=== PATIENT | female | born 1975 | race Caucasian/White ===

== ENCOUNTER 2021-04-29 17:18 | Emergency (ER) | payer BC ==
--- OUTSIDE RECORDS SUMMARY | 2021-04-29 17:29 | XMS REPORT | Continuity of Care Document ---
:1975 Author Organization [facility] t Address [address] [place] [address] [address] [place] [address] Care Team Providers Name Role Phone VAZQUEZ HICKMAN Primary Care Physician Unavailable GC_TRAVONC_Nenita_Rogerio Attending Clinician Unavailable Jeffry Gutierres Attending Clinician [phone] MARIE Attending Clinician Unavailable LENNOX WATSON Attending Clinician Unavailable CATALINO Attending Clinician Unavailable Nurse, Pob Immunization Attending Clinician Unavailable Lennox Watson DO Attending Clinician Alisa Senior MD Attending Clinician Alisa SENIOR Attending Clinician Unavailable ANTUNEZ, CAM Attending Clinician Unavailable Santana LYNN, Brendan Attending Clinician Unavailable Alisa Waters MD Attending Clinician Oliver Alanis PTA Attending Clinician Unavailable Alisa WATERS Attending Clinician Unavailable Doctor Unassigned, Name Attending Clinician Unavailable Zeke GUERRA, F Attending Clinician Unavailable Camron Bobo PT Attending Clinician Unavailable Radiology Attending Clinician Unavailable RADIOLOGY Attending Clinician Unavailable Lab, Fam Pob I Attending Clinician Unavailable Jonnathan GUPTA Attending Clinician Gonsalo GUPTA Attending Clinician JONNATHAN Attending Clinician Unavailable Eleuterio ROMO Attending Clinician ELEUTERIO Attending Clinician Unavailable MD Savita SALAZAR Attending Clinician Unavailable CRISTOBAL Attending Clinician Unavailable Heather Lawrence Attending Clinician Heather LEIVA Attending Clinician Unavailable Tariq GUPTA Attending Clinician Provider, Urgent Care Attending Clinician Unavailable TARIQ Attending Clinician Unavailable Brendan HAMILTON Attending Clinician Unavailable Cristobal PATEL Attending Clinician WALTER Attending Clinician Unavailable Felicita HULL, A Attending Clinician Unavailable Pedro GUPTA Attending Clinician Sarah HULL Attending Clinician Unavailable Sydnee GUPTA, B Attending Clinician Jarvis BEARD Attending Clinician Unavailable Pasha PT G Attending Clinician Unavailable Pob, Lab Main Attending Clinician Unavailable Brendan SOLIS Attending Clinician Unavailable COTY Attending Clinician Unavailable PATRICIA_CARLOS_Nenita_Rogerio Admitting Clinician Unavailable MARIE Admitting Clinician Unavailable MD Savita SALAZAR Admitting Clinician Unavailable Jarvis BEARD Admitting Clinician Unavailable Brendan SOLIS Admitting Clinician Unavailable JONNATHAN Admitting Clinician Unavailable Payers Payer Name Policy Type Policy Number Effective Date Expiration Date S ource [id number] 2014 EMPLOYEE PLAN 00:00:00 [id number] 2017 00:00:00 [place] [id number] 2017 [place] (PPO) 00:00:00 Problems Condition Condition Condition Status Onset Resolution Last Treating Co mments Source Name Details Category Date Date Treatment Clinician Date Midline Midline Disease Active 2020-0 Univers low back low back 2-06 ity of pain with pain with 00:00: [place] left-sided left-sided 00 Me dical sciatica, sciatica, Bran ch unspecifie unspecifie d d chronicity chronicity 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 2-06 ity of knee, knee, 00:00: [place] right right 00 Medical Branch 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[facility] depressive depressive 2-06 [place] of disorder, disorder, [place] recurrent [place] Med[place] raj episode, episode, Branch mild mild Panic Panic Disease Active 2020-0 [facility] attack attack 2-06 ity of 00:00: [place] 00 Medical Branch 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 2020-0 Univers complex complex 2-06 ity of tear of tear of 00:00: [place] medial medial 00 Medical meniscus meniscus Branch of right of right knee knee Plantar Plantar Disease Active Univers fasciitis, fasciitis, 2-06 it y of right right 00:00: [place] [facility] Left hip Left hip Disease Active Unive rs pain pain 2-06 ity of 00:00: [place] [facility] Screening Screening Disease Active Uni vers for for 2-06 ity of diabetes diabetes 00:00: [place] mellitus mellitus 00 Medica l Branch Tobacco Tobacco Disease Active Univers dependence dependence 2-06 it y of 00:00: [place] [facility] Elevated Elevated Disease Active Unive rs BP without BP without 2-06 it y of diagnosis diagnosis 00:00: [place] [facility] of of Medical hypertensi hypertensi Br anch on on Obesity Obesity Disease Active Univers (BMI (BMI 7-02 ity of 30-39.9) 30-39.9) 00:00: [place] [facility] Right foot Right foot Disease Active U nivers pain pain 4-07 ity of 00:00: Medical Branch Right knee Right knee Disease Active 2014-05 U nivers pain pain 0-12 ity of 00:00: [place] [facility] Allergies, Adverse Reactions, Alerts Allergy Allergy Status Severity Reaction(s) Onset Inactive Treating Comm ents Source Name Type Date Date Clinician Betameth Propensi Active Itching Unive rs asone ty to 7 ity of Acet,Sod adverse 00:00: [place] Phos reaction 00 Medical s Branch Sulfa Propensi Active Itching Univers (Sulfona ty to 7 ity of mide adverse 00:00: [place] Antibiot reaction 00 Medica l ics) s Branch BETAMETH DRUG Active Med ITCHING Univers ASONE 731 ity of ACET,SOD 00:00: [place] PHOS 00 Medical Branch SULFA Drug Active Med ITCHING Univers (SULFONA Class 7- ity of MIDE 00:00: [place] ANTIBIOT 00 Medical ICS) Branch Social History Social Habit Start Date Stop Date Quantity Comments Source History of Cigarette Smoker Universi ty of tobacco use [place] [facility] Exposure to Not sure [place] of SARS-CoV-2 [place] [facility] (event) Branch Alcohol intake 2020-05-25 2020-05-25 0 /d University of 00:00:00 00:00:00 [facility] Tobacco use and 2015-02-21 2015-02-21 Never used Universit y of exposure 00:00:00 00:00:00 [facility] Sex [birth year] At [birth year] Universit y of 00:00:00 00:00:00 [facility] Smoking Status Start Date Stop Date Source Current every day smoker 2015-02-21 00:00:00 Uni versity of [facility] Medications Ordered Filled Start Stop Current Ordering Indication Dosage Frequency Signature Comments Components Source Medication Medication Date Date Medication? Clinician (SIG) Name Name benzonatate 2020- No [id number] 100mg Take 1 Univers (TESSALON 105 -20 capsule by ity of [employer]) 100 00:00: 05:59 mouth 3 [place] mg capsule 00 :00 (three) Medica l times Branch daily for 14 days. benzonatate 2020- No [id number] 100mg Take 1 Univers (TESSALON 1-20 capsule by ity of [employer]) 100 00:00: 05:59 mouth 3 [place] mg capsule 00 :00 (three) Medica l times Branch daily for 14 days. benzonatate 2020- No [id number] 100mg Take 1 Univers (TESSALON 1-05 -20 capsule by ity of [employer]) 100 00:00: 05:59 mouth 3 [place] mg capsule 00 :00 (three) Medica l times Branch daily for 14 days. benzonatate 2020- No [id number] 100mg Take 1 Univers (TESSALON 105 -20 capsule by ity of [employer]) 100 00:00: 05:59 mouth 3 [place] mg capsule 00 :00 (three) Medica l times Branch daily for 14 days. benzonatate 2020- No [id number] 100mg Take 1 Univers (TESSALON 1-05 -20 capsule by ity of [employer]) 100 00:00: 05:59 mouth 3 [place] mg capsule 00 :00 (three) Medica l times Branch daily for 14 days. azithromyci 2019-1 Yes [id number] 250mg Take 1 Univers n 250 mg 2-28 tablet by ity of tablet 00:00: mouth [place] 00 daily. Medical Take 500 Branch mg day 1, then 250 mg days 2 to 5. azithromyci 2019- Yes [id number] 250mg Take 1 Univers n 250 mg 2-28 tablet by ity of tablet 00:00: mouth [place] 00 daily. Medical Take 500 Branch mg day 1, then 250 mg days 2 to 5. azithromyci 2019- Yes [id number] 250mg Take 1 Univers n 250 mg 2-28 tablet by ity of tablet 00:00: mouth [place] 00 daily. Medical Take 500 Branch mg day 1, then 250 mg days 2 to 5. azithromyci 2019-05 Yes [id number] 250mg Take 1 Univers n 250 mg 2-28 tablet by ity of tablet 00:00: mouth [place] 00 daily. Medical Take 500 Branch mg day 1, then 250 mg days 2 to 5. azithromyci 2019-05 Yes [id number] 250mg Take 1 Univers n 250 mg 2-28 tablet by ity of tablet 00:00: mouth [place] 00 daily. Medical Take 500 Branch mg day 1, then 250 mg days 2 to 5. azithromyci 2019-05 Yes [id number] 250mg Take 1 Univers n 250 mg 2-28 tablet by ity of tablet 00:00: mouth [place] 00 daily. Medical Take 500 Branch mg day 1, then 250 mg days 2 to 5. azithromyci 2019-05 Yes [id number] 250mg Take 1 Univers n 250 mg 2-28 tablet by ity of tablet 00:00: mouth [place] 00 daily. Medical Take 500 Branch mg day 1, then 250 mg days 2 to 5. azithromyci 2019-05 Yes [id number] 250mg Take 1 Univers n 250 mg 2-28 tablet by ity of tablet 00:00: mouth [place] 00 daily. Medical Take 500 Branch mg day 1, then 250 mg days 2 to 5. azithromyci 2019-05 Yes [id number] 250mg Take 1 Univers n 250 mg 2-28 tablet by ity of tablet 00:00: mouth [place] 00 daily. Medical Take 500 Branch mg day 1, then 250 mg days 2 to 5. azithromyci 2019-05 Yes [id number] 250mg Take 1 Univers n 250 mg 2-28 tablet by ity of tablet 00:00: mouth [place] 00 daily. Medical Take 500 Branch mg day 1, then 250 mg days 2 to 5. azithromyci 2020- Yes [id number] 250mg Take 1 Univers n 250 mg 2-28 tablet by ity of tablet 00:00: mouth [place] 00 daily. Medical Take 500 Branch mg day 1, then 250 mg days 2 to 5. azithromyci 2020- Yes [id number] 250mg Take 1 Univers n 250 mg 2-28 tablet by ity of tablet 00:00: mouth [place] 00 daily. Medical Take 500 Branch mg day 1, then 250 mg days 2 to 5. azithromyci 2020- Yes [id number] 250mg Take 1 Univers n 250 mg 2-28 tablet by ity of tablet 00:00: mouth [place] 00 daily. Medical Take 500 Branch mg day 1, then 250 mg days 2 to 5. azithromyci 2019- Yes [id number] 250mg Take 1 Univers n 250 mg 2-28 tablet by ity of tablet 00:00: mouth [place] 00 daily. Medical Take 500 Branch mg day 1, then 250 mg days 2 to 5. azithromyci 2019- Yes [id number] 250mg Take 1 Univers n 250 mg 2-28 tablet by ity of tablet 00:00: mouth [place] 00 daily. Medical Take 500 Branch mg day 1, then 250 mg days 2 to 5. azithromyci 2019- Yes [id number] 250mg Take 1 Univers n 250 mg 2-28 tablet by ity of tablet 00:00: mouth [place] 00 daily. Medical Take 500 Branch mg day 1, then 250 mg days 2 to 5. azithromyci 2019- Yes [id number] 250mg Take 1 Univers n 250 mg 2-28 tablet by ity of tablet 00:00: mouth [place] 00 daily. Medical Take 500 Branch mg day 1, then 250 mg days 2 to 5. azithromyci 2019- Yes [id number] 250mg Take 1 Univers n 250 mg 2-28 tablet by ity of tablet 00:00: mouth [place] 00 daily. Medical Take 500 Branch mg day 1, then 250 mg days 2 to 5. azithromyci 2019- Yes [id number] 250mg Take 1 Univers n 250 mg 2-28 tablet by ity of tablet 00:00: mouth [place] 00 daily. Medical Take 500 Branch mg day 1, then 250 mg days 2 to 5. azithromyci 2020- Yes [id number] 250mg Take 1 Univers n 250 mg 2-28 tablet by ity of tablet 00:00: mouth [place] 00 daily. Medical Take 500 Branch mg day 1, then 250 mg days 2 to 5. azithromyci 2020- Yes [id number] 250mg Take 1 Univers n 250 mg 2-28 tablet by ity of tablet 00:00: mouth [place] 00 daily. Medical Take 500 Branch mg day 1, then 250 mg days 2 to 5. azithromyci 2019- Yes [id number] 250mg Take 1 Univers n 250 mg 2-28 tablet by ity of tablet 00:00: mouth [place] 00 daily. Medical Take 500 Branch mg day 1, then 250 mg days 2 to 5. azithromyci 2019- Yes [id number] 250mg Take 1 Univers n 250 mg 2-28 tablet by ity of tablet 00:00: mouth [place] 00 daily. Medical Take 500 Branch mg day 1, then 250 mg days 2 to 5. azithromyci 2019- Yes [id number] 250mg Take 1 Univers n 250 mg 2-28 tablet by ity of tablet 00:00: mouth [place] 00 daily. Medical Take 500 Branch mg day 1, then 250 mg days 2 to 5. azithromyci 2019- Yes [id number] 250mg Take 1 Univers n 250 mg 2-28 tablet by ity of tablet 00:00: mouth [place] 00 daily. Medical Take 500 Branch mg day 1, then 250 mg days 2 to 5. azithromyci 2019- Yes [id number] 250mg Take 1 Univers n 250 mg 2-28 tablet by ity of tablet 00:00: mouth [place] 00 daily. Medical Take 500 Branch mg day 1, then 250 mg days 2 to 5. azithromyci 2019- Yes [id number] 250mg Take 1 Univers n 250 mg 2-28 tablet by ity of tablet 00:00: mouth [place] 00 daily. Medical Take 500 Branch mg day 1, then 250 mg days 2 to 5. azithromyci 2019- Yes [id number] 250mg Take 1 Univers n 250 mg 2-28 tablet by ity of tablet 00:00: mouth [place] 00 daily. Medical Take 500 Branch mg day 1, then 250 mg days 2 to 5. azithromyci 2019-05 Yes [id number] 250mg Take 1 Univers n 250 mg 2-28 tablet by ity of tablet 00:00: mouth [place] 00 daily. Medical Take 500 Branch mg day 1, then 250 mg days 2 to 5. azithromyci 2019-05 Yes [id number] 250mg Take 1 Univers n 250 mg 2-28 tablet by ity of tablet 00:00: mouth [place] 00 daily. Medical Take 500 Branch mg day 1, then 250 mg days 2 to 5. promethazin 2019-05 No [id number] 10mL Take 10 mL Univers e-codeine 07-10 by mouth ity o f 6.25-10 00:00: 05:59 every 8 [place] mg/5 mL 00 :00 (eight) Medical syrup hours as Branch needed for Cough or Cold symptoms for up to 7 days. Indication s: acute pain promethazin 2019-05 [id number] 10mL Take 10 mL Univers e-codeine 07-10 by mouth ity o f 6.25-10 00:00: 05:59 every 8 [place] mg/5 mL 00 :00 (eight) Medical syrup hours as Branch needed for Cough or Cold symptoms for up to 7 days. Indication s: acute pain ondansetron 2019-05 Yes [id number] 8mg Take 1 Univers (ZOFRAN 2-13 tablet by ity of ODT) 8 mg 00:00: mouth [place] disintegrat 00 every 8 Medic al ing tablet (eight) Branch hours as needed for Nausea and Vomiting (N/V). ondansetron 2019-05 Yes [id number] 8mg Take 1 Univers (ZOFRAN 2-13 tablet by ity of ODT) 8 mg 00:00: mouth [place] disintegrat 00 every 8 Medic al ing tablet (eight) Branch hours as needed for Nausea and Vomiting (N/V). ondansetron 2019-05 Yes [id number] 8mg Take 1 Univers (ZOFRAN 2-13 tablet by ity of ODT) 8 mg 00:00: mouth [place] disintegrat 00 every 8 Medic al ing tablet (eight) Branch hours as needed for Nausea and Vomiting (N/V). ondansetron 2019-05 Yes [id number] 8mg Take 1 Univers (ZOFRAN 2-13 tablet by ity of ODT) 8 mg 00:00: mouth [place] disintegrat 00 every 8 Medic al ing tablet (eight) Branch hours as needed for Nausea and Vomiting (N/V). ondansetron 2020-1 Yes [id number] 8mg Take 1 Univers (ZOFRAN 2-13 tablet by ity of ODT) 8 mg 00:00: mouth [place] disintegrat 00 every 8 Medic al ing tablet (eight) Branch hours as needed for Nausea and Vomiting (N/V). ondansetron 2020-1 Yes [id number] 8mg Take 1 Univers (ZOFRAN 2-13 tablet by ity of ODT) 8 mg 00:00: mouth [place] disintegrat 00 every 8 Medic al ing tablet (eight) Branch hours as needed for Nausea and Vomiting (N/V). ondansetron 2020-1 Yes [id number] 8mg Take 1 Univers (ZOFRAN 2-13 tablet by ity of ODT) 8 mg 00:00: mouth [place] disintegrat 00 every 8 Medic al ing tablet (eight) Branch hours as needed for Nausea and Vomiting (N/V). ondansetron 2020-1 Yes [id number] 8mg Take 1 Univers (ZOFRAN 2-13 tablet by ity of ODT) 8 mg 00:00: mouth [place] disintegrat 00 every 8 Medic al ing tablet (eight) Branch hours as needed for Nausea and Vomiting (N/V). ondansetron 2020-1 Yes [id number] 8mg Take 1 Univers (ZOFRAN 2-13 tablet by ity of ODT) 8 mg 00:00: mouth [place] disintegrat 00 every 8 Medic al ing tablet (eight) Branch hours as needed for Nausea and Vomiting (N/V). ondansetron 2020-1 Yes [id number] 8mg Take 1 Univers (ZOFRAN 2-13 tablet by ity of ODT) 8 mg 00:00: mouth [place] disintegrat 00 every 8 Medic al ing tablet (eight) Branch hours as needed for Nausea and Vomiting (N/V). ondansetron 2020-1 Yes [id number] 8mg Take 1 Univers (ZOFRAN 2-13 tablet by ity of ODT) 8 mg 00:00: mouth [place] disintegrat 00 every 8 Medic al ing tablet (eight) Branch hours as needed for Nausea and Vomiting (N/V). ondansetron 2020-1 Yes [id number] 8mg Take 1 Univers (ZOFRAN 2-13 tablet by ity of ODT) 8 mg 00:00: mouth [place] disintegrat 00 every 8 Medic al ing tablet (eight) Branch hours as needed for Nausea and Vomiting (N/V). ondansetron 2020- Yes [id number] 8mg Take 1 Univers (ZOFRAN 2-13 tablet by ity of ODT) 8 mg 00:00: mouth [place] disintegrat 00 every 8 Medic al ing tablet (eight) Branch hours as needed for Nausea and Vomiting (N/V). ondansetron 2020- Yes [id number] 8mg Take 1 Univers (ZOFRAN 2-13 tablet by ity of ODT) 8 mg 00:00: mouth [place] disintegrat 00 every 8 Medic al ing tablet (eight) Branch hours as needed for Nausea and Vomiting (N/V). ondansetron 2020- Yes [id number] 8mg Take 1 Univers (ZOFRAN 2-13 tablet by ity of ODT) 8 mg 00:00: mouth [place] disintegrat 00 every 8 Medic al ing tablet (eight) Branch hours as needed for Nausea and Vomiting (N/V). ondansetron 2020- Yes [id number] 8mg Take 1 Univers (ZOFRAN 2-13 tablet by ity of ODT) 8 mg 00:00: mouth [place] disintegrat 00 every 8 Medic al ing tablet (eight) Branch hours as needed for Nausea and Vomiting (N/V). ondansetron 2020- Yes [id number] 8mg Take 1 Univers (ZOFRAN 2-13 tablet by ity of ODT) 8 mg 00:00: mouth [place] disintegrat 00 every 8 Medic al ing tablet (eight) Branch hours as needed for Nausea and Vomiting (N/V). ondansetron 2020- Yes [id number] 8mg Take 1 Univers (ZOFRAN 2-13 tablet by ity of ODT) 8 mg 00:00: mouth [place] disintegrat 00 every 8 Medic al ing tablet (eight) Branch hours as needed for Nausea and Vomiting (N/V). ondansetron 2020- Yes [id number] 8mg Take 1 Univers (ZOFRAN 2-13 tablet by ity of ODT) 8 mg 00:00: mouth [place] disintegrat 00 every 8 Medic al ing tablet (eight) Branch hours as needed for Nausea and Vomiting (N/V). ondansetron 2020-1 Yes [id number] 8mg Take 1 Univers (ZOFRAN 2-13 tablet by ity of ODT) 8 mg 00:00: mouth [place] disintegrat 00 every 8 Medic al ing tablet (eight) Branch hours as needed for Nausea and Vomiting (N/V). ondansetron 2020-1 Yes [id number] 8mg Take 1 Univers (ZOFRAN 2-13 tablet by ity of ODT) 8 mg 00:00: mouth [place] disintegrat 00 every 8 Medic al ing tablet (eight) Branch hours as needed for Nausea and Vomiting (N/V). ondansetron 2020-1 Yes [id number] 8mg Take 1 Univers (ZOFRAN 2-13 tablet by ity of ODT) 8 mg 00:00: mouth [place] disintegrat 00 every 8 Medic al ing tablet (eight) Branch hours as needed for Nausea and Vomiting (N/V). ondansetron 2020-1 Yes [id number] 8mg Take 1 Univers (ZOFRAN 2-13 tablet by ity of ODT) 8 mg 00:00: mouth [place] disintegrat 00 every 8 Medic al ing tablet (eight) Branch hours as needed for Nausea and Vomiting (N/V). ondansetron 2020-1 Yes [id number] 8mg Take 1 Univers (ZOFRAN 2-13 tablet by ity of ODT) 8 mg 00:00: mouth [place] disintegrat 00 every 8 Medic al ing tablet (eight) Branch hours as needed for Nausea and Vomiting (N/V). ondansetron 2020-1 Yes [id number] 8mg Take 1 Univers (ZOFRAN 2-13 tablet by ity of ODT) 8 mg 00:00: mouth [place] disintegrat 00 every 8 Medic al ing tablet (eight) Branch hours as needed for Nausea and Vomiting (N/V). ondansetron 2020-1 Yes [id number] 8mg Take 1 Univers (ZOFRAN 2-13 tablet by ity of ODT) 8 mg 00:00: mouth [place] disintegrat 00 every 8 Medic al ing tablet (eight) Branch hours as needed for Nausea and Vomiting (N/V). ondansetron 2020-1 Yes [id number] 8mg Take 1 Univers (ZOFRAN 2-13 tablet by ity of ODT) 8 mg 00:00: mouth [place] disintegrat 00 every 8 Medic al ing tablet (eight) Branch hours as needed for Nausea and Vomiting (N/V). ondansetron 2020-1 Yes [id number] 8mg Take 1 Univers (ZOFRAN 2-13 tablet by ity of ODT) 8 mg 00:00: mouth [place] disintegrat 00 every 8 Medic al ing tablet (eight) Branch hours as needed for Nausea and Vomiting (N/V). ondansetron 2020- Yes [id number] 8mg Take 1 Univers (ZOFRAN 2-13 tablet by ity of ODT) 8 mg 00:00: mouth [place] disintegrat 00 every 8 Medic al ing tablet (eight) Branch hours as needed for Nausea and Vomiting (N/V). ondansetron 2019- Yes [id number] 8mg Take 1 Univers (ZOFRAN 2-13 tablet by ity of ODT) 8 mg 00:00: mouth [place] disintegrat 00 every 8 Medic al ing tablet (eight) Branch hours as needed for Nausea and Vomiting (N/V). ondansetron 2019- Yes [id number] 8mg Take 1 Univers (ZOFRAN 2-13 tablet by ity of ODT) 8 mg 00:00: mouth [place] disintegrat 00 every 8 Medic al ing tablet (eight) Branch hours as needed for Nausea and Vomiting (N/V). acetaminoph 2019-05 2020- No [id number] 1{tbl} Take 1 U nivers en-codeine 2-13 12-21 tablet by ity of (TYLENOL-CO 00:00: 05:59 [place] DEINE #3) 00 :00 every 6 Medical 300-30 mg (six) Branch tablet hours as needed for Pain (scale 4-6) for up to 7 days. Indication s: acute pain ondansetron 2019- No 4mg 4 mg, Slow Univers (ZOFRAN 8-28 12- IV Push, ity of (PF)) 00:15: 23:14 ONCE, 1 [place] injection 4 00 :00 dose, Mon Med ical mg 12/28/19 at Branch 191, PAZ ketorolac 2019- No 30mg 30 mg, Unive rs (TORADOL) 12-28 Slow IV ity of injection 00:15: 23:14 Push, [place] 30 mg 00 :00 ONCE, 1 Medical dose, Mon Branch 12/28/19 at 1915, PAZ
[facility] member approving Restricted medication : TARIK PRAJAPATI iohexol 2019-0 2020- No 100mL 100 mL, Unive rs (OMNIPAQUE 12-28 Intravenou it y of 350 00:00: 23:54 s, ONCE, 1 [place] BULK-100 00 :00 dose, Mon Medica l mL) 12/28/19 at Branch injection 1900, 100 mL Routine dicyclomine 2020-0 Yes [id number] 20mg Take 1 Univers 20 mg 8-17 tablet by ity of tablet 00:00: mouth [place] 00 every 6 Medical (six) Branch hours as needed for Abdominal pain. ibuprofen 2020-0 Yes [id number] 800mg Take 1 Univers 800 mg 8-17 [id number] tablet by ity of tablet 00:00: mouth [place] 00 every 6 Medical (six) Branch hours as needed for Pain (scale 1-3) or Pain (scale 4-6). dicyclomine 2020-0 Yes [id number] 20mg Take 1 Univers 20 mg 8-17 tablet by ity of tablet 00:00: mouth [place] 00 every 6 Medical (six) Branch hours as needed for Abdominal pain. ibuprofen 2020-0 Yes [id number] 800mg Take 1 Univers 800 mg 8-17 [id number] tablet by ity of tablet 00:00: mouth [place] 00 every 6 Medical (six) Branch hours as needed for Pain (scale 1-3) or Pain (scale 4-6). dicyclomine 2020-0 Yes [id number] 20mg Take 1 Univers 20 mg 8-17 tablet by ity of tablet 00:00: mouth [place] 00 every 6 Medical (six) Branch hours as needed for Abdominal pain. ibuprofen 2020-0 Yes [id number] 800mg Take 1 Univers 800 mg 8-17 [id number] tablet by ity of tablet 00:00: mouth [place] 00 every 6 Medical (six) Branch hours as needed for Pain (scale 1-3) or Pain (scale 4-6). dicyclomine 2020-0 Yes [id number] 20mg Take 1 Univers 20 mg 8-17 tablet by ity of tablet 00:00: mouth [place] 00 every 6 Medical (six) Branch hours as needed for Abdominal pain. ibuprofen 2020-0 Yes [id number] 800mg Take 1 Univers 800 mg 8-17 [id number] tablet by ity of tablet 00:00: mouth [place] 00 every 6 Medical (six) Branch hours as needed for Pain (scale 1-3) or Pain (scale 4-6). dicyclomine 2020-0 Yes [id number] 20mg Take 1 Univers 20 mg 8-17 tablet by ity of tablet 00:00: mouth [place] 00 every 6 Medical (six) Branch hours as needed for Abdominal pain. ibuprofen 2020-0 Yes [id number] 800mg Take 1 [facility] 800 mg 8-17 [id number] tablet by ity of tablet 00:00: mouth [place] 00 every 6 Medical (six) Branch hours as needed for Pain (scale 1-3) or Pain (scale 4-6). dicyclomine 2020-0 Yes [id number] 20mg Take 1 Univers 20 mg 8-17 tablet by ity of tablet 00:00: mouth [place] 00 every 6 Medical (six) Branch hours as needed for Abdominal pain. dicyclomine 2020-0 Yes [id number] 20mg Take 1 Univers 20 mg 8-17 tablet by ity of tablet 00:00: mouth [place] 00 every 6 Medical (six) Branch hours as needed for Abdominal pain. dicyclomine 2020-0 Yes [id number] 20mg Take 1 Univers 20 mg 8-17 tablet by ity of tablet 00:00: mouth [place] 00 every 6 Medical (six) Branch hours as needed for Abdominal pain. ibuprofen 2020-0 Yes [id number] 800mg Take 1 [facility] 800 mg 8-17 [id number] tablet by ity of tablet 00:00: mouth [place] 00 every 6 Medical (six) Branch hours as needed for Pain (scale 1-3) or Pain (scale 4-6). dicyclomine 2020-0 Yes [id number] 20mg Take 1 [facility] 20 mg 8-17 tablet by ity of tablet 00:00: mouth [place] 00 every 6 Medical (six) Branch hours as needed for Abdominal pain. ibuprofen 2020-0 Yes [id number] 800mg Take 1 Univers 800 mg 8-17 [id number] tablet by ity of tablet 00:00: mouth [place] 00 every 6 Medical (six) Branch hours as needed for Pain (scale 1-3) or Pain (scale 4-6). dicyclomine 2020-0 Yes [id number] 20mg Take 1 Univers 20 mg 8-17 tablet by ity of tablet 00:00: mouth [place] 00 every 6 Medical (six) Branch hours as needed for Abdominal pain. dicyclomine 2020-0 Yes [id number] 20mg Take 1 Univers 20 mg 8-17 tablet by [facility] of tablet 00:00: mouth [place] 00 every 6 Medical (six) Branch hours as needed for Abdominal pain. dicyclomine 2020-0 Yes [id number] 20mg Take 1 [facility] 20 mg 8-17 tablet by [facility] of tablet 00:00: mouth [place] 00 every 6 Medical (six) Branch hours as needed for Abdominal pain. ibuprofen 2020-0 Yes [id number] 800mg Take 1 [facility] 800 mg 8-17 [id number] tablet by [facility] of tablet 00:00: mouth [place] 00 every 6 Medical (six) Branch hours as needed for Pain (scale 1-3) or Pain (scale 4-6). dicyclomine 2020-0 Yes [id number] 20mg Take 1 [facility] 20 mg 8-17 tablet by [facility] of tablet 00:00: mouth [place] 00 every 6 Medical (six) Branch hours as needed for Abdominal pain. ibuprofen 2020-0 Yes [id number] 800mg Take 1 [facility] 800 mg 8-17 [id number] tablet by [facility] of tablet 00:00: mouth [place] 00 every 6 Medical (six) Branch hours as needed for Pain (scale 1-3) or Pain (scale 4-6). dicyclomine 2020-0 Yes [id number] 20mg Take 1 [facility] 20 mg 8-17 tablet by [facility] of tablet 00:00: mouth [place] 00 every 6 Medical (six) Branch hours as needed for Abdominal pain. ibuprofen 2020-0 Yes [id number] 800mg Take 1 [facility] 800 mg 8-17 [id number] tablet by [facility] of tablet 00:00: mouth [place] 00 every 6 Medical (six) Branch hours as needed for Pain (scale 1-3) or Pain (scale 4-6). dicyclomine 2020-0 Yes [id number] 20mg Take 1 [facility] 20 mg 8-17 tablet by [facility] of tablet 00:00: mouth [place] 00 every 6 Medical (six) Branch hours as needed for Abdominal pain. ibuprofen 2020-0 Yes [id number] 800mg Take 1 [facility] 800 mg 8-17 [id number] tablet by [facility] of tablet 00:00: mouth [place] 00 every 6 Medical (six) Branch hours as needed for Pain (scale 1-3) or Pain (scale 4-6). dicyclomine 2020-0 Yes [id number] 20mg Take 1 [facility] 20 mg 8-17 tablet by [facility] of tablet 00:00: mouth [place] 00 every 6 Medical (six) Branch hours as needed for Abdominal pain. ibuprofen 2020-0 Yes [id number] 800mg Take 1 [facility] 800 mg 8-17 [id number] tablet by [facility] of tablet 00:00: mouth [place] 00 every 6 Medical (six) Branch hours as needed for Pain (scale 1-3) or Pain (scale 4-6). dicyclomine 2020-0 Yes [id number] 20mg Take 1 [facility] 20 mg 8-17 tablet by [facility] of tablet 00:00: mouth [place] 00 every 6 Medical (six) Branch hours as needed for Abdominal pain. ibuprofen 2020-0 Yes [id number] 800mg Take 1 [facility] 800 mg 8-17 [id number] tablet by [facility] of tablet 00:00: mouth [place] 00 every 6 Medical (six) Branch hours as needed for Pain (scale 1-3) or Pain (scale 4-6). dicyclomine 2020-0 Yes [id number] 20mg Take 1 [facility] 20 mg 8-17 tablet by [facility] of tablet 00:00: mouth [place] 00 every 6 Medical (six) Branch hours as needed for Abdominal pain. ibuprofen 2020-0 Yes [id number] 800mg Take 1 [facility] 800 mg 8-17 [id number] tablet by [facility] of tablet 00:00: mouth [place] 00 every 6 Medical (six) Branch hours as needed for Pain (scale 1-3) or Pain (scale 4-6). dicyclomine 2020-0 Yes [id number] 20mg Take 1 [facility] 20 mg 8-17 tablet by [facility] of tablet 00:00: mouth [place] 00 every 6 Medical (six) Branch hours as needed for Abdominal pain. ibuprofen 2020-0 Yes [id number] 800mg Take 1 [facility] 800 mg 8-17 [id number] tablet by [facility] of tablet 00:00: mouth [place] 00 every 6 Medical (six) Branch hours as needed for Pain (scale 1-3) or Pain (scale 4-6). dicyclomine 2020-0 Yes [id number] 20mg Take 1 [facility] 20 mg 8-17 tablet by [facility] of tablet 00:00: mouth [place] 00 every 6 Medical (six) Branch hours as needed for Abdominal pain. ibuprofen 2020-0 Yes [id number] 800mg Take 1 [facility] 800 mg 8-17 [id number] tablet by [facility] of tablet 00:00: mouth [place] 00 every 6 Medical (six) Branch hours as needed for Pain (scale 1-3) or Pain (scale 4-6). dicyclomine 2020-0 Yes [id number] 20mg Take 1 [facility] 20 mg 8-17 tablet by [facility] of tablet 00:00: mouth [place] 00 every 6 Medical (six) Branch hours as needed for Abdominal pain. ibuprofen 2020-0 Yes [id number] 800mg Take 1 [facility] 800 mg 8-17 [id number] tablet by [facility] of tablet 00:00: mouth [place] 00 every 6 Medical (six) Branch hours as needed for Pain (scale 1-3) or Pain (scale 4-6). dicyclomine 2020-0 Yes [id number] 20mg Take 1 [facility] 20 mg 8-17 tablet by [facility] of tablet 00:00: mouth [place] 00 every 6 Medical (six) Branch hours as needed for Abdominal pain. ibuprofen 2020-0 Yes [id number] 800mg Take 1 [facility] 800 mg 8-17 [id number] tablet by [facility] of tablet 00:00: mouth [place] 00 every 6 Medical (six) Branch hours as needed for Pain (scale 1-3) or Pain (scale 4-6). dicyclomine 2020-0 Yes [id number] 20mg Take 1 [facility] 20 mg 8-17 tablet by [facility] of tablet 00:00: mouth [place] 00 every 6 Medical (six) Branch hours as needed for Abdominal pain. ibuprofen 2020-0 Yes [id number] 800mg Take 1 [facility] 800 mg 8-17 [id number] tablet by [facility] of tablet 00:00: mouth [place] 00 every 6 Medical (six) Branch hours as needed for Pain (scale 1-3) or Pain (scale 4-6). dicyclomine 2020-0 Yes [id number] 20mg Take 1 [facility] 20 mg 8-17 tablet by [facility] of tablet 00:00: mouth [place] 00 every 6 Medical (six) Branch hours as needed for Abdominal pain. ibuprofen 2020-0 Yes [id number] 800mg Take 1 [facility] 800 mg 8-17 [id number] tablet by [facility] of tablet 00:00: mouth [place] 00 every 6 Medical (six) Branch hours as needed for Pain (scale 1-3) or Pain (scale 4-6). dicyclomine 2020-0 Yes [id number] 20mg Take 1 [facility] 20 mg 8-17 tablet by [facility] of tablet 00:00: mouth [place] 00 every 6 Medical (six) Branch hours as needed for Abdominal pain. ibuprofen 2020-0 Yes [id number] 800mg Take 1 [facility] 800 mg 8-17 [id number] tablet by [facility] of tablet 00:00: mouth [place] 00 every 6 Medical (six) Branch hours as needed for Pain (scale 1-3) or Pain (scale 4-6). dicyclomine 2020-0 Yes [id number] 20mg Take 1 [facility] 20 mg 8-17 tablet by [facility] of tablet 00:00: mouth [place] 00 every 6 Medical (six) Branch hours as needed for Abdominal pain. ibuprofen 2020-0 Yes [id number] 800mg Take 1 [facility] 800 mg 8-17 [id number] tablet by [facility] of tablet 00:00: mouth [place] 00 every 6 Medical (six) Branch hours as needed for Pain (scale 1-3) or Pain (scale 4-6). dicyclomine 2020-0 Yes [id number] 20mg Take 1 [facility] 20 mg 8-17 tablet by [facility] of tablet 00:00: mouth [place] 00 every 6 Medical (six) Branch hours as needed for Abdominal pain. ibuprofen 2020-0 Yes [id number] 800mg Take 1 [facility] 800 mg 8-17 [id number] tablet by [facility] of tablet 00:00: mouth [place] 00 every 6 Medical (six) Branch hours as needed for Pain (scale 1-3) or Pain (scale 4-6). dicyclomine 2020-0 Yes [id number] 20mg Take 1 [facility] 20 mg 8-17 tablet by [facility] of tablet 00:00: mouth [place] 00 every 6 Medical (six) Branch hours as needed for Abdominal pain. ibuprofen 2020-0 Yes [id number] 800mg Take 1 [facility] 800 mg 8-17 [id number] tablet by [facility] of tablet 00:00: mouth [place] 00 every 6 Medical (six) Branch hours as needed for Pain (scale 1-3) or Pain (scale 4-6). dicyclomine 2020-0 Yes [id number] 20mg Take 1 [facility] 20 mg 8-17 tablet by [facility] of tablet 00:00: mouth [place] 00 every 6 Medical (six) Branch hours as needed for Abdominal pain. ibuprofen 2020-0 Yes [id number] 800mg Take 1 [facility] 800 mg 8-17 [id number] tablet by [facility] of tablet 00:00: mouth [place] 00 every 6 Medical (six) Branch hours as needed for Pain (scale 1-3) or Pain (scale 4-6). dicyclomine 2020-0 Yes [id number] 20mg Take 1 [facility] 20 mg 8-17 tablet by [facility] of tablet 00:00: mouth [place] 00 every 6 Medical (six) Branch hours as needed for Abdominal pain. ibuprofen 2020-0 Yes [id number] 800mg Take 1 [facility] 800 mg 8-17 [id number] tablet by [facility] of tablet 00:00: mouth [place] 00 every 6 Medical (six) Branch hours as needed for Pain (scale 1-3) or Pain (scale 4-6). dicyclomine 2020-0 Yes [id number] 20mg Take 1 [facility] 20 mg 8-17 tablet by [facility] of tablet 00:00: mouth [place] 00 every 6 Medical (six) Branch hours as needed for Abdominal pain. ibuprofen 2020-0 Yes [id number] 800mg Take 1 [facility] 800 mg 8-17 [id number] tablet by [facility] of tablet 00:00: mouth [place] 00 every 6 Medical (six) Branch hours as needed for Pain (scale 1-3) or Pain (scale 4-6). dicyclomine 2020-0 Yes [id number] 20mg Take 1 [facility] 20 mg 8-17 tablet by [facility] of tablet 00:00: mouth [place] 00 every 6 Medical (six) Branch hours as needed for Abdominal pain. ibuprofen 2020-0 Yes [id number] 800mg Take 1 [facility] 800 mg 8-17 [id number] tablet by [facility] of tablet 00:00: mouth [place] 00 every 6 Medical (six) Branch hours as needed for Pain (scale 1-3) or Pain (scale 4-6). dicyclomine 2020-0 Yes [id number] 20mg Take 1 [facility] 20 mg 8-17 tablet by [facility] of tablet 00:00: mouth [place] 00 every 6 Medical (six) Branch hours as needed for Abdominal pain. ibuprofen 2020-0 Yes [id number] 800mg Take 1 [facility] 800 mg 8-17 [id number] tablet by [facility] of tablet 00:00: mouth [place] 00 every 6 Medical (six) Branch hours as needed for Pain (scale 1-3) or Pain (scale 4-6). dicyclomine 2020-0 Yes [id number] 20mg Take 1 [facility] 20 mg 8-17 tablet by [facility] of tablet 00:00: mouth [place] 00 every 6 Medical (six) Branch hours as needed for Abdominal pain. ibuprofen 2020-0 Yes [id number] 800mg Take 1 [facility] 800 mg 8-17 [id number] tablet by [facility] of tablet 00:00: mouth [place] 00 every 6 Medical (six) Branch hours as needed for Pain (scale 1-3) or Pain (scale 4-6). dicyclomine 2020-0 Yes [id number] 20mg Take 1 [facility] 20 mg 8-17 tablet by [facility] of tablet 00:00: mouth [place] 00 every 6 Medical (six) Branch hours as needed for Abdominal pain. dicyclomine 2020-0 Yes [id number] 20mg Take 1 [facility] 20 mg 8-17 tablet by [facility] of tablet 00:00: mouth [place] 00 every 6 Medical (six) Branch hours as needed for Abdominal pain. ibuprofen 2020-0 Yes [id number] 800mg Take 1 [facility] 800 mg 8-17 [id number] tablet by [facility] of tablet 00:00: mouth [place] 00 every 6 Medical (six) Branch hours as needed for Pain (scale 1-3) or Pain (scale 4-6). ibuprofen 2020-0 Yes [id number] 800mg Take 1 [facility] 800 mg 8-17 [id number] tablet by [facility] of tablet 00:00: mouth [place] 00 every 6 Medical (six) Branch hours as needed for Pain (scale 1-3) or Pain (scale 4-6). dicyclomine 2020-0 Yes [id number] 20mg Take 1 [facility] 20 mg 8-17 tablet by [facility] of tablet 00:00: mouth [place] 00 every 6 Medical (six) Branch hours as needed for Abdominal pain. ibuprofen 2020-0 Yes [id number] 800mg Take 1 [facility] 800 mg 8-17 [id number] tablet by it[facility] of tablet 00:00: mouth [place] 00 every 6 Medical (six) Branch hours as needed for Pain (scale 1-3) or Pain (scale 4-6). dicyclomine 2020-0 Yes [id number] 20mg Take 1 [facility] 20 mg 8-17 tablet by [facility] of tablet 00:00: mouth [place] 00 every 6 Medical (six) Branch hours as needed for Abdominal pain. ibuprofen 2020-0 Yes [id number] 800mg Take 1 [facility] 800 mg 8-17 [id number] tablet by it[facility] of tablet 00:00: mouth [place] 00 every 6 Medical (six) Branch hours as needed for Pain (scale 1-3) or Pain (scale 4-6). dicyclomine 2020-0 Yes [id number] 20mg Take 1 [facility] 20 mg 8-17 tablet by ity of tablet 00:00: mouth [place] 00 every 6 Medical (six) Branch hours as needed for Abdominal pain. ibuprofen 2020-0 Yes [id number] 800mg Take 1 [facility] 800 mg 8-17 [id number] tablet by it[facility] of tablet 00:00: mouth [place] 00 every 6 Medical (six) Branch hours as needed for Pain (scale 1-3) or Pain (scale 4-6). iohexol 2019-0 2020- No 120mL 120 mL, Unive rs (OMNIPAQUE 07-29 Intravenou it y of 350 00:00: 00:00 s, ONCE, 1 [place] BULK-150 00 :00 dose, Wed Medica l mL) 07/29/19 at Branch injection 1900, 120 mL Routine proMETHazin 2019-2019- No 25mg 25 mg, IV Univers e 07-29 Piggyback, ity of (PHENERGAN) 00:00: 23:04 [place]CE, 1 [place] 25 mg in 00 :00 dose, Wed Medica l NaCl 0.9% 07/29/19 at [facility] (NS) 50 mL 1900, 50 piggyback mL morpHINE 2019-0 2019- No 4mg 4 mg, Slow Un fer injection 4 07-29 IV Push, ity of mg 00:00: 23:04 ONCE, 1 [place] 00 :00 dose, Wed Medical 07/29/19 at Branch 1900, STAT ketorolac 2019-0 2020- No 15mg 15 mg, Unive rs (TORADOL) 07-29 Slow IV ity of injection 00:00: 23:04 Push, [place] 15 mg 00 :00 ONCE, 1 Medical dose, [facility] 07/29/19 at 1900, PAZ
Fa culty member approving Restricted medication : SIMRAN MCDANIEL NaCl 0.9% 2019-0 2020- No 1000mL at 999 Uni vers (NS) bolus 3-18 03-19 mL/hr, ity of infusion 23:00: 00:59 1,000 mL, [place] as 1,000 mL 00 :00 IV Medical Infusion, Branch ONCE, 1 dose, Sat07/29/19 at 1800, PAZ acetaminoph 2020-0 Yes [id number] 1{tbl} Take 1 [facility] en-codeine 3-18 tablet by ity of (TYLENOL-CO 00:00: mouth [place] DEINE #3) 00 every 6 Medical 300-30 mg (six) Branch tablet hours as needed for Pain (scale 7-10). proMETHazin 2020-0 Yes [id number] 25mg Take 1 [facility] e 25 mg 3-18 tablet by ity of tablet 00:00: mouth [place] 00 every 6 Medical (six) Branch hours as needed for Nausea and Vomiting (N/V). acetaminoph 2020-0 Yes [id number] 1{tbl} Take 1 [facility] en-codeine 3-18 tablet by ity of (TYLENOL-CO 00:00: mouth [place] DEINE #3) 00 every 6 Medical 300-30 mg (six) Branch tablet hours as needed for Pain (scale 7-10). acetaminoph 2020-0 Yes [id number] 1{tbl} Take 1 [facility] en-codeine 3-18 tablet by ity of (TYLENOL-CO 00:00: mouth [place] DEINE #3) 00 every 6 Medical 300-30 mg (six) Branch tablet hours as needed for Pain (scale 7-10). proMETHazin 2020-0 Yes [id number] 25mg Take 1 [facility] e 25 mg 3-18 tablet by ity of tablet 00:00: mouth [place] 00 every 6 Medical (six) Branch hours as needed for Nausea and Vomiting (N/V). proMETHazin 2020-0 Yes [id number] 25mg Take 1 [facility] e 25 mg 3-18 tablet by ity of tablet 00:00: mouth [place] 00 every 6 Medical (six) Branch hours as needed for Nausea and Vomiting (N/V). acetaminoph 2020-0 Yes [id number] 1{tbl} Take 1 [facility] en-codeine 3-18 tablet by ity of (TYLENOL-CO 00:00: mouth [place] DEINE #3) 00 every 6 Medical 300-30 mg (six) Branch tablet hours as needed for Pain (scale 7-10). proMETHazin 2020-0 Yes [id number] 25mg Take 1 [facility] e 25 mg 3-18 tablet by ity of tablet 00:00: mouth [place] 00 every 6 Medical (six) Branch hours as needed for Nausea and Vomiting (N/V). acetaminoph 2020-0 Yes [id number] 1{tbl} Take 1 [facility] en-codeine 3-18 tablet by ity of (TYLENOL-CO 00:00: mouth [place] DEINE #3) 00 every 6 Medical 300-30 mg (six) Branch tablet hours as needed for Pain (scale 7-10). proMETHazin 2020-0 Yes [id number] 25mg Take 1 [facility] e 25 mg 3-18 tablet by ity of tablet 00:00: mouth [place] 00 every 6 Medical (six) Branch hours as needed for Nausea and Vomiting (N/V). acetaminoph 2020-0 Yes [id number] 1{tbl} Take 1 [facility] en-codeine 3-18 tablet by ity of (TYLENOL-CO 00:00: mouth [place] DEINE #3) 00 every 6 Medical 300-30 mg (six) Branch tablet hours as needed for Pain (scale 7-10). proMETHazin 2020-0 Yes [id number] 25mg Take 1 [facility] e 25 mg 3-18 tablet by ity of tablet 00:00: mouth [place] 00 every 6 Medical (six) Branch hours as needed for Nausea and Vomiting (N/V). acetaminoph 2020-0 Yes [id number] 1{tbl} Take 1 [facility] en-codeine 3-18 tablet by ity of (TYLENOL-CO 00:00: mouth [place] DEINE #3) 00 every 6 Medical 300-30 mg (six) Branch tablet hours as needed for Pain (scale 7-10). proMETHazin 2020-0 Yes [id number] 25mg Take 1 [facility] e 25 mg 3-18 tablet by ity of tablet 00:00: mouth [place] 00 every 6 Medical (six) Branch hours as needed for Nausea and Vomiting (N/V). acetaminoph 2020-0 Yes [id number] 1{tbl} Take 1 [facility] en-codeine 3-18 tablet by ity of (TYLENOL-CO 00:00: mouth [place] DEINE #3) 00 every 6 Medical 300-30 mg (six) Branch tablet hours as needed for Pain (scale 7-10). proMETHazin 2020-0 Yes [id number] 25mg Take 1 [facility] e 25 mg 3-18 tablet by ity of tablet 00:00: mouth [place] 00 every 6 Medical (six) Branch hours as needed for Nausea and Vomiting (N/V). acetaminoph 2020-0 Yes [id number] 1{tbl} Take 1 [facility] en-codeine 3-18 tablet by ity of (TYLENOL-CO 00:00: mouth [place] DEINE #3) 00 every 6 Medical 300-30 mg (six) Branch tablet hours as needed for Pain (scale 7-10). proMETHazin 2020-0 Yes [id number] 25mg Take 1 [facility] e 25 mg 3-18 tablet by ity of tablet 00:00: mouth [place] 00 every 6 Medical (six) Branch hours as needed for Nausea and Vomiting (N/V). acetaminoph 2020-0 Yes [id number] 1{tbl} Take 1 [facility] en-codeine 3-18 tablet by ity of (TYLENOL-CO 00:00: mouth [place] DEINE #3) 00 every 6 Medical 300-30 mg (six) Branch tablet hours as needed for Pain (scale 7-10). proMETHazin 2020-0 Yes [id number] 25mg Take 1 [facility] e 25 mg 3-18 tablet by ity of tablet 00:00: mouth [place] 00 every 6 Medical (six) Branch hours as needed for Nausea and Vomiting (N/V). acetaminoph 2020-0 Yes [id number] 1{tbl} Take 1 [facility] en-codeine 3-18 tablet by ity of (TYLENOL-CO 00:00: mouth [place] DEINE #3) 00 every 6 Medical 300-30 mg (six) Branch tablet hours as needed for Pain (scale 7-10). proMETHazin 2020-0 Yes [id number] 25mg Take 1 [facility] e 25 mg 3-18 tablet by ity of tablet 00:00: mouth [place] 00 every 6 Medical (six) Branch hours as needed for Nausea and Vomiting (N/V). acetaminoph 2020-0 Yes [id number] 1{tbl} Take 1 [facility] en-codeine 3-18 tablet by ity of (TYLENOL-CO 00:00: mouth [place] DEINE #3) 00 every 6 Medical 300-30 mg (six) Branch tablet hours as needed for Pain (scale 7-10). proMETHazin 2020-0 Yes [id number] 25mg Take 1 [facility] e 25 mg 3-18 tablet by ity of tablet 00:00: mouth [place] 00 every 6 Medical (six) Branch hours as needed for Nausea and Vomiting (N/V). acetaminoph 2020-0 Yes [id number] 1{tbl} Take 1 [facility] en-codeine 3-18 tablet by ity of (TYLENOL-CO 00:00: mouth [place] DEINE #3) 00 every 6 Medical 300-30 mg (six) Branch tablet hours as needed for Pain (scale 7-10). proMETHazin 2020-0 Yes [id number] 25mg Take 1 [facility] e 25 mg 3-18 tablet by ity of tablet 00:00: mouth [place] 00 every 6 Medical (six) Branch hours as needed for Nausea and Vomiting (N/V). acetaminoph 2020-0 Yes [id number] 1{tbl} Take 1 [facility] en-codeine 3-18 tablet by ity of (TYLENOL-CO 00:00: mouth [place] DEINE #3) 00 every 6 Medical 300-30 mg (six) Branch tablet hours as needed for Pain (scale 7-10). proMETHazin 2020-0 Yes [id number] 25mg Take 1 [facility] e 25 mg 3-18 tablet by ity of tablet 00:00: mouth [place] 00 every 6 Medical (six) Branch hours as needed for Nausea and Vomiting (N/V). acetaminoph 2020-0 Yes [id number] 1{tbl} Take 1 [facility] en-codeine 3-18 tablet by ity of (TYLENOL-CO 00:00: mouth [place] DEINE #3) 00 every 6 Medical 300-30 mg (six) Branch tablet hours as needed for Pain (scale 7-10). proMETHazin 2020-0 Yes [id number] 25mg Take 1 [facility] e 25 mg 3-18 tablet by ity of tablet 00:00: mouth [place] 00 every 6 Medical (six) Branch hours as needed for Nausea and Vomiting (N/V). acetaminoph 2020-0 Yes [id number] 1{tbl} Take 1 [facility] en-codeine 3-18 tablet by ity of (TYLENOL-CO 00:00: mouth [place] DEINE #3) 00 every 6 Medical 300-30 mg (six) Branch tablet hours as needed for Pain (scale 7-10). proMETHazin 2020-0 Yes [id number] 25mg Take 1 [facility] e 25 mg 3-18 tablet by ity of tablet 00:00: mouth [place] 00 every 6 Medical (six) Branch hours as needed for Nausea and Vomiting (N/V). acetaminoph 2020-0 Yes [id number] 1{tbl} Take 1 [facility] en-codeine 3-18 tablet by ity of (TYLENOL-CO 00:00: mouth [place] DEINE #3) 00 every 6 Medical 300-30 mg (six) Branch tablet hours as needed for Pain (scale 7-10). proMETHazin 2020-0 Yes [id number] 25mg Take 1 [facility] e 25 mg 3-18 tablet by ity of tablet 00:00: mouth [place] 00 every 6 Medical (six) Branch hours as needed for Nausea and Vomiting (N/V). acetaminoph 2020-0 Yes [id number] 1{tbl} Take 1 [facility] en-codeine 3-18 tablet by ity of (TYLENOL-CO 00:00: mouth [place] DEINE #3) 00 every 6 Medical 300-30 mg (six) Branch tablet hours as needed for Pain (scale 7-10). proMETHazin 2020-0 Yes [id number] 25mg Take 1 [facility] e 25 mg 3-18 tablet by ity of tablet 00:00: mouth [place] 00 every 6 Medical (six) Branch hours as needed for Nausea and Vomiting (N/V). acetaminoph 2020-0 Yes [id number] 1{tbl} Take 1 [facility] en-codeine 3-18 tablet by ity of (TYLENOL-CO 00:00: mouth [place] DEINE #3) 00 every 6 Medical 300-30 mg (six) Branch tablet hours as needed for Pain (scale 7-10). proMETHazin 2020-0 Yes [id number] 25mg Take 1 [facility] e 25 mg 3-18 tablet by ity of tablet 00:00: mouth [place] 00 every 6 Medical (six) Branch hours as needed for Nausea and Vomiting (N/V). acetaminoph 2020-0 Yes [id number] 1{tbl} Take 1 [facility] en-codeine 3-18 tablet by ity of (TYLENOL-CO 00:00: mouth [place] DEINE #3) 00 every 6 Medical 300-30 mg (six) Branch tablet hours as needed for Pain (scale 7-10). proMETHazin 2020-0 Yes [id number] 25mg Take 1 [facility] e 25 mg 3-18 tablet by ity of tablet 00:00: mouth [place] 00 every 6 Medical (six) Branch hours as needed for Nausea and Vomiting (N/V). acetaminoph 2020-0 Yes [id number] 1{tbl} Take 1 [facility] en-codeine 3-18 tablet by ity of (TYLENOL-CO 00:00: mouth [place] DEINE #3) 00 every 6 Medical 300-30 mg (six) Branch tablet hours as needed for Pain (scale 7-10). proMETHazin 2020-0 Yes [id number] 25mg Take 1 [facility] e 25 mg 3-18 tablet by ity of tablet 00:00: mouth [place] 00 every 6 Medical (six) Branch hours as needed for Nausea and Vomiting (N/V). acetaminoph 2020-0 Yes [id number] 1{tbl} Take 1 [facility] en-codeine 3-18 tablet by ity of (TYLENOL-CO 00:00: mouth [place] DEINE #3) 00 every 6 Medical 300-30 mg (six) Branch tablet hours as needed for Pain (scale 7-10). proMETHazin 2020-0 Yes [id number] 25mg Take 1 [facility] e 25 mg 3-18 tablet by ity of tablet 00:00: mouth [place] 00 every 6 Medical (six) Branch hours as needed for Nausea and Vomiting (N/V). acetaminoph 2020-0 Yes [id number] 1{tbl} Take 1 [facility] en-codeine 3-18 tablet by ity of (TYLENOL-CO 00:00: mouth [place] DEINE #3) 00 every 6 Medical 300-30 mg (six) Branch tablet hours as needed for Pain (scale 7-10). proMETHazin 2020-0 Yes [id number] 25mg Take 1 [facility] e 25 mg 3-18 tablet by ity of tablet 00:00: mouth [place] 00 every 6 Medical (six) Branch hours as needed for Nausea and Vomiting (N/V). acetaminoph 2020-0 Yes [id number] 1{tbl} Take 1 [facility] en-codeine 3-18 tablet by ity of (TYLENOL-CO 00:00: mouth [place] DEINE #3) 00 every 6 Medical 300-30 mg (six) Branch tablet hours as needed for Pain (scale 7-10). proMETHazin 2020-0 Yes [id number] 25mg Take 1 [facility] e 25 mg 3-18 tablet by ity of tablet 00:00: mouth [place] 00 every 6 Medical (six) Branch hours as needed for Nausea and Vomiting (N/V). acetaminoph 2020-0 Yes [id number] 1{tbl} Take 1 [facility] en-codeine 3-18 tablet by ity of (TYLENOL-CO 00:00: mouth [place] DEINE #3) 00 every 6 Medical 300-30 mg (six) Branch tablet hours as needed for Pain (scale 7-10). proMETHazin 2020-0 Yes [id number] 25mg Take 1 Univers e 25 mg 3-18 tablet by ity of tablet 00:00: mouth [place] 00 every 6 Medical (six) Branch hours as needed for Nausea and Vomiting (N/V). acetaminoph 2020-0 Yes [id number] 1{tbl} Take 1 [facility] en-codeine 3-18 tablet by ity of (TYLENOL-CO 00:00: mouth [place] DEINE #3) 00 every 6 Medical 300-30 mg (six) Branch tablet hours as needed for Pain (scale 7-10). proMETHazin 2020-0 Yes [id number] 25mg Take 1 Univers e 25 mg 3-18 tablet by ity of tablet 00:00: mouth [place] 00 every 6 Medical (six) Branch hours as needed for Nausea and Vomiting (N/V). acetaminoph 2020-0 Yes [id number] 1{tbl} Take 1 [facility] en-codeine 3-18 tablet by ity of (TYLENOL-CO 00:00: mouth [place] DEINE #3) 00 every 6 Medical 300-30 mg (six) Branch tablet hours as needed for Pain (scale 7-10). proMETHazin 2020-0 Yes [id number] 25mg Take 1 Univers e 25 mg 3-18 tablet by ity of tablet 00:00: mouth [place] 00 every 6 Medical (six) Branch hours as needed for Nausea and Vomiting (N/V). acetaminoph 2020-0 Yes [id number] 1{tbl} Take 1 Univers en-codeine 3-18 tablet by ity of (TYLENOL-CO 00:00: mouth [place] DEINE #3) 00 every 6 Medical 300-30 mg (six) Branch tablet hours as needed for Pain (scale 7-10). proMETHazin 2020-0 Yes [id number] 25mg Take 1 [facility] e 25 mg 3-18 tablet by ity of tablet 00:00: mouth [place] 00 every 6 Medical (six) Branch hours as needed for Nausea and Vomiting (N/V). acetaminoph 2020-0 Yes [id number] 1{tbl} Take 1 [facility] en-codeine 3-18 tablet by ity of (TYLENOL-CO 00:00: mouth [place] DEINE #3) 00 every 6 Medical 300-30 mg (six) Branch tablet hours as needed for Pain (scale 7-10). proMETHazin 2020-0 Yes [id number] 25mg Take 1 Univers e 25 mg 3-18 tablet by ity of tablet 00:00: mouth [place] 00 every 6 Medical (six) Branch hours as needed for Nausea and Vomiting (N/V). acetaminoph 2020-0 Yes [id number] 1{tbl} Take 1 [facility] en-codeine 3-18 tablet by ity of (TYLENOL-CO 00:00: mouth [place] DEINE #3) 00 every 6 Medical 300-30 mg (six) Branch tablet hours as needed for Pain (scale 7-10). proMETHazin 2020-0 Yes [id number] 25mg Take 1 [facility] e 25 mg 3-18 tablet by ity of tablet 00:00: mouth [place] 00 every 6 Medical (six) Branch hours as needed for Nausea and Vomiting (N/V). acetaminoph 2020-0 Yes [id number] 1{tbl} Take 1 [facility] en-codeine 3-18 tablet by [facility] (TYLENOL-CO 00:00: mouth [place] DEINE #3) 00 every 6 Medical 300-30 mg (six) Branch tablet hours as needed for Pain (scale 7-10). proMETHazin 2020-0 Yes [id number] 25mg Take 1 [facility] e 25 mg 3-18 tablet by [facility] of tablet 00:00: mouth [place] 00 every 6 Medical (six) Branch hours as needed for Nausea and Vomiting (N/V). acetaminoph 2020-0 Yes [id number] 1{tbl} Take 1 [facility] en-codeine 3-18 tablet by [facility] of (TYLENOL-CO 00:00: mouth [place] DEINE #3) 00 every 6 Medical 300-30 mg (six) Branch tablet hours as needed for Pain (scale 7-10). proMETHazin 2020-0 Yes [id number] 25mg Take 1 [facility] e 25 mg 3-18 tablet by [facility] tablet 00:00: mouth [place] 00 every 6 Medical (six) Branch hours as needed for Nausea and Vomiting (N/V). acetaminoph 2020-0 Yes [id number] 1{tbl} Take 1 [facility] en-codeine 3-18 tablet by [facility] of (TYLENOL-CO 00:00: mouth [place] DEINE #3) 00 every 6 Medical 300-30 mg (six) Branch tablet hours as needed for Pain (scale 7-10). proMETHazin 2020-0 Yes [id number] 25mg Take 1 [facility] 25 mg 3-18 tablet by [facility] tablet 00:00: mouth [place] 00 every 6 Medical (six) Branch hours as needed for Nausea and Vomiting (N/V). acetaminoph 2020-0 Yes [id number] 1{tbl} Take 1 [facility] en-codeine 3-18 tablet by [facility] of (TYLENOL-CO 00:00: mouth [place] DEINE #3) 00 every 6 Medical 300-30 mg (six) Branch tablet hours as needed for Pain (scale 7-10). proMETHazin 2020-0 Yes [id number] 25mg Take 1 [facility] 25 mg 3-18 tablet by [facility] tablet 00:00: mouth [place] 00 every 6 Medical (six) Branch hours as needed for Nausea and Vomiting (N/V). acetaminoph 2020-0 Yes [id number] 1{tbl} Take 1 [facility] en-codeine 3-18 tablet by [facility] of (TYLENOL-CO 00:00: mouth [place] DEINE #3) 00 every 6 Medical 300-30 mg (six) Branch tablet hours as needed for Pain (scale 7-10). proMETHazin 2020-0 Yes [id number] 25mg Take 1 [facility] 25 mg 3-18 tablet by [facility] tablet 00:00: mouth [place] 00 every 6 Medical (six) Branch hours as needed for Nausea and Vomiting (N/V). acetaminoph 2020-0 Yes [id number] 1{tbl} Take 1 [facility] en-codeine 3-18 tablet by [facility] of (TYLENOL-CO 00:00: mouth [place] DEINE #3) 00 every 6 Medical 300-30 mg (six) Branch tablet hours as needed for Pain (scale 7-10). proMETHazin 2020-0 Yes [id number] 25mg Take 1 [facility] 25 mg 3-18 tablet by [facility] tablet 00:00: mouth [place] 00 every 6 Medical (six) Branch hours as needed for Nausea and Vomiting (N/V). acetaminoph 2020-0 Yes [id number] 1{tbl} Take 1 [facility] en-codeine 3-18 tablet by [facility] of (TYLENOL-CO 00:00: mouth [place] DEINE #3) 00 every 6 Medical 300-30 mg (six) Branch tablet hours as needed for Pain (scale 7-10). proMETHazin 2020-0 Yes [id number] 25mg Take 1 [facility] 25 mg 3-18 tablet by [facility] tablet 00:00: mouth [place] 00 every 6 Medical (six) Branch hours as needed for Nausea and Vomiting (N/V). acetaminoph 2020-0 Yes [id number] 1{tbl} Take 1 [facility] en-codeine 3-18 tablet by [facility] of (TYLENOL-CO 00:00: mouth [place] DEINE #3) 00 every 6 Medical 300-30 mg (six) Branch tablet hours as needed for Pain (scale 7-10). proMETHazin 2020-0 Yes [id number] 25mg Take 1 [facility] 25 mg 3-18 tablet by [facility] of tablet 00:00: mouth [place] 00 every 6 Medical (six) Branch hours as needed for Nausea and Vomiting (N/V). acetaminoph 2020-0 Yes [id number] 1{tbl} Take 1 [facility] en-codeine 3-18 tablet by [facility] of (TYLENOL-CO 00:00: mouth [place] DEINE #3) 00 every 6 Medical 300-30 mg (six) Branch tablet hours as needed for Pain (scale 7-10). proMETHazin 2020-0 Yes [id number] 25mg Take 1 [facility] 25 mg 3-18 tablet by [facility] of tablet 00:00: mouth [place] 00 every 6 Medical (six) Branch hours as needed for Nausea and Vomiting (N/V). acetaminoph 2020-0 Yes [id number] 1{tbl} Take 1 [facility] en-codeine 3-18 tablet by [facility] of (TYLENOL-CO 00:00: mouth [place] DEINE #3) 00 every 6 Medical 300-30 mg (six) Branch tablet hours as needed for Pain (scale 7-10). proMETHazin 2020-0 Yes [id number] 25mg Take 1 [facility] 25 mg 3-18 tablet by [facility] of tablet 00:00: mouth [place] 00 every 6 Medical (six) Branch hours as needed for Nausea and Vomiting (N/V). acetaminoph 2020-0 Yes [id number] 1{tbl} Take 1 [facility] en-codeine 3-18 tablet by [facility] of (TYLENOL-CO 00:00: mouth [place] DEINE #3) 00 every 6 Medical 300-30 mg (six) Branch tablet hours as needed for Pain (scale 7-10). proMETHazin 2020-0 Yes [id number] 25mg Take 1 [facility] 25 mg 3-18 tablet by [facility] tablet 00:00: mouth [place] 00 every 6 Medical (six) Branch hours as needed for Nausea and Vomiting (N/V). tiZANidine 2020-0 Yes [id number] 2mg Take 1 [facility] 2 mg tablet 2-06 tablet by [facility] of 00:00: mouth [place] 00 every 8 Medical (eight) Branch hours as needed (muscle spasms). acetaminoph 2020-0 Yes [id number] 650mg Take 1 [facility] en (TYLENOL 2-06 tablet by [facility] of ARTHRITIS 00:00: mouth [place] PAIN) 650 00 every 8 Medical mg CR (eight) Branch tablet hours as needed for Pain. Diclofenac 2020-0 Yes [id number] Apply to [facility] Sodium 2-06 area(s) 4 ity of (VOLTAREN) 00:00: (four) [place] 1 % gel 00 times Medical daily. Branch Diagnosis: M54.42Appl y 4 g qid to affected areas tiZANidine 2020-0 Yes [id number] 2mg Take 1 [facility] 2 mg tablet 2-06 tablet by [facility] of 00:00: mouth [place] 00 every 8 Medical (eight) Branch hours as needed (muscle spasms). acetaminoph 2020-0 Yes [id number] 650mg Take 1 [facility] en (TYLENOL 2-06 tablet by [facility] of ARTHRITIS 00:00: mouth [place] PAIN) 650 00 every 8 Medical mg CR (eight) Branch tablet hours as needed for Pain. Diclofenac 2020-0 Yes [id number] Apply to [facility] Sodium 2-06 area(s) 4 [facility] of (VOLTAREN) 00:00: (four) [place] 1 % gel 00 times Medical daily. Branch Diagnosis: M54.42Appl y 4 g qid to affected areas tiZANidine 2020-0 Yes [id number] 2mg Take 1 [facility] 2 mg tablet 2-06 tablet by [facility] of 00:00: mouth [place] 00 every 8 Medical (eight) Branch hours as needed (muscle spasms). acetaminoph 2020-0 Yes [id number] 650mg Take 1 [facility] en (TYLENOL 2-06 tablet by [facility] of ARTHRITIS 00:00: mouth [place] PAIN) 650 00 every 8 Medical mg CR (eight) Branch tablet hours as needed for Pain. Diclofenac 2020-0 Yes [id number] Apply to [facility] Sodium 2-06 area(s) 4 [facility] of (VOLTAREN) 00:00: (four) [place] 1 % gel 00 times Medical daily. Branch Diagnosis: M54.42Appl y 4 g qid to affected areas tiZANidine 2020-0 Yes [id number] 2mg Take 1 [facility] 2 mg tablet 2-06 tablet by [facility] of 00:00: mouth [place] 00 every 8 Medical (eight) Branch hours as needed (muscle spasms). acetaminoph 2020-0 Yes [id number] 650mg Take 1 [facility] en (TYLENOL 2-06 tablet by [facility] of ARTHRITIS 00:00: mouth [place] PAIN) 650 00 every 8 Medical mg CR (eight) Branch tablet hours as needed for Pain. Diclofenac 2020-0 Yes [id number] Apply to [facility] Sodium 2-06 area(s) 4 [facility]y of (VOLTAREN) 00:00: (four) [place] 1 % gel 00 times Medical daily. Branch Diagnosis: M54.42Appl y 4 g qid to affected areas tiZANidine 2020-0 Yes [id number] 2mg Take 1 [facility] 2 mg tablet 2-06 tablet by [facility] of 00:00: mouth [place] 00 every 8 Medical (eight) Branch hours as needed (muscle spasms). acetaminoph 2020-0 Yes [id number] 650mg Take 1 [facility] en (TYLENOL 2-06 tablet by [facility] of ARTHRITIS 00:00: mouth [place] PAIN) 650 00 every 8 Medical mg CR (eight) Branch tablet hours as needed for Pain. Diclofenac 2020-0 Yes [id number] Apply to [facility] Sodium 2-06 area(s) 4 [facility]y of (VOLTAREN) 00:00: (four) [place] 1 % gel 00 times Medical daily. Branch Diagnosis: M54.42Appl y 4 g qid to affected areas tiZANidine 2020-0 Yes [id number] 2mg Take 1 [facility] 2 mg tablet 2-06 tablet by [facility] of 00:00: mouth [place] 00 every 8 Medical (eight) Branch hours as needed (muscle spasms). acetaminoph 2020-0 Yes [id number] 650mg Take 1 [facility] en (TYLENOL 2-06 tablet by [facility] of ARTHRITIS 00:00: mouth [place] PAIN) 650 00 every 8 Medical mg CR (eight) Branch tablet hours as needed for Pain. Diclofenac 2020-0 Yes [id number] Apply to [facility] Sodium 2-06 area(s) 4 ity of (VOLTAREN) 00:00: (four) [place] 1 % gel 00 times Medical daily. Branch Diagnosis: M54.42Appl y 4 g qid to affected areas tiZANidine 2020-0 Yes [id number] 2mg Take 1 [facility] 2 mg tablet 2-06 tablet by [facility] of 00:00: mouth [place] 00 every 8 Medical (eight) Branch hours as needed (muscle spasms). acetaminoph 2020-0 Yes [id number] 650mg Take 1 [facility] en (TYLENOL 2-06 tablet by [facility] of ARTHRITIS 00:00: mouth [place] PAIN) 650 00 every 8 Medical mg CR (eight) Branch tablet hours as needed for Pain. Diclofenac 2020-0 Yes [id number] Apply to [facility] Sodium 2-06 area(s) 4 ity of (VOLTAREN) 00:00: (four) [place] 1 % gel 00 times Medical daily. Branch Diagnosis: M54.42Appl y 4 g qid to affected areas tiZANidine 2020-0 Yes [id number] 2mg Take 1 [facility] n[facility] 2 mg tablet 2-06 tablet by [facility] of 00:00: mouth [place] 00 every 8 Medical (eight) Branch hours as needed (muscle spasms). acetaminoph 2020-0 Yes [id number] 650mg Take 1 [facility] en (TYLENOL 2-06 tablet by [facility] of ARTHRITIS 00:00: mouth [place] PAIN) 650 00 every 8 Medical mg CR (eight) Branch tablet hours as needed for Pain. Diclofenac 2020-0 Yes [id number] Apply to [facility] Sodium 2-06 area(s) 4 ity of (VOLTAREN) 00:00: (four) [place] 1 % gel 00 times Medical daily. Branch Diagnosis: M54.42Appl y 4 g qid to affected areas tiZANidine 2020-0 Yes [id number] 2mg Take 1 [facility] 2 mg tablet 2-06 tablet by [facility] of 00:00: mouth [place] 00 every 8 Medical (eight) Branch hours as needed (muscle spasms). acetaminoph 2020-0 Yes [id number] 650mg Take 1 [facility] en (TYLENOL 2-06 tablet by [facility] of ARTHRITIS 00:00: mouth [place] PAIN) 650 00 every 8 Medical mg CR (eight) Branch tablet hours as needed for Pain. Diclofenac 2020-0 Yes [id number] Apply to [facility] Sodium 2-06 area(s) 4 ity of (VOLTAREN) 00:00: (four) [place] 1 % gel 00 times Medical daily. Branch Diagnosis: M54.42Appl y 4 g qid to affected areas tiZANidine 2020-0 Yes [id number] 2mg Take 1 [facility] 2 mg tablet 2-06 tablet by [facility] of 00:00: mouth [place] 00 every 8 Medical (eight) Branch hours as needed (muscle spasms). acetaminoph 2020-0 Yes [id number] 650mg Take 1 [facility] en (TYLENOL 2-06 tablet by [facility] of ARTHRITIS 00:00: mouth [place] PAIN) 650 00 every 8 Medical mg CR (eight) Branch tablet hours as needed for Pain. Diclofenac 2020-0 Yes [id number] Apply to [facility] Sodium 2-06 area(s) 4 ity of (VOLTAREN) 00:00: (four) [place] 1 % gel 00 times Medical daily. Branch Diagnosis: M54.42Appl y 4 g qid to affected areas tiZANidine 2020-0 Yes [id number] 2mg Take 1 [facility] n[facility] 2 mg tablet 2-06 tablet by [facility] of 00:00: mouth [place] 00 every 8 Medical (eight) Branch hours as needed (muscle spasms). acetaminoph 2020-0 Yes [id number] 650mg Take 1 [facility] en (TYLENOL 2-06 tablet by [facility] of ARTHRITIS 00:00: mouth [place] PAIN) 650 00 every 8 Medical mg CR (eight) Branch tablet hours as needed for Pain. Diclofenac 2020-0 Yes [id number] Apply to [facility] Sodium 2-06 area(s) 4 ity of (VOLTAREN) 00:00: (four) [place] 1 % gel 00 times Medical daily. Branch Diagnosis: M54.42Appl y 4 g qid to affected areas tiZANidine 2020-0 Yes [id number] 2mg Take 1 [facility] n[facility] 2 mg tablet 2-06 tablet by [facility] of 00:00: mouth [place] 00 every 8 Medical (eight) Branch hours as needed (muscle spasms). acetaminoph 2020-0 Yes [id number] 650mg Take 1 [facility] en (TYLENOL 2-06 tablet by [facility] of ARTHRITIS 00:00: mouth [place] PAIN) 650 00 every 8 Medical mg CR (eight) Branch tablet hours as needed for Pain. Diclofenac 2020-0 Yes [id number] Apply to [facility] Sodium 2-06 area(s) 4 ity of (VOLTAREN) 00:00: (four) [place] 1 % gel 00 times Medical daily. Branch Diagnosis: M54.42Appl y 4 g qid to affected areas tiZANidine 2020-0 Yes [id number] 2mg Take 1 [facility] 2 mg tablet 2-06 tablet by [facility] of 00:00: mouth [place] 00 every 8 Medical (eight) Branch hours as needed (muscle spasms). acetaminoph 2020-0 Yes [id number] 650mg Take 1 [facility] en (TYLENOL 2-06 tablet by ity of ARTHRITIS 00:00: mouth [place] PAIN) 650 00 every 8 Medical mg CR (eight) Branch tablet hours as needed for Pain. Diclofenac 2020-0 Yes [id number] Apply to [facility] Sodium 2-06 area(s) 4 ity of (VOLTAREN) 00:00: (four) [place] 1 % gel 00 times Medical daily. Branch Diagnosis: M54.42Appl y 4 g qid to affected areas tiZANidine 2020-0 Yes [id number] 2mg Take 1 [facility] 2 mg tablet 2-06 tablet by [facility] of 00:00: mouth [place] 00 every 8 Medical (eight) Branch hours as needed (muscle spasms). acetaminoph 2020-0 Yes [id number] 650mg Take 1 [facility] en (TYLENOL 2-06 tablet by ity of ARTHRITIS 00:00: mouth [place] PAIN) 650 00 every 8 Medical mg CR (eight) Branch tablet hours as needed for Pain. Diclofenac 2020-0 Yes [id number] Apply to [facility] Sodium 2-06 area(s) 4 ity of (VOLTAREN) 00:00: (four) [place] 1 % gel 00 times Medical daily. Branch Diagnosis: M54.42Appl y 4 g qid to affected areas tiZANidine 2020-0 Yes [id number] 2mg Take 1 [facility] 2 mg tablet 2-06 tablet by [facility] of 00:00: mouth [place] 00 every 8 Medical (eight) Branch hours as needed (muscle spasms). acetaminoph 2020-0 Yes [id number] 650mg Take 1 [facility] en (TYLENOL 2-06 tablet by [facility]y of ARTHRITIS 00:00: mouth [place] PAIN) 650 00 every 8 Medical mg CR (eight) Branch tablet hours as needed for Pain. Diclofenac 2020-0 Yes [id number] Apply to [facility] Sodium 2-06 area(s) 4 ity of (VOLTAREN) 00:00: (four) [place] 1 % gel 00 times Medical daily. Branch Diagnosis: M54.42Appl y 4 g qid to affected areas tiZANidine 2020-0 Yes [id number] 2mg Take 1 [facility] 2 mg tablet 2-06 tablet by [facility] of 00:00: mouth [place] 00 every 8 Medical (eight) Branch hours as needed (muscle spasms). acetaminoph 2020-0 Yes [id number] 650mg Take 1 [facility] en (TYLENOL 2-06 tablet by ity of ARTHRITIS 00:00: mouth [place] PAIN) 650 00 every 8 Medical mg CR (eight) Branch tablet hours as needed for Pain. Diclofenac 2020-0 Yes [id number] Apply to [facility] Sodium 2-06 area(s) 4 ity of (VOLTAREN) 00:00: (four) [place] 1 % gel 00 times Medical daily. Branch Diagnosis: M54.42Appl y 4 g qid to affected areas tiZANidine 2020-0 Yes [id number] 2mg Take 1 [facility] 2 mg tablet 2-06 tablet by [facility] of 00:00: mouth [place] 00 every 8 Medical (eight) Branch hours as needed (muscle spasms). acetaminoph 2020-0 Yes [id number] 650mg Take 1 [facility] en (TYLENOL 2-06 tablet by ity of ARTHRITIS 00:00: mouth [place] PAIN) 650 00 every 8 Medical mg CR (eight) Branch tablet hours as needed for Pain. Diclofenac 2020-0 Yes [id number] Apply to [facility] Sodium 2-06 area(s) 4 ity of (VOLTAREN) 00:00: (four) [place] 1 % gel 00 times Medical daily. Branch Diagnosis: M54.42Appl y 4 g qid to affected areas tiZANidine 2020-0 Yes [id number] 2mg Take 1 [facility] 2 mg tablet 2-06 tablet by [facility] of 00:00: mouth [place] 00 every 8 Medical (eight) Branch hours as needed (muscle spasms). acetaminoph 2020-0 Yes [id number] 650mg Take 1 [facility] en (TYLENOL 2-06 tablet by ity of ARTHRITIS 00:00: mouth [place] PAIN) 650 00 every 8 Medical mg CR (eight) Branch tablet hours as needed for Pain. Diclofenac 2020-0 Yes [id number] Apply to [facility] Sodium 2-06 area(s) 4 ity of (VOLTAREN) 00:00: (four) [place] 1 % gel 00 times Medical daily. Branch Diagnosis: M54.42Appl y 4 g qid to affected areas tiZANidine 2020-0 Yes [id number] 2mg Take 1 [facility] 2 mg tablet 2-06 tablet by [facility] of 00:00: mouth [place] 00 every 8 Medical (eight) Branch hours as needed (muscle spasms). acetaminoph 2020-0 Yes [id number] 650mg Take 1 [facility] en (TYLENOL 2-06 tablet by ity of ARTHRITIS 00:00: mouth [place] PAIN) 650 00 every 8 Medical mg CR (eight) Branch tablet hours as needed for Pain. Diclofenac 2020-0 Yes [id number] Apply to [facility] Sodium 2-06 area(s) 4 ity of (VOLTAREN) 00:00: (four) [place] 1 % gel 00 times Medical daily. Branch Diagnosis: M54.42Appl y 4 g qid to affected areas tiZANidine 2020-0 Yes [id number] 2mg Take 1 [facility] 2 mg tablet 2-06 tablet by [facility] of 00:00: mouth [place] 00 every 8 Medical (eight) Branch hours as needed (muscle spasms). acetaminoph 2020-0 Yes [id number] 650mg Take 1 [facility] en (TYLENOL 2-06 tablet by ity of ARTHRITIS 00:00: mouth [place] PAIN) 650 00 every 8 Medical mg CR (eight) Branch tablet hours as needed for Pain. Diclofenac 2020-0 Yes [id number] Apply to [facility] Sodium 2-06 area(s) 4 ity of (VOLTAREN) 00:00: (four) [place] 1 % gel 00 times Medical daily. Branch Diagnosis: M54.42Appl y 4 g qid to affected areas tiZANidine 2020-0 Yes [id number] 2mg Take 1 [facility] 2 mg tablet 2-06 tablet by [facility] of 00:00: mouth [place] 00 every 8 Medical (eight) Branch hours as needed (muscle spasms). acetaminoph 2020-0 Yes [id number] 650mg Take 1 [facility] en (TYLENOL 2-06 tablet by ity of ARTHRITIS 00:00: mouth [place] PAIN) 650 00 every 8 Medical mg CR (eight) Branch tablet hours as needed for Pain. Diclofenac 2020-0 Yes [id number] Apply to [facility] Sodium 2-06 area(s) 4 ity of (VOLTAREN) 00:00: (four) [place] 1 % gel 00 times Medical daily. Branch Diagnosis: M54.42Appl y 4 g qid to affected areas tiZANidine 2020-0 Yes [id number] 2mg Take 1 [facility] 2 mg tablet 2-06 tablet by [facility] of 00:00: mouth [place] 00 every 8 Medical (eight) Branch hours as needed (muscle spasms). acetaminoph 2020-0 Yes [id number] 650mg Take 1 [facility] en (TYLENOL 2-06 tablet by ity of ARTHRITIS 00:00: mouth [place] PAIN) 650 00 every 8 Medical mg CR (eight) Branch tablet hours as needed for Pain. Diclofenac 2020-0 Yes [id number] Apply to [facility] Sodium 2-06 area(s) 4 ity of (VOLTAREN) 00:00: (four) [place] 1 % gel 00 times Medical daily. Branch Diagnosis: M54.42Appl y 4 g qid to affected areas tiZANidine 2020-0 Yes [id number] 2mg Take 1 [facility] 2 mg tablet 2-06 tablet by [facility] of 00:00: mouth [place] 00 every 8 Medical (eight) Branch hours as needed (muscle spasms). acetaminoph 2020-0 Yes [id number] 650mg Take 1 [facility] en (TYLENOL 2-06 tablet by ity of ARTHRITIS 00:00: mouth [place] PAIN) 650 00 every 8 Medical mg CR (eight) Branch tablet hours as needed for Pain. Diclofenac 2020-0 Yes [id number] Apply to [facility] Sodium 2-06 area(s) 4 ity of (VOLTAREN) 00:00: (four) [place] 1 % gel 00 times Medical daily. Branch Diagnosis: M54.42Appl y 4 g qid to affected areas tiZANidine 2020-0 Yes [id number] 2mg Take 1 [facility] 2 mg tablet 2-06 tablet by [facility] of 00:00: mouth [place] 00 every 8 Medical (eight) Branch hours as needed (muscle spasms). acetaminoph 2020-0 Yes [id number] 650mg Take 1 [facility] en (TYLENOL 2-06 tablet by ity of ARTHRITIS 00:00: mouth [place] PAIN) 650 00 every 8 Medical mg CR (eight) Branch tablet hours as needed for Pain. Diclofenac 2020-0 Yes [id number] Apply to [facility] Sodium 2-06 area(s) 4 ity of (VOLTAREN) 00:00: (four) [place] 1 % gel 00 times Medical daily. Branch Diagnosis: M54.42Appl y 4 g qid to affected areas tiZANidine 2020-0 Yes [id number] 2mg Take 1 [facility] 2 mg tablet 2-06 tablet by [facility] of 00:00: mouth [place] 00 every 8 Medical (eight) Branch hours as needed (muscle spasms). acetaminoph 2020-0 Yes [id number] 650mg Take 1 [facility] en (TYLENOL 2-06 tablet by ity of ARTHRITIS 00:00: mouth [place] PAIN) 650 00 every 8 Medical mg CR (eight) Branch tablet hours as needed for Pain. Diclofenac 2020-0 Yes [id number] Apply to [facility] Sodium 2-06 area(s) 4 ity of (VOLTAREN) 00:00: (four) [place] 1 % gel 00 times Medical daily. Branch Diagnosis: M54.42Appl y 4 g qid to affected areas tiZANidine 2020-0 Yes [id number] 2mg Take 1 [facility] 2 mg tablet 2-06 tablet by [facility] of 00:00: mouth [place] 00 every 8 Medical (eight) Branch hours as needed (muscle spasms). acetaminoph 2020-0 Yes [id number] 650mg Take 1 [facility] en (TYLENOL 2-06 tablet by ity of ARTHRITIS 00:00: mouth [place] PAIN) 650 00 every 8 Medical mg CR (eight) Branch tablet hours as needed for Pain. Diclofenac 2020-0 Yes [id number] Apply to [facility] Sodium 2-06 area(s) 4 ity of (VOLTAREN) 00:00: (four) [place] 1 % gel 00 times Medical daily. Branch Diagnosis: M54.42Appl y 4 g qid to affected areas tiZANidine 2020-0 Yes [id number] 2mg Take 1 [facility] 2 mg tablet 2-06 tablet by [facility] of 00:00: mouth [place] 00 every 8 Medical (eight) Branch hours as needed (muscle spasms). acetaminoph 2020-0 Yes [id number] 650mg Take 1 [facility] en (TYLENOL 2-06 tablet by ity of ARTHRITIS 00:00: mouth [place] PAIN) 650 00 every 8 Medical mg CR (eight) Branch tablet hours as needed for Pain. Diclofenac 2020-0 Yes [id number] Apply to [facility] Sodium 2-06 area(s) 4 ity of (VOLTAREN) 00:00: (four) [place] 1 % gel 00 times Medical daily. Branch Diagnosis: M54.42Appl y 4 g qid to affected areas tiZANidine 2020-0 Yes [id number] 2mg Take 1 [facility] 2 mg tablet 2-06 tablet by [facility] of 00:00: mouth [place] 00 every 8 Medical (eight) Branch hours as needed (muscle spasms). acetaminoph 2020-0 Yes [id number] 650mg Take 1 [facility] en (TYLENOL 2-06 tablet by ity of ARTHRITIS 00:00: mouth [place] PAIN) 650 00 every 8 Medical mg CR (eight) Branch tablet hours as needed for Pain. Diclofenac 2020-0 Yes [id number] Apply to [facility] Sodium 2-06 area(s) 4 ity of (VOLTAREN) 00:00: (four) [place] 1 % gel 00 times Medical daily. Branch Diagnosis: M54.42Appl y 4 g qid to affected areas tiZANidine 2020-0 Yes [id number] 2mg Take 1 [facility] 2 mg tablet 2-06 tablet by [facility] of 00:00: mouth [place] 00 every 8 Medical (eight) Branch hours as needed (muscle spasms). acetaminoph 2020-0 Yes [id number] 650mg Take 1 [facility] en (TYLENOL 2-06 tablet by ity of ARTHRITIS 00:00: mouth [place] PAIN) 650 00 every 8 Medical mg CR (eight) Branch tablet hours as needed for Pain. Diclofenac 2020-0 Yes [id number] Apply to [facility] Sodium 2-06 area(s) 4 ity of (VOLTAREN) 00:00: (four) [place] 1 % gel 00 times Medical daily. Branch Diagnosis: M54.42Appl y 4 g qid to affected areas tiZANidine 2020-0 Yes [id number] 2mg Take 1 [facility] 2 mg tablet 2-06 tablet by [facility]y of 00:00: mouth [place] 00 every 8 Medical (eight) Branch hours as needed (muscle spasms). acetaminoph 2020-0 Yes [id number] 650mg Take 1 [facility] en (TYLENOL 2-06 tablet by ity of ARTHRITIS 00:00: mouth [place] PAIN) 650 00 every 8 Medical mg CR (eight) Branch tablet hours as needed for Pain. Diclofenac 2020-0 Yes [id number] Apply to [facility] Sodium 2-06 area(s) 4 ity of (VOLTAREN) 00:00: (four) [place] 1 % gel 00 times Medical daily. Branch Diagnosis: M54.42Appl y 4 g qid to affected areas tiZANidine 2020-0 Yes [id number] 2mg Take 1 [facility] 2 mg tablet 2-06 tablet by [facility]y of 00:00: mouth [place] 00 every 8 Medical (eight) Branch hours as needed (muscle spasms). acetaminoph 2020-0 Yes [id number] 650mg Take 1 [facility] en (TYLENOL 2-06 tablet by ity of ARTHRITIS 00:00: mouth [place] PAIN) 650 00 every 8 Medical mg CR (eight) Branch tablet hours as needed for Pain. Diclofenac 2020-0 Yes [id number] Apply to [facility] Sodium 2-06 area(s) 4 ity of (VOLTAREN) 00:00: (four) [place] 1 % gel 00 times Medical daily. Branch Diagnosis: M54.42Appl y 4 g qid to affected areas tiZANidine 2020-0 Yes [id number] 2mg Take 1 [facility] 2 mg tablet 2-06 tablet by [facility]y of 00:00: mouth [place] 00 every 8 Medical (eight) Branch hours as needed (muscle spasms). acetaminoph 2020-0 Yes [id number] 650mg Take 1 [facility] en (TYLENOL 2-06 tablet by ity of ARTHRITIS 00:00: mouth [place] PAIN) 650 00 every 8 Medical mg CR (eight) Branch tablet hours as needed for Pain. Diclofenac 2020-0 Yes [id number] Apply to [facility] Sodium 2-06 area(s) 4 ity of (VOLTAREN) 00:00: (four) [place] 1 % gel 00 times Medical daily. Branch Diagnosis: M54.42Appl y 4 g qid to affected areas tiZANidine 2020-0 Yes [id number] 2mg Take 1 [facility] 2 mg tablet 2-06 tablet by [facility]y of 00:00: mouth [place] 00 every 8 Medical (eight) Branch hours as needed (muscle spasms). acetaminoph 2020-0 Yes [id number] 650mg Take 1 [facility] en (TYLENOL 2-06 tablet by ity of ARTHRITIS 00:00: mouth [place] PAIN) 650 00 every 8 Medical mg CR (eight) Branch tablet hours as needed for Pain. Diclofenac 2020-0 Yes [id number] Apply to [facility] Sodium 2-06 area(s) 4 ity of (VOLTAREN) 00:00: (four) [place] 1 % gel 00 times Medical daily. Branch Diagnosis: M54.42Appl y 4 g qid to affected areas tiZANidine 2020-0 Yes [id number] 2mg Take 1 [facility] 2 mg tablet 2-06 tablet by [facility] of 00:00: mouth [place] 00 every 8 Medical (eight) Branch hours as needed (muscle spasms). acetaminoph 2020-0 Yes [id number] 650mg Take 1 [facility] en (TYLENOL 2-06 tablet by ity of ARTHRITIS 00:00: mouth [place] PAIN) 650 00 every 8 Medical mg CR (eight) Branch tablet hours as needed for Pain. Diclofenac 2020-0 Yes [id number] Apply to [facility] Sodium 2-06 area(s) 4 ity of (VOLTAREN) 00:00: (four) [place] 1 % gel 00 times Medical daily. Branch Diagnosis: M54.42Appl y 4 g qid to affected areas tiZANidine 2020-0 Yes [id number] 2mg Take 1 [facility] 2 mg tablet 2-06 tablet by [facility]y of 00:00: mouth [place] 00 every 8 Medical (eight) Branch hours as needed (muscle spasms). acetaminoph 2020-0 Yes [id number] 650mg Take 1 [facility] en (TYLENOL 2-06 tablet by ity of ARTHRITIS 00:00: mouth [place] PAIN) 650 00 every 8 Medical mg CR (eight) Branch tablet hours as needed for Pain. Diclofenac 2020-0 Yes [id number] Apply to [facility] Sodium 2-06 area(s) 4 [facility] of (VOLTAREN) 00:00: (four) [place] 1 % gel 00 times Medical daily. Branch Diagnosis: M54.42Appl y 4 g qid to affected areas tiZANidine 2020-0 Yes [id number] 2mg Take 1 [facility] 2 mg tablet 2-06 tablet by [facility] of 00:00: mouth [place] 00 every 8 Medical (eight) Branch hours as needed (muscle spasms). acetaminoph 2020-0 Yes [id number] 650mg Take 1 [facility] (TYLENOL 2-06 tablet by [facility] of ARTHRITIS 00:00: mouth [place] PAIN) 650 00 every 8 Medical mg CR (eight) Branch tablet hours as needed for Pain. Diclofenac 2020-0 Yes [id number] Apply to [facility] Sodium 2-06 area(s) 4 ity of (VOLTAREN) 00:00: (four) [place] 1 % gel 00 times Medical daily. Branch Diagnosis: M54.42Appl y 4 g qid to affected areas tiZANidine 2020-0 Yes [id number] 2mg Take 1 [facility] 2 mg tablet 2-06 tablet by [facility] of 00:00: mouth [place] 00 every 8 Medical (eight) Branch hours as needed (muscle spasms). acetaminoph 2020-0 Yes [id number] 650mg Take 1 [facility] (TYLENOL 2-06 tablet by it[facility] of ARTHRITIS 00:00: mouth [place] PAIN) 650 00 every 8 Medical mg CR (eight) Branch tablet hours as needed for Pain. Diclofenac 2020-0 Yes [id number] Apply to [facility] Sodium 2-06 area(s) 4 ity of (VOLTAREN) 00:00: (four) [place] 1 % gel 00 times Medical daily. Branch Diagnosis: M54.42Appl y 4 g qid to affected areas tiZANidine 2020-0 Yes [id number] 2mg Take 1 [facility] 2 mg tablet 2-06 tablet by [facility] of 00:00: mouth [place] 00 every 8 Medical (eight) Branch hours as needed (muscle spasms). acetaminoph 2020-0 Yes [id number] 650mg Take 1 [facility] (TYLENOL 2-06 tablet by it[facility] of ARTHRITIS 00:00: mouth [place] PAIN) 650 00 every 8 Medical mg CR (eight) Branch tablet hours as needed for Pain. Diclofenac 2020-0 Yes [id number] Apply to [facility] Sodium 2-06 area(s) 4 ity of (VOLTAREN) 00:00: (four) [place] 1 % gel 00 times Medical daily. Branch Diagnosis: M54.42Appl y 4 g qid to affected areas tiZANidine 2020-0 Yes [id number] 2mg Take 1 [facility] 2 mg tablet 2-06 tablet by [facility] of 00:00: mouth [place] 00 every 8 Medical (eight) Branch hours as needed (muscle spasms). acetaminoph 2020-0 Yes [id number] 650mg Take 1 [facility] (TYLENOL 2-06 tablet by [facility] of ARTHRITIS 00:00: mouth [place] PAIN) 650 00 every 8 Medical mg CR (eight) Branch tablet hours as needed for Pain. Diclofenac 2020-0 Yes [id number] Apply to [facility] Sodium 2-06 area(s) 4 ity of (VOLTAREN) 00:00: (four) [place] 1 % gel 00 times Medical daily. Branch Diagnosis: M54.42Appl y 4 g qid to affected areas tiZANidine 2020-0 Yes [id number] 2mg Take 1 [facility] 2 mg tablet 2-06 tablet by [facility] of 00:00: mouth [place] 00 every 8 Medical (eight) Branch hours as needed (muscle spasms). acetaminoph 2020-0 Yes [id number] 650mg Take 1 [facility] (TYLENOL 2-06 tablet by [facility] of ARTHRITIS 00:00: mouth [place] PAIN) 650 00 every 8 Medical mg CR (eight) Branch tablet hours as needed for Pain. Diclofenac 2020-0 Yes [id number] Apply to [facility] Sodium 2-06 area(s) 4 ity of (VOLTAREN) 00:00: (four) [place] 1 % gel 00 times Medical daily. Branch Diagnosis: M54.42Appl y 4 g qid to affected areas tiZANidine 2020-0 Yes [id number] 2mg Take 1 [facility] 2 mg tablet 2-06 tablet by [facility] of 00:00: mouth [place] 00 every 8 Medical (eight) Branch hours as needed (muscle spasms). tiZANidine 2020-0 Yes [id number] 2mg Take 1 [facility] 2 mg tablet 2-06 tablet by [facility] of 00:00: mouth [place] 00 every 8 Medical (eight) Branch hours as needed (muscle spasms). acetaminoph 2020-0 Yes [id number] 650mg Take 1 [facility] (TYLENOL 2-06 tablet by [facility] of ARTHRITIS 00:00: mouth [place] PAIN) 650 00 every 8 Medical mg CR (eight) Branch tablet hours as needed for Pain. Diclofenac 2020-0 Yes [id number] Apply to [facility] Sodium 2-06 area(s) 4 ity of (VOLTAREN) 00:00: (four) [place] 1 % gel 00 times Medical daily. Branch Diagnosis: M54.42Appl y 4 g qid to affected areas acetaminoph 2020-0 Yes [id number] 650mg Take 1 [facility] (TYLENOL 2-06 tablet by [facility] of ARTHRITIS 00:00: mouth [place] PAIN) 650 00 every 8 Medical mg CR (eight) Branch tablet hours as needed for Pain. tiZANidine 2020-0 Yes [id number] 2mg Take 1 [facility] 2 mg tablet 2-06 tablet by [facility] of 00:00: mouth [place] 00 every 8 Medical (eight) Branch hours as needed (muscle spasms). acetaminoph 2020-0 Yes [id number] 650mg Take 1 [facility] (TYLENOL 2-06 tablet by [facility] of ARTHRITIS 00:00: mouth [place] PAIN) 650 00 every 8 Medical mg CR (eight) Branch tablet hours as needed for Pain. Diclofenac 2020-0 Yes [id number] Apply to [facility] Sodium 2-06 area(s) 4 ity of (VOLTAREN) 00:00: (four) [place] 1 % gel 00 times Medical daily. Branch Diagnosis: M54.42Appl y 4 g qid to affected areas Diclofenac 2020-0 Yes [id number] Apply to [facility] Sodium 2-06 area(s) 4 ity of (VOLTAREN) 00:00: (four) [place] 1 % gel 00 times Medical daily. Branch Diagnosis: M54.42Appl y 4 g qid to affected areas tiZANidine 2020-0 Yes [id number] 2mg Take 1 [facility] 2 mg tablet 2-06 tablet by [facility] of 00:00: mouth [place] 00 every 8 Medical (eight) Branch hours as needed (muscle spasms). acetaminoph 2020-0 Yes [id number] 650mg Take 1 [facility] (TYLENOL 2-06 tablet by [facility] of ARTHRITIS 00:00: mouth [place] PAIN) 650 00 every 8 Medical mg CR (eight) Branch tablet hours as needed for Pain. Diclofenac 2020-0 Yes [id number] Apply to [facility] Sodium 2-06 area(s) 4 ity of (VOLTAREN) 00:00: (four) [place] 1 % gel 00 times Medical daily. Branch Diagnosis: M54.42Appl y 4 g qid to affected areas tiZANidine 2020-0 Yes [id number] 2mg Take 1 [facility] 2 mg tablet 2-06 tablet by [facility] of 00:00: mouth [place] 00 every 8 Medical (eight) Branch hours as needed (muscle spasms). acetaminoph 2020-0 Yes [id number] 650mg Take 1 [facility] (TYLENOL 2-06 tablet by [facility] of ARTHRITIS 00:00: mouth [place] PAIN) 650 00 every 8 Medical mg CR (eight) Branch tablet hours as needed for Pain. Diclofenac 2020-0 Yes [id number] Apply to [facility] Sodium 2-06 area(s) 4 ity of (VOLTAREN) 00:00: (four) [place] 1 % gel 00 times Medical daily. Branch Diagnosis: M54.42Appl y 4 g qid to affected areas tiZANidine 2020-0 Yes [id number] 2mg Take 1 [facility] 2 mg tablet 2-06 tablet by [facility] of 00:00: mouth [place] 00 every 8 Medical (eight) Branch hours as needed (muscle spasms). acetaminoph 2020-0 Yes [id number] 650mg Take 1 [facility] (TYLENOL 2-06 tablet by it[facility] of ARTHRITIS 00:00: mouth [place] PAIN) 650 00 every 8 Medical mg CR (eight) Branch tablet hours as needed for Pain. Diclofenac 2020-0 Yes [id number] Apply to [facility] Sodium 2-06 area(s) 4 ity of (VOLTAREN) 00:00: (four) [place] 1 % gel 00 times Medical daily. Branch Diagnosis: M54.42Appl y 4 g qid to affected areas tiZANidine 2020-0 Yes [id number] 2mg Take 1 [facility] 2 mg tablet 2-06 tablet by [facility] of 00:00: mouth [place] 00 every 8 Medical (eight) Branch hours as needed (muscle spasms). acetaminoph 2020-0 Yes [id number] 650mg Take 1 [facility] (TYLENOL 2-06 tablet by [facility] of ARTHRITIS 00:00: mouth [place] PAIN) 650 00 every 8 Medical mg CR (eight) Branch tablet hours as needed for Pain. Diclofenac 2020-0 Yes [id number] Apply to [facility] Sodium 2-06 area(s) 4 ity of (VOLTAREN) 00:00: (four) [place] 1 % gel 00 times Medical daily. Branch Diagnosis: M54.42Appl y 4 g qid to affected areas tiZANidine 2020-0 Yes [id number] 2mg Take 1 [facility] 2 mg tablet 2-06 tablet by [facility] of 00:00: mouth [place] 00 every 8 Medical (eight) Branch hours as needed (muscle spasms). acetaminoph 2020-0 Yes [id number] 650mg Take 1 [facility] (TYLENOL 2-06 tablet by ity of ARTHRITIS 00:00: mouth [place] PAIN) 650 00 every 8 Medical mg CR (eight) Branch tablet hours as needed for Pain. Diclofenac 2020-0 Yes [id number] Apply to [facility] Sodium 2-06 area(s) 4 ity of (VOLTAREN) 00:00: (four) [place] 1 % gel 00 times Medical daily. Branch Diagnosis: M54.42Appl y 4 g qid to affected areas tiZANidine 2020-0 Yes [id number] 2mg Take 1 [facility] 2 mg tablet 2-06 tablet by [facility] of 00:00: mouth [place] 00 every 8 Medical (eight) Branch hours as needed (muscle spasms). acetaminoph 2020-0 Yes [id number] 650mg Take 1 [facility] (TYLENOL 2-06 tablet by [facility] of ARTHRITIS 00:00: mouth [place] PAIN) 650 00 every 8 Medical mg CR (eight) Branch tablet hours as needed for Pain. Diclofenac 2020-0 Yes [id number] Apply to [facility] Sodium 2-06 area(s) 4 ity of (VOLTAREN) 00:00: (four) [place] 1 % gel 00 times Medical daily. Branch Diagnosis: M54.42Appl y 4 g qid to affected areas tiZANidine 2020-0 Yes [id number] 2mg Take 1 [facility] 2 mg tablet 2-06 tablet by [facility] of 00:00: mouth [place] 00 every 8 Medical (eight) Branch hours as needed (muscle spasms). acetaminoph 2020-0 Yes [id number] 650mg Take 1 [facility] en (TYLENOL 2-06 tablet by ity of ARTHRITIS 00:00: mouth [place] PAIN) 650 00 every 8 Medical mg CR (eight) Branch tablet hours as needed for Pain. Diclofenac 2020-0 Yes [id number] Apply to [facility] Sodium 2-06 area(s) 4 ity of (VOLTAREN) 00:00: (four) [place] 1 % gel 00 times Medical daily. Branch Diagnosis: M54.42Appl y 4 g qid to affected areas tiZANidine 2020-0 Yes [id number] 2mg Take 1 [facility] 2 mg tablet 2-06 tablet by [facility] of 00:00: mouth [place] 00 every 8 Medical (eight) Branch hours as needed (muscle spasms). acetaminoph 2020-0 Yes [id number] 650mg Take 1 [facility] en (TYLENOL 2-06 tablet by [facility] of ARTHRITIS 00:00: mouth [place] PAIN) 650 00 every 8 Medical mg CR (eight) Branch tablet hours as needed for Pain. Diclofenac 2020-0 Yes [id number] Apply to [facility] Sodium 2-06 area(s) 4 ity of (VOLTAREN) 00:00: (four) [place] 1 % gel 00 times Medical daily. Branch Diagnosis: M54.42Appl y 4 g qid to affected areas tiZANidine 2020-0 Yes [id number] 2mg Take 1 [facility] 2 mg tablet 2-06 tablet by it[facility] of 00:00: mouth [place] 00 every 8 Medical (eight) Branch hours as needed (muscle spasms). acetaminoph 2020-0 Yes [id number] 650mg Take 1 [facility] en (TYLENOL 2-06 tablet by ity of ARTHRITIS 00:00: mouth [place] PAIN) 650 00 every 8 Medical mg CR (eight) Branch tablet hours as needed for Pain. Diclofenac 2020-0 Yes [id number] Apply to [facility] Sodium 2-06 area(s) 4 ity of (VOLTAREN) 00:00: (four) [place] 1 % gel 00 times Medical daily. Branch Diagnosis: M54.42Appl y 4 g qid to affected areas tiZANidine 2020-0 Yes [id number] 2mg Take 1 [facility] 2 mg tablet 2-06 tablet by it[facility] of 00:00: mouth [place] 00 every 8 Medical (eight) Branch hours as needed (muscle spasms). acetaminoph 2020-0 Yes [id number] 650mg Take 1 [facility] en (TYLENOL 2-06 tablet by ity of ARTHRITIS 00:00: mouth [place] PAIN) 650 00 every 8 Medical mg CR (eight) Branch tablet hours as needed for Pain. Diclofenac 2020-0 Yes [id number] Apply to [facility] Sodium 2-06 area(s) 4 ity of (VOLTAREN) 00:00: (four) [place] 1 % gel 00 times Medical daily. Branch Diagnosis: M54.42Appl y 4 g qid to affected areas tiZANidine 2020-0 Yes [id number] 2mg Take 1 [facility] 2 mg tablet 2-06 tablet by ity of 00:00: mouth [place] 00 every 8 Medical (eight) Branch hours as needed (muscle spasms). acetaminoph 2020-0 Yes [id number] 650mg Take 1 [facility] en (TYLENOL 2-06 tablet by ity of ARTHRITIS 00:00: mouth [place] PAIN) 650 00 every 8 Medical mg CR (eight) Branch tablet hours as needed for Pain. Diclofenac 2020-0 Yes [id number] Apply to [facility] Sodium 2-06 area(s) 4 ity of (VOLTAREN) 00:00: (four) [place] 1 % gel 00 times Medical daily. Branch Diagnosis: M54.42Appl y 4 g qid to affected areas tiZANidine 2020-0 Yes [id number] 2mg Take 1 [facility] 2 mg tablet 2-06 tablet by ity of 00:00: mouth [place] 00 every 8 Medical (eight) Branch hours as needed (muscle spasms). tiZANidine 2020-0 Yes [id number] 2mg Take 1 [facility] 2 mg tablet 2-06 tablet by ity of 00:00: mouth [place] 00 every 8 Medical (eight) Branch hours as needed (muscle spasms). acetaminoph 2020-0 Yes [id number] 650mg Take 1 [facility] en (TYLENOL 2-06 tablet by ity of ARTHRITIS 00:00: mouth [place] PAIN) 650 00 every 8 Medical mg CR (eight) Branch tablet hours as needed for Pain. Diclofenac 2020-0 Yes [id number] Apply to [facility] Sodium 2-06 area(s) 4 ity of (VOLTAREN) 00:00: (four) [place] 1 % gel 00 times Medical daily. Branch Diagnosis: M54.42Appl y 4 g qid to affected areas acetaminoph 2020-0 Yes [id number] 650mg Take 1 [facility] en (TYLENOL 2-06 tablet by ity of ARTHRITIS 00:00: mouth [place] PAIN) 650 00 every 8 Medical mg CR (eight) Branch tablet hours as needed for Pain. tiZANidine 2020-0 Yes [id number] 2mg Take 1 [facility] 2 mg tablet 2-06 tablet by ity of 00:00: mouth [place] 00 every 8 Medical (eight) Branch hours as needed (muscle spasms). acetaminoph 2020-0 Yes [id number] 650mg Take 1 [facility] en (TYLENOL 2-06 tablet by ity of ARTHRITIS 00:00: mouth [place] PAIN) 650 00 every 8 Medical mg CR (eight) Branch tablet hours as needed for Pain. Diclofenac 2020-0 Yes [id number] Apply to [facility] Sodium 2-06 area(s) 4 ity of (VOLTAREN) 00:00: (four) [place] 1 % gel 00 times Medical daily. Branch Diagnosis: M54.42Appl y 4 g qid to affected areas Diclofenac 2020-0 Yes [id number] Apply to [facility] Sodium 2-06 area(s) 4 ity of (VOLTAREN) 00:00: (four) [place] 1 % gel 00 times Medical daily. Branch Diagnosis: M54.42Appl y 4 g qid to affected areas tiZANidine 2020-0 Yes [id number] 2mg Take 1 [facility] 2 mg tablet 2-06 tablet by ity of 00:00: mouth [place] 00 every 8 Medical (eight) Branch hours as needed (muscle spasms). acetaminoph 2020-0 Yes [id number] 650mg Take 1 [facility] en (TYLENOL 2-06 tablet by ity of ARTHRITIS 00:00: mouth [place] PAIN) 650 00 every 8 Medical mg CR (eight) Branch tablet hours as needed for Pain. Diclofenac 2020-0 Yes [id number] Apply to [facility] Sodium 2-06 area(s) 4 ity of (VOLTAREN) 00:00: (four) [place] 1 % gel 00 times Medical daily. Branch Diagnosis: M54.42Appl y 4 g qid to affected areas tiZANidine 2020-0 Yes [id number] 2mg Take 1 [facility] 2 mg tablet 2-06 tablet by ity of 00:00: mouth [place] 00 every 8 Medical (eight) Branch hours as needed (muscle spasms). acetaminoph 2020-0 Yes [id number] 650mg Take 1 [facility] en (TYLENOL 2-06 tablet by ity of ARTHRITIS 00:00: mouth [place] PAIN) 650 00 every 8 Medical mg CR (eight) Branch tablet hours as needed for Pain. Diclofenac 2020-0 Yes [id number] Apply to [facility] Sodium 2-06 area(s) 4 ity of (VOLTAREN) 00:00: (four) [place] 1 % gel 00 times Medical daily. Branch Diagnosis: M54.42Appl y 4 g qid to affected areas tiZANidine 2020-0 Yes [id number] 2mg Take 1 [facility] 2 mg tablet 2-06 tablet by ity of 00:00: mouth [place] 00 every 8 Medical (eight) Branch hours as needed (muscle spasms). acetaminoph 2020-0 Yes [id number] 650mg Take 1 [facility] en (TYLENOL 2-06 tablet by ity of ARTHRITIS 00:00: mouth [place] PAIN) 650 00 every 8 Medical mg CR (eight) Branch tablet hours as needed for Pain. Diclofenac 2020-0 Yes [id number] Apply to [facility] Sodium 2-06 area(s) 4 ity of (VOLTAREN) 00:00: (four) [place] 1 % gel 00 times Medical daily. Branch Diagnosis: M54.42Appl y 4 g qid to affected areas tiZANidine 2020-0 Yes [id number] 2mg Take 1 [facility] 2 mg tablet 2-06 tablet by ity of 00:00: mouth [place] 00 every 8 Medical (eight) Branch hours as needed (muscle spasms). acetaminoph 2020-0 Yes [id number] 650mg Take 1 [facility] en (TYLENOL 2-06 tablet by ity of ARTHRITIS 00:00: mouth [place] PAIN) 650 00 every 8 Medical mg CR (eight) Branch tablet hours as needed for Pain. Diclofenac 2020-0 Yes [id number] Apply to [facility] Sodium 2-06 area(s) 4 ity of (VOLTAREN) 00:00: (four) [place] 1 % gel 00 times Medical daily. Branch Diagnosis: M54.42Appl y 4 g qid to affected areas tiZANidine 2020-0 Yes [id number] 2mg Take 1 [facility] 2 mg tablet 2-06 tablet by ity of 00:00: mouth [place] 00 every 8 Medical (eight) Branch hours as needed (muscle spasms). acetaminoph 2020-0 Yes [id number] 650mg Take 1 [facility] en (TYLENOL 2-06 tablet by ity of ARTHRITIS 00:00: mouth [place] PAIN) 650 00 every 8 Medical mg CR (eight) Branch tablet hours as needed for Pain. Diclofenac 2020-0 Yes [id number] Apply to [facility] Sodium 2-06 area(s) 4 ity of (VOLTAREN) 00:00: (four) [place] 1 % gel 00 times Medical daily. Branch Diagnosis: M54.42Appl y 4 g qid to affected areas tiZANidine 2020-0 Yes [id number] 2mg Take 1 [facility] 2 mg tablet 2-06 tablet by ity of 00:00: mouth [place] 00 every 8 Medical (eight) Branch hours as needed (muscle spasms). acetaminoph 2020-0 Yes [id number] 650mg Take 1 [facility] en (TYLENOL 2-06 tablet by ity of ARTHRITIS 00:00: mouth [place] PAIN) 650 00 every 8 Medical mg CR (eight) Branch tablet hours as needed for Pain. Diclofenac 2019-0 Yes [id number] Apply to [facility] Sodium 2-06 area(s) 4 ity of (VOLTAREN) 00:00: (four) [place] 1 % gel 00 times Medical daily. Branch Diagnosis: M54.42Appl y 4 g qid to affected areas naproxen 2018-0 Yes [id number] 500mg Take 1 [facility] 500 mg 5-21 9107 tablet by [facility] of tablet 00:00: mouth (two) Medical times Branch daily with meals. naproxen 2018-0 Yes [id number] 500mg Take 1 [facility] 500 mg 5-21 9107 tablet by [facility] of tablet 00:00: mouth (two) Medical times Branch daily with meals. naproxen 2018-0 Yes [id number] 500mg Take 1 [facility] 500 mg 5-21 9107 tablet by [facility] of tablet 00:00: mouth (two) Medical times Branch daily with meals. naproxen 2018-0 Yes [id number] 500mg Take 1 [facility] 500 mg 5-21 9107 tablet by [facility] of tablet 00:00: mouth 2 (two) Medical times Branch daily with meals. naproxen 2019-0 Yes [id number] 500mg Take 1 [facility] 500 mg 5-21 9107 tablet by [facility] of tablet 00:00: mouth 2 (two) Medical times Branch daily with meals. naproxen 2019-0 Yes [id number] 500mg Take 1 [facility] 500 mg 5-21 9107 tablet by [facility] of tablet 00:00: mouth 2 (two) Medical times Branch daily with meals. naproxen 2019-0 Yes [id number] 500mg Take 1 [facility] 500 mg 5-21 9107 tablet by [facility] of tablet 00:00: mouth (two) Medical times Branch daily with meals. naproxen 2019-0 Yes [id number] 500mg Take 1 [facility] 500 mg 5-21 9107 tablet by [facility] of tablet 00:00: mouth (two) Medical times Branch daily with meals. naproxen 2019-0 Yes [id number] 500mg Take 1 [facility] 500 mg 5-21 9107 tablet by [facility] of tablet 00:00: mouth (two) Medical times Branch daily with meals. naproxen 2018-0 Yes [id number] 500mg Take 1 [facility] 500 mg 5-21 9107 tablet by [facility] of tablet 00:00: mouth (two) Medical times Branch daily with meals. naproxen 2018-0 Yes [id number] 500mg Take 1 [facility] 500 mg 5-21 9107 tablet by [facility] of tablet 00:00: mouth (two) Medical times Branch daily with meals. naproxen 2018-0 Yes [id number] 500mg Take 1 [facility] 500 mg 5-21 9107 tablet by [facility] of tablet 00:00: mouth (two) Medical times Branch daily with meals. naproxen 2018-0 Yes [id number] 500mg Take 1 [facility] 500 mg 5-21 9107 tablet by [facility] of tablet 00:00: mouth (two) Medical times Branch daily with meals. naproxen 2018-0 Yes [id number] 500mg Take 1 [facility] 500 mg 5-21 9107 tablet by [facility] of tablet 00:00: mouth (two) Medical times Branch daily with meals. naproxen 2018-0 Yes [id number] 500mg Take 1 [facility] 500 mg 5-21 9107 tablet by [facility] of tablet 00:00: mouth (two) Medical times Branch daily with meals. naproxen 2019-0 Yes [id number] 500mg Take 1 [facility] 500 mg 5-21 9107 tablet by [facility] of tablet 00:00: mouth (two) Medical times Branch daily with meals. naproxen 2019-0 Yes [id number] 500mg Take 1 [facility] 500 mg 5-21 9107 tablet by [facility] of tablet 00:00: mouth (two) Medical times Branch daily with meals. naproxen 2019-0 Yes [id number] 500mg Take 1 [facility] 500 mg 5-21 9107 tablet by [facility] of tablet 00:00: mouth (two) Medical times Branch daily with meals. naproxen 2019-0 Yes [id number] 500mg Take 1 [facility] 500 mg 5-21 9107 tablet by [facility] of tablet 00:00: mouth (two) Medical times Branch daily with meals. naproxen 2018-0 Yes [id number] 500mg Take 1 [facility] 500 mg 5-21 9107 tablet by [facility] of tablet 00:00: mouth (two) Medical times Branch daily with meals. naproxen 2018-0 Yes [id number] 500mg Take 1 [facility] 500 mg 5-21 9107 tablet by [facility] of tablet 00:00: mouth (two) Medical times Branch daily with meals. naproxen 2018-0 Yes [id number] 500mg Take 1 [facility] 500 mg 5-21 9107 tablet by [facility] of tablet 00:00: mouth (two) Medical times Branch daily with meals. naproxen 2018-0 Yes [id number] 500mg Take 1 [facility] 500 mg 5-21 9107 tablet by [facility] of tablet 00:00: mouth (two) Medical times Branch daily with meals. naproxen 2018-0 Yes [id number] 500mg Take 1 [facility] 500 mg 5-21 9107 tablet by [facility] of tablet 00:00: mouth (two) Medical times Branch daily with meals. naproxen 2018-0 Yes [id number] 500mg Take 1 [facility] 500 mg 5-21 9107 tablet by [facility] of tablet 00:00: mouth (two) Medical times Branch daily with meals. naproxen 2018-0 Yes [id number] 500mg Take 1 [facility] 500 mg 5-21 9107 tablet by [facility] of tablet 00:00: mouth (two) Medical times Branch daily with meals. naproxen 2019-0 Yes [id number] 500mg Take 1 [facility] 500 mg 5-21 9107 tablet by [facility] of tablet 00:00: mouth (two) Medical times Branch daily with meals. naproxen 2018-0 Yes [id number] 500mg Take 1 [facility] 500 mg 5-21 9107 tablet by [facility] of tablet 00:00: mouth (two) Medical times Branch daily with meals. naproxen 2019-0 Yes [id number] 500mg Take 1 [facility] 500 mg 5-21 9107 tablet by [facility] of tablet 00:00: mouth (two) Medical times Branch daily with meals. naproxen 2019-0 Yes [id number] 500mg Take 1 [facility] 500 mg 5-21 9107 tablet by [facility] of tablet 00:00: mouth (two) Medical times Branch daily with meals. naproxen 2018-0 Yes [id number] 500mg Take 1 [facility] 500 mg 5-21 9107 tablet by [facility] of tablet 00:00: mouth (two) Medical times Branch daily with meals. naproxen 2018-0 Yes [id number] 500mg Take 1 [facility] 500 mg 5-21 9107 tablet by [facility] of tablet 00:00: mouth (two) Medical times Branch daily with meals. naproxen 2018-0 Yes [id number] 500mg Take 1 [facility] 500 mg 5-21 9107 tablet by [facility] of tablet 00:00: mouth (two) Medical times Branch daily with meals. naproxen 2018-0 Yes [id number] 500mg Take 1 [facility] 500 mg 5-21 9107 tablet by [facility] of tablet 00:00: mouth (two) Medical times Branch daily with meals. naproxen 2018-0 Yes [id number] 500mg Take 1 [facility] 500 mg 5-21 9107 tablet by [facility] of tablet 00:00: mouth (two) Medical times Branch daily with meals. naproxen 2018-0 Yes [id number] 500mg Take 1 [facility] 500 mg 5-21 9107 tablet by [facility] of tablet 00:00: mouth (two) Medical times Branch daily with meals. naproxen 2019-0 Yes [id number] 500mg Take 1 [facility] 500 mg 5-21 9107 tablet by [facility] of tablet 00:00: mouth (two) Medical times Branch daily with meals. naproxen 2019-0 Yes [id number] 500mg Take 1 [facility] 500 mg 5-21 9107 tablet by [facility] of tablet 00:00: mouth (two) Medical times Branch daily with meals. naproxen 2019-0 Yes [id number] 500mg Take 1 [facility] 500 mg 5-21 9107 tablet by [facility] of tablet 00:00: mouth (two) Medical times Branch daily with meals. naproxen 2019-0 Yes [id number] 500mg Take 1 [facility] 500 mg 5-21 9107 tablet by [facility] of tablet 00:00: mouth (two) Medical times Branch daily with meals. naproxen 2018-0 Yes [id number] 500mg Take 1 [facility] 500 mg 5-21 9107 tablet by [facility] of tablet 00:00: mouth (two) Medical times Branch daily with meals. naproxen 2018-0 Yes [id number] 500mg Take 1 [facility] 500 mg 5-21 9107 tablet by [facility] of tablet 00:00: mouth (two) Medical times Branch daily with meals. naproxen 2018-0 Yes [id number] 500mg Take 1 [facility] 500 mg 5-21 9107 tablet by [facility] of tablet 00:00: mouth (two) Medical times Branch daily with meals. naproxen 2018-0 Yes [id number] 500mg Take 1 [facility] 500 mg 5-21 9107 tablet by [facility] of tablet 00:00: mouth (two) Medical times Branch daily with meals. naproxen 2018-0 Yes [id number] 500mg Take 1 [facility] 500 mg 5-21 9107 tablet by [facility] of tablet 00:00: mouth (two) Medical times Branch daily with meals. naproxen 2018-0 Yes [id number] 500mg Take 1 [facility] 500 mg 5-21 9107 tablet by [facility] of tablet 00:00: mouth (two) Medical times Branch daily with meals. naproxen 2018-0 Yes [id number] 500mg Take 1 [facility] 500 mg 5-21 9107 tablet by [facility] of tablet 00:00: mouth (two) Medical times Branch daily with meals. naproxen 2019-0 Yes [id number] 500mg Take 1 [facility] 500 mg 5-21 9107 tablet by [facility] of tablet 00:00: mouth (two) Medical times Branch daily with meals. naproxen 2018-0 Yes [id number] 500mg Take 1 [facility] 500 mg 5-21 9107 tablet by [facility] of tablet 00:00: mouth (two) Medical times Branch daily with meals. naproxen 2019-0 Yes [id number] 500mg Take 1 [facility] 500 mg 5-21 9107 tablet by [facility] of tablet 00:00: mouth (two) Medical times Branch daily with meals. naproxen 2019-0 Yes [id number] 500mg Take 1 [facility] 500 mg 5-21 9107 tablet by [facility] of tablet 00:00: mouth (two) Medical times Branch daily with meals. naproxen 2018-0 Yes [id number] 500mg Take 1 [facility] 500 mg 5-21 9107 tablet by ity of tablet 00:00: mouth (two) Medical times Branch daily with meals. naproxen 2018-0 Yes [id number] 500mg Take 1 Univers 500 mg 5-21 9107 tablet by ity of tablet 00:00: mouth (two) Medical times Branch daily with meals. naproxen 2018-0 Yes [id number] 500mg Take 1 Univers 500 mg 5-21 9107 tablet by ity of tablet 00:00: mouth (two) Medical times Branch daily with meals. naproxen 2018-0 Yes [id number] 500mg Take 1 Univers 500 mg 5-21 9107 tablet by ity of tablet 00:00: mouth (two) Medical times Branch daily with meals. naproxen 2018-0 Yes [id number] 500mg Take 1 Univers 500 mg 5-21 9107 tablet by ity of tablet 00:00: mouth (two) Medical times Branch daily with meals. naproxen 2018-0 Yes [id number] 500mg Take 1 Univers 500 mg 5-21 9107 tablet by ity of tablet 00:00: mouth (two) Medical times Branch daily with meals. naproxen 2018-0 Yes [id number] 500mg Take 1 Univers 500 mg 5-21 9107 tablet by ity of tablet 00:00: mouth (two) Medical times Branch daily with meals. naproxen 2019-0 Yes [id number] 500mg Take 1 Univers 500 mg 5-21 9107 tablet by ity of tablet 00:00: mouth (two) Medical times Branch daily with meals. naproxen 2018-0 Yes [id number] 500mg Take 1 Univers 500 mg 5-21 9107 tablet by ity of tablet 00:00: mouth 2 [place] (two) Medical times Branch daily with meals. naproxen Yes [id number] 500mg Take 1 Univers 500 mg 5-21 9107 tablet by ity of tablet 00:00: mouth 2 [place] (two) Medical times Branch daily with meals. naproxen Yes [id number] 500mg Take 1 Univers 500 mg 5-21 9107 tablet by ity of tablet 00:00: mouth 2 [place] (two) Medical times Branch daily with meals. naproxen Yes [id number] 500mg Take 1 Univers 500 mg 5-21 9107 tablet by ity of tablet 00:00: mouth 2 [place] (two) Medical times Branch daily with meals. Immunizations Ordered Filled Immunization Date Status Comments [facility] e Immunization Name Name SARS-COV-2 COVID-19 2021-03-29 Completed Unive rsity of PFIZER VACCINE 00:00:00 [facility] Vital Signs Vital Name Observation Time Observation Value Comments Source Systolic blood 2020-05-25 16:23:00 137 mm[Hg] Univer [facility] [place] Diastolic blood 2020-05-25 16:23:00 90 mm[Hg] Unive [facility] Heart rate 2020-05-25 16:23:00 86 /min [facility] Body temperature 2020-05-25 16:23:00 36.61 Latrice [facility] Respiratory rate 2020-05-25 16:23:00 18 /min [facility] Body height 2020-05-25 16:23:00 165.1 cm [facility] Body weight 2020-05-25 16:23:00 83.008 kg [facility] BMI 2020-05-25 16:23:00 30.45 kg/m2 [facility] Oxygen saturation in 2020-05-25 16:23:00 98 /min [facility] Arterial blood by [facility] Pulse oximetry Branch Systolic blood 2020-05-17 20:10:00 141 mm[Hg] Univer sit of [facility] Diastolic blood 2020-05-17 20:10:00 95 mm[Hg] Unive rsity of pressure [facility] Heart rate 2020-05-17 20:08:00 92 /min [facility]i ty [facility] Body temperature 2020-05-17 20:08:00 35.89 Ltarice Univ ersity of [place] [facility] Respiratory rate 2020-05-17 20:08:00 17 /min Univ ersity of [facility] Body height 2020-05-17 20:08:00 165.1 cm [facility]i [facility] Body weight 2020-05-17 20:08:00 83.008 kg [facility] BMI 2020-05-17 20:08:00 30.45 kg/m2 Universi ty [facility] Oxygen saturation in 2020-05-17 20:08:00 100 /min University of Arterial blood by [facility] Pulse oximetry Branch Systolic blood 2020-05-09 23:09:00 123 mm[Hg] Univer sity of pressure [facility] Diastolic blood 2020-05-09 23:09:00 85 mm[Hg] Unive rsity of pressure [facility] Heart rate 2020-05-09 23:09:00 111 /min Universi ty [facility] [place] [facility] Body temperature 2020-05-09 23:09:00 36.5 Latrice Univ ersity [facility] [place] [facility] Respiratory rate 2020-05-09 23:09:00 18 /min Univ ersity of [facility] Body height 2020-05-09 23:09:00 165.1 cm [facility]i [facility] [place] [facility] Body weight 2020-05-09 23:09:00 83.462 kg Universi ty [facility] [place] [facility] BMI 2020-05-09 23:09:00 30.62 kg/m2 Universi ty [facility] [place] [facility] Oxygen saturation in 2020-05-09 23:09:00 97 /min University of Arterial blood by [facility] raj Pulse oximetry Branch Systolic blood 2020-04-24 23:34:00 132 mm[Hg] Univer sity of pressure [facility] Diastolic blood 2020-04-24 23:34:00 91 mm[Hg] Unive rsity of pressure [facility] Heart rate 2020-04-24 23:31:00 98 /min Universi ty [facility] [place] [facility] Body temperature 2020-04-24 23:31:00 36.89 Latrice Univ ersity [facility] [place] [facility] Respiratory rate 2020-04-24 23:31:00 18 /min Univ ersity of [place] [facility] Body height 2020-04-24 23:31:00 165.1 cm Universi ty [facility] [place] [facility] Body weight 2020-04-24 23:31:00 83.462 kg Universi ty [facility] [place] [facility] BMI 2020-04-24 23:31:00 30.62 kg/m2 Universi ty of [facility] Branch Oxygen saturation in 2020-04-24 23:31:00 99 /min University of Arterial blood by [facility] Pulse oximetry Branch Systolic blood 2019-12-29 00:19:18 119 mm[Hg] Univer sity of pressure [place] [facility] Diastolic blood 2019-12-29 00:19:18 79 mm[Hg] Unive rsity of pressure [facility] Heart rate 2019-12-29 00:19:18 67 /min Universi ty [facility] [place] [facility] Respiratory rate 2019-12-29 00:19:18 16 /min Univ ersity of [facility] Oxygen saturation in 2019-12-29 00:19:18 97 /min University of Arterial blood by [facility] Pulse oximetry Branch Body temperature 2019-12-28 22:14:00 36.56 Latrice Univ ersity of [place] [facility] Body weight 2019-12-28 22:14:00 89.812 kg Universi ty [facility] [place] [facility] BMI 2019-12-28 22:14:00 32.95 kg/m2 Universi ty [facility] [place] [facility] Systolic blood 2019-12-28 21:01:00 135 mm[Hg] Univer sity of pressure [facility] Diastolic blood 2019-12-28 21:01:00 90 mm[Hg] Unive rsity of pressure [facility] Heart rate 2019-12-28 21:01:00 83 /min Universi ty [facility] [place] [facility] Body temperature 2019-12-28 21:01:00 36.83 Latrice Univ ersity [facility] [place] [facility] Respiratory rate 2019-12-28 21:01:00 18 /min Univ ersity of [place] [facility] Body height 2019-12-28 21:01:00 165.1 cm Universi ty [facility] [place] [facility] Body weight 2019-12-28 21:01:00 89.812 kg Universi ty [facility] [place] [facility] BMI 2019-12-28 21:01:00 32.95 kg/m2 Universi ty [facility] [place] [facility] Oxygen saturation in 2019-12-28 21:01:00 99 /min University of Arterial blood by [facility] raj Pulse oximetry Branch Systolic blood 2019-07-30 01:03:00 130 mm[Hg] Univer sity of pressure [facility] Diastolic blood 2019-07-30 01:03:00 91 mm[Hg] Unive rsity of pressure [facility] Heart rate 2019-07-30 01:03:00 81 /min Universi ty [facility] [place] [facility] Respiratory rate 2019-07-30 01:03:00 16 /min Univ ersity of [place] [facility] Oxygen saturation in 2019-07-30 01:03:00 96 /min University of Arterial blood by [facility] Pulse oximetry Branch Body temperature 2019-07-29 22:44:00 36.83 Latrice Univ ersity of [place] [facility] Body height 2019-07-29 22:44:00 165.1 cm Universi ty [facility] [place] [facility] Body weight 2019-07-29 22:44:00 86.183 kg [facility]i [facility] [place] [facility] BMI 2019-07-29 22:44:00 31.62 kg/m2 [facility] [place] [facility] Systolic blood 2019-06-18 15:23:00 157 mm[Hg] Univer sity of pressure [place] [facility] Diastolic blood 2019-06-18 15:23:00 98 mm[Hg] Unive rsity of pressure [facility] Heart rate 2019-06-18 15:23:00 88 /min [facility]i ty [facility] [place] [facility] Body temperature 2019-06-18 15:23:00 36.61 Latrice Univ ers[facility] [place] [facility] Respiratory rate 2019-06-18 15:23:00 18 /min Univ ersity [facility] [place] [facility] Body height 2019-06-18 15:23:00 165.1 cm [facility] [place] [facility] Body weight 2019-06-18 15:23:00 85.775 kg [facility]i [facility] [place] [facility] BMI 2019-06-18 15:23:00 31.47 kg/m2 [facility] [place] [facility] Oxygen saturation in 2019-06-18 15:23:00 98 /min University of Arterial blood by [facility] Pulse oximetry Branch Procedures Procedure Date / Time Performing Clinician Source Performed SARS-COV-2 COVID-19 2021-03-29 16:35:44 Doctor Unassigned, [facility] VACCINE,0.3ML,IM (PFIZER) [place] [facility] BI SELF-REQUESTED 2021-02-23 15:15:00 Iraida Senior [facility] SCREENING TOMOSYNTHESIS Medical Branch BILATERAL REFERRAL- 2021-01-12 05:01:00 Doctor Unarayshawn, [facility] REQUEST/RESPONSE [place] [facility] ASSIGNMENT OF BENEFITS 2020-12-23 19:51:27 [facility], [facility] [place] [facility] ASSIGNMENT OF BENEFITS 2020-12-06 18:16:18 [facility] [place] [facility] XR CHEST 2 VW 2020-06-07 17:09:29 [facility] ASSIGNMENT OF BENEFITS 2020-06-07 16:36:32 Doctor Unassigned, Un [facility] [place] [facility] COVID-19 (MOLECULAR 2020-05-25 16:19:00 Beatriz Leiva [facility] TESTING [facility] NUCLEIC ACID AMPLIFICATION) LAB ONLY COVID 2020-05-25 16:19:00 Beatriz Leiva [facility] INTERPRETATION [facility] POCT GRP A STREP 2020-05-25 00:00:00 Beatriz Leiva [facility] (MOLECULAR) Medical Branch CONSENT/REFUSAL FOR 2020-05-16 11:30:31 Doctor Unasssahil, [facility] DIAGNOSIS AND TREATMENT [place] [facility] [place] POCT GRP A STREP 2020-05-10 01:41:00 Jonnathan [facility] (MOLECULAR) [facility] Branch COVID-19 (ID NOW RAPID 2020-05-09 23:08:00 Jonnathan [facility] TESTING) Medical [place] URINALYSIS MICROSCOPIC 2020-04-25 00:11:00 Jonnathan [facility] POCT FLU A AND B 2020-04-25 00:04:00 Jonnathan [facility] (MOLECULAR) Medical Branch COVID-19 (MOLECULAR 2020-04-24 23:37:[address] [facility] TESTING [facility] Branch NUCLEIC ACID AMPLIFICATION) POCT URINALYSIS 2020-04-24 00:00:00 [place], [place] [facility] CT ABDOMEN PELVIS W 2019-12-28 23:58:39 Laura Vasquez [facility] CONTRAST Medical Branch LIPASE 2019-12-28 23:06:00 Pedro [facility] COMP. METABOLIC PANEL 2019-12-28 23:06:00 Laura Vasquez [facility] ([id number]) Medical Branch CBC WITH DIFF 2019-12-28 23:06:00 Pedro [facility] URINALYSIS 2019-12-28 23:06:00 Pedro [facility] POCT TEST 2019-12-28 23:00:00 Laura Vasquez [facility] NOTICE OF PRIVACY 2019-12-28 22:09:04 Doctor Unassigned, [facility] [place] [facility] CONSENT/REFUSAL FOR 2019-12-28 22:08:53 Doctor Unassigned, [facility] DIAGNOSIS AND TREATMENT [place] [facility] URINE CULTURE 2019-12-28 21:32:00 Eleuterio [facility] POCT URINALYSIS 2019-12-28 21:25:00 Eleuterio [facility] US OVARY TORSION 2019-07-30 00:33:38 Isak Beard [facility] CT ABDOMEN PELVIS W 2019-07-29 23:52:31 Isak Beard [facility] HEPATIC FUNCTION PANEL 2019-07-29 23:05:00 Isak Beard [facility] ([id number]) (ALB,T.PRO,BILI Medical Branch T,BU/BC,ALT,AST,ALK PHOS) BASIC METABOLIC PANEL 2019-07-29 23:05:00 Isak Beard [facility] (NA, K, CL, CO2, GLUCOSE, Medica l Branch BUN, CREATININE, CA) CBC WITH DIFFERENTIAL 2019-07-29 23:05:00 Isak Beard [facility] URINALYSIS 2019-07-29 23:05:00 Isak Beard [facility] POCT TEST 2019-07-29 22:53:00 Isak Beard [facility] NOTICE OF PRIVACY 2019-07-29 22:34:12 Doctor Unassigned, [facility] [place] [facility] [place] CONSENT/REFUSAL FOR 2019-07-29 22:33:56 Doctor Unassigned [facility] DIAGNOSIS AND TREATMENT [place] [facility] XR LUMBAR SPINE 3 VW 2019-06-18 18:37:21 Vazquez Hickman [facility] XR HIPS 2 VW LEFT 2019-06-18 18:37:21 Vazquez Hickman [facility] URIC ACID 2019-06-18 18:24:00 Vazquez Hickman [facility] COMP. METABOLIC PANEL 2019-06-18 18:24:00 Vazquez Hickman [facility] ([id number]) [facility] LIPID PANEL ([id number])(TOTAL 2019-06-18 18:24:00 Vazquez Hickman [facility] CHOLESTEROL, [facility] TRIGLYCERIDES, HDL) SEDIMENTATION RATE 2019-06-18 18:24:00 Vazquez Hickman [facility] CBC WITH DIFFERENTIAL 2019-06-18 18:24:00 Vazquez Hickman [facility] GLYCOSYLATED HEMOGLOBIN 2019-06-18 18:24:00 Vazquez Hickman [facility] (A1C) [facility] FREE T4 2019-06-18 18:24:00 Vazquez Hickman [facility] THYROID STIMULATING 2019-06-18 18:24:00 Vazquez Hickman [facility] HORMONE [facility] FREE T3 2019-06-18 18:24:00 Vazquez Hickman [facility] Encounters Start End Encounter Admission Attending Care Care Encounter Source Date/Time Date/Time Type Type Clinicians Facility Department ID 2021-03-10 Emergency [facility] [id number] Univers 12:57:47 [facility] 2021-04-20 2021-04-20 Outpatient GC_TNC_Cher PRIV PRIV [id number] [facility] 04:51:00 04:51:00 ches_I [id number] Medica l 2021-04-20 2021-04-20 Outpatient Cherches, PRIV PRIV [id number] 00:00:00 00:00:00 Jeffry M [id number] 2021-04-20 2021-04-20 Outpatient [facility] [id number] [place] 00:00:00 00:00:00 CRISELDA 006 Method i 2021-04-19 2021-04-19 Outpatient Armando WATSON [facility] [id number] Univers 08:30:00 08:30:00 [facility] 2021-04-18 2021-04-18 Outpatient GC_TNC_Cher PRIV PRIV [id number] [facility] 12:38:00 12:38:00 ches_I [id number] Medica l 2021-04-13 2021-04-13 Outpatient CATALINO [facility] [id number] [place] 00:00:00 00:00:00 ADY 503 Method i 2021-04-11 2021-04-11 Outpatient [facility] [id number] [place] 00:00:00 00:00:00 402 Method i 2021-04-11 2021-04-11 Outpatient [facility] [id number] [place] 00:00:00 00:00:00 CRISELDA 116 Method i 2021-03-29 2021-03-29 Outpatient Armando WATSON [facility] [id number] Univers 10:30:00 10:30:00 [facility] 2021-03-29 2021-03-29 Outpatient Armando WATSON [facility] [id number] Univers 10:30:00 10:30:00 [facility] 2021-03-29 2021-03-29 Imm/Inj Nurse, Adc Pob Immunization [facility] 1.2.840.114 [id number] Univers 10:23:13 10:23:20 Visit Bakari Watson 350.1.13 .10 [facility] [id number] Berny DAVILA [id number] Ut dical [address] 2021-02-23 2021-02-23 Hospital [facility] 1.2.840.114 [id number] Univers 10:02:05 23:59:00 Encounter Iraida L [facility] [id number] [place]y [id number] [id number] [facility] [address] 2021-02-23 2021-02-23 Outpatient R ADVIMAL, [facility] [id number] Univers 10:15:00 10:15:00 IRAIDA [id number] ity [facility] 2021-02-23 2021-02-23 Outpatient R ADVIMAL, [facility] [id number] Univers 10:15:00 10:15:00 IRAIDA ity [facility] 2021-02-08 2021-02-08 Outpatient NOAH ANTUNEZ [facility] [id number] Univers 14:00:00 14:00:00 [id number] ity [facility] 2021-02-08 2021-02-08 Outpatient R TULIO NOAH [facility] [id number] Univers 14:00:00 14:00:00 ity [facility] 2021-01-26 2021-01-26 Outpatient [facility] [id number] Univers 11:20:00 11:20:00 [id number] ity [facility] 2021-01-24 2021-01-24 Outpatient [facility] [id number] Univers 11:20:00 11:20:00 [id number] ity [facility] 2021-01-20 2021-01-20 [facility]patient [facility] THE [facility] [id number] [place] 00:00:00 00:00:[address] 2021-01-19 2021-01-19 Ancillary Elen Dillon [facility] 1.2. 840.114 [id number] Univers 11:17:26 11:57:26 Visit Analisa Waters [id number] ity of [employer] [id number] [id number] Ut dical [facility] 179 Branch [facility] 2021-01-19 2021-01-19 Outpatient [facility] [id number] Univers 11:20:00 11:20:00 [id number] ity [facility] 2021-01-17 2021-01-17 Ancillary Violeta Alanis [facility] 1.2.840 .114 [id number] Univers 11:19:37 11:57:41 Visit Analisa Waters [id number] ity of [employer] [id number] [id number] Ut dical nal [address] [facility] 2021-01-17 2021-01-17 Outpatient [facility] [id number] Univers 11:20:00 11:20:00 [id number] ity of [facility] 2021-01-12 2021-01-12 Ancillary Elen Dillon [facility] 1.2. 840.114 [id number] Univers 10:37:35 11:17:35 Visit Analisa Waters [id number] ity of [employer] [id number] [id number] Ut dical nal [address] [facility] 2021-01-12 2021-01-12 Outpatient [facility] [id number] Univers 10:40:00 10:40:00 [id number] ity of [facility] 2021-01-12 2021-01-12 Outpatient R EVELIN [facility] [id number] Univers 10:40:00 10:40:00 ANALISA ity [facility] 2021-01-12 2021-01-12 Orders Doctor BHUMI 1.2.840.114 [id number] Univers 00:00:00 00:00:00 Only Unassigned, JET [id number] ity of [place] [facility] [id number] [place] [id number] [address] 2021-01-10 2021-01-10 Ancillary Zeke Tarik Jaspal [facility] 1.2.840. 114 [id number] Univers 11:19:51 11:59:51 Visit Analisa Waters [id number] ity of [employer] [id number] [id number] Ut dical nal [address] [facility] 2021-01-10 2021-01-10 Outpatient R [facility] [id number] Univers 11:20:00 11:20:00 [id number] ity [facility] 2021-01-04 2021-01-04 Ancillary Camron Lucila Bobo [facility] 1 .2.840.114 [id number] Univers 14:20:31 15:29:00 Visit Analisa Waters Casie [id number] ity of [employer] [id number] [id number] Ut dical nal [address] [facility] 2021-01-04 2021-01-04 Outpatient R [facility] [id number] Univers 14:20:00 14:20:00 [id number] ity [facility] 2021-01-04 2021-01-04 Outpatient R [facility] [id number] Univers 14:20:00 14:20:00 ity [facility] 2020-12-23 2020-12-23 Hospital Radiology [facility] 1.2.840.114 [id number] Univers 14:52:12 23:59:00 Encounter Casie [id number] ity of [employer] [id number] [id number] [facility] 807 [place] 2020-12-23 2020-12-23 Outpatient R RADIOLOGY [facility] [id number] Univers 15:00:00 15:00:00 [id number] ity [facility] 2020-12-23 2020-12-23 Outpatient R RADIOLOGY [facility] [id number] Univers 00:00:00 00:00:00 ity of [facility] 2020-12-23 2020-12-23 Outpatient [facility] [id number] [place] 00:00:00 00:00:[address] 2020-12-23 2020-12-23 Orders Doctor BHUMI 1.2.840.114 [id number] Univers 00:00:00 00:00:00 Only Unassigned, JET [id number] ity of [place] [facility] [id number] [place] [phone] [facility] 009 Branch 2020-12-11 2020-12-11 Laboratory Lab, Adc Fam Pob I [facility] 1.2. 840.114 [id number] Univers 10:57:14 11:17:14 Only [place] De Santiago [facility] [id number] ity of [place] 4.2.7.2. 686 [place] Professio [id number] Ut dical nal 044 [facility] One 2020-12-11 2020-12-11 Outpatient [facility] [id number] Univers 11:00:00 11:00:00 [id number] ity [facility] 2020-12-11 2020-12-11 [facility] [id number] Univers 11:00:00 11:00:00 MARSHALL [facility] 2020-12-06 2020-12-06 Laboratory Lab, [facility] 1.2. 840.114 [id number] Univers 13:16:28 13:36:28 Only Bhumi Mcclellan [facility] [id number] ity of [place] [id number] [place] Professio [id number] [address] One 2020-12-06 2020-12-06 Outpatient [facility] [id number] Univers 13:00:00 13:00:00 [id number] [facility] 2020-12-06 2020-12-06 Outpatient [facility] [id number] Univers 13:00:00 13:00:00 BHUMI [facility] 2020-12-06 2020-12-06 Orders Doctor BHUMI 1.2.840.114 [id number] Univers 00:00:00 00:00:00 Only Unassigned, JET [id number] [facility] 4.2.7.2.686 [place] [phone] [address] 2020-12-02 2020-12-02 Outpatient [facility] [id number] [place] 00:00:00 00:00:[address] 2020-11-21 2020-11-21 Outpatient [facility] [id number] [place] 00:00:00 00:00:00 CRISELDA [address] 2020-11-17 2020-11-17 Outpatient [facility] [id number] [place] 00:00:00 00:00:00 CRISELDA 101 Method i 2020-11-17 2020-11-17 Outpatient [facility] [id number] [place] 00:00:00 00:00:00 278 Method i 2020-08-10 2020-08-10 Outpatient [facility] [id number] [place] 00:00:00 00:00:00 CRISELDA 696 Method i 2020-08-10 2020-08-10 Outpatient [facility] [id number] [place] 00:00:00 00:00:00 CRISELDA 600 Method i 2020-07-28 2020-07-28 Patient Hernando [facility] 1.2.840.114 [id number] Univers 00:00:00 00:00:00 Outreach Bakari PRIMARY [id number] i ty [facility] [id number] [place] [facility] [id number] Ut dical [address] [place] 2020-07-26 2020-07-26 Outpatient [facility] [id number] [place] 00:00:00 00:00:00 CRISELDA 090 Method i 2020-06-23 2020-06-23 Outpatient [facility] [id number] [place] 00:00:00 00:00:00 364 Method i 2020-06-23 2020-06-23 Outpatient [facility] [id number] [place] 00:00:00 00:00:00 740 Method i 2020-06-07 2020-06-07 Hospital Radiology [facility] 1.2.840.114 [id number] Univers 10:37:28 23:59:00 Encounter [place] [id number] ity [facility] [id number] [id number] [facility] 807 Branch 2020-06-07 2020-06-07 Outpatient R RADIOLOGY [facility] [id number] Univers 10:45:00 10:45:00 [id number] ity of [facility] 2020-06-07 2020-06-07 Outpatient R RADIOLOGY [facility] [id number] [facility] 00:00:00 00:00:00 ity of [facility] 2020-06-07 2020-06-07 Orders Doctor BHUMI 1.2.840.114 [id number] Univers 00:00:00 00:00:00 Only Unassigned, JET 350.1.13.10 ity of [place] [facility] 4.2.7.2.686 Sylvester as [phone] [address] 2020-05-26 2020-05-26 [facility] [id number] Univers 13:00:00 13:00:00 VAZQUEZ [id number] [facility]-05-26 2020-05-26 Outpatient [facility] [id number] Univers 13:00:00 13:00:00 VAZQUEZ [facility] 2020-05-25 2020-05-25 Urgent [facility] 1.2.840.114 [id number] Univers 10:16:38 11:28:56 Care Beatriz Romero [facility] [id number] ity of [place] 4.2.7.2.686 Sylvester as Professio [phone] [address] Office Building One 2020-05-25 2020-05-25 Outpatient [facility] [id number] Univers 10:20:00 10:20:00 [id number] [facility] 2020-05-25 2020-05-25 Outpatient R [facility] [id number] Univers 10:20:00 10:20:00 BEATRIZ cortes o f [facility] 2020-05-17 2020-05-17 Transcripter Lab, Adc Fam Pob I [facility] 1.2. 840.114 [id number] Univers 14:52:30 15:12:30 Visit Matthew Potter 350.1.13.10 ity of [place] 4.2.7.2.686 Sylvester as Professio [phone] Ut dicmt nal [address] [place] [address] Office Building One 2020-05-17 2020-05-17 Urgent Provider, [facility] 1.2.840.114 [id number] Univers 14:04:23 14:55:17 Care [facility] [id number] ity of [place] 4.2.7.2.686 [place] as Professio [phone] [address] One 2020-05-17 2020-05-17 Outpatient R [facility] [id number] Univers 14:20:00 14:20:00 ity of [facility] 2020-05-17 2020-05-17 Outpatient [facility] [id number] Univers 14:00:00 14:00:00 [id number] ity [facility] 2020-05-17 2020-05-17 Outpatient R TARIQ, [facility] [id number] Univers 14:00:00 14:00:00 MATTHEW ity [facility] 2020-05-16 2020-05-16 Outpatient R ALFONSO, [facility] [id number] Univers 05:30:00 05:30:00 ADILIA [id number] ity [facility] 2020-05-16 2020-05-16 Outpatient [facility] [id number] Univers 05:30:00 05:30:00 [facility] 2020-05-16 2020-05-16 Orders Doctor BHUMI 1.2.840.114 [id number] Univers 00:00:00 00:00:00 Only Unassigned, JET 350.1.13.10 [facility] 4.2.7.2.686 [place] as [phone] [address] 2020-05-09 2020-05-09 Urgent Provider, [facility] 1.2.840.114 [id number] Univers 16:59:46 17:42:37 J Luis De Santiago [facility] 350.1.13.10 ity of [place] 4.2.7.2.686 Syl[place] as Professio [phone] [address] One 2020-05-09 2020-05-09 Outpatient [facility] [id number] Univers 17:00:00 17:00:00 [id number] ity [facility] 2020-05-09 2020-05-09 Outpatient [facility] [id number] Univers 17:00:00 17:00:00 MARSHALL ity [facility] 2020-04-24 2020-04-24 Urgent Provider, Ang [facility] 1.2.840.114 [id number] Univers 17:21:33 19:37:01 J Luis [facility] 350.1.13.10 ity [facility] 4.2.7.2.686 [place] as Professio [phone] Ut dical nal [address] One 2020-04-24 2020-04-24 Outpatient R [facility] [id number] Univers 17:20:00 17:20:00 [id number] ity [facility] 2020-04-24 2020-04-24 Outpatient R [facility] [id number] Univers 17:20:00 17:20:00 MARSHALL ity [facility] 2020-03-07 2020-03-07 [facility] 1.2.840.114 [id number] Univers 00:00:00 00:00:00 Vazquez Jason 350.1.13.10 i ty [facility] [place]2.7.2.[place] [phone] Ut dical nal 044 [facility] 2020-02-23 2020-02-23 [facility] 1.2.840.114 [id number] Univers 08:18:22 23:59:00 Encounter Vazquez GHOTRA 350.1.13.10 ity of [facility] 4.2.7.2.686 [place] C[place] AT [phone] Ut [place] COMPTONDwaine [address] [place] [address] 2020-02-23 2020-02-23 Outpatient R [facility] [id number] Univers 08:20:00 08:20:00 VAZQUEZ [id number] ity [facility] 2020-02-23 2020-02-23 Outpatient R [facility] [id number] Univers 00:00:00 00:00:00 VAZQUEZ [facility] 2020-01-05 2020-01-05 Outpatient [facility] [id number] Univers 15:20:00 15:20:00 VAZQUEZ [id number] [facility] 2020-01-05 2020-01-05 Outpatient [facility] [id number] [facility] 00:00:00 00:00:[address] 2019-12-29 2019-12-29 Transition Suyapa Mims 1.2.840.114 [id number] Univers 00:00:00 00:00:00 of Care Leopoldo Brendan Huber 350.1.13.10 [place].2.[place] [phone] [facility] [address] 2019-12-28 2019-12-28 Emergency Pedro, [facility] 1.2.857.994 [id number] Univers 17:15:00 19:57:00 Laura Jason 350.1.13.10 i [place] [phone] [facility] [address] [place] 2019-12-28 2019-12-28 Urgent Provider, [facility] 1.2.840.114 [id number] Univers 15:52:03 16:52:41 Matthew Granados 350.1.13.10 ity of [place] 4.2.7.2.686 [place] as Professsarika [phone] [facility] [address] [place] [address] One 2019-12-28 2019-12-28 Outpatient [facility] [id number] Univers 16:20:00 16:20:00 [id number] ity of [facility] 2019-12-28 2019-12-28 Outpatient R [facility] [id number] Univers 16:20:00 16:20:00 ity of [facility] 2019-12-28 2019-12-28 Orders Doctor BHUMI 1.2.840.114 [id number] Univers 00:00:00 00:00:00 Only Unassigned, JET 350.1.13.10 ity of [place] [facility] 4.2.7.2.686 [place] as [phone] [facility] [address] 2019-12-01 2019-12-01 Outpatient R [facility] [id number] Univers 11:40:00 11:40:00 [id number] ity of [facility] 2019-12-01 2019-12-01 Outpatient [facility] [id number] Univers 11:40:00 11:40:00 MATTHEW ity of [facility] 2019-07-30 2019-07-30 Transition Suyapa Smith 1.2.840.114 [id number] Univers 00:00:00 00:00:00 of Care Verena Huber 350.1.13.10 [place].2.[place] [phone] [facility] [address] 2019-07-29 2019-07-29 Emergency [facility] 1.2.840.114 [id number] Univers 17:37:13 20:04:00 Isak Jarvis Jason 350.1.13.10 i ty of [employer] [place].2.[place] [phone] [facility] [address] 2019-07-29 2019-07-29 Emergency X PIQUA, [facility] ERT [id number] Univers 17:37:13 20:04:00 ISAK ity [facility] 2019-07-29 2019-07-29 Orders Doctor TRIPATHI 1.2.840.114 [id number] Univers 00:00:00 00:00:00 Only Unassigned, JET 350.1.13.10 ity of [place] [facility] 4.2.7.2.686 [place] as [phone] [facility] [address] 2019-07-09 2019-07-09 Ancillary Lucila Mcclain [facility] 1 .2.840.114 [id number] Univers 09:12:50 09:52:50 Visit Analisa Waters 350.1.13.10 ity of [employer] [place].2.[place] [phone] Ut dical [facility] 179 [facility] 2019-07-09 2019-07-09 Outpatient R EVELIN [facility] [id number] Univers 09:20:00 09:20:00 ANALISA cortes [facility] 2019-07-02 2019-07-02 Ancillary Lois Pak [facility] 1.2.840. 114 [id number] Univers 14:20:22 15:00:22 Visit Analisa Waters 350.1.13.10 ity of [employer] [place].2.[place] [phone] Ut dical nal 179 [facility] 2019-06-25 2019-06-25 Ancillary Lucila Mcclain [facility] 1 .2.840.114 [id number] [facility] 10:54:25 11:40:33 Visit Analisa Waters Alisa Jason 350.1.13.10 ity of [employer] [place].2.[place] [phone] Ut dical nal 179 [facility] 2019-06-25 2019-06-25 Telephone [facility] 1.2.840.114 [id number] [facility] 00:00:00 00:00:00 Vazquez Jason 350.1.13.10 i ty of [employer] [place].2.[place] [phone] Ut dicmt nal 044 [facility] 2019-06-22 2019-06-22 Telephone [facility] 1.2.840.114 [id number] [facility] 00:00:00 00:00:00 Vazquez Jason 350.1.13.10 i ty of [employer] [place].2.[place] [phone] Ut dicmt nal 044 [facility] 2019-06-18 2019-06-18 [facility] 1.2.840.114 [id number] [facility] 12:14:00 23:59:00 Encounter Vazquez Jason 350.1.13.10 ity of [employer] [place].2.686 [place] [phone] [facility] [address] [place] 2019-06-18 2019-06-18 Transcripter Bryant Baez Lab Main [facility] 1.2.8 40.114 [id number] [facility] 12:10:33 16:01:27 Visit Vazquez Hickman 350.1.13.10 ity of [employer] [place].2.[place] [phone] Ut dical nal 353 [facility] 2019-06-18 2019-06-18 Office [facility] 1.2.840.114 [id number] [facility] 09:02:15 14:38:22 Visit Vazquez Jason 350.1.13.10 i ty of [employer] [place]2.[place].2.[place] [phone] Ut dical nal 044 [facility] 2019-06-18 2019-06-18 Outpatient [facility] [id number] Univers 12:15:00 12:15:00 VAZQUEZ cortes [facility] 2019-06-18 2019-06-18 [facility] 1.2.840.114 [id number] Univers 00:00:00 00:00:00 [facility] 350.1.13.10 it y of [place] 4.2.7.2.686 [place] as Professio [phone] Ut dical nal [address] [place] Office [facility] One 2019-02-25 2019-02-25 Outpatient [facility] [id number] Univers 13:55:00 13:55:00 GÓMEZ [facility] 2019-02-19 2019-02-19 Outpatient [facility] [id number] Univers 12:59:26 23:59:00 MARSHALL [facility] 2018-09-30 2018-09-30 Outpatient [facility] [id number] Univers 19:00:00 19:00:00 SAMIR cortes o f [facility] Results Test Description Test Time Test Comments Results Result Comments Source SARS-CoV-2 (COVID-19) RNA [Presence] in Respiratory sp ecimen by 2020-11-17 18:33:38 JORDIN with probe detection Test Item Value Reference Range Interpretation Comme nts SARS-CoV-2 (COVID-19) RNA [Presence] in Respiratory Not detected No t-Detected specimen by JORDIN with probe detection (test code = 74453-6) Whether patient is employed in a healthcare setting (test code = 37851-2) Whether the patient has symptoms related to condition of interest (test code = 68059-7) Patient was hospitalized because of this condition (test code = 29469-7) Whether the patient was admitted to intensive care unit (ICU) for condition of interest (test code = 45728-2) Whether patient resides in a congregate care setting (test code = 56522-6) XR CHEST 2 [id number] 17:14:50HISTORY: Cough. TECHNIQUE: PA and lateral views of the chest are obtained. No prior cheststudy available for comparison. FINDINGS: No acute pneumonia detected. No pneumothorax or pleural effusionor pulmonary congestion. Cardiothoracic ratio of approximately 12.4/31 cmis consistent with normal cardiac size. CONCLUSIONS: No signs of acute cardiopulmonary disease.[facility], Radiant Results Inft User - 06/07/2020 11:15 AM CSTHISTORY: Cough.TECHNIQUE: PA and lateral views of the chest are obtained. No prior cheststudy available for comparison.FINDINGS: No acute pneumonia detected. No pneumothorax or pleural effusionor pulmonary congestion. Cardiothoracic ratio of approximately 12.4/31 cmis consistent with normal cardiac size.CONCLUSIONS: No signs of acute cardiopulmonary disease.[facility] COVID [id number] 22:45:00COVID DMT InterpretationInterpretation/Recommendations: Molecular NAAT Tests for Active Infection with the SARS-CoV-2 Virus: This patient has a history of testing negative on multiple occasions for jimMGGZ-CaM-2 virus that causes COVID-19 illness, with no prior history of a positive result. The current test results are also negative. This most likely indicates that the patient does not have an active infection with the SARS-CoV-2 virus, especially if all of these tests coincide with the patient's current presentation. However, infection is not completely ruled out as the false negative rate for molecular NAAT testing using a nasopharyngeal sample can be up to 30%, mostly dependent on the timing of sample collection in relation to illness onset and any deficiencies in sampling techniques. If the patient continues to have persistent or worsening symptoms concerning for COVID-19 illness, a repeat NAAT test (PCR, Rapid ID Now, etc.) should be performed, at which time the SARS-CoV-2 virus - if present - may have reached a detectable viral load (usually peaking by the end of the first week of symptoms). Tests for IgM and/or IgG Antibodies to SARS-CoV-2 Virus: Testing for IgM and IgG antibodies 1-3 weeks after illness onset will indicate whether the patient has produced antibodies to the virus. At this time, it is not known if the production of antibodies - specifically IgG antibodies - indicates whether the patient is immune to future infections with the SARS-CoV-2 virus. Interpretation Result Comments:These interpretation comments are based upon all COVID-19 testing the patient has had at [facility], including molecular NAAT testing (more commonly known as PCR testing and Rapid ID Now testing) and antibody testing. It does not take into account any testing that a patient has had outside of the [facility] medical record. [facility]ENTER[facility]ORATORY SERVICESCOVID AwzpvpdICLR-GhK-5 NAAT (no units) ? ? Date ? Value ? 05/25/2020 ? Not Detected ? ? ? 04/24/2020 ? Not Detected ? SARS-CoV-2 Rapid ID NOW (no units) ? ? Date ? Value ? 05/16/2020 ? Not Detected ? ? ? 05/09/2020 ? Not Detected ? ? ? 12/01/2019 ? Not Detected ? [facility] LABORATORY SERVICESUnCHI St[facility] HospitalCOVID-19 (MOLECULAR TESTING NUCLEIC ACID AMPLIFICATION)2020-05-26 08:28:00 Test Item Value Reference Range Interpretation Comments SARS-CoV-2 NAAT (test Not Detected Not Detected code = 44323-8) SOCRATES (test code = SOCRATES) BMEYE Aptima SARS-CoV-2 Assay is a nucleic acid amplification test intended for the qualitative detection of RNA from SARS-CoV-2 from nasopharyngeal (ASSOCIATE FINANCIAL ANALYST) specimens. ?It is used under Emergency Use Authorization (EUA) by FDA. A positive result is indicative of the presence of SARS-CoV-2 RNA. ?Clinical correlation with patient history and other diagnostic information is necessary to determine patient infection status. A negative (Not Detected) result does not preclude SARS-CoV-2 infection. ?Clinical correlation with patient history and other diagnostic information should be used in patient management decisions. Invalid: Unable to generate a valid test result on this specimen. ?Please submit a new specimen for repeat testing if clinically indicated. Lab Interpretation Normal (test code = 92617-7) [facility] GRP A STREP (MOLECULAR)2020-05-25 20:19:00 Test Item Value Reference Range Interpretation Comments POCT GP A STREP (test Neg Negative - code = 91771-1) Negative SOCRATES (test code = SOCRATES) accurate development and interpretation of all internal controls Lab Interpretation Normal (test code = 46223-0) [facility] GRP A STREP (MOLECULAR)2020-05-25 20:19:00 Test Item Value Reference Range Interpretation Comments POCT GP A STREP (test Neg Negative - code = 32687-2) Negative SOCRATES (test code = SOCRATES) accurate development and interpretation of all internal controls Lab Interpretation Normal (test code = 72891-9) [facility] GRP A STREP (MOLECULAR)2020-05-10 01:51:00 Test Item Value Reference Range Interpretation Comments POCT GP A STREP (test code = negaitve Negative - Negative 42130-5) Lab Interpretation (test code = Normal 01425-7) [facility] (ID NOW RAPID TESTING)2020-05-10 00:12:00 Test Item Value Reference Range Interpretation Comments SARS-CoV-2 Rapid ID NOW Not Detected Not Detected (test code = 74113-8) SOCRATES (test code = SOCRATES) ID NOW COVID-19 Assay is an isothermal nucleic acid amplification test intended for the qualitative detection of nucleic acid from SARS-CoV-2 viral RNA in nasopharyngeal (ASSOCIATE FINANCIAL ANALYST) specimens. It is used under Emergency Use Authorization (EUA) by FDA. The limit of detection (LOD) of the assay is 125 Genome Equivalents/mL. A positive result is indicative of the presence of SARS-CoV-2 RNA. ?Clinical correlation with patient history and other diagnostic information is necessary to determine patient infection status. A negative (Not Detected) result does not preclude SARS-CoV-2 infection. In patients with clinical symptoms and other tests that are consistent with SARS-CoV-2 infection, negative results should be treated as presumptive negative and a new specimen should be tested with alternative PCR molecular test. Invalid: Please collect a new specimen for repeat patient testing if clinically indicated. Lab Interpretation Normal (test code = 43456-3) [facility] (MOLECULAR TESTING NUCLEIC ACID AMPLIFICATION)2020-04-25 22:15:00 Test Item Value Reference Range Interpretation Comments SARS-CoV-2 NAAT (test Not Detected Not Detected code = 19049-6) SOCRATES (test code = SOCRATES) BMEYE Aptima SARS-CoV-2 Assay is a nucleic acid amplification test intended for the qualitative detection of RNA from SARS-CoV-2 from nasopharyngeal (ASSOCIATE FINANCIAL ANALYST) specimens. ?It is used under Emergency Use Authorization (EUA) by FDA. A positive result is indicative of the presence of SARS-CoV-2 RNA. ?Clinical correlation with patient history and other diagnostic information is necessary to determine patient infection status. A negative (Not Detected) result does not preclude SARS-CoV-2 infection. ?Clinical correlation with patient history and other diagnostic information should be used in patient management decisions. Invalid: Unable to generate a valid test result on this specimen. ?Please submit a new specimen for repeat testing if clinically indicated. Lab Interpretation Normal (test code = 47375-6) [facility] HospitalURINALYSIS [id number] 01:55:00 Test Item Value Reference Range Interpretation Comments RBC/HPF (test code = See_Comment [Autom ated message] [id number]) The system C[employer] generated this result transmitted ref erence range: 0 - 3 HP F. The reference range was not used to int erpret this result as normal/abnormal . WBC/HPF (test code = <1 See_Comment [Autom ated message] [id number]) The system [employer] generated this result transmitted ref erence range: 0 - 5 HP F. The reference range was not used to int erpret this result as normal/abnormal . BACTERIA (test code = Few Negative A 8571173400) SQ EPITH (test code = HPF 2562573159) MUCOUS (test code = Slight Negative LPF A 2573483874) Lab Interpretation (test Abnormal code = 34409-5) [facility] HospitalPO[facility] FLU A AND B (MOLECULAR)2020-04-25 00:19:00 Test Item Value Reference Range Interpretation Comments POCT INFLUENZA A (test neg Negative - code = 3840) Negative POCT INFLUENZA B (test neg Negative - code = 3841) Negative SOCRATES (test code = SOCRATES) accurate development and interpretation of all internal controls Lab Interpretation Normal (test code = 32345-0) [facility] HospitalPO[facility] URINALYSIS W SPECIFIC [id number] 00:10:00 Test Item Value Reference Range Interpretation Comments POCT U SP GRAV (test code = 1.005 mg/dl 1.005-1.025 3255) POCT PH U (test code = 3254) 7 mg/dl 5-8 POCT U LEUK EST (test code = negative Negative - Negative 3263) POCT U NIT (test code = 3262) negative Negative - Negative POCT U PROT (test code = negative Negative - Negative 3259) POCT U GLU (test code = 3256) normal Negative - Negative POCT U KETONE (test code = negative Negative - Negative 3258) POCT U UROBILI (test code = normal 0.2-1 3260) POCT U BILI (test code = negative Negative - Negative 3261) POCT U BLD (test code = 3257) negative Negative - Negative POCT U COLOR (test code = yellow 3266) POCT U APPEAR (test code = clear 3267) [facility] [id number] 12:23:00 Test Item Value Reference Range Interpretation Comments URINE CULTURE (test 10,000 - 100,000 CFU/mL code = 630-4) mixed aerobic organisms - suggests endogenous microbial contamination [facility] [id number] 12:23:00 Test Item Value Reference Range Interpretation Comments URINE CULTURE (test 10,000 - 100,000 CFU/mL code = 630-4) mixed aerobic organisms - suggests endogenous microbial contamination [facility] ABDOMEN PELVIS W [id number] 00:43:56 1. ?No acute abdominal or pelvic process is identified. 2. ?1.5 cm left ovarian cyst, likely represents corpus luteal orhemorrhagic cyst. 3. ?Stable 1.1 cm right adrenal nodule. 4. ?Cholecystectomy. Preliminary Report Dictated by Resident: Flo Grove MD., have reviewed this study and agree with the abovereport.EXAM: CT ABDOMEN AND PELVIS WITH CONTRAST HISTORY: Reports pain in LUQ, reports symptoms started a couple of weeksbut got worse over the weekend. Pmhx: cholecystectomy, knee surgery, kidneystones, lithotripsy 10+ years ago.? COMPARISON: CT AP with 07/29/2019. TECHNIQUE AND FINDINGS: Contiguous axial imaging from the level of the lungbases through the proximal thighs wasperformed after the administration ofintravenous Omnipaque contrast. Coronal and sagittal reconstructions wereobtained. ?Auto mA and/or iterative reconstruction were used to reduceradiation dose. FINDINGS: LOWER THORAX: The lungs bases are clear. No cardiomegaly. LIVER: No focal hepatic lesions. ?Norm al contour. GALLBLADDER AND BILIARY TREE: Cholecystectomy clips are noted. No biliaryductal dilation. ?No gallbladder wall thickening. SPLEEN: No splenomegaly. PANCREAS: No ductal dilation or masses. ADRENAL GLANDS: Stable 1.1 cm right adrenal nodule is seen. No left adrenalnodule is noted. KIDNEYS: No hydronephrosis, stones, or masses. PERITONEUM AND RETROPERITONEUM: No free air or fluid. LYMPH NODES: A 1.0 cm left para-aortic lymph node is seen (4:54). GI TRACT: No dilation or wall thickening. Theappendix appearsunremarkable. PELVIS/BLADDER: The bladder appears unremarkable. A 1.5 cm left ovariancyst with hyperattenuating wall, may represent corpus luteal cyst. Theuterus is anteverted. There is a nabothian cyst. VESSELS: Unremarkable. BONES AND SOFT TISSUES: No suspicious lytic or sclerotic bony lesions. [facility], Radiant Results Inft User - 12/28/2019 7:45 PM CDTEXAM: CT ABDOMEN AND PELVIS WITH CONTRASTHISTORY: Reports pain in LUQ, reports symptoms started a couple of weeksbut got worse over the weekend. Pmhx: cholecystectomy, knee surgery, kidneystones, lithotripsy 10+ years ago.?COMPARISON: CT AP with 07/29/2019.TECHNIQUE AND FINDINGS: Contiguous axial imaging from the level of the lungbases through the proximal thighs was performed after the administration ofintravenous Omnipaque contrast. Coronal and sagittal reconstructions wereobtained. Auto mA and/or iterative reconstruction were used to reduceradiation dose.FINDINGS:LOWER THORAX: The lungs bases are clear. No cardiomegaly. LIVER:No focal hepatic lesions. Normal contour.GALLBLADDER AND BILIARY TREE: Cholecystectomy clips are noted. No biliaryductal dilation. No gallbladder wall thickening.SPLEEN: No splenomegaly.PANCREAS: No ductal dilation or masses.ADRENAL GLANDS: Stable 1.1 cm right adrenal nodule is seen. No left adrenalnodule is noted.KIDNEYS: No hydronephrosis, stones, or masses.PERITONEUM AND RETROPERITONEUM: No freeair or fluid.LYMPH NODES: A 1.0 cm left para-aortic lymph node is seen (4:54).GI TRACT: No dilation or wall thickening. The appendix appearsunremarkable. PELVIS/BLADDER: The bladder appears unremarkable. A 1.5 cm left ovariancyst with hyperattenuating wall, may represent corpus luteal cyst. Theuterus is anteverted. There is a nabothian cyst.VESSELS: Unremarkable.BONES AND SOFT TISSUES: No suspicious lytic or sclerotic bony lesions.IMPRESSION1. No acute abdominal or pelvic process is identified.2. 1.5 cm left ovarian cyst, likely represents corpus luteal orhemorrhagic cyst.3. Stable 1.1 cm right a drenal nodule.4. Cholecystectomy.Preliminary Report Dictated by Resident: Flo Moncada MD., have reviewed this study and agree with the abovereport.[facility]inalysis[facility] 00:03:00 Test Item Value Reference Range Interpretation Comments APPEARANCE (test code = Clear Clear 4339182904) COLOR (test code = Straw Yellow A 2460585958) PH (test code = 4.8-8.0 6992577207) SP GRAVITY (test code = 1.003-1.030 8359223486) GLU U QUAL (test code = Normal Normal 9028910940) BLOOD (test code = Negative Negative 4841472976) KETONES (test code = Negative Negative 8915761907) PROTEIN (test code = Negative Negative 2887-8) UROBILIN (test code = Normal Normal 0411296195) BILIRUBIN (test code = Negative Negative 1781753960) NITRITE (test code = Negative Negative 9133724363) LEUK CASIMIRO (test code = Negative Negative 6219844284) RBC/HPF (test code = See_Comment [Autom ated message] 6437375718) The system Cennox generated this result transmitted ref erence range: 0 - 3 HP F. The reference range was not used to int erpret this result as normal/abnormal . WBC/HPF (test code = <1 See_Comment [Autom ated message] 9629612015) The system C[employer] generated this result transmitted ref erence range: 0 - 5 HP F. The reference range was not used to int erpret this result as normal/abnormal . BACTERIA (test code = Few Negative A 6418139977) SQ EPITH (test code = HPF 4593831521) Lab Interpretation (test Abnormal code = 02230-4) [facility]. METABOLIC PANEL (52402)2019-12-28 23:47:00 Test Item Value Reference Range Interpretation Comments NA (test code = 139 mmol/L 135-145 0640907732) K (test code = 3.8 mmol/L 3.5-5 7979282673) CL (test code = 106 mmol/L 98-108 6136289922) CO2 TOTAL (test code = 27 mmol/L 23-31 1492032688) AGAP (test code = 2-16 6232142154) BUN (test code = 7 mg/dL 7-23 8955849814) GLUCOSE (test code = 91 mg/dL 70-110 5708247540) CREATININE (test code 0.85 mg/dL 0.5-1.04 = 1323578250) TOTAL BILI (test code 0.3 mg/dL 0.1-1.1 = 8330642195) CALCIUM (test code = 9.5 mg/dL 8.6-10.6 4228123048) T PROTEIN (test code = 7.2 g/dL 6.3-8.2 0800845730) ALBUMIN (test code = 4.2 g/dL 3.5-5 6101077349) ALK PHOS (test code = 61 U/L 34-122 4807372568) ALTv (test code = 28 U/L 5-35 1742-6) AST(SGOT) (test code = 25 U/L 13-40 6284718713) eGFR Calculation mL/min/1.73m2 (Non-) (test code = 0275968317) eGFR Calculation mL/min/1.73m2 () (test code = 8946761408) SOCRATES (test code = SOCRATES) Association of Glomerular Filtration Rate (GFR) and Staging of Kidney Disease* + -+ + ---+| GFR (mL/min/1.73 m2) ?| With Kidney Damage ?| ?Without Kidney Damage+ -------+ ------+ ---------+| ?>90 ?| ?Stage one ?| ? Normal ?+ --+ -+ ----+| ?60-89 ?| ?Stage two ?| ? Decreased GFR ? + -+ + ---+| ?30-59 ?| ?Stage three ?| ? Stage three ? + -+ + ---+| ?15-29 ?| ?Stage four ? | ? Stage four ?+ --+ -+ ----+| ?<15 (or dialysis) ? ?| ?Stage five ? | ? Stage five ?+ --+ -+ ----+ *Each stage assumes the associated GFR level has been in effect for at least three months. ?Stages 1 to 5, with or without kidney disease, indicate chronic kidney disease. Notes: Determination of stages one and two (with eGFR >59mL/min/1.73 m2) requires estimation of kidney damage for at least three months as defined by structural or functional abnormalities of the kidney, manifested by either:Pathological abnormalities or Markers of kidney damage (including abnormalities in the composition of the blood or urine or abnormalities in imaging tests). [facility] HospitalLipase [id number] 23:47:00 Test Item Value Reference Range Interpretation Comments LIPASE (test code = 3731166931) 42 U/L 0-220 Lab Interpretation (test code = Normal 40409-0) [facility] HospitalCBC with [id number] 23:29:00 Test Item Value Reference Range Interpretation Comments WBC (test code = See_Comment [Automated 5676-2) message] The sy stem which generated this result transmitted reference range : 4.30 - 11.10 10*3/?L. The reference range was not used to interpret this result as normal/abnormal . RBC (test code = See_Comment [Automated 885-0) message] The sy stem which generated this result transmitted reference range : 3.93 - 5.25 10*6/?L. The reference range was not used to interpret this result as normal/abnormal . HGB (test code = 14.9 g/dL 11.6-15 718-7) HCT (test code = 45.3 % 35.7-45.2 H 4544-3) MCV (test code = 91.1 fL 80.6-95.5 787-2) MCH (test code = 30.0 pg 25.9-32.8 785-6) MCHC (test code = 32.9 g/dL 31.6-35.1 786-4) RDW-SD (test code = 46.3 fL 39-49.9 40518-5) RDW-CV (test code = 13.8 % 12-15.5 788-0) PLT (test code = See_Comment [Automated 777-3) message] The sy stem which generated this result transmitted reference range : 166 - 358 10*3/ ?L. The reference r allyson was not used to interpret this result as normal/abnormal . MPV (test code = 10.6 fL 9.5-12.9 64184-6) NRBC/100 WBC (test See_Comment [Automat ed code = 8409777263) message] The system which generated this result transmitted reference range : 0.0 - 10.0 /100 WBCs. The refer ence range was not u sed to interpret th is result as normal/abnormal . NRBC x10^3 (test code <0.01 See_Comment [Auto mated = 5305290247) message] The s ystem which generated this result transmitted reference range : 10*3/?L. The reference range was not used to interpret this result as normal/abnormal . GRAN MAT (NEUT) % 73.2 % (test code = 770-8) IMM GRAN % (test code 0.50 % = 4277644403) LYMPH % (test code = 16.8 % 736-9) MONO % (test code = 6.2 % 5905-5) EOS % (test code = 3.0 % 713-8) BASO % (test code = 0.3 % 706-2) GRAN MAT x10^3(ANC) 8.08 10*3/uL 1.88-7.09 H (test code = 3949002918) IMM GRAN x10^3 (test 0.06 10*3/uL 0-0.06 code = 0929728875) LYMPH x10^3 (test code 1.86 10*3/uL 1.32-3.29 = 731-0) MONO x10^3 (test code 0.68 10*3/uL 0.33-0.92 = 742-7) EOS x10^3 (test code = 0.33 10*3/uL 0.03-0.39 711-2) BASO x10^3 (test code 0.03 10*3/uL 0.01-0.07 = 704-7) Lab Interpretation Abnormal (test code = 19577-5) [facility] [id number] 23:00:00 Test Item Value Reference Range Interpretation Comments POCT PREG (test code = 1605) Negative On board controls acceptable with Present C Line (test code = 3574) POCT PREG LOT # (test code = HCG [id number]) POCT PREG TEST DATE (test 12/10/2020 code = 3576) Lab Interpretation (test code = Normal 90753-3) [facility] URINALYSIS W SPECIFIC [id number] 21:26:00 Test Item Value Reference Range Interpretation Comments POCT U SP GRAV (test code = 1.000 mg/dl 1.005-1.025 A 3255) POCT PH U (test code = 3254) 5 mg/dl 5-8 POCT U LEUK EST (test code = neg Negative - Negative 3263) POCT U NIT (test code = 3262) neg Negative - Negative POCT U PROT (test code = neg Negative - Negative 3259) POCT U GLU (test code = 3256) normal Negative - Negative POCT U KETONE (test code = neg Negative - Negative 3258) POCT U UROBILI (test code = normal 0.2-1 3260) POCT U BILI (test code = neg Negative - Negative 3261) POCT U BLD (test code = 3257) neg Negative - Negative POCT U COLOR (test code = yellow 3266) POCT U APPEAR (test code = clear 3267) Lab Interpretation (test code Abnormal = 34847-0) [facility] URINALYSIS W SPECIFIC [id number] 21:26:00 Test Item Value Reference Range Interpretation Comments POCT U SP GRAV (test code = 1.000 mg/dl 1.005-1.025 A 3255) POCT PH U (test code = 3254) 5 mg/dl 5-8 POCT U LEUK EST (test code = neg Negative - Negative 3263) POCT U NIT (test code = 3262) neg Negative - Negative POCT U PROT (test code = neg Negative - Negative 3259) POCT U GLU (test code = 3256) normal Negative - Negative POCT U KETONE (test code = neg Negative - Negative 3258) POCT U UROBILI (test code = normal 0.2-1 3260) POCT U BILI (test code = neg Negative - Negative 3261) POCT U BLD (test code = 3257) neg Negative - Negative POCT U COLOR (test code = yellow 3266) POCT U APPEAR (test code = clear 3267) Lab Interpretation (test code Abnormal = 26815-3) [facility]PO[facility] UR[facility] W SPECIFIC [id number] 21:26:00 Test Item Value Reference Range Interpretation Comments POCT U SP GRAV (test code = 1.000 mg/dl 1.005-1.025 A 3255) POCT PH U (test code = 3254) 5 mg/dl 5-8 POCT U LEUK EST (test code = neg Negative - Negative 3263) POCT U NIT (test code = 3262) neg Negative - Negative POCT U PROT (test code = neg Negative - Negative 3259) POCT U GLU (test code = 3256) normal Negative - Negative POCT U KETONE (test code = neg Negative - Negative 3258) POCT U UROBILI (test code = normal 0.2-1 3260) POCT U BILI (test code = neg Negative - Negative 3261) POCT U BLD (test code = 3257) neg Negative - Negative POCT U COLOR (test code = yellow 3266) POCT U APPEAR (test code = clear 3267) Lab Interpretation (test code Abnormal = 24116-3) [facility] OVARY [id number] 00:46:59 Low suspicion for ovarian torsion based on ultrasound. Normal grayscale andspectral Doppler findings at both ovaries. Preliminary Report Dictated by Resident: Dion Rosen MD., have reviewed this study and agree with the abovereport.US OVARY TORSION HISTORY: 43 years-old; Female; rule out torsion TECHNIQUE: Pelvic ultrasound performed using transabdominal andtransvaginal approach with grayscale, color, and spectral Doppler imagesobtained. COMPARISON: None FINDINGS: UTERUS: The uterus measures 11.6 x 4.7 x 5.7 cm (165 mL). The endometriumis homogeneous and measures 8 mm in thickness. OVARIES: The right ovary measures 2.9 x 2.2 x 1.8 cm (6 mL). The left ovarymeasures 3.7 x 2.2 x 2.3 cm (9 mL). No adnexal masses. The ovariesdemonstrate normal arterial and venous waveforms onspectral Dopplerimaging. CERVIX: Nabothian cyst measuring 1.2 cm in largest diameter. FREE FLUID: No [facility], Radiant Results Inft User - 07/29/2019 7:48 PM CDTUS OVARY TORSIONHISTORY: 43 years-old; Female; rule out torsion TECHNIQUE: Pelvic ultrasound performed using transabdominal andtransvaginal gelacio palmer with grayscale, color, and spectral Doppler imagesobtained.COMPARISON: NoneFINDINGS: UTERUS: The uterus measures 11.6 x 4.7 x 5.7 cm (165 mL). The endometriumis homogeneous and measures 8 mm in thickness.OVARIES: The right ovary measures 2.9 x 2.2 x 1.8 cm (6 mL). The left ovarymeasures 3.7 x 2.2 x 2.3 cm (9 mL). No adnexal masses. The ovariesdemonstrate normal arterial and venous waveforms on spectral Dopplerimaging.CERVIX: Nabothian cyst measuring 1.2 cm in largest diameter. FREE FLUID: No IMPRESSIONLow suspicion for ovarian torsion based on ultrasound. Normal grayscale andspectral Doppler findings at both ovaries. Preliminary Report Dictated by Resident: Dion Hooper MD., have reviewed this study and agree with the abovereport.[facility] HospitalCT ABDOMEN PELVIS W [id number] 00:36:12 1. No focal findings are seen within the right lower quadrant.2. No signs of appendicitis, perforation, abscess or bowel obstruction.3. Hepatic steatosis. RL: 8228. Ordering Physician: Isak Beard History: Right lower quadrant pain. Comparison Study: None. Technique: Abdomen and pelvis CT with intravenous contrast. CT scan doneaccording to ALARA (As Low as Reasonably Achievable). Findings: ? Lungs: No infiltrates or effusions. No pneumothorax. No pulmonary nodulesor masses.Cardiovascular: Heart is not enlarged. Aorta and IVC are unre markable.Liver: Decreased attenuation without focal lesions.Gallbladder: Surgically absent.Pancreas:Normal.Spleen: Normal.Kidneys: Bilateral extrarenal appearance, left more prominent than right. Adrenal glands: Normal. Bowel: Normal stomach. Normal small bowel. Normal appendix. Milddiverticulosis involves the colon without signs of focal inflammation. Anumbilical herniation of fat is noted with a 0.5 cm neck. No signs of bowelherniation.Free air or free fluid: None.Lymphadenopathy: None.Reproductive organs: Uterus and adnexal structures are unremarkable.Urinary bladder: Normal.Groins: No signs ofhernia or lymphadenopathy.Bones: Bones are unremarkable. Soft tissue: Soft tissues are unremarkable.[facility], Radiant Results Inft User - 07/29/2019 7:37 PM CDTOrdering Physician: Isak BeardHistory:Right lower quadrant pain.Comparison Study: None. Technique: Abdomen and pelvis CT with intravenous contrast. CT scan doneaccording to ALARA (As Low as Reasonably Achievable).Findings: Lungs: No infiltrates or effusions. No pneumothorax. No pulmonary nodulesor masses.Cardiovascular: Heart is not enlarged. Aorta and IVC are unremarkable.Liver: Decreased attenuation without focal lesions.Gallbladder: S urgically absent.Pancreas: Normal.Spleen: Normal.Kidneys: Bilateral extrarenal appearance, left moreprominent than right. Adrenal glands: Normal. Bowel: Normal stomach. Normal small bowel. Normal appendix. Milddiverticulosis involves the colon without signs of focal inflammation. Anumbilical herniation of fat is noted with a 0.5 cm neck. No signs of bowelherniation.Free air or free fluid: None.Lymphadenopathy: None.Reproductive organs: Uterus and adnexal structures are unremarkable.Urinary bladder:Normal.Groins: No signs of hernia or lymphadenopathy.Bones: Bones are unremarkable. Soft tissue: Soft tissues are unremarkable.IMPRESSION1. No focal findings are seen within the right lower quadrant.2.No signs of appendicitis, perforation, abscess or bowel obstruction.3. Hepatic steatosis.RL: 8228. [facility] Metabolic Panel (NA, K, CL, CO2, GLUCOSE, BUN, CREATININE, CA)2019-07-29 23:39:00 Test Item Value Reference Range Interpretation Comments NA (test code = 138 mmol/L 135-145 1288226722) K (test code = 3.5 mmol/L 3.5-5 0925078199) CL (test code = 101 mmol/L 98-108 2964489505) CO2 TOTAL (test code = 28 mmol/L 23-31 1044577812) AGAP (test code = 2-16 4648190171) BUN (test code = 10 mg/dL 7-23 3919657271) GLUCOSE (test code = 85 mg/dL 70-110 9750568741) CREATININE (test code 0.79 mg/dL 0.5-1.04 = 6089155677) CALCIUM (test code = 10.2 mg/dL 8.6-10.6 9343087779) eGFR Calculation mL/min/1.73m2 (Non-) (test code = 4624440912) eGFR Calculation mL/min/1.73m2 () (test code = 2553411028) SOCRATES (test code = SOCRATES) Association of Glomerular Filtration Rate (GFR) and Staging of Kidney Disease* + -+ + ---+| GFR (mL/min/1.73 m2) ?| With Kidney Damage ?| ?Without Kidney Damage+ -------+ ------+ ---------+| ?>90 ?| ?Stage one ?| ? Normal ?+ --+ -+ ----+| ?60-89 ?| ?Stage two ?| ? Decreased GFR ? + -+ + ---+| ?30-59 ?| ?Stage three ?| ? Stage three ? + -+ + ---+| ?15-29 ?| ?Stage four ? | ? Stage four ?+ --+ -+ ----+| ?<15 (or dialysis) ? ?| ?Stage five ? | ? Stage five ?+ --+ -+ ----+ *Each stage assumes the associated GFR level has been in effect for at least three months. ?Stages 1 to 5, with or without kidney disease, indicate chronic kidney disease. Notes: Determination of stages one and two (with eGFR >59mL/min/1.73 m2) requires estimation of kidney damage for at least three months as defined by structural or functional abnormalities of the kidney, manifested by either:Pathological abnormalities or Markers of kidney damage (including abnormalities in the composition of the blood or urine or abnormalities in imaging tests). [facility] HospitalHepatic Function Panel (ALB, T.PRO, BILI T, BU/BC, ALT, AST, ALK PHOS)2019-07-29 23:39:00 Test Item Value Reference Range Interpretation Comments TOTAL BILI (test code = 1146605984) 0.5 mg/dL 0.1-1.1 BILI UNCON (test code = 0757653113) 0.6 mg/dL 0.1-1.1 BILI CONJ (test code = 2698276626) 0.0 mg/dL 0-0.3 T PROTEIN (test code = 6259849430) 8.3 g/dL 6.3-8.2 H ALBUMIN (test code = 8252710752) 4.8 g/dL 3.5-5 ALK PHOS (test code = 8423252503) 71 U/L 34-122 ALTv (test code = 1742-6) 21 U/L 5-35 AST(SGOT) (test code = 4145537016) 27 U/L 13-40 Lab Interpretation (test code = Abnormal 02140-7) [facility] HospitalUrinalysis2020-03-18 23:37:00 Test Item Value Reference Range Interpretation Comments APPEARANCE (test code = Clear Clear 9419589845) COLOR (test code = Yellow Yellow 8425181525) PH (test code = 4.8-8.0 7826699945) SP GRAVITY (test code = 1.003-1.030 9004083907) GLU U QUAL (test code = Normal Normal 3867195645) BLOOD (test code = 3+ Negative A 1654222007) KETONES (test code = 5 mg/dL Negative A 4894225986) PROTEIN (test code = Negative Negative 2887-8) UROBILIN (test code = Normal Normal 3769994053) BILIRUBIN (test code = Negative Negative 0241033785) NITRITE (test code = Negative Negative 4466150781) LEUK CASIMIRO (test code = Negative Negative 1389033955) RBC/HPF (test code = See_Comment H [Autom ated message] 4068708275) The system C[employer] generated this result transmitted ref erence range: 0 - 3 HP F. The reference range was not used to int erpret this result as normal/abnormal . WBC/HPF (test code = See_Comment H [Autom ated message] 7631860781) The system [employer] generated this result transmitted ref erence range: 0 - 5 HP F. The reference range was not used to int erpret this result as normal/abnormal . BACTERIA (test code = Few Negative A 5017242236) MUCOUS (test code = Slight Negative LPF A 1197363029) SQ EPITH (test code = HPF 6131103781) HYAL CAST (test code = See_Comment [Aut omated message] 4123526692) The system Cenn[employer] generated this result transmitted ref erence range: <=2 LPF. The reference range was not used to int erpret this result as normal/abnormal . Lab Interpretation (test Abnormal code = 84801-9) [facility] WITH [id number] 23:15:00 Test Item Value Reference Range Interpretation Comments WBC (test code = See_Comment H [Automated 6690-2) message] The sy stem which generated this result transmitted reference range : 4.30 - 11.10 10*3/?L. The reference range was not used to interpret this result as normal/abnormal . RBC (test code = See_Comment [Automated 789-8) message] The sy stem which generated this result transmitted reference range : 3.93 - 5.25 10*6/?L. The reference range was not used to interpret this result as normal/abnormal . HGB (test code = 15.4 g/dL 11.6-15 H 718-7) HCT (test code = 45.9 % 35.7-45.2 H 4544-3) MCV (test code = 89.5 fL 80.6-95.5 787-2) MCH (test code = 30.0 pg 25.9-32.8 785-6) MCHC (test code = 33.6 g/dL 31.6-35.1 786-4) RDW-SD (test code = 44.5 fL 39-49.9 71000-5) RDW-CV (test code = 13.6 % 12-15.5 788-0) PLT (test code = See_Comment [Automated 777-3) message] The sy stem which generated this result transmitted reference range : 166 - 358 10*3/ ?L. The reference r allyson was not used to interpret this result as normal/abnormal . MPV (test code = 10.3 fL 9.5-12.9 08420-3) NRBC/100 WBC (test See_Comment [Automat ed code = 1456777786) message] The system which generated this result transmitted reference range : 0.0 - 10.0 /100 WBCs. The refer ence range was not u sed to interpret th is result as normal/abnormal . NRBC x10^3 (test code <0.01 See_Comment [Auto mated = 2000405232) message] The s ystem which generated this result transmitted reference range : 10*3/?L. The reference range was not used to interpret this result as normal/abnormal . GRAN MAT (NEUT) % 69.6 % (test code = 770-8) IMM GRAN % (test code 0.50 % = 0542171502) LYMPH % (test code = 20.7 % 736-9) MONO % (test code = 6.4 % 5905-5) EOS % (test code = 2.4 % 713-8) BASO % (test code = 0.4 % 706-2) GRAN MAT x10^3(ANC) 8.04 10*3/uL 1.88-7.09 H (test code = 1704537015) IMM GRAN x10^3 (test 0.06 10*3/uL 0-0.06 code = 3831785219) LYMPH x10^3 (test code 2.39 10*3/uL 1.32-3.29 = 731-0) MONO x10^3 (test code 0.74 10*3/uL 0.33-0.92 = 742-7) EOS x10^3 (test code = 0.28 10*3/uL 0.03-0.39 711-2) BASO x10^3 (test code 0.05 10*3/uL 0.01-0.07 = 704-7) Lab Interpretation Abnormal (test code = 60383-5) [facility]PO[facility] Test, [id number] 22:53:00 Test Item Value Reference Range Interpretation Comments POCT PREG (test code = 1605) negative On board controls acceptable with present C Line (test code = 3574) POCT PREG LOT # (test code = 3575) [id number] POCT PREG TEST DATE (test 2020-12-10 code = 3576) Lab Interpretation (test code = Normal 30580-0) [place] [id number] 21:08:00 Test Item Value Reference Range Interpretation Comments FREE T3 (test code = 8718859497) 2.97 pg/mL 2.77-5.27 Lab Interpretation (test code = Normal 08355-8) [facility] 21:08:00 Test Item Value Reference Range Interpretation Comments FREE T3 (test code = 8295123389) 2.97 pg/mL 2.77-5.27 Lab Interpretation (test code = Normal 16993-3) [facility] 21:08:00 Test Item Value Reference Range Interpretation Comments FREE T3 (test code = 5780591515) 2.97 pg/mL 2.77-5.27 Lab Interpretation (test code = Normal 18033-8) [facility] HospitalTHY[facility]ID STIMULATING [id number] 19:37:00 Test Item Value Reference Range Interpretation Comments TSH (test code = See_Comment [Automated message] 7402115774) The system [employer] generated this result transmitted ref erence range: 0.45 - 4 .70 mIU/L. The refe rence range was not u sed to interpret this result as normal/abnor mal. Lab Interpretation (test Normal code = 89829-4) [facility] [id number] 19:37:00 Test Item Value Reference Range Interpretation Comments TSH (test code = See_Comment [Automated message] 0904070575) The system [employer] generated this result transmitted ref erence range: 0.45 - 4 .70 mIU/L. The refe rence range was not u sed to interpret this result as normal/abnor mal. Lab Interpretation (test Normal code = 76908-3) [facility]TH[facility]ATING [id number] 19:37:00 Test Item Value Reference Range Interpretation Comments TSH (test code = See_Comment [Automated message] 6340662462) The system [employer] generated this result transmitted ref erence range: 0.45 - 4 .70 mIU/L. The refe rence range was not u sed to interpret this result as normal/abnor mal. Lab Interpretation (test Normal code = 44840-6) [facility]TH[facility] STIMULATING [id number] 19:37:00 Test Item Value Reference Range Interpretation Comments TSH (test code = See_Comment [Automated message] 6686507885) The system [employer] generated this result transmitted ref erence range: 0.45 - 4 .70 mIU/L. The refe rence range was not u sed to interpret this result as normal/abnor mal. Lab Interpretation (test Normal code = 34569-7) [facility] [id number] 19:37:00 Test Item Value Reference Range Interpretation Comments TSH (test code = See_Comment [Automated message] [id number]) The system [employer] generated this result transmitted ref erence range: 0.45 - 4 .70 mIU/L. The refe rence range was not u sed to interpret this result as normal/abnor mal. Lab Interpretation (test Normal code = 74897-1) [facility] [id number] 19:37:00 Test Item Value Reference Range Interpretation Comments TSH (test code = See_Comment [Automated message] [id number]) The system [employer] generated this result transmitted ref erence range: 0.45 - 4 .70 mIU/L. The refe rence range was not u sed to interpret this result as normal/abnor mal. Lab Interpretation (test Normal code = 87919-1) [facility] [id number] 19:37:00 Test Item Value Reference Range Interpretation Comments TSH (test code = See_Comment [Automated message] [id number]) The system [employer] generated this result transmitted ref erence range: 0.45 - 4 .70 mIU/L. The refe rence range was not u sed to interpret this result as normal/abnor mal. Lab Interpretation (test Normal code = 61402-4) [facility] [id number] 19:37:00 Test Item Value Reference Range Interpretation Comments TSH (test code = See_Comment [Automated message] [id number]) The system [employer] generated this result transmitted ref erence range: 0.45 - 4 .70 mIU/L. The refe rence range was not u sed to interpret this result as normal/abnor mal. Lab Interpretation (test Normal code = 01320-9) [facility] [id number] 19:37:00 Test Item Value Reference Range Interpretation Comments TSH (test code = See_Comment [Automated message] [id number]) The system [employer] generated this result transmitted ref erence range: 0.45 - 4 .70 mIU/L. The refe rence range was not u sed to interpret this result as normal/abnor mal. Lab Interpretation (test Normal code = 89347-2) [place] [id number] 19:24:00 Test Item Value Reference Range Interpretation Comments FREE T4 (test code = 9995036822) 0.78 ng/dL 0.78-2.2 Lab Interpretation (test code = Normal 28264-9) [place] [id number] 19:24:00 Test Item Value Reference Range Interpretation Comments FREE T4 (test code = 0724814879) 0.78 ng/dL 0.78-2.2 Lab Interpretation (test code = Normal 64844-5) [place] [id number] 19:24:00 Test Item Value Reference Range Interpretation Comments FREE T4 (test code = 9030810002) 0.78 ng/dL 0.78-2.2 Lab Interpretation (test code = Normal 51239-5) [place] [id number] 19:24:00 Test Item Value Reference Range Interpretation Comments FREE T4 (test code = 3244253343) 0.78 ng/dL 0.78-2.2 Lab Interpretation (test code = Normal 78839-0) [place] [id number] 19:24:00 Test Item Value Reference Range Interpretation Comments FREE T4 (test code = 9298366791) 0.78 ng/dL 0.78-2.2 Lab Interpretation (test code = Normal 11532-2) [facility] [id number] 19:24:00 Test Item Value Reference Range Interpretation Comments FREE T4 (test code = 0491917385) 0.78 ng/dL 0.78-2.2 Lab Interpretation (test code = Normal 35763-7) [facility] [id number] 19:24:00 Test Item Value Reference Range Interpretation Comments FREE T4 (test code = 8233117799) 0.78 ng/dL 0.78-2.2 Lab Interpretation (test code = Normal 68944-0) [facility] [id number] 19:24:00 Test Item Value Reference Range Interpretation Comments FREE T4 (test code = 2181537522) 0.78 ng/dL 0.78-2.2 Lab Interpretation (test code = Normal 97679-4) [facility] [id number] 19:24:00 Test Item Value Reference Range Interpretation Comments FREE T4 (test code = 9156429434) 0.78 ng/dL 0.78-2.2 Lab Interpretation (test code = Normal 13232-2) [facility] [id number] 19:24:00 Test Item Value Reference Range Interpretation Comments FREE T4 (test code = 2338923204) 0.78 ng/dL 0.78-2.2 Lab Interpretation (test code = Normal 18456-0) [facility] ([id number])(TOTAL CHOLESTEROL, TRIGLYCERIDES, HDL)2019-06-18 19:07:00 Test Item Value Reference Range Interpretation Comments CHOL (test code = 269 mg/dL 120-200 H 8750487463) HDL (test code = 35 mg/dL >50 L 8821482006) HDLC RATIO (test code = See_Comment H [Au tomated message] 3983642718) The system [employer] generated this result transmit hattie reference range : <=4.5. The refe rence range was not u sed to interpret th is result as normal/abnormal . TRIG (test code = 142 mg/dL 30-170 4361523722) LDL CHOL (test code = 206 mg/dL See_Comment H [Auto mated message] 58225-7) The system [employer] generated this result transmit hattie reference range : <=160. The refe rence range was not u sed to interpret th is result as normal/abnormal . VLDL (test code = 28 mg/dL 5-60 1981206248) Lab Interpretation (test Abnormal code = 73798-6) [facility]. METABOLIC PANEL ([id number])2019-06-18 19:07:00 Test Item Value Reference Range Interpretation Comments NA (test code = 141 mmol/L 135-145 0552895236) K (test code = 3.8 mmol/L 3.5-5 8272669364) CL (test code = 103 mmol/L 98-108 2891169942) CO2 TOTAL (test code = 27 mmol/L 23-31 1604455549) AGAP (test code = 2-16 2211312684) BUN (test code = 8 mg/dL 7-23 3072921614) GLUCOSE (test code = 138 mg/dL 70-110 H 6414625596) CREATININE (test code = 0.91 mg/dL 0.5-1.04 1555723696) TOTAL BILI (test code = 0.2 mg/dL 0.1-1.6 0884492980) CALCIUM (test code = 10.6 mg/dL 8.6-10.6 0251973256) T PROTEIN (test code = 7.7 g/dL 6.3-8.2 7243574995) ALBUMIN (test code = 4.8 g/dL 3.5-5 5140447698) ALK PHOS (test code = 74 U/L 34-122 4752597832) ALTv (test code = 19 U/L 5-35 1742-6) AST(SGOT) (test code = 22 U/L 13-40 4257121833) eGFR Calculation mL/min/1.73m2 (Non-) (test code = 6899637069) eGFR Calculation mL/min/1.73m2 () (test code = 9414441179) SOCRATES (test code = SOCRATES) Association of Glomerular Filtration Rate (GFR) and Staging of Kidney Disease* + --+ --+ ------+| GFR (mL/min/1.73 m2) ?| With Kidney Damage ?| ?Without Kidney Damage+ --------+ --------+ +| ?>90 ?| ?Stage one ?| ? Normal ?+ ---+ ---+ -------+| ?60-89 ?| ?Stage two ?| ? Decreased GFR ? + --+ --+ ------+| ?30-59 ?| ?Stage three ?| ? Stage three ? + --+ --+ ------+| ?15-29 ?| ?Stage four ? | ? Stage four ?+ ---+ ---+ -------+| ?<15 (or dialysis) ? ?| ?Stage five ? | ? Stage five ?+ ---+ ---+ -------+ *Each stage assumes the associated GFR level has been in effect for at least three months. ?Stages 1 to 5, with or without kidney disease, indicate chronic kidney disease. Notes: Determination of stages one and two (with eGFR >59mL/min/1.73 m2) requires estimation of kidney damage for at least three months as defined by structural or functional abnormalities of the kidney, manifested by either:Pathological abnormalities or Markers of kidney damage (including abnormalities in the composition of the blood or urine or abnormalities in imaging tests). Lab Interpretation Abnormal (test code = 96601-0) [facility] ([id number])(TOTAL CHOLESTEROL, TRIGLYCERIDES, HDL)2019-06-18 19:07:00 Test Item Value Reference Range Interpretation Comments CHOL (test code = 269 mg/dL 120-200 H 4626666298) HDL (test code = 35 mg/dL >50 L 4054119796) HDLC RATIO (test code = See_Comment H [Au tomated message] 2447184201) The system [employer] generated this result transmit hattie reference range : <=4.5. The refe rence range was not u sed to interpret th is result as normal/abnormal . TRIG (test code = 142 mg/dL 30-170 2941525360) LDL CHOL (test code = 206 mg/dL See_Comment H [Auto mated message] 32310-6) The system [employer] generated this result transmit hattie reference range : <=160. The refe rence range was not u sed to interpret th is result as normal/abnormal . VLDL (test code = 28 mg/dL 5-60 5357013122) Lab Interpretation (test Abnormal code = 67621-2) [facility]. METABOLIC PANEL ([id number])2019-06-18 19:07:00 Test Item Value Reference Range Interpretation Comments NA (test code = 141 mmol/L 135-145 6376811878) K (test code = 3.8 mmol/L 3.5-5 6619971607) CL (test code = 103 mmol/L 98-108 6869205551) CO2 TOTAL (test code = 27 mmol/L 23-31 5106098588) AGAP (test code = 2-16 8174497132) BUN (test code = 8 mg/dL 7-23 1258781995) GLUCOSE (test code = 138 mg/dL 70-110 H 8373443760) CREATININE (test code = 0.91 mg/dL 0.5-1.04 1705809388) TOTAL BILI (test code = 0.2 mg/dL 0.1-1.8 4177765915) CALCIUM (test code = 10.6 mg/dL 8.6-10.6 2811316793) T PROTEIN (test code = 7.7 g/dL 6.3-8.2 2891565286) ALBUMIN (test code = 4.8 g/dL 3.5-5 2480280727) ALK PHOS (test code = 74 U/L 34-122 9692028494) ALTv (test code = 19 U/L 5-35 1742-6) AST(SGOT) (test code = 22 U/L 13-40 1020334552) eGFR Calculation mL/min/1.73m2 (Non-) (test code = 3896616312) eGFR Calculation mL/min/1.73m2 () (test code = 8543474312) SOCRATES (test code = SOCRATES) Association of Glomerular Filtration Rate (GFR) and Staging of Kidney Disease* + --+ --+ ------+| GFR (mL/min/1.73 m2) ?| With Kidney Damage ?| ?Without Kidney Damage+ --------+ --------+ +| ?>90 ?| ?Stage one ?| ? Normal ?+ ---+ ---+ -------+| ?60-89 ?| ?Stage two ?| ? Decreased GFR ? + --+ --+ ------+| ?30-59 ?| ?Stage three ?| ? Stage three ? + --+ --+ ------+| ?15-29 ?| ?Stage four ? | ? Stage four ?+ ---+ ---+ -------+| ?<15 (or dialysis) ? ?| ?Stage five ? | ? Stage five ?+ ---+ ---+ -------+ *Each stage assumes the associated GFR level has been in effect for at least three months. ?Stages 1 to 5, with or without kidney disease, indicate chronic kidney disease. Notes: Determination of stages one and two (with eGFR >59mL/min/1.73 m2) requires estimation of kidney damage for at least three months as defined by structural or functional abnormalities of the kidney, manifested by either:Pathological abnormalities or Markers of kidney damage (including abnormalities in the composition of the blood or urine or abnormalities in imaging tests). Lab Interpretation Abnormal (test code = 06955-1) [facility] ([id number])(TOTAL CHOLESTEROL, TRIGLYCERIDES, HDL)2019-06-18 19:07:00 Test Item Value Reference Range Interpretation Comments CHOL (test code = 269 mg/dL 120-200 H 4613638670) HDL (test code = 35 mg/dL >50 L 8010765459) HDLC RATIO (test code = See_Comment H [Au tomated message] 1093033338) The system [employer] generated this result transmit hattie reference range : <=4.5. The refe rence range was not u sed to interpret th is result as normal/abnormal . TRIG (test code = 142 mg/dL 30-170 0943466761) LDL CHOL (test code = 206 mg/dL See_Comment H [Auto mated message] 78804-8) The system [employer] generated this result transmit hattie reference range : <=160. The refe rence range was not u sed to interpret th is result as normal/abnormal . VLDL (test code = 28 mg/dL 5-60 1977121079) Lab Interpretation (test Abnormal code = 19133-1) [facility]OL[facility] ([id number])2019-06-18 19:07:00 Test Item Value Reference Range Interpretation Comments NA (test code = 141 mmol/L 135-145 6007575417) K (test code = 3.8 mmol/L 3.5-5 2969131050) CL (test code = 103 mmol/L 98-108 9033091605) CO2 TOTAL (test code = 27 mmol/L 23-31 2018711353) AGAP (test code = 2-16 3923450792) BUN (test code = 8 mg/dL 7-23 7311553259) GLUCOSE (test code = 138 mg/dL 70-110 H 8059633391) CREATININE (test code = 0.91 mg/dL 0.5-1.04 8848067709) TOTAL BILI (test code = 0.2 mg/dL 0.1-1.5 2801495184) CALCIUM (test code = 10.6 mg/dL 8.6-10.6 2185131132) T PROTEIN (test code = 7.7 g/dL 6.3-8.2 8553509387) ALBUMIN (test code = 4.8 g/dL 3.5-5 7897062727) ALK PHOS (test code = 74 U/L 34-122 9653602750) ALTv (test code = 19 U/L 5-35 1742-6) AST(SGOT) (test code = 22 U/L 13-40 5708806559) eGFR Calculation mL/min/1.73m2 (Non-) (test code = 3972844561) eGFR Calculation mL/min/1.73m2 () (test code = 8308773333) SOCRATES (test code = SOCRATES) Association of Glomerular Filtration Rate (GFR) and Staging of Kidney Disease* + --+ --+ ------+| GFR (mL/min/1.73 m2) ?| With Kidney Damage ?| ?Without Kidney Damage+ --------+ --------+ +| ?>90 ?| ?Stage one ?| ? Normal ?+ ---+ ---+ -------+| ?60-89 ?| ?Stage two ?| ? Decreased GFR ? + --+ --+ ------+| ?30-59 ?| ?Stage three ?| ? Stage three ? + --+ --+ ------+| ?15-29 ?| ?Stage four ? | ? Stage four ?+ ---+ ---+ -------+| ?<15 (or dialysis) ? ?| ?Stage five ? | ? Stage five ?+ ---+ ---+ -------+ *Each stage assumes the associated GFR level has been in effect for at least three months. ?Stages 1 to 5, with or without kidney disease, indicate chronic kidney disease. Notes: Determination of stages one and two (with eGFR >59mL/min/1.73 m2) requires estimation of kidney damage for at least three months as defined by structural or functional abnormalities of the kidney, manifested by either:Pathological abnormalities or Markers of kidney damage (including abnormalities in the composition of the blood or urine or abnormalities in imaging tests). Lab Interpretation Abnormal (test code = 26525-2) [facility] ([id number])(TOTAL CHOLESTEROL, TRIGLYCERIDES, HDL)2019-06-18 19:07:00 Test Item Value Reference Range Interpretation Comments CHOL (test code = 269 mg/dL 120-200 H 7328757151) HDL (test code = 35 mg/dL >50 L 4295984693) HDLC RATIO (test code = See_Comment H [Au tomated message] 0877616418) The system [employer] generated this result transmit hattie reference range : <=4.5. The refe rence range was not u sed to interpret th is result as normal/abnormal . TRIG (test code = 142 mg/dL 30-170 4788379531) LDL CHOL (test code = 206 mg/dL See_Comment H [Auto mated message] 05928-0) The system [employer] generated this result transmit hattie reference range : <=160. The refe rence range was not u sed to interpret th is result as normal/abnormal . VLDL (test code = 28 mg/dL 5-60 3105717082) Lab Interpretation (test Abnormal code = 30733-6) [facility]OL[facility] ([id number])2019-06-18 19:07:00 Test Item Value Reference Range Interpretation Comments NA (test code = 141 mmol/L 135-145 0380805160) K (test code = 3.8 mmol/L 3.5-5 0955690347) CL (test code = 103 mmol/L 98-108 6039494670) CO2 TOTAL (test code = 27 mmol/L 23-31 0453919138) AGAP (test code = 2-16 0798976040) BUN (test code = 8 mg/dL 7-23 7437859766) GLUCOSE (test code = 138 mg/dL 70-110 H 4517080738) CREATININE (test code = 0.91 mg/dL 0.5-1.04 1437733763) TOTAL BILI (test code = 0.2 mg/dL 0.1-1.9 0549889351) CALCIUM (test code = 10.6 mg/dL 8.6-10.6 9855866396) T PROTEIN (test code = 7.7 g/dL 6.3-8.2 0839002384) ALBUMIN (test code = 4.8 g/dL 3.5-5 7211319514) ALK PHOS (test code = 74 U/L 34-122 6098748951) ALTv (test code = 19 U/L 5-35 1742-6) AST(SGOT) (test code = 22 U/L 13-40 2259960921) eGFR Calculation mL/min/1.73m2 (Non-) (test code = 5199904663) eGFR Calculation mL/min/1.73m2 () (test code = 4055073918) SOCRATES (test code = SOCRATES) Association of Glomerular Filtration Rate (GFR) and Staging of Kidney Disease* + --+ --+ ------+| GFR (mL/min/1.73 m2) ?| With Kidney Damage ?| ?Without Kidney Damage+ --------+ --------+ +| ?>90 ?| ?Stage one ?| ? Normal ?+ ---+ ---+ -------+| ?60-89 ?| ?Stage two ?| ? Decreased GFR ? + --+ --+ ------+| ?30-59 ?| ?Stage three ?| ? Stage three ? + --+ --+ ------+| ?15-29 ?| ?Stage four ? | ? Stage four ?+ ---+ ---+ -------+| ?<15 (or dialysis) ? ?| ?Stage five ? | ? Stage five ?+ ---+ ---+ -------+ *Each stage assumes the associated GFR level has been in effect for at least three months. ?Stages 1 to 5, with or without kidney disease, indicate chronic kidney disease. Notes: Determination of stages one and two (with eGFR >59mL/min/1.73 m2) requires estimation of kidney damage for at least three months as defined by structural or functional abnormalities of the kidney, manifested by either:Pathological abnormalities or Markers of kidney damage (including abnormalities in the composition of the blood or urine or abnormalities in imaging tests). Lab Interpretation Abnormal (test code = 53653-3) [facility] ([id number])(TOTAL CHOLESTEROL, TRIGLYCERIDES, HDL)2019-06-18 19:07:00 Test Item Value Reference Range Interpretation Comments CHOL (test code = 269 mg/dL 120-200 H 7781096542) HDL (test code = 35 mg/dL >50 L 2244398906) HDLC RATIO (test code = See_Comment H [Au tomated message] 5981578530) The system [employer] generated this result transmit hattie reference range : <=4.5. The refe rence range was not u sed to interpret th is result as normal/abnormal . TRIG (test code = 142 mg/dL 30-170 7107804226) LDL CHOL (test code = 206 mg/dL See_Comment H [Auto mated message] 22918-8) The system [employer] generated this result transmit hattie reference range : <=160. The refe rence range was not u sed to interpret th is result as normal/abnormal . VLDL (test code = 28 mg/dL 5-60 3378982407) Lab Interpretation (test Abnormal code = 80767-4) [facility]OL[facility] ([id number])2019-06-18 19:07:00 Test Item Value Reference Range Interpretation Comments NA (test code = 141 mmol/L 135-145 8462532637) K (test code = 3.8 mmol/L 3.5-5 3656349775) CL (test code = 103 mmol/L 98-108 1237806192) CO2 TOTAL (test code = 27 mmol/L 23-31 2658409558) AGAP (test code = 2-16 9818844915) BUN (test code = 8 mg/dL 7-23 3666799609) GLUCOSE (test code = 138 mg/dL 70-110 H 2361453695) CREATININE (test code = 0.91 mg/dL 0.5-1.04 2709654769) TOTAL BILI (test code = 0.2 mg/dL 0.1-1.3 2750130640) CALCIUM (test code = 10.6 mg/dL 8.6-10.6 6599553029) T PROTEIN (test code = 7.7 g/dL 6.3-8.2 9420183972) ALBUMIN (test code = 4.8 g/dL 3.5-5 6723352046) ALK PHOS (test code = 74 U/L 34-122 3921692998) ALTv (test code = 19 U/L 5-35 1742-6) AST(SGOT) (test code = 22 U/L 13-40 3930108655) eGFR Calculation mL/min/1.73m2 (Non-) (test code = 2784544244) eGFR Calculation mL/min/1.73m2 () (test code = 8974730254) SOCRATES (test code = SOCRATES) Association of Glomerular Filtration Rate (GFR) and Staging of Kidney Disease* + --+ --+ ------+| GFR (mL/min/1.73 m2) ?| With Kidney Damage ?| ?Without Kidney Damage+ --------+ --------+ +| ?>90 ?| ?Stage one ?| ? Normal ?+ ---+ ---+ -------+| ?60-89 ?| ?Stage two ?| ? Decreased GFR ? + --+ --+ ------+| ?30-59 ?| ?Stage three ?| ? Stage three ? + --+ --+ ------+| ?15-29 ?| ?Stage four ? | ? Stage four ?+ ---+ ---+ -------+| ?<15 (or dialysis) ? ?| ?Stage five ? | ? Stage five ?+ ---+ ---+ -------+ *Each stage assumes the associated GFR level has been in effect for at least three months. ?Stages 1 to 5, with or without kidney disease, indicate chronic kidney disease. Notes: Determination of stages one and two (with eGFR >59mL/min/1.73 m2) requires estimation of kidney damage for at least three months as defined by structural or functional abnormalities of the kidney, manifested by either:Pathological abnormalities or Markers of kidney damage (including abnormalities in the composition of the blood or urine or abnormalities in imaging tests). Lab Interpretation Abnormal (test code = 98529-6) [facility] ([id number])(TOTAL CHOLESTEROL, TRIGLYCERIDES, HDL)2019-06-18 19:07:00 Test Item Value Reference Range Interpretation Comments CHOL (test code = 269 mg/dL 120-200 H 8302378873) HDL (test code = 35 mg/dL >50 L 1756160801) HDLC RATIO (test code = See_Comment H [Au tomated message] 0129717257) The system [employer] generated this result transmit hattie reference range : <=4.5. The refe rence range was not u sed to interpret th is result as normal/abnormal . TRIG (test code = 142 mg/dL 30-170 3682847528) LDL CHOL (test code = 206 mg/dL See_Comment H [Auto mated message] 77191-3) The system [employer] generated this result transmit hattie reference range : <=160. The refe rence range was not u sed to interpret th is result as normal/abnormal . VLDL (test code = 28 mg/dL 5-60 1432386480) Lab Interpretation (test Abnormal code = 41635-8) [facility] ([id number])2019-06-18 19:07:00 Test Item Value Reference Range Interpretation Comments NA (test code = 141 mmol/L 135-145 2242093848) K (test code = 3.8 mmol/L 3.5-5 8219494198) CL (test code = 103 mmol/L 98-108 3382446739) CO2 TOTAL (test code = 27 mmol/L 23-31 5347634161) AGAP (test code = 2-16 3657377767) BUN (test code = 8 mg/dL 7-23 2103651070) GLUCOSE (test code = 138 mg/dL 70-110 H 9053856853) CREATININE (test code = 0.91 mg/dL 0.5-1.04 0862316613) TOTAL BILI (test code = 0.2 mg/dL 0.1-1.0 1234019226) CALCIUM (test code = 10.6 mg/dL 8.6-10.6 2387885979) T PROTEIN (test code = 7.7 g/dL 6.3-8.2 4579307075) ALBUMIN (test code = 4.8 g/dL 3.5-5 3562572029) ALK PHOS (test code = 74 U/L 34-122 2405045537) ALTv (test code = 19 U/L 5-35 1742-6) AST(SGOT) (test code = 22 U/L 13-40 7960567974) eGFR Calculation mL/min/1.73m2 (Non-) (test code = 8858057066) eGFR Calculation mL/min/1.73m2 () (test code = 0701161050) SOCRATES (test code = SOCRATES) Association of Glomerular Filtration Rate (GFR) and Staging of Kidney Disease* + --+ --+ ------+| GFR (mL/min/1.73 m2) ?| With Kidney Damage ?| ?Without Kidney Damage+ --------+ --------+ +| ?>90 ?| ?Stage one ?| ? Normal ?+ ---+ ---+ -------+| ?60-89 ?| ?Stage two ?| ? Decreased GFR ? + --+ --+ ------+| ?30-59 ?| ?Stage three ?| ? Stage three ? + --+ --+ ------+| ?15-29 ?| ?Stage four ? | ? Stage four ?+ ---+ ---+ -------+| ?<15 (or dialysis) ? ?| ?Stage five ? | ? Stage five ?+ ---+ ---+ -------+ *Each stage assumes the associated GFR level has been in effect for at least three months. ?Stages 1 to 5, with or without kidney disease, indicate chronic kidney disease. Notes: Determination of stages one and two (with eGFR >59mL/min/1.73 m2) requires estimation of kidney damage for at least three months as defined by structural or functional abnormalities of the kidney, manifested by either:Pathological abnormalities or Markers of kidney damage (including abnormalities in the composition of the blood or urine or abnormalities in imaging tests). Lab Interpretation Abnormal (test code = 03723-0) [facility] ([id number])(TOTAL CHOLESTEROL, TRIGLYCERIDES, HDL)2019-06-18 19:07:00 Test Item Value Reference Range Interpretation Comments CHOL (test code = 269 mg/dL 120-200 H 0597690240) HDL (test code = 35 mg/dL >50 L 0559880538) HDLC RATIO (test code = See_Comment H [Au tomated message] 0256770941) The system [employer] generated this result transmit hattie reference range : <=4.5. The refe rence range was not u sed to interpret th is result as normal/abnormal . TRIG (test code = 142 mg/dL 30-170 0793877299) LDL CHOL (test code = 206 mg/dL See_Comment H [Auto mated message] 04359-2) The system [employer] generated this result transmit hattie reference range : <=160. The refe rence range was not u sed to interpret th is result as normal/abnormal . VLDL (test code = 28 mg/dL 5-60 7088175934) Lab Interpretation (test Abnormal code = 74291-6) [facility]. METABOLIC PANEL ([id number])2019-06-18 19:07:00 Test Item Value Reference Range Interpretation Comments NA (test code = 141 mmol/L 135-145 7076268506) K (test code = 3.8 mmol/L 3.5-5 2386222290) CL (test code = 103 mmol/L 98-108 4508365004) CO2 TOTAL (test code = 27 mmol/L 23-31 4734433155) AGAP (test code = 2-16 1920669580) BUN (test code = 8 mg/dL 7-23 0931427450) GLUCOSE (test code = 138 mg/dL 70-110 H 6457461634) CREATININE (test code = 0.91 mg/dL 0.5-1.04 5870241726) TOTAL BILI (test code = 0.2 mg/dL 0.1-1.6 2834683909) CALCIUM (test code = 10.6 mg/dL 8.6-10.6 2129015555) T PROTEIN (test code = 7.7 g/dL 6.3-8.2 9584676480) ALBUMIN (test code = 4.8 g/dL 3.5-5 5556318772) ALK PHOS (test code = 74 U/L 34-122 2521323958) ALTv (test code = 19 U/L 5-35 1742-6) AST(SGOT) (test code = 22 U/L 13-40 9384584644) eGFR Calculation mL/min/1.73m2 (Non-) (test code = 1027132293) eGFR Calculation mL/min/1.73m2 () (test code = 9584369727) SOCRATES (test code = SOCRATES) Association of Glomerular Filtration Rate (GFR) and Staging of Kidney Disease* + --+ --+ ------+| GFR (mL/min/1.73 m2) ?| With Kidney Damage ?| ?Without Kidney Damage+ --------+ --------+ +| ?>90 ?| ?Stage one ?| ? Normal ?+ ---+ ---+ -------+| ?60-89 ?| ?Stage two ?| ? Decreased GFR ? + --+ --+ ------+| ?30-59 ?| ?Stage three ?| ? Stage three ? + --+ --+ ------+| ?15-29 ?| ?Stage four ? | ? Stage four ?+ ---+ ---+ -------+| ?<15 (or dialysis) ? ?| ?Stage five ? | ? Stage five ?+ ---+ ---+ -------+ *Each stage assumes the associated GFR level has been in effect for at least three months. ?Stages 1 to 5, with or without kidney disease, indicate chronic kidney disease. Notes: Determination of stages one and two (with eGFR >59mL/min/1.73 m2) requires estimation of kidney damage for at least three months as defined by structural or functional abnormalities of the kidney, manifested by either:Pathological abnormalities or Markers of kidney damage (including abnormalities in the composition of the blood or urine or abnormalities in imaging tests). Lab Interpretation Abnormal (test code = 23645-3) [id number][facility]TOTAL CHOLESTEROL, TRIGLYCERIDES, HDL)2019-06-18 19:07:00 Test Item Value Reference Range Interpretation Comments CHOL (test code = 269 mg/dL 120-200 H 6574259140) HDL (test code = 35 mg/dL >50 L 6578942411) HDLC RATIO (test code = See_Comment H [Au tomated message] 4936454833) The system [employer] generated this result transmit hattie reference range : <=4.5. The refe rence range was not u sed to interpret th is result as normal/abnormal . TRIG (test code = 142 mg/dL 30-170 9869669733) LDL CHOL (test code = 206 mg/dL See_Comment H [Auto mated message] 97182-1) The system [employer] generated this result transmit hattie reference range : <=160. The refe rence range was not u sed to interpret th is result as normal/abnormal . VLDL (test code = 28 mg/dL 5-60 9354709564) Lab Interpretation (test Abnormal code = 09043-5) [facility]. METABOLIC PANEL ([id number])2019-06-18 19:07:00 Test Item Value Reference Range Interpretation Comments NA (test code = 141 mmol/L 135-145 4372783501) K (test code = 3.8 mmol/L 3.5-5 8387013936) CL (test code = 103 mmol/L 98-108 0278172824) CO2 TOTAL (test code = 27 mmol/L 23-31 4066855235) AGAP (test code = 2-16 9174353663) BUN (test code = 8 mg/dL 7-23 1720863097) GLUCOSE (test code = 138 mg/dL 70-110 H 4288940969) CREATININE (test code = 0.91 mg/dL 0.5-1.04 4689695613) TOTAL BILI (test code = 0.2 mg/dL 0.1-1.5 1238648006) CALCIUM (test code = 10.6 mg/dL 8.6-10.6 6247209779) T PROTEIN (test code = 7.7 g/dL 6.3-8.2 7749254454) ALBUMIN (test code = 4.8 g/dL 3.5-5 1755230022) ALK PHOS (test code = 74 U/L 34-122 0629255062) ALTv (test code = 19 U/L 5-35 1742-6) AST(SGOT) (test code = 22 U/L 13-40 0845304684) eGFR Calculation mL/min/1.73m2 (Non-) (test code = 6971679372) eGFR Calculation mL/min/1.73m2 () (test code = 9516973565) SOCRATES (test code = SOCRATES) Association of Glomerular Filtration Rate (GFR) and Staging of Kidney Disease* + --+ --+ ------+| GFR (mL/min/1.73 m2) ?| With Kidney Damage ?| ?Without Kidney Damage+ --------+ --------+ +| ?>90 ?| ?Stage one ?| ? Normal ?+ ---+ ---+ -------+| ?60-89 ?| ?Stage two ?| ? Decreased GFR ? + --+ --+ ------+| ?30-59 ?| ?Stage three ?| ? Stage three ? + --+ --+ ------+| ?15-29 ?| ?Stage four ? | ? Stage four ?+ ---+ ---+ -------+| ?<15 (or dialysis) ? ?| ?Stage five ? | ? Stage five ?+ ---+ ---+ -------+ *Each stage assumes the associated GFR level has been in effect for at least three months. ?Stages 1 to 5, with or without kidney disease, indicate chronic kidney disease. Notes: Determination of stages one and two (with eGFR >59mL/min/1.73 m2) requires estimation of kidney damage for at least three months as defined by structural or functional abnormalities of the kidney, manifested by either:Pathological abnormalities or Markers of kidney damage (including abnormalities in the composition of the blood or urine or abnormalities in imaging tests). Lab Interpretation Abnormal (test code = 39072-3) [facility][id number][facility]TOTAL CHOLESTEROL, TRIGLYCERIDES, HDL)2019-06-18 19:07:00 Test Item Value Reference Range Interpretation Comments CHOL (test code = 269 mg/dL 120-200 H 7958798428) HDL (test code = 35 mg/dL >50 L 9229064383) HDLC RATIO (test code = See_Comment H [Au tomated message] 6856749845) The system [employer] generated this result transmit hattie reference range : <=4.5. The refe rence range was not u sed to interpret th is result as normal/abnormal . TRIG (test code = 142 mg/dL 30-170 5015065768) LDL CHOL (test code = 206 mg/dL See_Comment H [Auto mated message] 49955-3) The system [employer] generated this result transmit hattie reference range : <=160. The refe rence range was not u sed to interpret th is result as normal/abnormal . VLDL (test code = 28 mg/dL 5-60 6821049986) Lab Interpretation (test Abnormal code = 00911-0) [facility]. METABOLIC PANEL ([id number])2019-06-18 19:07:00 Test Item Value Reference Range Interpretation Comments NA (test code = 141 mmol/L 135-145 5999549684) K (test code = 3.8 mmol/L 3.5-5 4803288962) CL (test code = 103 mmol/L 98-108 1901275955) CO2 TOTAL (test code = 27 mmol/L 23-31 5603050153) AGAP (test code = 2-16 1101254831) BUN (test code = 8 mg/dL 7-23 3148835950) GLUCOSE (test code = 138 mg/dL 70-110 H 1946219764) CREATININE (test code = 0.91 mg/dL 0.5-1.04 2824326241) TOTAL BILI (test code = 0.2 mg/dL 0.1-1.9 0825948647) CALCIUM (test code = 10.6 mg/dL 8.6-10.6 6318174669) T PROTEIN (test code = 7.7 g/dL 6.3-8.2 4131172778) ALBUMIN (test code = 4.8 g/dL 3.5-5 3785120410) ALK PHOS (test code = 74 U/L 34-122 9917552518) ALTv (test code = 19 U/L 5-35 1742-6) AST(SGOT) (test code = 22 U/L 13-40 0824035723) eGFR Calculation mL/min/1.73m2 (Non-) (test code = 8620256324) eGFR Calculation mL/min/1.73m2 () (test code = 6026605519) SOCRATES (test code = SOCRATES) Association of Glomerular Filtration Rate (GFR) and Staging of Kidney Disease* + --+ --+ ------+| GFR (mL/min/1.73 m2) ?| With Kidney Damage ?| ?Without Kidney Damage+ --------+ --------+ +| ?>90 ?| ?Stage one ?| ? Normal ?+ ---+ ---+ -------+| ?60-89 ?| ?Stage two ?| ? Decreased GFR ? + --+ --+ ------+| ?30-59 ?| ?Stage three ?| ? Stage three ? + --+ --+ ------+| ?15-29 ?| ?Stage four ? | ? Stage four ?+ ---+ ---+ -------+| ?<15 (or dialysis) ? ?| ?Stage five ? | ? Stage five ?+ ---+ ---+ -------+ *Each stage assumes the associated GFR level has been in effect for at least three months. ?Stages 1 to 5, with or without kidney disease, indicate chronic kidney disease. Notes: Determination of stages one and two (with eGFR >59mL/min/1.73 m2) requires estimation of kidney damage for at least three months as defined by structural or functional abnormalities of the kidney, manifested by either:Pathological abnormalities or Markers of kidney damage (including abnormalities in the composition of the blood or urine or abnormalities in imaging tests). Lab Interpretation Abnormal (test code = 72051-3) [facility][id number][facility]TOTAL CHOLESTEROL, TRIGLYCERIDES, HDL)2019-06-18 19:07:00 Test Item Value Reference Range Interpretation Comments CHOL (test code = 269 mg/dL 120-200 H 7138341923) HDL (test code = 35 mg/dL >50 L 7646933123) HDLC RATIO (test code = See_Comment H [Au tomated message] 5835935494) The system [employer] generated this result transmit hattie reference range : <=4.5. The refe rence range was not u sed to interpret th is result as normal/abnormal . TRIG (test code = 142 mg/dL 30-170 3958232384) LDL CHOL (test code = 206 mg/dL See_Comment H [Auto mated message] 10324-2) The system [employer] generated this result transmit hattie reference range : <=160. The refe rence range was not u sed to interpret th is result as normal/abnormal . VLDL (test code = 28 mg/dL 5-60 2689374261) Lab Interpretation (test Abnormal code = 83781-2) [facility]. METABOLIC PANEL ([id number])2019-06-18 19:07:00 Test Item Value Reference Range Interpretation Comments NA (test code = 141 mmol/L 135-145 8764776399) K (test code = 3.8 mmol/L 3.5-5 5274669640) CL (test code = 103 mmol/L 98-108 4365444617) CO2 TOTAL (test code = 27 mmol/L 23-31 2114938427) AGAP (test code = 2-16 6372050184) BUN (test code = 8 mg/dL 7-23 3154225608) GLUCOSE (test code = 138 mg/dL 70-110 H 3365761860) CREATININE (test code = 0.91 mg/dL 0.5-1.04 0727245234) TOTAL BILI (test code = 0.2 mg/dL 0.1-1.0 4574177337) CALCIUM (test code = 10.6 mg/dL 8.6-10.6 7953924162) T PROTEIN (test code = 7.7 g/dL 6.3-8.2 9108614581) ALBUMIN (test code = 4.8 g/dL 3.5-5 3532821742) ALK PHOS (test code = 74 U/L 34-122 4174360178) ALTv (test code = 19 U/L 5-35 1742-6) AST(SGOT) (test code = 22 U/L 13-40 4275565433) eGFR Calculation mL/min/1.73m2 (Non-) (test code = 6916618347) eGFR Calculation mL/min/1.73m2 () (test code = 4720807152) SOCRATES (test code = SOCRATES) Association of Glomerular Filtration Rate (GFR) and Staging of Kidney Disease* + --+ --+ ------+| GFR (mL/min/1.73 m2) ?| With Kidney Damage ?| ?Without Kidney Damage+ --------+ --------+ +| ?>90 ?| ?Stage one ?| ? Normal ?+ ---+ ---+ -------+| ?60-89 ?| ?Stage two ?| ? Decreased GFR ? + --+ --+ ------+| ?30-59 ?| ?Stage three ?| ? Stage three ? + --+ --+ ------+| ?15-29 ?| ?Stage four ? | ? Stage four ?+ ---+ ---+ -------+| ?<15 (or dialysis) ? ?| ?Stage five ? | ? Stage five ?+ ---+ ---+ -------+ *Each stage assumes the associated GFR level has been in effect for at least three months. ?Stages 1 to 5, with or without kidney disease, indicate chronic kidney disease. Notes: Determination of stages one and two (with eGFR >59mL/min/1.73 m2) requires estimation of kidney damage for at least three months as defined by structural or functional abnormalities of the kidney, manifested by either:Pathological abnormalities or Markers of kidney damage (including abnormalities in the composition of the blood or urine or abnormalities in imaging tests). Lab Interpretation Abnormal (test code = 40815-7) [facility][id number])(TOTAL CHOLESTEROL, TRIGLYCERIDES, HDL)2019-06-18 19:07:00 Test Item Value Reference Range Interpretation Comments CHOL (test code = 269 mg/dL 120-200 H 9182447820) HDL (test code = 35 mg/dL >50 L 1576296322) HDLC RATIO (test code = See_Comment H [Au tomated message] 7780275018) The system [employer] generated this result transmit hattie reference range : <=4.5. The refe rence range was not u sed to interpret th is result as normal/abnormal . TRIG (test code = 142 mg/dL 30-170 5564550964) LDL CHOL (test code = 206 mg/dL See_Comment H [Auto mated message] 08097-2) The system [employer] generated this result transmit hattie reference range : <=160. The refe rence range was not u sed to interpret th is result as normal/abnormal . VLDL (test code = 28 mg/dL 5-60 1506306487) Lab Interpretation (test Abnormal code = 89944-9) [facility] MET[facility]OLIC PANEL ([id number])2019-06-18 19:07:00 Test Item Value Reference Range Interpretation Comments NA (test code = 141 mmol/L 135-145 3108715216) K (test code = 3.8 mmol/L 3.5-5 9537212418) CL (test code = 103 mmol/L 98-108 6934782696) CO2 TOTAL (test code = 27 mmol/L 23-31 9773444396) AGAP (test code = 2-16 7371827986) BUN (test code = 8 mg/dL 7-23 1322296193) GLUCOSE (test code = 138 mg/dL 70-110 H 9178763304) CREATININE (test code = 0.91 mg/dL 0.5-1.04 3431836913) TOTAL BILI (test code = 0.2 mg/dL 0.1-1.4 9868562049) CALCIUM (test code = 10.6 mg/dL 8.6-10.6 5005988368) T PROTEIN (test code = 7.7 g/dL 6.3-8.2 3208348237) ALBUMIN (test code = 4.8 g/dL 3.5-5 0661202729) ALK PHOS (test code = 74 U/L 34-122 9344232937) ALTv (test code = 19 U/L 5-35 1742-6) AST(SGOT) (test code = 22 U/L 13-40 9869609202) eGFR Calculation mL/min/1.73m2 (Non-) (test code = 0587979061) eGFR Calculation mL/min/1.73m2 () (test code = 9823285265) SOCRATES (test code = SOCRATES) Association of Glomerular Filtration Rate (GFR) and Staging of Kidney Disease* + --+ --+ ------+| GFR (mL/min/1.73 m2) ?| With Kidney Damage ?| ?Without Kidney Damage+ --------+ --------+ +| ?>90 ?| ?Stage one ?| ? Normal ?+ ---+ ---+ -------+| ?60-89 ?| ?Stage two ?| ? Decreased GFR ? + --+ --+ ------+| ?30-59 ?| ?Stage three ?| ? Stage three ? + --+ --+ ------+| ?15-29 ?| ?Stage four ? | ? Stage four ?+ ---+ ---+ -------+| ?<15 (or dialysis) ? ?| ?Stage five ? | ? Stage five ?+ ---+ ---+ -------+ *Each stage assumes the associated GFR level has been in effect for at least three months. ?Stages 1 to 5, with or without kidney disease, indicate chronic kidney disease. Notes: Determination of stages one and two (with eGFR >59mL/min/1.73 m2) requires estimation of kidney damage for at least three months as defined by structural or functional abnormalities of the kidney, manifested by either:Pathological abnormalities or Markers of kidney damage (including abnormalities in the composition of the blood or urine or abnormalities in imaging tests). Lab Interpretation Abnormal (test code = 65067-3) [facility] [id number] 19:06:00 Test Item Value Reference Range Interpretation Comments URIC ACID (test code = 4103551638) 4.3 mg/dL 2.9-6 Lab Interpretation (test code = Normal 45385-9) [facility] [id number] 19:06:00 Test Item Value Reference Range Interpretation Comments URIC ACID (test code = 6455575112) 4.3 mg/dL 2.9-6 Lab Interpretation (test code = Normal 16115-4) [facility] [id number] 19:06:00 Test Item Value Reference Range Interpretation Comments URIC ACID (test code = 1361877235) 4.3 mg/dL 2.9-6 Lab Interpretation (test code = Normal 76947-0) [facility] [id number] 19:06:00 Test Item Value Reference Range Interpretation Comments URIC ACID (test code = 4437211751) 4.3 mg/dL 2.9-6 Lab Interpretation (test code = Normal 38305-2) [facility] [id number] 19:06:00 Test Item Value Reference Range Interpretation Comments URIC ACID (test code = 0180259639) 4.3 mg/dL 2.9-6 Lab Interpretation (test code = Normal 41313-0) [facility] [id number] 19:06:00 Test Item Value Reference Range Interpretation Comments URIC ACID (test code = 4028325303) 4.3 mg/dL 2.9-6 Lab Interpretation (test code = Normal 32650-3) [facility] [id number] 19:06:00 Test Item Value Reference Range Interpretation Comments URIC ACID (test code = 9209762804) 4.3 mg/dL 2.9-6 Lab Interpretation (test code = Normal 93137-2) [facility] [id number] 19:06:00 Test Item Value Reference Range Interpretation Comments URIC ACID (test code = 7449492182) 4.3 mg/dL 2.9-6 Lab Interpretation (test code = Normal 81148-6) [facility] [id number] 19:06:00 Test Item Value Reference Range Interpretation Comments URIC ACID (test code = 7972116136) 4.3 mg/dL 2.9-6 Lab Interpretation (test code = Normal 79852-1) [facility] [id number] 19:06:00 Test Item Value Reference Range Interpretation Comments URIC ACID (test code = 7876221542) 4.3 mg/dL 2.9-6 Lab Interpretation (test code = Normal 16473-5) [facility] [id number] 19:06:00 Test Item Value Reference Range Interpretation Comments URIC ACID (test code = 8853481739) 4.3 mg/dL 2.9-6 Lab Interpretation (test code = Normal 52525-3) [facility]2020-02-06 18:57:00 Test Item Value Reference Range Interpretation Comments ESR (test code = See_Comment [Automated message] 7020087917) The system [employer] generated this result transmitted ref erence range: 0 - 20 m m/HR. The reference r allyson was not used to interpret this result as normal/abnor mal. Lab Interpretation (test Normal code = 34177-4) [facility]2020-02-06 18:57:00 Test Item Value Reference Range Interpretation Comments ESR (test code = See_Comment [Automated message] 9986619642) The system [employer] generated this result transmitted ref erence range: 0 - 20 m m/HR. The reference r allyson was not used to interpret this result as normal/abnor mal. Lab Interpretation (test Normal code = 30048-6) [facility] [id number] 18:57:00 Test Item Value Reference Range Interpretation Comments ESR (test code = See_Comment [Automated message] 2004669136) The system [employer] generated this result transmitted ref erence range: 0 - 20 m m/HR. The reference r allyson was not used to interpret this result as normal/abnor mal. Lab Interpretation (test Normal code = 64936-1) [facility] [id number] 18:57:00 Test Item Value Reference Range Interpretation Comments ESR (test code = See_Comment [Automated message] 0213807143) The system [employer] generated this result transmitted ref erence range: 0 - 20 m m/HR. The reference r allyson was not used to interpret this result as normal/abnor mal. Lab Interpretation (test Normal code = 53783-7) [facility] [id number] 18:57:00 Test Item Value Reference Range Interpretation Comments ESR (test code = See_Comment [Automated message] 9480692856) The system [employer] generated this result transmitted ref erence range: 0 - 20 m m/HR. The reference r allyson was not used to interpret this result as normal/abnor mal. Lab Interpretation (test Normal code = 73208-0) [facility] [id number] 18:57:00 Test Item Value Reference Range Interpretation Comments ESR (test code = See_Comment [Automated message] 8704791929) The system [employer] generated this result transmitted ref erence range: 0 - 20 m m/HR. The reference r allyson was not used to interpret this result as normal/abnor mal. Lab Interpretation (test Normal code = 38320-9) [facility] [id number] 18:57:00 Test Item Value Reference Range Interpretation Comments ESR (test code = See_Comment [Automated message] 3733274584) The system [employer] generated this result transmitted ref erence range: 0 - 20 m m/HR. The reference r allyson was not used to interpret this result as normal/abnor mal. Lab Interpretation (test Normal code = 70914-2) [facility] [id number] 18:57:00 Test Item Value Reference Range Interpretation Comments ESR (test code = See_Comment [Automated message] 2868788503) The system [employer] generated this result transmitted ref erence range: 0 - 20 m m/HR. The reference r allyson was not used to interpret this result as normal/abnor mal. Lab Interpretation (test Normal code = 54372-5) [facility] [id number] 18:57:00 Test Item Value Reference Range Interpretation Comments ESR (test code = See_Comment [Automated message] 6277791426) The system [employer] generated this result transmitted ref erence range: 0 - 20 m m/HR. The reference r allyson was not used to interpret this result as normal/abnor mal. Lab Interpretation (test Normal code = 78237-7) [facility] [id number] 18:57:00 Test Item Value Reference Range Interpretation Comments ESR (test code = See_Comment [Automated message] 8198006346) The system [employer] generated this result transmitted ref erence range: 0 - 20 m m/HR. The reference r allyson was not used to interpret this result as normal/abnor mal. Lab Interpretation (test Normal code = 63549-1) [facility] [id number] 18:57:00 Test Item Value Reference Range Interpretation Comments ESR (test code = See_Comment [Automated message] 4124875496) The system [employer] generated this result transmitted ref erence range: 0 - 20 m m/HR. The reference r allyson was not used to interpret this result as normal/abnor mal. Lab Interpretation (test Normal code = 17007-9) [facility] (A1C)2019-06-18 18:53:00 Test Item Value Reference Interpretation Comments Range HGB A1C (test code = See_Comment [Autom ated 4548-4) message] The system which generated this result transmitted reference range : 4.0 - 6.0 % NGSP. The reference range was not used to interpret this result as normal/abnormal . SOCRATES (test code = %A1C (NGSP) SOCRATES) Interpretation (ADA)4.8-5.6 ? ? Normal or (Non-Diabetic Range)5.7-6.4 ? ? Increased Risk (Pre-Diabetic)>6.5 ?Diabetes Indicated Lab Interpretation Normal (test code = 35567-9) [facility] (A1C)2019-06-18 18:53:00 Test Item Value Reference Interpretation Comments Range HGB A1C (test code = See_Comment [Autom ated 4548-4) message] The system which generated this result transmitted reference range : 4.0 - 6.0 % NGSP. The reference range was not used to interpret this result as normal/abnormal . SOCRATES (test code = %A1C (NGSP) SOCRATES) Interpretation (ADA)4.8-5.6 ? ? Normal or (Non-Diabetic Range)5.7-6.4 ? ? Increased Risk (Pre-Diabetic)>6.5 ?Diabetes Indicated Lab Interpretation Normal (test code = 77274-2) [facility]A1C)2019-06-18 18:53:00 Test Item Value Reference Interpretation Comments Range HGB A1C (test code = See_Comment [Autom ated 4548-4) message] The system which generated this result transmitted reference range : 4.0 - 6.0 % NGSP. The reference range was not used to interpret this result as normal/abnormal . SOCRATES (test code = %A1C (NGSP) SOCRATES) Interpretation (ADA)4.8-5.6 ? ? Normal or (Non-Diabetic Range)5.7-6.4 ? ? Increased Risk (Pre-Diabetic)>6.5 ?Diabetes Indicated Lab Interpretation Normal (test code = 74752-5) [facility]A1C)2019-06-18 18:53:00 Test Item Value Reference Interpretation Comments Range HGB A1C (test code = See_Comment [Autom ated 4548-4) message] The system which generated this result transmitted reference range : 4.0 - 6.0 % NGSP. The reference range was not used to interpret this result as normal/abnormal . SOCRATES (test code = %A1C (NGSP) SOCRATES) Interpretation (ADA)4.8-5.6 ? ? Normal or (Non-Diabetic Range)5.7-6.4 ? ? Increased Risk (Pre-Diabetic)>6.5 ?Diabetes Indicated Lab Interpretation Normal (test code = 74222-8) [facility]A1C)2019-06-18 18:53:00 Test Item Value Reference Interpretation Comments Range HGB A1C (test code = See_Comment [Autom ated 4548-4) message] The system which generated this result transmitted reference range : 4.0 - 6.0 % NGSP. The reference range was not used to interpret this result as normal/abnormal . SOCRATES (test code = %A1C (NGSP) SOCRATES) Interpretation (ADA)4.8-5.6 ? ? Normal or (Non-Diabetic Range)5.7-6.4 ? ? Increased Risk (Pre-Diabetic)>6.5 ?Diabetes Indicated Lab Interpretation Normal (test code = 25055-9) [facility] (A1C)2019-06-18 18:53:00 Test Item Value Reference Interpretation Comments Range HGB A1C (test code = See_Comment [Autom ated 4548-4) message] The system which generated this result transmitted reference range : 4.0 - 6.0 % NGSP. The reference range was not used to interpret this result as normal/abnormal . SOCRATES (test code = %A1C (NGSP) SOCRATES) Interpretation (ADA)4.8-5.6 ? ? Normal or (Non-Diabetic Range)5.7-6.4 ? ? Increased Risk (Pre-Diabetic)>6.5 ?Diabetes Indicated Lab Interpretation Normal (test code = 15049-5) [facility] (A1C)2019-06-18 18:53:00 Test Item Value Reference Interpretation Comments Range HGB A1C (test code = See_Comment [Autom ated 4548-4) message] The system which generated this result transmitted reference range : 4.0 - 6.0 % NGSP. The reference range was not used to interpret this result as normal/abnormal . SOCRATES (test code = %A1C (NGSP) SOCRATES) Interpretation (ADA)4.8-5.6 ? ? Normal or (Non-Diabetic Range)5.7-6.4 ? ? Increased Risk (Pre-Diabetic)>6.5 ?Diabetes Indicated Lab Interpretation Normal (test code = 12357-8) [facility] (A[facility]C)2019-06-18 18:53:00 Test Item Value Reference Interpretation Comments Range HGB A1C (test code = See_Comment [Autom ated 4548-4) message] The system which generated this result transmitted reference range : 4.0 - 6.0 % NGSP. The reference range was not used to interpret this result as normal/abnormal . SOCRATES (test code = %A1C (NGSP) SOCRATES) Interpretation (ADA)4.8-5.6 ? ? Normal or (Non-Diabetic Range)5.7-6.4 ? ? Increased Risk (Pre-Diabetic)>6.5 ?Diabetes Indicated Lab Interpretation Normal (test code = 04571-1) [facility] (A1C)2019-06-18 18:53:00 Test Item Value Reference Interpretation Comments Range HGB A1C (test code = See_Comment [Autom ated 4548-4) message] The system which generated this result transmitted reference range : 4.0 - 6.0 % NGSP. The reference range was not used to interpret this result as normal/abnormal . SOCRATES (test code = %A1C (NGSP) SOCRATES) Interpretation (ADA)4.8-5.6 ? ? Normal or (Non-Diabetic Range)5.7-6.4 ? ? Increased Risk (Pre-Diabetic)>6.5 ?Diabetes Indicated Lab Interpretation Normal (test code = 23446-9) [facility] (A1C)2019-06-18 18:53:00 Test Item Value Reference Interpretation Comments Range HGB A1C (test code = See_Comment [Autom ated 4548-4) message] The system which generated this result transmitted reference range : 4.0 - 6.0 % NGSP. The reference range was not used to interpret this result as normal/abnormal . SOCRATES (test code = %A1C (NGSP) SOCRATES) Interpretation (ADA)4.8-5.6 ? ? Normal or (Non-Diabetic Range)5.7-6.4 ? ? Increased Risk (Pre-Diabetic)>6.5 ?Diabetes Indicated Lab Interpretation Normal (test code = 86759-8) [facility] (A1C)2019-06-18 18:53:00 Test Item Value Reference Interpretation Comments Range HGB A1C (test code = See_Comment [Autom ated 4548-4) message] The system which generated this result transmitted reference range : 4.0 - 6.0 % NGSP. The reference range was not used to interpret this result as normal/abnormal . SOCRATES (test code = %A1C (NGSP) SOCRATES) Interpretation (ADA)4.8-5.6 ? ? Normal or (Non-Diabetic Range)5.7-6.4 ? ? Increased Risk (Pre-Diabetic)>6.5 ?Diabetes Indicated Lab Interpretation Normal (test code = 92293-8) [facility]XR L[facility]BAR [facility]INE 3 [id number] 18:39:16 HISTORY: Mid/low back pain. FINDINGS: AP, lateral and spot views of the lumbar spines showed 5 lumbarvertebrae with no acute compression fracture or dislocation. No aggressivebone lesions. Minimal degenerative changes of vertebral margins noted at L2-L3, L3-M0eetdtuw significant narrowing of the disc spaces. Sacroiliac joints appearnormal. CONCLUSIONS: No fracture. [facility], [facility] Results Inft User - 06/18/2019 12:40 PM CSTHISTORY: Mid/low back pain.FINDINGS: AP, lateral and spot views of the lumbar spines showed 5 lumbarvertebrae with no acute compression fracture or dislocation. No aggressivebone lesions.Minimal degenerative changes of vertebral margins noted at L2-L3, L3-T3xetyhpv significant narrowing of the disc spaces. Sacroiliac joints appearnormal.CONCLUSIONS: No fracture.[facility]XR HIPS 2 VW [id number] 18:38:23HISTORY: ?Pain. FINDINGS: AP and lateral views of left hip showed no acute fracture ordislocation. No significant changes of arthritis or aggressive bone lesionsseen. Benign 12 mm cystic lesion is seenin the neck of the femur. No signsof AVN in the femoral head. CONCLUSIONS: No acute fracture or dislocation in left hip. [facility], [facility] Results Inft User - 06/18/2019 12:39 PM CSTHISTORY: Pain.FINDINGS: AP and lateral views of left hip showed no acute fracture ordislocation. No significant changes of arthritis or aggressive bone lesionsseen. Benign 12 mm cystic lesion is seen in the neck of the femur. No signsof AVN in the femoral head.CONCLUSIONS: No acute fracture or dislocation in left hip.[facility] WITH DIFFERENTIAL 2019-06-18 18:30:00 Test Item Value Reference Range Interpretation Comments WBC (test code = See_Comment H [Automated 6690-2) message] The sy stem which generated this result transmitted reference range : 4.30 - 11.10 10*3/?L. The reference range was not used to interpret this result as normal/abnormal . RBC (test code = See_Comment [Automated 789-8) message] The sy stem which generated this result transmitted reference range : 3.93 - 5.25 10*6/?L. The reference range was not used to interpret this result as normal/abnormal . HGB (test code = 15.0 g/dL 11.6-15 718-7) HCT (test code = 47.4 % 35.7-45.2 H 4544-3) MCV (test code = 92.4 fL 80.6-95.5 787-2) MCH (test code = 29.2 pg 25.9-32.8 785-6) MCHC (test code = 31.6 g/dL 31.6-35.1 786-4) RDW-SD (test code = 45.4 fL 39-49.9 94418-1) RDW-CV (test code = 13.3 % 12-15.5 788-0) PLT (test code = See_Comment [Automated 777-3) message] The sy stem which generated this result transmitted reference range : 166 - 358 10*3/ ?L. The reference r allyson was not used to interpret this result as normal/abnormal . MPV (test code = 10.2 fL 9.5-12.9 62229-4) NRBC/100 WBC (test See_Comment [Automat ed code = 7739508335) message] The system which generated this result transmitted reference range : 0.0 - 10.0 /100 WBCs. The refer ence range was not u sed to interpret th is result as normal/abnormal . NRBC x10^3 (test code <0.01 See_Comment [Auto mated = 2291290511) message] The s ystem which generated this result transmitted reference range : 10*3/?L. The reference range was not used to interpret this result as normal/abnormal . GRAN MAT (NEUT) % 70.5 % (test code = 770-8) IMM GRAN % (test code 0.40 % = 2640709773) LYMPH % (test code = 19.8 % 736-9) MONO % (test code = 5.1 % 5905-5) EOS % (test code = 3.8 % 713-8) BASO % (test code = 0.4 % 706-2) GRAN MAT x10^3(ANC) 8.26 10*3/uL 1.88-7.09 H (test code = 9014860518) IMM GRAN x10^3 (test 0.05 10*3/uL 0-0.06 code = 6763286655) LYMPH x10^3 (test code 2.32 10*3/uL 1.32-3.29 = 731-0) MONO x10^3 (test code 0.60 10*3/uL 0.33-0.92 = 742-7) EOS x10^3 (test code = 0.45 10*3/uL 0.03-0.39 H 711-2) BASO x10^3 (test code 0.05 10*3/uL 0.01-0.07 = 704-7) Lab Interpretation Abnormal (test code = 39917-4) [facility] WITH [id number] 18:30:00 Test Item Value Reference Range Interpretation Comments WBC (test code = See_Comment H [Automated 3175-2) message] The sy stem which generated this result transmitted reference range : 4.30 - 11.10 10*3/?L. The reference range was not used to interpret this result as normal/abnormal . RBC (test code = See_Comment [Automated 344-8) message] The sy stem which generated this result transmitted reference range : 3.93 - 5.25 10*6/?L. The reference range was not used to interpret this result as normal/abnormal . HGB (test code = 15.0 g/dL 11.6-15 718-7) HCT (test code = 47.4 % 35.7-45.2 H 4544-3) MCV (test code = 92.4 fL 80.6-95.5 787-2) MCH (test code = 29.2 pg 25.9-32.8 785-6) MCHC (test code = 31.6 g/dL 31.6-35.1 786-4) RDW-SD (test code = 45.4 fL 39-49.9 47467-6) RDW-CV (test code = 13.3 % 12-15.5 788-0) PLT (test code = See_Comment [Automated 777-3) message] The sy stem which generated this result transmitted reference range : 166 - 358 10*3/ ?L. The reference r allyson was not used to interpret this result as normal/abnormal . MPV (test code = 10.2 fL 9.5-12.9 76560-5) NRBC/100 WBC (test See_Comment [Automat ed code = 3870663456) message] The system which generated this result transmitted reference range : 0.0 - 10.0 /100 WBCs. The refer ence range was not u sed to interpret th is result as normal/abnormal . NRBC x10^3 (test code <0.01 See_Comment [Auto mated = 5154703811) message] The s ystem which generated this result transmitted reference range : 10*3/?L. The reference range was not used to interpret this result as normal/abnormal . GRAN MAT (NEUT) % 70.5 % (test code = 770-8) IMM GRAN % (test code 0.40 % = 4666799657) LYMPH % (test code = 19.8 % 736-9) MONO % (test code = 5.1 % 5905-5) EOS % (test code = 3.8 % 713-8) BASO % (test code = 0.4 % 706-2) GRAN MAT x10^3(ANC) 8.26 10*3/uL 1.88-7.09 H (test code = 8898799396) IMM GRAN x10^3 (test 0.05 10*3/uL 0-0.06 code = 8778857648) LYMPH x10^3 (test code 2.32 10*3/uL 1.32-3.29 = 731-0) MONO x10^3 (test code 0.60 10*3/uL 0.33-0.92 = 742-7) EOS x10^3 (test code = 0.45 10*3/uL 0.03-0.39 H 711-2) BASO x10^3 (test code 0.05 10*3/uL 0.01-0.07 = 704-7) Lab Interpretation Abnormal (test code = 83507-3) [facility] WITH [id number] 18:30:00 Test Item Value Reference Range Interpretation Comments WBC (test code = See_Comment H [Automated 6690-2) message] The sy stem which generated this result transmitted reference range : 4.30 - 11.10 10*3/?L. The reference range was not used to interpret this result as normal/abnormal . RBC (test code = See_Comment [Automated 789-8) message] The sy stem which generated this result transmitted reference range : 3.93 - 5.25 10*6/?L. The reference range was not used to interpret this result as normal/abnormal . HGB (test code = 15.0 g/dL 11.6-15 718-7) HCT (test code = 47.4 % 35.7-45.2 H 4544-3) MCV (test code = 92.4 fL 80.6-95.5 787-2) MCH (test code = 29.2 pg 25.9-32.8 785-6) MCHC (test code = 31.6 g/dL 31.6-35.1 786-4) RDW-SD (test code = 45.4 fL 39-49.9 13052-3) RDW-CV (test code = 13.3 % 12-15.5 788-0) PLT (test code = See_Comment [Automated 777-3) message] The sy stem which generated this result transmitted reference range : 166 - 358 10*3/ ?L. The reference r allyson was not used to interpret this result as normal/abnormal . MPV (test code = 10.2 fL 9.5-12.9 40860-2) NRBC/100 WBC (test See_Comment [Automat ed code = 6135101331) message] The system which generated this result transmitted reference range : 0.0 - 10.0 /100 WBCs. The refer ence range was not u sed to interpret th is result as normal/abnormal . NRBC x10^3 (test code <0.01 See_Comment [Auto mated = 2034814777) message] The s ystem which generated this result transmitted reference range : 10*3/?L. The reference range was not used to interpret this result as normal/abnormal . GRAN MAT (NEUT) % 70.5 % (test code = 770-8) IMM GRAN % (test code 0.40 % = 7026279798) LYMPH % (test code = 19.8 % 736-9) MONO % (test code = 5.1 % 5905-5) EOS % (test code = 3.8 % 713-8) BASO % (test code = 0.4 % 706-2) GRAN MAT x10^3(ANC) 8.26 10*3/uL 1.88-7.09 H (test code = 6117816779) IMM GRAN x10^3 (test 0.05 10*3/uL 0-0.06 code = 5066281926) LYMPH x10^3 (test code 2.32 10*3/uL 1.32-3.29 = 731-0) MONO x10^3 (test code 0.60 10*3/uL 0.33-0.92 = 742-7) EOS x10^3 (test code = 0.45 10*3/uL 0.03-0.39 H 711-2) BASO x10^3 (test code 0.05 10*3/uL 0.01-0.07 = 704-7) Lab Interpretation Abnormal (test code = 11229-6) [facility] WITH [id number] 18:30:00 Test Item Value Reference Range Interpretation Comments WBC (test code = See_Comment H [Automated 4390-2) message] The sy stem which generated this result transmitted reference range : 4.30 - 11.10 10*3/?L. The reference range was not used to interpret this result as normal/abnormal . RBC (test code = See_Comment [Automated 159-8) message] The sy stem which generated this result transmitted reference range : 3.93 - 5.25 10*6/?L. The reference range was not used to interpret this result as normal/abnormal . HGB (test code = 15.0 g/dL 11.6-15 718-7) HCT (test code = 47.4 % 35.7-45.2 H 4544-3) MCV (test code = 92.4 fL 80.6-95.5 787-2) MCH (test code = 29.2 pg 25.9-32.8 785-6) MCHC (test code = 31.6 g/dL 31.6-35.1 786-4) RDW-SD (test code = 45.4 fL 39-49.9 80504-7) RDW-CV (test code = 13.3 % 12-15.5 788-0) PLT (test code = See_Comment [Automated 777-3) message] The sy stem which generated this result transmitted reference range : 166 - 358 10*3/ ?L. The reference r allyson was not used to interpret this result as normal/abnormal . MPV (test code = 10.2 fL 9.5-12.9 75319-3) NRBC/100 WBC (test See_Comment [Automat ed code = 8506863828) message] The system which generated this result transmitted reference range : 0.0 - 10.0 /100 WBCs. The refer ence range was not u sed to interpret th is result as normal/abnormal . NRBC x10^3 (test code <0.01 See_Comment [Auto mated = 4220961533) message] The s ystem which generated this result transmitted reference range : 10*3/?L. The reference range was not used to interpret this result as normal/abnormal . GRAN MAT (NEUT) % 70.5 % (test code = 770-8) IMM GRAN % (test code 0.40 % = 3883488840) LYMPH % (test code = 19.8 % 736-9) MONO % (test code = 5.1 % 5905-5) EOS % (test code = 3.8 % 713-8) BASO % (test code = 0.4 % 706-2) GRAN MAT x10^3(ANC) 8.26 10*3/uL 1.88-7.09 H (test code = 4012713331) IMM GRAN x10^3 (test 0.05 10*3/uL 0-0.06 code = 3949975790) LYMPH x10^3 (test code 2.32 10*3/uL 1.32-3.29 = 731-0) MONO x10^3 (test code 0.60 10*3/uL 0.33-0.92 = 742-7) EOS x10^3 (test code = 0.45 10*3/uL 0.03-0.39 H 711-2) BASO x10^3 (test code 0.05 10*3/uL 0.01-0.07 = 704-7) Lab Interpretation Abnormal (test code = 44933-7) [facility] WITH [id number] 18:30:00 Test Item Value Reference Range Interpretation Comments WBC (test code = See_Comment H [Automated 1590-2) message] The sy stem which generated this result transmitted reference range : 4.30 - 11.10 10*3/?L. The reference range was not used to interpret this result as normal/abnormal . RBC (test code = See_Comment [Automated 719-8) message] The sy stem which generated this result transmitted reference range : 3.93 - 5.25 10*6/?L. The reference range was not used to interpret this result as normal/abnormal . HGB (test code = 15.0 g/dL 11.6-15 718-7) HCT (test code = 47.4 % 35.7-45.2 H 4544-3) MCV (test code = 92.4 fL 80.6-95.5 787-2) MCH (test code = 29.2 pg 25.9-32.8 785-6) MCHC (test code = 31.6 g/dL 31.6-35.1 786-4) RDW-SD (test code = 45.4 fL 39-49.9 46943-6) RDW-CV (test code = 13.3 % 12-15.5 788-0) PLT (test code = See_Comment [Automated 777-3) message] The sy stem which generated this result transmitted reference range : 166 - 358 10*3/ ?L. The reference r allyson was not used to interpret this result as normal/abnormal . MPV (test code = 10.2 fL 9.5-12.9 38884-8) NRBC/100 WBC (test See_Comment [Automat ed code = 2877540255) message] The system which generated this result transmitted reference range : 0.0 - 10.0 /100 WBCs. The refer ence range was not u sed to interpret th is result as normal/abnormal . NRBC x10^3 (test code <0.01 See_Comment [Auto mated = 7884774348) message] The s ystem which generated this result transmitted reference range : 10*3/?L. The reference range was not used to interpret this result as normal/abnormal . GRAN MAT (NEUT) % 70.5 % (test code = 770-8) IMM GRAN % (test code 0.40 % = 1510539570) LYMPH % (test code = 19.8 % 736-9) MONO % (test code = 5.1 % 5905-5) EOS % (test code = 3.8 % 713-8) BASO % (test code = 0.4 % 706-2) GRAN MAT x10^3(ANC) 8.26 10*3/uL 1.88-7.09 H (test code = 0319124934) IMM GRAN x10^3 (test 0.05 10*3/uL 0-0.06 code = 9372764297) LYMPH x10^3 (test code 2.32 10*3/uL 1.32-3.29 = 731-0) MONO x10^3 (test code 0.60 10*3/uL 0.33-0.92 = 742-7) EOS x10^3 (test code = 0.45 10*3/uL 0.03-0.39 H 711-2) BASO x10^3 (test code 0.05 10*3/uL 0.01-0.07 = 704-7) Lab Interpretation Abnormal (test code = 90841-5) [facility] WITH [id number] 18:30:00 Test Item Value Reference Range Interpretation Comments WBC (test code = See_Comment H [Automated 6690-2) message] The sy stem which generated this result transmitted reference range : 4.30 - 11.10 10*3/?L. The reference range was not used to interpret this result as normal/abnormal . RBC (test code = See_Comment [Automated 789-8) message] The sy stem which generated this result transmitted reference range : 3.93 - 5.25 10*6/?L. The reference range was not used to interpret this result as normal/abnormal . HGB (test code = 15.0 g/dL 11.6-15 718-7) HCT (test code = 47.4 % 35.7-45.2 H 4544-3) MCV (test code = 92.4 fL 80.6-95.5 787-2) MCH (test code = 29.2 pg 25.9-32.8 785-6) MCHC (test code = 31.6 g/dL 31.6-35.1 786-4) RDW-SD (test code = 45.4 fL 39-49.9 43580-7) RDW-CV (test code = 13.3 % 12-15.5 788-0) PLT (test code = See_Comment [Automated 777-3) message] The sy stem which generated this result transmitted reference range : 166 - 358 10*3/ ?L. The reference r allyson was not used to interpret this result as normal/abnormal . MPV (test code = 10.2 fL 9.5-12.9 34052-8) NRBC/100 WBC (test See_Comment [Automat ed code = 1341521861) message] The system which generated this result transmitted reference range : 0.0 - 10.0 /100 WBCs. The refer ence range was not u sed to interpret th is result as normal/abnormal . NRBC x10^3 (test code <0.01 See_Comment [Auto mated = 8211315136) message] The s ystem which generated this result transmitted reference range : 10*3/?L. The reference range was not used to interpret this result as normal/abnormal . GRAN MAT (NEUT) % 70.5 % (test code = 770-8) IMM GRAN % (test code 0.40 % = 4252725692) LYMPH % (test code = 19.8 % 736-9) MONO % (test code = 5.1 % 5905-5) EOS % (test code = 3.8 % 713-8) BASO % (test code = 0.4 % 706-2) GRAN MAT x10^3(ANC) 8.26 10*3/uL 1.88-7.09 H (test code = 5656597370) IMM GRAN x10^3 (test 0.05 10*3/uL 0-0.06 code = 7976460153) LYMPH x10^3 (test code 2.32 10*3/uL 1.32-3.29 = 731-0) MONO x10^3 (test code 0.60 10*3/uL 0.33-0.92 = 742-7) EOS x10^3 (test code = 0.45 10*3/uL 0.03-0.39 H 711-2) BASO x10^3 (test code 0.05 10*3/uL 0.01-0.07 = 704-7) Lab Interpretation Abnormal (test code = 73201-1) [facility] WITH [id number] 18:30:00 Test Item Value Reference Range Interpretation Comments WBC (test code = See_Comment H [Automated 6690-2) message] The sy stem which generated this result transmitted reference range : 4.30 - 11.10 10*3/?L. The reference range was not used to interpret this result as normal/abnormal . RBC (test code = See_Comment [Automated 159-8) message] The sy stem which generated this result transmitted reference range : 3.93 - 5.25 10*6/?L. The reference range was not used to interpret this result as normal/abnormal . HGB (test code = 15.0 g/dL 11.6-15 718-7) HCT (test code = 47.4 % 35.7-45.2 H 4544-3) MCV (test code = 92.4 fL 80.6-95.5 787-2) MCH (test code = 29.2 pg 25.9-32.8 785-6) MCHC (test code = 31.6 g/dL 31.6-35.1 786-4) RDW-SD (test code = 45.4 fL 39-49.9 30877-1) RDW-CV (test code = 13.3 % 12-15.5 788-0) PLT (test code = See_Comment [Automated 777-3) message] The sy stem which generated this result transmitted reference range : 166 - 358 10*3/ ?L. The reference r allyson was not used to interpret this result as normal/abnormal . MPV (test code = 10.2 fL 9.5-12.9 92255-8) NRBC/100 WBC (test See_Comment [Automat ed code = 6772672848) message] The system which generated this result transmitted reference range : 0.0 - 10.0 /100 WBCs. The refer ence range was not u sed to interpret th is result as normal/abnormal . NRBC x10^3 (test code <0.01 See_Comment [Auto mated = 4269004489) message] The s ystem which generated this result transmitted reference range : 10*3/?L. The reference range was not used to interpret this result as normal/abnormal . GRAN MAT (NEUT) % 70.5 % (test code = 770-8) IMM GRAN % (test code 0.40 % = 6888058714) LYMPH % (test code = 19.8 % 736-9) MONO % (test code = 5.1 % 5905-5) EOS % (test code = 3.8 % 713-8) BASO % (test code = 0.4 % 706-2) GRAN MAT x10^3(ANC) 8.26 10*3/uL 1.88-7.09 H (test code = 3689275959) IMM GRAN x10^3 (test 0.05 10*3/uL 0-0.06 code = 3082311262) LYMPH x10^3 (test code 2.32 10*3/uL 1.32-3.29 = 731-0) MONO x10^3 (test code 0.60 10*3/uL 0.33-0.92 = 742-7) EOS x10^3 (test code = 0.45 10*3/uL 0.03-0.39 H 711-2) BASO x10^3 (test code 0.05 10*3/uL 0.01-0.07 = 704-7) Lab Interpretation Abnormal (test code = 92505-8) [facility] WITH [id number] 18:30:00 Test Item Value Reference Range Interpretation Comments WBC (test code = See_Comment H [Automated 6690-2) message] The sy stem which generated this result transmitted reference range : 4.30 - 11.10 10*3/?L. The reference range was not used to interpret this result as normal/abnormal . RBC (test code = See_Comment [Automated 789-8) message] The sy stem which generated this result transmitted reference range : 3.93 - 5.25 10*6/?L. The reference range was not used to interpret this result as normal/abnormal . HGB (test code = 15.0 g/dL 11.6-15 718-7) HCT (test code = 47.4 % 35.7-45.2 H 4544-3) MCV (test code = 92.4 fL 80.6-95.5 787-2) MCH (test code = 29.2 pg 25.9-32.8 785-6) MCHC (test code = 31.6 g/dL 31.6-35.1 786-4) RDW-SD (test code = 45.4 fL 39-49.9 28984-5) RDW-CV (test code = 13.3 % 12-15.5 788-0) PLT (test code = See_Comment [Automated 777-3) message] The sy stem which generated this result transmitted reference range : 166 - 358 10*3/ ?L. The reference r allyson was not used to interpret this result as normal/abnormal . MPV (test code = 10.2 fL 9.5-12.9 84170-9) NRBC/100 WBC (test See_Comment [Automat ed code = 9577126890) message] The system which generated this result transmitted reference range : 0.0 - 10.0 /100 WBCs. The refer ence range was not u sed to interpret th is result as normal/abnormal . NRBC x10^3 (test code <0.01 See_Comment [Auto mated = 5774300689) message] The s ystem which generated this result transmitted reference range : 10*3/?L. The reference range was not used to interpret this result as normal/abnormal . GRAN MAT (NEUT) % 70.5 % (test code = 770-8) IMM GRAN % (test code 0.40 % = 2941842108) LYMPH % (test code = 19.8 % 736-9) MONO % (test code = 5.1 % 5905-5) EOS % (test code = 3.8 % 713-8) BASO % (test code = 0.4 % 706-2) GRAN MAT x10^3(ANC) 8.26 10*3/uL 1.88-7.09 H (test code = 4686510294) IMM GRAN x10^3 (test 0.05 10*3/uL 0-0.06 code = 8612377785) LYMPH x10^3 (test code 2.32 10*3/uL 1.32-3.29 = 731-0) MONO x10^3 (test code 0.60 10*3/uL 0.33-0.92 = 742-7) EOS x10^3 (test code = 0.45 10*3/uL 0.03-0.39 H 711-2) BASO x10^3 (test code 0.05 10*3/uL 0.01-0.07 = 704-7) Lab Interpretation Abnormal (test code = 17611-6) [facility] WITH [id number] 18:30:00 Test Item Value Reference Range Interpretation Comments WBC (test code = See_Comment H [Automated 0290-2) message] The sy stem which generated this result transmitted reference range : 4.30 - 11.10 10*3/?L. The reference range was not used to interpret this result as normal/abnormal . RBC (test code = See_Comment [Automated 544-8) message] The sy stem which generated this result transmitted reference range : 3.93 - 5.25 10*6/?L. The reference range was not used to interpret this result as normal/abnormal . HGB (test code = 15.0 g/dL 11.6-15 718-7) HCT (test code = 47.4 % 35.7-45.2 H 4544-3) MCV (test code = 92.4 fL 80.6-95.5 787-2) MCH (test code = 29.2 pg 25.9-32.8 785-6) MCHC (test code = 31.6 g/dL 31.6-35.1 786-4) RDW-SD (test code = 45.4 fL 39-49.9 60596-9) RDW-CV (test code = 13.3 % 12-15.5 788-0) PLT (test code = See_Comment [Automated 777-3) message] The sy stem which generated this result transmitted reference range : 166 - 358 10*3/ ?L. The reference r allyson was not used to interpret this result as normal/abnormal . MPV (test code = 10.2 fL 9.5-12.9 46235-7) NRBC/100 WBC (test See_Comment [Automat ed code = 0603318176) message] The system which generated this result transmitted reference range : 0.0 - 10.0 /100 WBCs. The refer ence range was not u sed to interpret th is result as normal/abnormal . NRBC x10^3 (test code <0.01 See_Comment [Auto mated = 9862766477) message] The s ystem which generated this result transmitted reference range : 10*3/?L. The reference range was not used to interpret this result as normal/abnormal . GRAN MAT (NEUT) % 70.5 % (test code = 770-8) IMM GRAN % (test code 0.40 % = 3786165451) LYMPH % (test code = 19.8 % 736-9) MONO % (test code = 5.1 % 5905-5) EOS % (test code = 3.8 % 713-8) BASO % (test code = 0.4 % 706-2) GRAN MAT x10^3(ANC) 8.26 10*3/uL 1.88-7.09 H (test code = 5236167149) IMM GRAN x10^3 (test 0.05 10*3/uL 0-0.06 code = 7697925592) LYMPH x10^3 (test code 2.32 10*3/uL 1.32-3.29 = 731-0) MONO x10^3 (test code 0.60 10*3/uL 0.33-0.92 = 742-7) EOS x10^3 (test code = 0.45 10*3/uL 0.03-0.39 H 711-2) BASO x10^3 (test code 0.05 10*3/uL 0.01-0.07 = 704-7) Lab Interpretation Abnormal (test code = 32378-2) [facility] WITH [id number] 18:30:00 Test Item Value Reference Range Interpretation Comments WBC (test code = See_Comment H [Automated 6690-2) message] The sy stem which generated this result transmitted reference range : 4.30 - 11.10 10*3/?L. The reference range was not used to interpret this result as normal/abnormal . RBC (test code = See_Comment [Automated 789-8) message] The sy stem which generated this result transmitted reference range : 3.93 - 5.25 10*6/?L. The reference range was not used to interpret this result as normal/abnormal . HGB (test code = 15.0 g/dL 11.6-15 718-7) HCT (test code = 47.4 % 35.7-45.2 H 4544-3) MCV (test code = 92.4 fL 80.6-95.5 787-2) MCH (test code = 29.2 pg 25.9-32.8 785-6) MCHC (test code = 31.6 g/dL 31.6-35.1 786-4) RDW-SD (test code = 45.4 fL 39-49.9 28108-0) RDW-CV (test code = 13.3 % 12-15.5 788-0) PLT (test code = See_Comment [Automated 777-3) message] The sy stem which generated this result transmitted reference range : 166 - 358 10*3/ ?L. The reference r allyson was not used to interpret this result as normal/abnormal . MPV (test code = 10.2 fL 9.5-12.9 89251-9) NRBC/100 WBC (test See_Comment [Automat ed code = 6932726763) message] The system which generated this result transmitted reference range : 0.0 - 10.0 /100 WBCs. The refer ence range was not u sed to interpret th is result as normal/abnormal . NRBC x10^3 (test code <0.01 See_Comment [Auto mated = 8562034560) message] The s ystem which generated this result transmitted reference range : 10*3/?L. The reference range was not used to interpret this result as normal/abnormal . GRAN MAT (NEUT) % 70.5 % (test code = 770-8) IMM GRAN % (test code 0.40 % = 3896118140) LYMPH % (test code = 19.8 % 736-9) MONO % (test code = 5.1 % 5905-5) EOS % (test code = 3.8 % 713-8) BASO % (test code = 0.4 % 706-2) GRAN MAT x10^3(ANC) 8.26 10*3/uL 1.88-7.09 H (test code = 4163194068) IMM GRAN x10^3 (test 0.05 10*3/uL 0-0.06 code = 5731572609) LYMPH x10^3 (test code 2.32 10*3/uL 1.32-3.29 = 731-0) MONO x10^3 (test code 0.60 10*3/uL 0.33-0.92 = 742-7) EOS x10^3 (test code = 0.45 10*3/uL 0.03-0.39 H 711-2) BASO x10^3 (test code 0.05 10*3/uL 0.01-0.07 = 704-7) Lab Interpretation Abnormal (test code = 38164-5) [facility] WITH [id number] 18:30:00 Test Item Value Reference Range Interpretation Comments WBC (test code = See_Comment H [Automated 0890-2) message] The sy stem which generated this result transmitted reference range : 4.30 - 11.10 10*3/?L. The reference range was not used to interpret this result as normal/abnormal . RBC (test code = See_Comment [Automated 659-8) message] The sy stem which generated this result transmitted reference range : 3.93 - 5.25 10*6/?L. The reference range was not used to interpret this result as normal/abnormal . HGB (test code = 15.0 g/dL 11.6-15 718-7) HCT (test code = 47.4 % 35.7-45.2 H 4544-3) MCV (test code = 92.4 fL 80.6-95.5 787-2) MCH (test code = 29.2 pg 25.9-32.8 785-6) MCHC (test code = 31.6 g/dL 31.6-35.1 786-4) RDW-SD (test code = 45.4 fL 39-49.9 99500-6) RDW-CV (test code = 13.3 % 12-15.5 788-0) PLT (test code = See_Comment [Automated 777-3) message] The sy stem which generated this result transmitted reference range : 166 - 358 10*3/ ?L. The reference r allyson was not used to interpret this result as normal/abnormal . MPV (test code = 10.2 fL 9.5-12.9 19668-8) NRBC/100 WBC (test See_Comment [Automat ed code = 9167274778) message] The system which generated this result transmitted reference range : 0.0 - 10.0 /100 WBCs. The refer ence range was not u sed to interpret th is result as normal/abnormal . NRBC x10^3 (test code <0.01 See_Comment [Auto mated = 0315597036) message] The s ystem which generated this result transmitted reference range : 10*3/?L. The reference range was not used to interpret this result as normal/abnormal . GRAN MAT (NEUT) % 70.5 % (test code = 770-8) IMM GRAN % (test code 0.40 % = 3683892126) LYMPH % (test code = 19.8 % 736-9) MONO % (test code = 5.1 % 5905-5) EOS % (test code = 3.8 % 713-8) BASO % (test code = 0.4 % 706-2) GRAN MAT x10^3(ANC) 8.26 10*3/uL 1.88-7.09 H (test code = 8100650389) IMM GRAN x10^3 (test 0.05 10*3/uL 0-0.06 code = 4167433130) LYMPH x10^3 (test code 2.32 10*3/uL 1.32-3.29 = 731-0) MONO x10^3 (test code 0.60 10*3/uL 0.33-0.92 = 742-7) EOS x10^3 (test code = 0.45 10*3/uL 0.03-0.39 H 711-2) BASO x10^3 (test code 0.05 10*3/uL 0.01-0.07 = 704-7) Lab Interpretation Abnormal (test code = 05258-9) [facility]"
[2021-04-29 17:51] LABS: Urine Blood Negative (Negative); Urine Glucose Negative (Negative); Urine Protein Negative (Negative); Urine Specific Gravity 1.015 (1.005-1.030)
[2021-04-29] MEDS ORDERED: MORPHINE 4 MG/ML SYR ONE (18:02)
[2021-04-29] MEDS ORDERED: ONDANSETRON 4 MG/2 ML VIAL ONE (18:02)
[2021-04-29 18:27] LABS: Absolute Lymphocytes (CBC) 1.6 K/uL (0.7-4.9); Basophils % 0.8 % (0-1.3); Hematocrit 41.7 % (36.0-45.0); MPV 8.2 fL (7.6-11.3); RBC Red Blood Cell Count 4.76 M/uL (3.86-4.86)
[2021-04-29 18:33] LABS: Calcium Oxalate Crystals- Ur MODERATE (NONE SEEN); Urine Bacteria 20-50 /HPF (<20); Urine RBC <5 /HPF (NONE SEEN)
[2021-04-29 18:41] LABS: Potassium 3.4 mmol/L (3.5-5.1)
--- NOTE | 2021-04-29 18:44 | RAD REPORT ---
EXAM DESCRIPTION: CTAbdomen Pelvis W Contrast - 04/29/2021 6:30 pm CLINICAL HISTORY: Abdominal pain. left sided abd pain/flank pain COMPARISON: No comparisons TECHNIQUE: Biphasic CT imaging of the abdomen and pelvis was performed with 100 ml non-ionic IV cont rast. All CT scans are performed using dose optimization technique as appropriate and may include automated exposure control or mA/KV adjustment according to patient size. FINDINGS: The lung bases are clear.Cholecystectomy clips The liver, spleen, pancreas, adrenal glands and kidneys are within normal limits. No bowel obstruction, free air, free fluid or abscess. The appendix is normal. No evidence of signi ficant lymphadenopathy. No suspicious bony findings. IMPRESSION: No acute intra-abdominal or pelvic finding.
--- NOTE | 2021-04-29 19:05 | ER ---
Nurse's Notes [facility] Name: Carlton Thompson Age: 45 yrs Sex: Female : 1975 Arrival Date: 04/29/2021 Time: 17:18 Bed 19 Private MD: Diagnosis: Abdominal pain, unspecified Presentation: 04/29 17:25 Chief complaint: Patient states: Burning with urination, L low back pain, LLQ pain and ss nausea that began 1.5 weeks ago. Pt was diagnosed with a UTI at an urgent care center and completed her oral antibiotics, but is not feeling any better. Coronavirus screen: Client denies travel out of the [place] in the last 14 days. Ebola Screen: Patient denies exposure to infectious person. Patient denies travel to an Ebola-affected area in the 21 days before illness onset. Initial Sepsis Screen: Does the patient meet any 2 criteria? No. Patient's initial sepsis screen is negative. Does the patient have a suspected source of infection? No. Patient's initial sepsis screen is negative. Risk Assessment: Do you want to hurt yourself or someone else? Patient reports no desire to harm self or others. Onset of symptoms was April 28, 2021. 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 - Social history:: Smoking status: Patient reports the use of cigarette tobacco products, smokes one-half pack cigarettes per day. - Family history:: not pertinent. - Hospitalizations: : No recent hospitalization is reported. Screenin:00 Abuse screen: Denies threats or abuse. Denies injuries from another. Nutritional jg9 screening: No deficits noted. Tuberculosis screening: No symptoms or risk factors identified. Fall Risk None identified. Assessment: 18:00 General: Appears uncomfortable, Behavior is calm. Pain: Complains of pain in abdomen-r jg9 flank x3 weeks progressively worsening. Neuro: No deficits noted. Cardiovascular: No deficits noted. Respiratory: No deficits noted. GI: No deficits noted. : Reports burning with urination, since 3 weeks progressively worsening. EENT: No deficits noted. Derm: No deficits noted. Musculoskeletal: No deficits noted. Musculoskeletal: No deficits noted. 18:37 Neuro: Level of Consciousness is awake, alert, obeys commands. jg9 19:27 Reassessment: Patient appears in no apparent distress at this time. Patient is alert, mk oriented x 3, equal unlabored respirations, skin warm/dry/pink. this RN helping primary RN to dc pt. Vital Signs: 17:25 BP 151 / 94; Pulse 93; Resp 16; Temp 97.7(TE); Pulse Ox 99% on R/A; Weight 72.12 kg; ss Height 5 ft. 5 in. (165.10 cm); Pain 7/10; 18:00 BP 129 / 73; Pulse 80; Resp 16 S; Pulse Ox 96% on R/A; jg9 19:26 BP 132 / 83; Pulse 74; Resp 18; Pulse Ox 98% on R/A; mk 17:25 Body Mass Index 26.46 (72.12 kg, 165.10 cm) [place] Coma Score: 19:26 Eye Response: spontaneous(4). Verbal Response: oriented(5). Motor Response: obeys mk commands(6). Total: 15. ED Course: 17:18 Patient arrived in ED. ds1 17:28 Triage completed. ss 17:28 Arm band placed on right wrist. ss 17:30 Eliseo Solorzano MD is Attending Physician. rn 17:59 Daja Heredia is Primary Nurse. jg9 18:00 Patient has correct armband on for positive identification. Bed in low position. Call jg9 light in reach. 18:06 Inserted saline lock: 22 gauge in right antecubital area, using aseptic technique. jg9 18:30 CT Abd/Pelvis - IV Contrast Only In Process Unspecified. EDMS 18:45 Urine Microscopic Only Sent. mh5 18:46 Urine --Ancillary (enter results) Sent. mh5 18:46 Urine Culture Sent. mh5 18:55 No apparent distress. Resting quietly. Awaiting disposition, Awaiting: iv medication to 9 finish. 19:26 IV discontinued, intact, bleeding controlled, No redness/swelling at site. Pressure mk dressing applied. 19:27 No provider procedures requiring assistance completed. Administered Medications: 18:08 Drug: Zofran (Ondansetron) 4 mg Route: IVP; Site: right antecubital; j9 18:37 Follow up: Response: Nausea is decreased 9 18:09 Drug: morphine 4 mg Route: IVP; Site: right antecubital; 9 18:37 Follow up: Response: No adverse reaction; Pain is decreased; RASS: Alert and Calm (0) j9 Outcome: 19:04 Discharge ordered by . rn 19:27 Discharged to home with family. 19:27 Condition: good 19:27 Discharge instructions given to patient, family. 19:29 Patient left the ED. jg9 Signatures: Dispatcher [employer] EDMS Chloe Boyer ds1 Eliseo Solorzano MD MD rn Smirch, Shelby, RN RN ss Martinez, Maria [facility] Daja Heredia jg9 Debra Combs RN RN mk Corrections: (The following items were deleted from the chart) 18:34 18:00 General: Appears in no apparent distress. Behavior is calm, cooperative, 9 [facility] 18:34 18:00 Pain: Complains of pain in abdomen-r flank-hx kidney stones j9 9 18:34 18:00 Neuro: No deficits noted. j9 9 18:34 18:00 Cardiovascular: No deficits noted. j9 9 18:34 18:00 Respiratory: No deficits noted. j9 9 18:34 18:00 GI: No deficits noted. j9 9 18:34 18:00 : Reports burning with urination, unknown j9 j9
--- NOTE | 2021-04-29 19:05 | EDPHYS ---
Physician Documentation [facility] Name: Carlton Thompson Age: 45 yrs Sex: Female : 1975 Arrival Date: 04/29/2021 Time: 17:18 Bed 19 Private MD: ED Physician Eliseo Solorzano HPI: 04/29 17:47 This 45 yrs old Female presents to ER via Ambulatory with complaints of Pain rn With Urination, Back Pain. 17:47 The patient presents with pain that is acute, with no known mechanism of injury. The rn symptoms are located in the low back. Onset: The symptoms/episode began/occurred 2 week(s) ago. The pain radiates to the abdomen. Associated signs and symptoms: Pertinent positives: dysuria, nausea, Pertinent negatives: fever, hematuria, incontinence. The problem was sustained from unknown cause. Modifying factors: The patient symptoms are alleviated by nothing, the patient symptoms are aggravated by nothing. Modifying factors: The patient symptoms are alleviated by. Severity of symptoms: At their worst the symptoms were moderate, in the emergency department the symptoms have improved. The patient has not experienced similar symptoms in the past. The patient has been recently seen by a physician:. Patient reports 2 weeks of intermittent left-sided flank pain, radiates to the left lower abdomen, associated with dysuria and nausea. Denies any fever. Just completed course of Levaquin outpatient for possible UTI although urine at that time only showed white blood cells and no bacteria/nitrates/leukocytes. Reports history of kidney stones. Denies hematuria. Denies trauma. Denies cough or congestion. Reports this feels different from a previous kidney stone. 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 - Social history:: Smoking status: Patient reports the use of cigarette tobacco products, smokes one-half pack cigarettes per day. - Family history:: not pertinent. - Hospitalizations: : No recent hospitalization is reported. ROS: 17:47 Constitutional: Negative for fever, chills, and weight loss, Eyes: Negative for injury, rn pain, redness, and discharge, Neck: Negative for injury, pain, and swelling, Cardiovascular: Negative for chest pain, palpitations, and edema, Respiratory: Negative for shortness of breath, cough, wheezing, and pleuritic chest pain, Abdomen/GI: Negative for vomiting, diarrhea Back: Negative for injury : Negative for injury, bleeding, discharge, and swelling, MS/Extremity: Negative for injury and deformity, Skin: Negative for injury, rash, and discoloration, Neuro: Negative for headache, weakness, numbness, tingling, and seizure. Exam: 17:47 Constitutional: This is a well developed, well nourished patient who is awake, alert, rn and in no acute distress. Head/Face: Normocephalic, atraumatic. Eyes: Periorbital areas with no swelling, redness, or edema. Cardiovascular: Regular rate and rhythm. No pulse deficits. Respiratory: No increased work of breathing, no retractions or nasal flaring. Abdomen/GI: Soft, mild left lower quadrant tenderness, no masses, no peritoneal signs Back: No spinal tenderness. No costovertebral tenderness. Skin: Warm, dry MS/ Extremity: Pulses equal, no cyanosis. Neuro: Awake and alert, GCS 15 Vital Signs: 17:25 BP 151 / 94; Pulse 93; Resp 16; Temp 97.7(TE); Pulse Ox 99% on R/A; Weight 72.12 kg; ss Height 5 ft. 5 in. (165.10 cm); Pain 7/10; 18:00 BP 129 / 73; Pulse 80; Resp 16 S; Pulse Ox 96% on R/A; jg9 19:26 BP 132 / 83; Pulse 74; Resp 18; Pulse Ox 98% on R/A; mk 17:25 Body Mass Index 26.46 (72.12 kg, 165.10 cm) [place] Coma Score: 19:26 Eye Response: spontaneous(4). Verbal Response: oriented(5). Motor Response: obeys mk commands(6). Total: 15. MDM: 17:30 Patient medically screened. rn 19:02 Differential diagnosis: arthritis, Hydronephrosis Ureterolithiasis UTI, endometriosis. rn Data reviewed: vital signs, nurses notes, lab test result(s), radiologic studies, CT scan, and as a result, I will discharge patient. Counseling: I had a detailed discussion with the patient and/or guardian regarding: the historical points, exam findings, and any diagnostic results supporting the discharge/admit diagnosis, lab results, radiology results, the need for outpatient follow up, to return to the emergency department if symptoms worsen or persist or if there are any questions or concerns that arise at home. Response to treatment: the patient's symptoms have markedly improved after treatment, and as a result, I will discharge patient. Special discussion: Based on the patient's Hx, exam, and Dx evaluation, there is no indication for emergent surgery or inpatient Tx. It is understood by the patient/guardian that if the Sx's persist or worsen they need to return immediately for re-evaluation. I discussed with the patient/guardian in detail that at this point there is no indication for admission to the hospital. It is understood, however, that if the symptoms persist or worsen the patient needs to return immediately for re-evaluation. Special discussion: Based on the history and exam findings, there is no indication for further emergent testing or inpatient evaluation. I discussed with the patient/guardian the need to see the OB Gyne specialist for further evaluation of the symptoms. ED course: No acute findings and CT abdomen pelvis/urine. Patient feels better. Now patient states that in the past with the previous laparoscopic surgery they noted endometrial tissue consistent with endometriosis. This could definitely be causing her pain that is protracted. Patient recently had a menstrual period. At this point recommend follow-up with gynecology. Return precautions given and understood.. 04/29 17:31 Order name: Urine Microscopic Only rn 04/29 17:31 Order name: Urine Microscopic Only; Complete Time: 18:48 EDMS 04/29 17:32 Order name: Basic Metabolic Panel; Complete Time: 18:48 rn 04/29 17:32 Order name: CBC with Diff; Complete Time: 18:48 rn 04/29 17:51 Order name: Urine Dipstick-Ancillary; Complete Time: 17:53 EDMS 04/29 17:31 Order name: Urine Dipstick-Ancillary (obtain specimen); Complete Time: 18:45 rn 04/29 17:31 Order name: Urine Test (obtain specimen); Complete Time: 18:45 rn 04/29 17:32 Order name: IV Saline Lock; Complete Time: 18:12 rn 04/29 17:54 Order name: CT Abd/Pelvis - IV Contrast Only; Complete Time: 18:48 rn 04/29 18:34 Order name: Urine Culture EDMS 04/29 17:32 Order name: Labs collected and sent; Complete Time: 18:18 rn Administered Medications: 18:08 Drug: Zofran (Ondansetron) 4 mg Route: IVP; Site: right antecubital; jg9 18:37 Follow up: Response: Nausea is decreased j9 18:09 Drug: morphine 4 mg Route: IVP; Site: right antecubital; jg9 18:37 Follow up: Response: No adverse reaction; Pain is decreased; RASS: Alert and Calm (0) j9 Disposition Summary: 04/29/21 19:04 Discharge Ordered Location: Home rn Problem: an ongoing problem rn Symptoms: have improved rn Condition: Stable rn Diagnosis - Abdominal pain, unspecified rn Followup: rn - With: Private Physician - When: As needed - Reason: Recheck today's complaints, Re-evaluation by your physician Discharge Instructions: - Discharge Summary Sheet rn - Abdominal Pain, Adult rn - Endometriosis rn - Pain Without a Known Cause rn Forms: - Medication Reconciliation Form rn - Thank You Letter rn - Antibiotic rn diabetes educator - Prescription Opioid Use rn Signatures: Dispatcher [employer] Eliseo Elkins MD MD rn Smirch, Shelby, RN RN Daja Pompa jg9 Corrections: (The following items were deleted from the chart) 18:12 17:33 Stone Protocol+CT.RAD.BRZ ordered. EDNJ EDMS
[2021-04-29 19:40] VITALS: TEMP 97.7
[2021-04-29 19:51] VITALS: BP 132/83; O2SAT 98
== END 2021-04-29 19:29 | disposition home or self-care (01) ==
LOC: ER 17:18
DX: R10.9 Unspecified abdominal pain (principal); F17.210 Nicotine dependence, cigarettes, uncomplicated; Z88.2 Allergy status to sulfonamides
CPT/HCPCS: 87088; 85025; 87086; 80048; 36415; 82565; 74177; 96375; 96374; 99284; Q9967; J2405; 81003; 81015

== ENCOUNTER 2022-12-21 04:07 | Emergency (ER) | payer BC ==
--- OUTSIDE RECORDS SUMMARY | 2022-12-21 04:16 | XMS REPORT | Continuity of Care Document ---
:1975 Author Organization [facility] t Address [address] [place] [address] [place] [id number] Care Team Providers Name Role Phone JONATHON BAILON Primary Care Physician Unavailable RADIOLOGY Attending Clinician Unavailable Radiology Attending Clinician Unavailable SHREYA POSADA Attending Clinician Unavailable Berenice Martinez MD Attending Clinician ARINA MILLER Attending Clinician Unavailable ARINA MILLER Attending Clinician Unavailable ANALISA WATERS Attending Clinician Unavailable Analisa Waters MD Attending Clinician Lucila Mcclain PT Attending Clinician Unavailable Doctor Unassigned, [place] Attending Clinician Unavailable Unknown, Attending Attending Clinician Unavailable Jon Meehan Attending Clinician JON GARCIA Attending Clinician Unavailable MANAN ARMENTA Attending Clinician Unavailable Manan Armenta MD Attending Clinician [phone] TARIK ESPINAL Attending Clinician Unavailable Tarik Espinal MD Attending Clinician [phone] CARLENE GIL Attending Clinician Unavailable Carlene Canseco Attending Clinician Aruna Barboza Attending Clinician Unavailable Only, Ang Db Test Attending Clinician Unavailable Samir Ramirez Attending Clinician Bhumi Mcclellan PA-C Attending Clinician BHUMI MCCLELLAN Attending Clinician Unavailable Irena Zelaya RN Attending Clinician Unavailable Virgil Hilario Attending Clinician VIRGIL SALAZAR Attending Clinician Unavailable BEATRIZ LEE Attending Clinician Unavailable Rosa BROACH SETTER, Beatriz Romero Attending Clinician Jonnathan GUPTA, Marshall Attending Clinician BAKARI VILLAGOMEZ Attending Clinician Unavailable Nurse, [facility] Pob Immunization Attending Clinician Unavailable Bakari Villagomez DO Attending Clinician Yaw HULL, Ambar Attending Clinician Unavailable SKYE GARCIA III Attending Clinician Unavailable King DOMENICA MD, James C Attending Clinician Evelin GUPTA, Joe Cardona Attending Clinician JOE WATERS Attending Clinician Unavailable _TNC_Nenita_Rogerio Attending Clinician Unavailable CRISELDA SALAZAR Attending Clinician Unavailable Jeffry Gutierres Attending Clinician [phone] ADY BAE Attending Clinician Unavailable Iraida Senior MD Attending Clinician IRAIDA SENIOR Attending Clinician Unavailable ONAH ANTUNEZ Attending Clinician Unavailable Elen Dillon PT Attending Clinician Unavailable Violeta Alanis PTA Attending Clinician Unavailable Tarik Alanis PTA Attending Clinician Unavailable Lab, [facility] Fam Pob I Attending Clinician Unavailable Gonsalo GUPTA, Cruzito Attending Clinician [phone] MARSHALL DE SANTIAGO Attending Clinician Unavailable MD CRISELDA SALAZAR Attending Clinician Unavailable VAZQUEZ JAIN Attending Clinician Unavailable Matthew Baires Attending Clinician Provider, [facility] Attending Clinician Unavailable MATTHEW POTTER Attending Clinician Unavailable ADILIA HAMILTON Attending Clinician Unavailable Cristobal PATEL, Vazquez Attending Clinician MARK WATSON Attending Clinician Unavailable Felicita HULL, Leopoldo Cardona Attending Clinician Unavailable Pedro BRAVOP, Laura Attending Clinician Verena Smith RN Attending Clinician Unavailable Isak Diaz Attending Clinician ISAK BEARD Attending Clinician Unavailable Lois Pak PT Attending Clinician Unavailable Pob, [facility] Attending Clinician Unavailable GÓMEZ SOLIS Attending Clinician Unavailable SAMIR NAVAS Attending Clinician Unavailable JONATHON BAILON Admitting Clinician Unavailable MANAN ARMENTA Admitting Clinician Unavailable _[facility] Admitting Clinician Unavailable CRISELDA SALAZAR Admitting Clinician Unavailable MD CRISELDA SALAZAR Admitting Clinician Unavailable ISAK BEARD Admitting Clinician Unavailable GÓMEZ SOLIS Admitting Clinician Unavailable MARSHALL DE SANTIAGO Admitting Clinician Unavailable Payers Payer Name Policy Type Policy Number Effective Date Expiration Date S ourinderjit [id number] 2014 EMPLOYEE PLAN 00:00:00 [id number] 2017 00:00:[id number] 2017 [place] ([place] 00:00:00 Problems Condition Condition Condition Status Onset Resolution Last Treating Co mments Source Name Details Category Date Date Treatment Clinician Date Major Major Disease Active Univers depressive depressive 3-20 it y of disorder disorder 00:00: [place] with with 00 Medical current current Branch active active episode, episode, unspecifie unspecifie d d depression depression episode episode severity, severity, unspecifie unspecifie d whether d whether recurrent recurrent Left Left Disease Active 2020-05 [facility] lumbar lumbar - st radiculopa radiculopa 00:00: [facility] thy thy 00 l Osteoarthr Osteoarthr Disease Active 2020-05 M ethodi itis of itis of 30 st spine with spine with 00:00: [facility] radiculopa radiculopa 00 l thy, thy, lumbar lumbar region region S/P hip S/P hip Disease Active [facility] arthroscop arthroscop 12-02 y y 00:00: Hospita 00 l 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 Formattin g of this note might be different from the original. 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 2-06 ity of knee, knee, 00:00: [place] right right 00 Medical Branch Major Major Disease Active 2020 Univers depressive depressive 2-06 it y of disorder, disorder, 00:[place] recurrent recurrent 00 Medi raj episode, episode, Branch mild mild Panic Panic Disease Active Univers attack attack 2-06 ity of 00:00: [place] 00 Medical Branch 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 complex 2-06 ity of tear of tear of 00:00: [place] medial medial 00 Medical meniscus meniscus Branch of right of right knee knee Plantar Plantar Disease Active Univers fasciitis, fasciitis, 2-06 it y of right right 00:00: [place] 00 Medical Branch Left hip Left hip Disease Active Unive rs pain pain 2-06 ity of 00:00: [place] [facility] Screening Screening Disease Active Uni vers for for 2-06 ity of diabetes diabetes 00:00: [place] mellitus mellitus [facility] Tobacco Tobacco Disease Active Univers dependence dependence 2-06 it y of 00:00: [place] [facility] Elevated Elevated Disease Active Unive rs BP without BP without 2-06 it y of diagnosis diagnosis 00:00: [place] [facility] of Medical hypertensi hypertensi Br anch on on Obesity Obesity Disease Active Univers (BMI (BMI 7-02 ity of 30-39.9) 30-39.9) 00:00: [place] [facility] Right foot Right foot Disease Active U nivers pain pain 4-07 ity of 00:00: [place] [facility] Right knee Right knee Disease Active 2014-05 U nivers pain pain 0-12 ity of 00:00: [place] [facility] Right knee Right knee Disease Active 2014-05 U nivers pain pain 0-12 ity of 00:00: [place] [facility] Allergies, Adverse Reactions, Alerts Allergy Allergy Status Severity Reaction(s) Onset Inactive Treating Comm ents Source Name Type Date Date Clinician BETAMETH DRUG Active High ITCHING Univers ASONE 7-31 ity of ACET,SOD 00:00: [place] PHOS Medical Branch SULFA Drug Active Med ITCHING Univers (SULFONA Class 7- ity of MIDE 00:00: [place] ANTIBIOT 00 Medical ICS) Branch Sulfa Propensi Active Hives Univers (Sulfona ty to 7 ity of mide adverse 00:00: [place] Antibiot reaction 00 Medica l ics) s Branch Betameth Propensi Active Anaphylaxis U nivers asone ty to 7-31 ity of Acet,Sod adverse 00:00: [place] Phos reaction Medical s Branch Sulfa Propensi Active Itching Univers (Sulfona ty to 7-31 ity of mide adverse 00:00: [place] Antibiot reaction 00 Medica l ics) s Branch Betameth Propensi Active Anaphylaxis M ethodi asone ty to 7 st Acet,Sod adverse 00:00: Hospita Phos reaction 00 l s to drug Sulfa Propensi Active Itching Methodi (Sulfona ty to 12-10 st mide adverse 00:00: Hospita Antibiot reaction 00 l ics) s to drug Family History Family Member Diagnosis Comments Start Date Stop Date Source Natural father High cholesterol Univ ersity of [facility] Natural father Hypertension Universi ty of [facility] Natural father Blood Clots [facility] Natural father Diabetes [facility] Natural father Kidney disease Method ist [facility] Natural sister Cancer [facility] Natural sister Cervical cancer Metho [facility] Natural sister Pancreatic cancer [facility] Natural sister Liver cancer [facility] Natural mother Hypertension [facility] Social History Social Habit Start Date Stop Date Quantity Comments Source History SDOH University o f Alcohol Std Drinks [place] [facility] History SDOH University o f Alcohol Binge [place] [facility] al [facility] History SDOH University o f Alcohol Comment [place] Med ical [facility] History of tobacco Cigarette Smoker University [facility] Gender identity [facility] Sexual orientation Method is Hospital Exposure to 2022-07-20 2022-07-30 Not sure University of SARS-CoV-2 (event) 00:00:00 11:11:00 [facility] History SDOH 2021-05-08 2021-05-08 1 University o f Alcohol Frequency 00:00:00 00:00:00 [facility] edical [place] Alcohol intake 2021-04-13 2021-04-13 Lifetime [facility] 00:00:00 00:00:00 non-drinker Hospital (finding) History of Social 2021-04-13 2021-04-[address] function 00:00:00 00:00:00 Hospital Cigarettes smoked 2020-06-23 2020-06-[address] current (pack per 00:00:00 00:00:00 Hospita l day) - Reported Cigarette 2020-06-23 2020-06-23 [facility] pack-years 00:00:00 00:00:00 Hospital Tobacco use and 2020-06-23 2020-06-23 Smokeless [facility] exposure 00:00:00 00:00:00 tobacco non-user Hospital Sex Assigned At [birth year] [facility] 00:00:00 00:00:00 Hospital Smoking Status Start Date Stop Date Source Smokes tobacco daily 2020-06-23 00:00:00 [facility] Medications Ordered Filled Start Stop Current Ordering Indication Dosage Frequency Signature Comments Components Source Medication Medication Date Date Medication? Clinician (SIG) Name Name FLUoxetine 2023-0 Yes [id number] 20mg Take 1 Univers 20 mg 5-09 capsule by ity of capsule 00:00: mouth in [place] 00 the Medical morning. Branch FLUoxetine 2023-0 Yes [id number] 20mg Take 1 Univers 20 mg 5-09 capsule by ity of capsule 00:00: mouth in [place] 00 the Medical morning. Branch FLUoxetine 2023-0 Yes [id number] 20mg Take 1 Univers 20 mg 5-09 capsule by ity of capsule 00:00: mouth in [place] 00 the Medical morning. Branch FLUoxetine 2023-0 Yes [id number] 20mg Take 1 Univers 20 mg 5-09 capsule by ity of capsule 00:00: mouth in [place] 00 the morning. Branch FLUoxetine 3-0 Yes [id number] 20mg Take 1 Univers 20 mg 5-09 capsule by ity of capsule 00:00: mouth in [place] 00 the Medical morning. Branch FLUoxetine 2023-0 2023- No [id number] 20mg Take 1 Univers 20 mg 3-09 05-09 capsule by ity of capsule 00:00: 04:59 mouth in [place] 00 :00 the Medical morning Branch for 60 days. FLUoxetine 2023-0 2023- No [id number] 20mg Take 1 Univers 20 mg 3-09 05-09 capsule by ity of capsule 00:00: 04:59 mouth in [place] 00 :00 the Medical morning Branch for 60 days. FLUoxetine 2023-0 2023- No [id number] 20mg Take 1 Univers 20 mg 3-09 05-09 capsule by ity of capsule 00:00: 04:59 mouth in [place] 00 :00 the Medical morning Branch for 60 days. FLUoxetine 2023-0 2023- No [id number] 20mg Take 1 Univers 20 mg 3-09 05-09 capsule by ity of capsule 00:00: 00:00 mouth in [place] 00 :00 the Medical morning Branch for 60 days. phentermine 2023-0 2023- No 37.5mg Take 37.5 Univers 37.5 mg 2-20 02-20 mg by ity of tablet 10:36: 00:00 mouth [place] 50 :00 daily with Medical breakfast. Branch phentermine 2023-0 2023- No 37.5mg Take 37.5 Univers 37.5 mg 2-20 02-20 mg by ity of tablet 10:36: 00:00 mouth [place] 50 :00 daily with Medical breakfast. Branch phentermine 2022- No 37.5mg Take 37.5 Univers 37.5 mg 2-20 02-20 mg by ity of tablet 10:36: 00:00 mouth [place] 50 :00 daily with Medical breakfast. Branch phentermine 2022-2022- No 37.5mg Take 37.5 Univers 37.5 mg 2-20 02-20 mg by ity of tablet 10:36: 00:00 mouth [place] 50 :00 daily with Medical breakfast. Branch phentermine 2022- No 37.5mg Take 37.5 Univers 37.5 mg 2-20 02-20 mg by ity of tablet 10:36: 00:00 mouth [place] 50 :00 daily with Medical breakfast. Branch losartan 0 Yes 25mg Take 25 mg Uni vers potassium 2-20 by mouth ity of (LOSARTAN 10:19: daily. [place] ORAL) 37 Medical Branch ezetimibe 2022-0 Yes 10mg Take 10 mg Un fer 10 mg 2-20 by mouth ity of tablet 10:19: in the [place] [address] morning. Medical Branch losartan 2022-0 Yes 25mg Take 25 mg Uni vers potassium 2-20 by mouth ity of (LOSARTAN 10:19: daily. [place] ORAL) 37 Medical Branch ezetimibe 2022-0 Yes 10mg Take 10 mg Un fer 10 mg 2-20 by mouth ity of tablet 10:19: in the [place] [address] morning. Medical Branch losartan 2022-0 Yes 25mg Take 25 mg Uni vers potassium 2-20 by mouth ity of (LOSARTAN 10:19: daily. [place] ORAL) 37 Medical Branch ezetimibe 2022-0 Yes 10mg Take 10 mg Un fer 10 mg 2-20 by mouth ity of tablet 10:19: in the [place] [address] morning. Medical Branch losartan 2022-0 Yes 25mg Take 25 mg Uni vers potassium 2-20 by mouth ity of (LOSARTAN 10:19: daily. [place] ORAL) 37 Medical Branch ezetimibe 2022-0 Yes 10mg Take 10 mg Un fer 10 mg 2-20 by mouth ity of tablet 10:19: in the [place] [address] morning. Medical Branch losartan 3-0 Yes 25mg Take 25 mg Uni vers potassium 2-20 by mouth ity of (LOSARTAN 10:19: daily. [place] ORAL) 37 Medical Branch ezetimibe 2022-0 Yes 10mg Take 10 mg Un fer 10 mg 2-20 by mouth ity of tablet 10:19: in the [place] [address] morning. Medical Branch losartan 2022-0 Yes 25mg Take 25 mg Uni vers potassium 2-20 by mouth ity of (LOSARTAN 10:19: daily. [place] ORAL) 37 Medical Branch ezetimibe 2022-0 Yes 10mg Take 10 mg Un fer 10 mg 2-20 by mouth ity of tablet 10:19: in the [place] [address] morning. Medical Branch losartan 2022-0 Yes 25mg Take 25 mg Uni vers potassium 2-20 by mouth ity of (LOSARTAN 10:19: daily. [place] ORAL) 37 Medical Branch ezetimibe 2022-0 Yes 10mg Take 10 mg Un fer 10 mg 2-20 by mouth ity of tablet 10:19: in the [place] [address] morning. Medical Branch losartan 2022-0 Yes 25mg Take 25 mg Uni vers potassium 2-20 by mouth ity of (LOSARTAN 10:19: daily. [place] ORAL) 37 Medical Branch ezetimibe 2022-0 Yes 10mg Take 10 mg Un fer 10 mg 2-20 by mouth ity of tablet 10:19: in the [place] [address] morning. Medical Branch losartan 2022-0 Yes 25mg Take 25 mg Uni vers potassium 2-20 by mouth ity of (LOSARTAN 10:19: daily. [place] ORAL) 37 Medical Branch ezetimibe 2022-0 Yes 10mg Take 10 mg Un fer 10 mg 2-20 by mouth ity of tablet 10:19: in the [place] [address] morning. Medical Branch losartan 3-0 Yes 25mg Take 25 mg Uni vers potassium 2-20 by mouth ity of (LOSARTAN 10:19: daily. [place] ORAL) 37 Medical Branch ezetimibe 3-0 Yes 10mg Take 10 mg Un fer 10 mg 2-20 by mouth ity of tablet 10:19: in the [place] [address] morning. Medical Branch escitalopra 3-0 2023- No [id number] 10mg Take 1 Univers m oxalate 2-20 04-22 tablet by ity of (LEXAPRO) 00:00: 04:59 mouth in [place] as 10 mg 00 :00 the Medical tablet morning Branch for 60 days. escitalopra 2022- No [id number] 10mg Take 1 Univers m oxalate 2-20 - tablet by ity of (LEXAPRO) 00:00: 04:59 mouth in [place] as 10 mg 00 :00 the Medical tablet morning Branch for 60 days. escitalopra 2022- No [id number] 10mg Take 1 Univers m oxalate 2-20 - tablet by ity of (LEXAPRO) 00:00: 00:00 mouth in [place] as 10 mg 00 :00 the Medical tablet morning Branch for 60 days. escitalopra 2022- No [id number] 10mg Take 1 Univers m oxalate 2-20 - tablet by ity of (LEXAPRO) 00:00: 00:00 mouth in [place] as 10 mg 00 :00 the Medical tablet morning Branch for 60 days. escitalopra 2022- No [id number] 10mg Take 1 Univers m oxalate 2-20 - tablet by ity of (LEXAPRO) 00:00: 00:00 mouth in [place] as 10 mg 00 :00 the Medical tablet morning Branch for 60 days. erythromyci 2021-05- No [id number] .5[in_u Place 0.5 Univers n 5 mg/gram 2 12-25 9104 s] Inches in it y of (0.5 %) 00:00: 05:59 [place] ophthalmic 00 :00 4 (four) Medic al ointment times Branch daily for 5 days. oseltamivir 2021- No [id number] 75mg Take 1 Univers (TAMIFLU) 3- 03-11 capsule by ity of 75 mg 00:00: 05:59 mouth 2 [place] capsule 00 :00 (two) Medical times Branch daily for 5 days. phentermine 2020-05 Yes 37.5mg Take 37.5 Univers (ADIPEX-P) 2-27 mg by ity of 37.5 mg 14:06: mouth [place] tablet 13 daily with Medical breakfast. Branch phentermine 2020-05 Yes 37.5mg Take 37.5 Univers (ADIPEX-P) 2-27 mg by ity of 37.5 mg 14:06: mouth [place] tablet 13 daily with Medical breakfast. Monument phentermine 2020-05 Yes 37.5mg Take 37.5 Univers (ADIPEX-P) 2-27 mg by ity of 37.5 mg 14:06: mouth [place] tablet 13 daily with Medical breakfast. Branch phentermine 2020-05 Yes 37.5mg Take 37.5 Univers (ADIPEX-P) 2-27 mg by ity of 37.5 mg 14:06: mouth [place] tablet 13 daily with Medical breakfast. Branch phentermine 2020-05 Yes 37.5mg Take 37.5 Univers (ADIPEX-P) 2-27 mg by ity of 37.5 mg 14:06: mouth [place] tablet 13 daily with Medical breakfast. Monument phentermine 2020-05 Yes 37.5mg Take 37.5 Univers (ADIPEX-P) 2-27 mg by ity of 37.5 mg 14:06: mouth [place] tablet 13 daily with Medical breakfast. Monument phentermine 2020-05 Yes 37.5mg Take 37.5 Univers (ADIPEX-P) 2-27 mg by ity of 37.5 mg 14:06: mouth [place] tablet 13 daily with Medical breakfast. Monument phentermine 2020-05 Yes 37.5mg Take 37.5 Univers (ADIPEX-P) 2-27 mg by ity of 37.5 mg 14:06: mouth [place] tablet 13 daily with Medical breakfast. Monument phentermine 2020-05 Yes 37.5mg Take 37.5 Univers (ADIPEX-P) 2-27 mg by ity of 37.5 mg 14:06: mouth [place] tablet 13 daily with Medical breakfast. Monument phentermine 2020-05 Yes 37.5mg Take 37.5 Univers (ADIPEX-P) 2-27 mg by ity of 37.5 mg 14:06: mouth [place] tablet 13 daily with Medical breakfast. Branch phentermine 2020-05 Yes 37.5mg Take 37.5 Univers (ADIPEX-P) 2-27 mg by ity of 37.5 mg 14:06: mouth [place] tablet 13 daily with Medical breakfast. Monument phentermine 2020-05 Yes 37.5mg Take 37.5 Univers (ADIPEX-P) 2-27 mg by ity of 37.5 mg 14:06: mouth [place] tablet 13 daily with Medical breakfast. Monument phentermine 2020-05 Yes 37.5mg Take 37.5 Univers (ADIPEX-P) 2-27 mg by ity of 37.5 mg 14:06: mouth [place] tablet 13 daily with Medical breakfast. Monument phentermine 2020-05 Yes 37.5mg Take 37.5 Univers (ADIPEX-P) 2-27 mg by ity of 37.5 mg 14:06: mouth [place] tablet 13 daily with Medical breakfast. Monument phentermine 2020-05 Yes 37.5mg Take 37.5 Univers (ADIPEX-P) 2-27 mg by ity of 37.5 mg 14:06: mouth [place] tablet 13 daily with Medical breakfast. Monument phentermine 2020-05 Yes 37.5mg Take 37.5 Univers (ADIPEX-P) 2-27 mg by ity of 37.5 mg 14:06: mouth [place] tablet 13 daily with Medical breakfast. Monument phentermine 2020-05 Yes 37.5mg Take 37.5 Univers (ADIPEX-P) 2-27 mg by ity of 37.5 mg 14:06: mouth [place] tablet 13 daily with Medical breakfast. Monument phentermine 2020-05 Yes 37.5mg Take 37.5 Univers (ADIPEX-P) 2-27 mg by ity of 37.5 mg 14:06: mouth [place] tablet 13 daily with Medical breakfast. Monument phentermine 2020-05 Yes 37.5mg Take 37.5 Univers (ADIPEX-P) 2-27 mg by ity of 37.5 mg 14:06: mouth [place] tablet 13 daily with Medical breakfast. Monument phentermine 2020-05 Yes 37.5mg Take 37.5 Univers (ADIPEX-P) 2-27 mg by ity of 37.5 mg 14:06: mouth [place] tablet 13 daily with Medical breakfast. Monument phentermine 2020-05 Yes 37.5mg Take 37.5 Univers (ADIPEX-P) 2-27 mg by ity of 37.5 mg 14:06: mouth [place] tablet 13 daily with Medical breakfast. Monument phentermine 2020-05 Yes 37.5mg Take 37.5 Univers (ADIPEX-P) 2-27 mg by ity of 37.5 mg 14:06: mouth [place] tablet 13 daily with Medical breakfast. [place] gabapentin 2020-05- No 300mg [id number] Take 1 [facility] (NEURONTIN) 2-02 12-[id number] 300 mg 00:00: 05:59 3D (300 mg Hospita capsule 00 :00 total) by l mouth 3 (three) times a day. atorvastati Yes 40mg QD Take 40 mg Method[facility] n (LIPITOR) 8-[address] 40 mg 00:00: daily. Hospita tablet 00 l tretinoin Yes [facility] (RETIN-A) 6-14 st 0.025 % 00:00: Hospita cream 00 l phentermine Yes 37.5mg QD Take 37.5 [facility] (Adipex-P) 3-[address] 37.5 mg 00:00: mouth Hospita tablet 00 daily l before breakfast. azithromyci 2019-05 Yes [id number] 250mg Take 1 Univers n 250 mg 2-28 tablet by ity of tablet 00:00: mouth [place] 00 daily. Medical Take 500 Branch mg day 1, then 250 mg days 2 to 5. azithromyci 2019-05 Yes [id number] 250mg Take 1 Univers n 250 mg 2-28 tablet by ity of tablet 00:00: mouth [place] 00 daily. Medical Take 500 Branch mg day 1, then 250 mg days 2 to 5. azithromyci 2019-05 Yes [id number] 250mg Take 1 Univers n 250 mg 2-28 tablet by ity of tablet 00:00: mouth [place] 00 daily. Medical Take 500 Branch mg day 1, then 250 mg days 2 to 5. azithromyci 2019-05 Yes [id number] 250mg Take 1 Univers n 250 mg 2-28 tablet by ity of tablet 00:00: mouth [place] 00 daily. Medical Take 500 Branch mg day 1, then 250 mg days 2 to 5. azithromyci 2019-05 Yes [id number] 250mg Take 1 Univers n 250 mg 2-28 tablet by ity of tablet 00:00: mouth [place] 00 daily. Medical Take 500 Branch mg day 1, then 250 mg days 2 to 5. azithromyci 2019-05 Yes [id number] 250mg Take 1 Univers n 250 mg 2-28 tablet by ity of tablet 00:00: mouth [place] 00 daily. Medical Take 500 Branch mg day 1, then 250 mg days 2 to 5. azithromyci 2020- Yes [id number] 250mg Take 1 Univers n 250 mg 2-28 tablet by ity of tablet 00:00: mouth [place] 00 daily. Medical Take 500 Branch mg day 1, then 250 mg days 2 to 5. azithromyci 2020- Yes [id number] 250mg Take 1 Univers n 250 mg 2-28 tablet by ity of tablet 00:00: mouth [place] 00 daily. Medical Take 500 Branch mg day 1, then 250 mg days 2 to 5. azithromyci 2019- Yes [id number] 250mg Take 1 Univers n 250 mg 2-28 tablet by ity of tablet 00:00: mouth [place] 00 daily. Medical Take 500 Branch mg day 1, then 250 mg days 2 to 5. azithromyci 2019- Yes [id number] 250mg Take 1 Univers n 250 mg 2-28 tablet by ity of tablet 00:00: mouth [place] 00 daily. Medical Take 500 Branch mg day 1, then 250 mg days 2 to 5. azithromyci 2019- Yes [id number] 250mg Take 1 Univers n 250 mg 2-28 tablet by ity of tablet 00:00: mouth [place] 00 daily. Medical Take 500 Branch mg day 1, then 250 mg days 2 to 5. azithromyci 2019- Yes [id number] 250mg Take 1 Univers n 250 mg 2-28 tablet by ity of tablet 00:00: mouth [place] 00 daily. Medical Take 500 Branch mg day 1, then 250 mg days 2 to 5. azithromyci 2019- Yes [id number] 250mg Take 1 Univers n 250 mg 2-28 tablet by ity of tablet 00:00: mouth [place] 00 daily. Medical Take 500 Branch mg day 1, then 250 mg days 2 to 5. azithromyci 2020- Yes [id number] 250mg Take 1 Univers n 250 mg 2-28 tablet by ity of tablet 00:00: mouth [place] 00 daily. Medical Take 500 Branch mg day 1, then 250 mg days 2 to 5. azithromyci 2019- Yes [id number] 250mg Take 1 [facility] 250 [facility] 2-28 tablet by [facility] tablet 00:00: mouth [place] 00 daily. Medical Take 500 Branch mg day 1, then 250 mg days 2 to 5. azithromyci 2020- Yes [id number] 250mg Take 1 [facility] 250 mg 2-28 tablet by [facility] tablet 00:00: mouth [place] 00 daily. Medical Take 500 Branch mg day 1, then 250 mg days 2 to 5. azithromyci 2019-05 Yes [id number] 250mg Take 1 [facility] 250 mg 2-28 tablet by [facility] tablet 00:00: mouth [place] 00 daily. Medical Take 500 Branch mg day 1, then 250 mg days 2 to 5. azithromyci 2019-05 Yes [id number] 250mg Take 1 [facility] 250 mg 2-28 tablet by [facility] tablet 00:00: mouth [place] 00 daily. Medical Take 500 Branch mg day 1, then 250 mg days 2 to 5. azithromyci 2019-05 Yes [id number] 250mg Take 1 [facility] 250 mg 2-28 tablet by [facility] tablet 00:00: mouth [place] 00 daily. Medical Take 500 Branch mg day 1, then 250 mg days 2 to 5. azithromyci 2019-05 Yes [id number] 250mg Take 1 [facility] 250 mg 2-28 tablet by [facility] tablet 00:00: mouth [place] 00 daily. Medical Take 500 Branch mg day 1, then 250 mg days 2 to 5. azithromyci 2019-05 Yes [id number] 250mg Take 1 [facility] 250 mg 2-28 tablet by [facility] tablet 00:00: mouth [place] 00 daily. Medical Take 500 Branch mg day 1, then 250 mg days 2 to 5. azithromyci 2019-05 Yes [id number] 250mg Take 1 [facility] 250 mg 2-28 tablet by [facility] tablet 00:00: mouth [place] 00 daily. Medical Take 500 Branch mg day 1, then 250 mg days 2 to 5. azithromyci 2019-05- No [id number] 250mg Take 1 [facility] 250 mg 2-28 -20 tablet by [facility] o f tablet 00:00: 00:00 mouth [place] 00 :00 daily. Medical Take 500 Branch mg day 1, then 250 mg days 2 to 5. azithromyci 2019-05- No [id number] 250mg Take 1 [facility] 250 mg 2-28 -20 tablet by [facility] o f tablet 00:00: 00:00 mouth [place] 00 :00 daily. Medical Take 500 Branch mg day 1, then 250 mg days 2 to 5. azithromyci 2019-05- No [id number] 250mg Take 1 [facility] 250 mg -10 07-20 tablet by [facility] o f tablet 00:00: 00:00 mouth [place] 00 :00 daily. Medical Take 500 Branch mg day 1, then 250 mg days 2 to 5. azithromyci 2019-05- No [id number] 250mg Take 1 [facility] 250 mg 2-28 -20 tablet by [facility] o f tablet 00:00: 00:00 mouth [place] 00 :00 daily. Medical Take 500 Branch mg day 1, then 250 mg days 2 to 5. azithromyci 2019-05- No [id number] 250mg Take 1 [facility] 250 mg 07-10-20 tablet by [facility] o f tablet 00:00: 00:00 mouth [place] 00 :00 daily. Medical Take 500 Branch mg day 1, then 250 mg days 2 to 5. ondansetron 2019-05 Yes [id number] 8mg Take 1 [facility] (ZOFRAN 2-13 tablet by [facility] of ODT) 8 mg 00:00: mouth [place] [facility] 00 every 8 Medic al ing tablet (eight) Branch hours as needed for Nausea and Vomiting (N/V). ondansetron 2019-05 Yes [id number] 8mg Take 1 [facility] (ZOFRAN 2-13 tablet by [facility] of ODT) 8 mg 00:00: mouth [place] [facility] 00 every 8 Medic al ing tablet (eight) Branch hours as needed for Nausea and Vomiting (N/V). ondansetron 2019-05 Yes [id number] 8mg Take 1 [facility] (ZOFRAN 2-13 tablet by [facility] of ODT) 8 mg 00:00: mouth [place] [facility] 00 every 8 Medic al ing tablet (eight) Branch hours as needed for Nausea and Vomiting (N/V). ondansetron 2019-05 Yes [id number] 8mg Take 1 [facility] (ZOFRAN 2-13 tablet by [facility] of ODT) 8 mg 00:00: mouth [place] [facility] 00 every 8 Medic al ing tablet (eight) Branch hours as needed for Nausea and Vomiting (N/V). ondansetron 2019-05 Yes [id number] 8mg Take 1 [facility] (ZOFRAN 2-13 tablet by [facility] of ODT) 8 mg 00:00: mouth [place] [facility] 00 every 8 Medic al ing tablet (eight) Branch hours as needed for Nausea and Vomiting (N/V). ondansetron 2020-1 Yes [id number] 8mg Take 1 [facility] (ZOFRAN 2-13 tablet by [facility] of ODT) 8 mg 00:00: mouth [place] [facility] 00 every 8 Medic al ing tablet (eight) Branch hours as needed for Nausea and Vomiting (N/V). ondansetron 2020-1 Yes [id number] 8mg Take 1 [facility] (ZOFRAN 2-13 tablet by [facility] of ODT) 8 mg 00:00: mouth [place] [facility] 00 every 8 Medic al ing tablet (eight) Branch hours as needed for Nausea and Vomiting (N/V). ondansetron 2020-1 Yes [id number] 8mg Take 1 [facility] (ZOFRAN 2-13 tablet by [facility] of ODT) 8 mg 00:00: mouth [place] disintegr[facility] 00 every 8 Medic al ing tablet (eight) Branch hours as needed for Nausea and Vomiting (N/V). ondansetron 2020-1 Yes [id number] 8mg Take 1 [facility] (ZOFRAN 2-13 tablet by [facility] of ODT) 8 mg 00:00: mouth [place] [facility] 00 every 8 Medic al ing tablet (eight) Branch hours as needed for Nausea and Vomiting (N/V). ondansetron 2020-1 Yes [id number] 8mg Take 1 [facility] (ZOFRAN 2-13 tablet by [facility] of ODT) 8 mg 00:00: mouth [place] [facility] 00 every 8 Medic al ing tablet (eight) Branch hours as needed for Nausea and Vomiting (N/V). ondansetron 2020-1 Yes [id number] 8mg Take 1 [facility] (ZOFRAN 2-13 tablet by [facility] of ODT) 8 mg 00:00: mouth [place] [facility] 00 every 8 Medic al ing tablet (eight) Branch hours as needed for Nausea and Vomiting (N/V). ondansetron 2020-1 Yes [id number] 8mg Take 1 [facility] (ZOFRAN 2-13 tablet by [facility] of ODT) 8 mg 00:00: mouth [place] [facility] 00 every 8 Medic al ing tablet (eight) Branch hours as needed for Nausea and Vomiting (N/V). ondansetron 2020- Yes [id number] 8mg Take 1 [facility] (ZOFRAN 2-13 tablet by [facility] of ODT) 8 mg 00:00: mouth [place] [facility] 00 every 8 Medic al ing tablet (eight) Branch hours as needed for Nausea and Vomiting (N/V). ondansetron 2020- Yes [id number] 8mg Take 1 [facility] (ZOFRAN 2-13 tablet by [facility] of ODT) 8 mg 00:00: mouth [place] [facility] 00 every 8 Medic al ing tablet (eight) Branch hours as needed for Nausea and Vomiting (N/V). ondansetron 2020- Yes [id number] 8mg Take 1 [facility] (ZOFRAN 2-13 tablet by [facility] of ODT) 8 mg 00:00: mouth [place] [facility] 00 every 8 Medic al ing tablet (eight) Branch hours as needed for Nausea and Vomiting (N/V). ondansetron 2020- Yes [id number] 8mg Take 1 [facility] (ZOFRAN 2-13 tablet by [facility] of ODT) 8 mg 00:00: mouth [place] [facility] 00 every 8 Medic al ing tablet (eight) Branch hours as needed for Nausea and Vomiting (N/V). ondansetron 2020- Yes [id number] 8mg Take 1 [facility] (ZOFRAN 2-13 tablet by [facility] of ODT) 8 mg 00:00: mouth [place] [facility] 00 every 8 Medic al ing tablet (eight) Branch hours as needed for Nausea and Vomiting (N/V). ondansetron 2020- Yes [id number] 8mg Take 1 [facility] (ZOFRAN 2-13 tablet by [facility] of ODT) 8 mg 00:00: mouth [place] [facility] 00 every 8 Medic al ing tablet (eight) Branch hours as needed for Nausea and Vomiting (N/V). ondansetron 2020- Yes [id number] 8mg Take 1 [facility] (ZOFRAN 2-13 tablet by [facility] of ODT) 8 mg 00:00: mouth [place] disintegr[facility] 00 every 8 Medic al ing tablet (eight) Branch hours as needed for Nausea and Vomiting (N/V). ondansetron 2020- Yes [id number] 8mg Take 1 [facility] (ZOFRAN 2-13 tablet by [facility] of ODT) 8 mg 00:00: mouth [place] [facility] 00 every 8 Medic al ing tablet (eight) Branch hours as needed for Nausea and Vomiting (N/V). ondansetron 2019- Yes [id number] 8mg Take 1 [facility] (ZOFRAN 2-13 tablet by [facility] of ODT) 8 mg 00:00: mouth [place] [facility] 00 every 8 Medic al ing tablet (eight) Branch hours as needed for Nausea and Vomiting (N/V). ondansetron 2019- Yes [id number] 8mg Take 1 [facility] (ZOFRAN 2-13 tablet by [facility] of ODT) 8 mg 00:00: mouth [place] [facility] 00 every 8 Medic al ing tablet (eight) Branch hours as needed for Nausea and Vomiting (N/V). ondansetron 2019-05- No [id number] 8mg Take 1 [facility] (ZOFRAN 2-13 02-20 tablet by [facility] of ODT) 8 mg 00:00: 00:00 mouth [place] dis[facility] 00 :00 every 8 Medic al ing tablet (eight) Branch hours as needed for Nausea and Vomiting (N/V). ondansetron 2019-05- No [id number] 8mg Take 1 [facility] (ZOFRAN 2-13 02-20 tablet by [facility] of ODT) 8 mg 00:00: 00:00 mouth [place] disintegrat 00 :00 every 8 Medic al ing tablet (eight) Branch hours as needed for Nausea and Vomiting (N/V). ondansetron 2019-2022- No [id number] 8mg Take 1 [facility] (ZOFRAN 2-13 02-20 tablet by [facility] of ODT) 8 mg 00:00: 00:00 mouth [place] disintegr[facility] 00 :00 every 8 Medic al ing tablet (eight) Branch hours as needed for Nausea and Vomiting (N/V). ondansetron 2019-2022- No [id number] 8mg Take 1 [facility] (ZOFRAN 2-13 02-20 tablet by [facility] of ODT) 8 mg 00:00: 00:00 mouth [place] disintegr[facility] 00 :00 every 8 Medic al ing tablet (eight) Branch hours as needed for Nausea and Vomiting (N/V). ondansetron 2019-2022- No [id number] 8mg Take 1 [facility] (ZOFRAN 2-13 02-20 tablet by [facility] of ODT) 8 mg 00:00: 00:00 mouth [place] dis[facility] 00 :00 every 8 Medic al ing tablet (eight) Branch hours as needed for Nausea and Vomiting (N/V). dicyclomine 2020-0 Yes [id number] 20mg Take 1 [facility] 20 mg 8-17 tablet by [facility] tablet 00:00: mouth [place] 00 every 6 Medical (six) Branch hours as needed for Abdominal pain. ibuprofen 2020-0 Yes [id number] 800mg Take 1 [facility] 800 mg 8-17 [id number] tablet by [facility] tablet 00:00: mouth [place] 00 every 6 Medical (six) Branch hours as needed for Pain (scale 1-3) or Pain (scale 4-6). dicyclomine 2020-0 Yes [id number] 20mg Take 1 [facility] 20 mg 8-17 tablet by [facility] tablet 00:00: mouth [place] 00 every 6 Medical (six) Branch hours as needed for Abdominal pain. ibuprofen 2020-0 Yes [id number] 800mg Take 1 [facility] 800 mg 8-17 [id number] tablet by [facility] tablet 00:00: mouth [place] 00 every 6 Medical (six) Branch hours as needed for Pain (scale 1-3) or Pain (scale 4-6). dicyclomine 2020-0 Yes [id number] 20mg Take 1 [facility] 20 mg 8-17 tablet by [facility] tablet 00:00: mouth [place] 00 every 6 Medical (six) Branch hours as needed for Abdominal pain. ibuprofen 2020-0 Yes [id number] 800mg Take 1 [facility] 800 mg 8-17 [id number] tablet by [facility] tablet 00:00: mouth [place] 00 every 6 Medical (six) Branch hours as needed for Pain (scale 1-3) or Pain (scale 4-6). dicyclomine 2020-0 Yes [id number] 20mg Take 1 [facility] 20 mg 8-17 tablet by [facility] tablet 00:00: mouth [place] 00 every 6 Medical (six) Branch hours as needed for Abdominal pain. ibuprofen 2020-0 Yes [id number] 800mg Take 1 [facility] 800 mg 8-17 [id number] tablet by [facility] tablet 00:00: mouth [place] 00 every 6 Medical (six) Branch hours as needed for Pain (scale 1-3) or Pain (scale 4-6). dicyclomine 2020-0 Yes [id number] 20mg Take 1 [facility] 20 mg 8-17 tablet by [facility] tablet 00:00: mouth [place] 00 every 6 Medical (six) Branch hours as needed for Abdominal pain. ibuprofen 2020-0 Yes [id number] 800mg Take 1 [facility] 800 mg 8-17 [id number] tablet by [facility] tablet 00:00: mouth [place] 00 every 6 Medical (six) Branch hours as needed for Pain (scale 1-3) or Pain (scale 4-6). dicyclomine 2020-0 Yes [id number] 20mg Take 1 [facility] 20 mg 8-17 tablet by [facility] tablet 00:00: mouth [place] 00 every 6 Medical (six) Branch hours as needed for Abdominal pain. ibuprofen 2020-0 Yes [id number] 800mg Take 1 [facility] 800 mg 8-17 [id number] tablet by [facility] tablet 00:00: mouth [place] 00 every 6 Medical (six) Branch hours as needed for Pain (scale 1-3) or Pain (scale 4-6). dicyclomine 2020-0 Yes [id number] 20mg Take 1 [facility] 20 mg 8-17 tablet by [facility] tablet 00:00: mouth [place] 00 every 6 Medical (six) Branch hours as needed for Abdominal pain. ibuprofen 2020-0 Yes [id number] 800mg Take 1 [facility] 800 mg 8-17 [id number] tablet by [facility] tablet 00:00: mouth [place] 00 every 6 Medical (six) Branch hours as needed for Pain (scale 1-3) or Pain (scale 4-6). dicyclomine 2020-0 Yes [id number] 20mg Take 1 [facility] 20 mg 8-17 tablet by [facility] tablet 00:00: mouth [place] 00 every 6 Medical (six) Branch hours as needed for Abdominal pain. ibuprofen 2020-0 Yes [id number] 800mg Take 1 [facility] 800 mg 8-17 [id number] tablet by [facility] tablet 00:00: mouth [place] 00 every 6 Medical (six) Branch hours as needed for Pain (scale 1-3) or Pain (scale 4-6). dicyclomine 2020-0 Yes [id number] 20mg Take 1 [facility] 20 mg 8-17 tablet by [facility] tablet 00:00: mouth [place] 00 every 6 Medical (six) Branch hours as needed for Abdominal pain. ibuprofen 2020-0 Yes [id number] 800mg Take 1 [facility] 800 mg 8-17 [id number] tablet by [facility] tablet 00:00: mouth [place] 00 every 6 Medical (six) Branch hours as needed for Pain (scale 1-3) or Pain (scale 4-6). dicyclomine 2020-0 Yes [id number] 20mg Take 1 [facility] 20 mg 8-17 tablet by [facility] tablet 00:00: mouth [place] 00 every 6 Medical (six) Branch hours as needed for Abdominal pain. ibuprofen 2020-0 Yes [id number] 800mg Take 1 [facility] 800 mg 8-17 [id number] tablet by [facility] tablet 00:00: mouth [place] 00 every 6 Medical (six) Branch hours as needed for Pain (scale 1-3) or Pain (scale 4-6). dicyclomine 2020-0 Yes [id number] 20mg Take 1 [facility] 20 mg 8-17 tablet by [facility] tablet 00:00: mouth [place] 00 every 6 Medical (six) Branch hours as needed for Abdominal pain. ibuprofen 2020-0 Yes [id number] 800mg Take 1 [facility] 800 mg 8-17 [id number] tablet by [facility] tablet 00:00: mouth [place] 00 every 6 Medical (six) Branch hours as needed for Pain (scale 1-3) or Pain (scale 4-6). dicyclomine 2020-0 Yes [id number] 20mg Take 1 [facility] 20 mg 8-17 tablet by [facility] tablet 00:00: mouth [place] 00 every 6 Medical (six) Branch hours as needed for Abdominal pain. ibuprofen 2020-0 Yes [id number] 800mg Take 1 [facility] 800 mg 8-17 [id number] tablet by [facility] tablet 00:00: mouth [place] 00 every 6 Medical (six) Branch hours as needed for Pain (scale 1-3) or Pain (scale 4-6). dicyclomine 2020-0 Yes [id number] 20mg Take 1 [facility] 20 mg 8-17 tablet by [facility] tablet 00:00: mouth [place] 00 every 6 Medical (six) Branch hours as needed for Abdominal pain. ibuprofen 2020-0 Yes [id number] 800mg Take 1 [facility] 800 mg 8-17 [id number] tablet by [facility] tablet 00:00: mouth [place] 00 every 6 Medical (six) Branch hours as needed for Pain (scale 1-3) or Pain (scale 4-6). dicyclomine 2020-0 Yes [id number] 20mg Take 1 [facility] 20 mg 8-17 tablet by [facility] tablet 00:00: mouth [place] 00 every 6 Medical (six) Branch hours as needed for Abdominal pain. ibuprofen 2020-0 Yes [id number] 800mg Take 1 [facility] 800 mg 8-17 [id number] tablet by [facility] tablet 00:00: mouth [place] 00 every 6 Medical (six) Branch hours as needed for Pain (scale 1-3) or Pain (scale 4-6). dicyclomine 2020-0 Yes [id number] 20mg Take 1 [facility] 20 mg 8-17 tablet by [facility] tablet 00:00: mouth [place] 00 every 6 Medical (six) Branch hours as needed for Abdominal pain. ibuprofen 2020-0 Yes [id number] 800mg Take 1 [facility] 800 mg 8-17 [id number] tablet by [facility] tablet 00:00: mouth [place] 00 every 6 Medical (six) Branch hours as needed for Pain (scale 1-3) or Pain (scale 4-6). dicyclomine 2020-0 Yes [id number] 20mg Take 1 [facility] 20 mg 8-17 tablet by [facility] tablet 00:00: mouth [place] 00 every 6 Medical (six) Branch hours as needed for Abdominal pain. ibuprofen 2020-0 Yes [id number] 800mg Take 1 [facility] 800 mg 8-17 [id number] tablet by [facility] tablet 00:00: mouth [place] 00 every 6 Medical (six) Branch hours as needed for Pain (scale 1-3) or Pain (scale 4-6). dicyclomine 2020-0 Yes [id number] 20mg Take 1 [facility] 20 mg 8-17 tablet by [facility] tablet 00:00: mouth [place] 00 every 6 Medical (six) Branch hours as needed for Abdominal pain. ibuprofen 2020-0 Yes [id number] 800mg Take 1 [facility] 800 mg 8-17 [id number] tablet by [facility] tablet 00:00: mouth [place] 00 every 6 Medical (six) Branch hours as needed for Pain (scale 1-3) or Pain (scale 4-6). dicyclomine 2020-0 Yes [id number] 20mg Take 1 [facility] 20 mg 8-17 tablet by [facility] tablet 00:00: mouth [place] 00 every 6 Medical (six) Branch hours as needed for Abdominal pain. ibuprofen 2020-0 Yes [id number] 800mg Take 1 [facility] 800 mg 8-17 [id number] tablet by [facility] tablet 00:00: mouth [place] 00 every 6 Medical (six) Branch hours as needed for Pain (scale 1-3) or Pain (scale 4-6). dicyclomine 2020-0 Yes [id number] 20mg Take 1 [facility] 20 mg 8-17 tablet by [facility] tablet 00:00: mouth [place] 00 every 6 Medical (six) Branch hours as needed for Abdominal pain. ibuprofen 2020-0 Yes [id number] 800mg Take 1 [facility] 800 mg 8-17 [id number] tablet by [facility] tablet 00:00: mouth [place] 00 every 6 Medical (six) Branch hours as needed for Pain (scale 1-3) or Pain (scale 4-6). dicyclomine 2020-0 Yes [id number] 20mg Take 1 [facility] 20 mg 8-17 tablet by [facility] tablet 00:00: mouth [place] 00 every 6 Medical (six) Branch hours as needed for Abdominal pain. ibuprofen 2020-0 Yes [id number] 800mg Take 1 [facility] 800 mg 8-17 [id number] tablet by [facility] tablet 00:00: mouth [place] 00 every 6 Medical (six) Branch hours as needed for Pain (scale 1-3) or Pain (scale 4-6). dicyclomine 2020-0 Yes [id number] 20mg Take 1 [facility] 20 mg 8-17 tablet by [facility] of tablet 00:00: mouth [place] 00 every 6 Medical (six) Branch hours as needed for Abdominal pain. ibuprofen 2020-0 Yes [id number] 800mg Take 1 [facility] 800 mg 8-17 [id number] tablet by [facility] tablet 00:00: mouth [place] 00 every 6 Medical (six) Branch hours as needed for Pain (scale 1-3) or Pain (scale 4-6). dicyclomine 2020-0 Yes [id number] 20mg Take 1 [facility] 20 mg 8-17 tablet by [facility] tablet 00:00: mouth [place] 00 every 6 Medical (six) Branch hours as needed for Abdominal pain. ibuprofen 2020-0 Yes [id number] 800mg Take 1 [facility] 800 mg 8-17 [id number] tablet by [facility] tablet 00:00: mouth [place] 00 every 6 Medical (six) Branch hours as needed for Pain (scale 1-3) or Pain (scale 4-6). dicyclomine 2020-0 2023- No [id number] 20mg Take 1 [facility] 20 mg 8-17 02-20 tablet by [facility] tablet 00:00: 00:00 mouth [place] 00 :00 every 6 Medical (six) Branch hours as needed for Abdominal pain. ibuprofen No [id number] 800mg Take 1 [facility] 800 mg 8-17 02-20 [id number] tablet by [facility] o f tablet 00:00: 00:00 mouth [place] 00 :00 every 6 Medical (six) Branch hours as needed for Pain (scale 1-3) or Pain (scale 4-6). dicyclomine No [id number] 20mg Take 1 [facility] 20 mg 8-17 02-20 tablet by [facility] tablet 00:00: 00:00 mouth [place] 00 :00 every 6 Medical (six) Branch hours as needed for Abdominal pain. ibuprofen No [id number] 800mg Take 1 [facility] 800 mg 8-17 02-20 [id number] tablet by [facility] o f tablet 00:00: 00:00 mouth [place] 00 :00 every 6 Medical (six) Branch hours as needed for Pain (scale 1-3) or Pain (scale 4-6). dicyclomine No [id number] 20mg Take 1 [facility] 20 mg 8-17 02-20 tablet by [facility] of tablet 00:00: 00:00 mouth [place] 00 :00 every 6 Medical (six) Branch hours as needed for Abdominal pain. ibuprofen No [id number] 800mg Take 1 [facility] 800 mg 8-17 02-20 [id number] tablet by [facility] o f tablet 00:00: 00:00 mouth [place] 00 :00 every 6 Medical (six) Branch hours as needed for Pain (scale 1-3) or Pain (scale 4-6). dicyclomine No [id number] 20mg Take 1 [facility] 20 mg 8-17 02-20 tablet by [facility] of tablet 00:00: 00:00 mouth [place] 00 :00 every 6 Medical (six) Branch hours as needed for Abdominal pain. ibuprofen No [id number] 800mg Take 1 [facility] 800 mg 8-17 02-20 [id number] tablet by [facility] o f tablet 00:00: 00:00 mouth [place] 00 :00 every 6 Medical (six) Branch hours as needed for Pain (scale 1-3) or Pain (scale 4-6). dicyclomine 2022- No [id number] 20mg Take 1 [facility] 20 mg 8-17 02-20 tablet by [facility] of tablet 00:00: 00:00 mouth [place] 00 :00 every 6 Medical (six) Branch hours as needed for Abdominal pain. ibuprofen 2022- No [id number] 800mg Take 1 [facility] 800 mg 8-17 02-20 [id number] tablet by [facility] o f tablet 00:00: 00:00 mouth [place] 00 :00 every 6 Medical (six) Branch hours as needed for Pain (scale 1-3) or Pain (scale 4-6). acetaminoph 2019-0 Yes [id number] 1{tbl} Take 1 [facility] en-codeine 3-18 tablet by [facility] of (TYLENOL-CO 00:00: mouth [place] DEINE #3) 00 every 6 Medical 300-30 mg (six) Branch tablet hours as needed for Pain (scale 7-10). proMETHazin 2019-0 Yes [id number] 25mg Take 1 [facility] e 25 mg 3-18 tablet by [facility] of tablet 00:00: mouth [place] 00 every 6 Medical (six) Branch hours as needed for Nausea and Vomiting (N/V). acetaminoph 2020-0 Yes [id number] 1{tbl} Take 1 [facility] en-codeine 3-18 tablet by [facility]y of (TYLENOL-CO 00:00: mouth [place] DEINE #3) 00 every 6 Medical 300-30 mg (six) Branch tablet hours as needed for Pain (scale 7-10). proMETHazin 2019-0 Yes [id number] 25mg Take 1 [facility] e 25 mg 3-18 tablet by [facility] of tablet 00:00: mouth [place] 00 every 6 Medical (six) Branch hours as needed for Nausea and Vomiting (N/V). acetaminoph 2020-0 Yes [id number] 1{tbl} Take 1 [facility] en-codeine 3-18 tablet by [facility]y of (TYLENOL-CO 00:00: mouth [place] DEINE #3) 00 every 6 Medical 300-30 mg (six) Branch tablet hours as needed for Pain (scale 7-10). proMETHazin 2020-0 Yes [id number] 25mg Take 1 [facility] e 25 mg 3-18 tablet by [facility] of tablet 00:00: mouth [place] 00 every 6 Medical (six) Branch hours as needed for Nausea and Vomiting (N/V). acetaminoph 2020-0 Yes [id number] 1{tbl} Take 1 [facility] en-codeine 3-18 tablet by ity of (TYLENOL-CO 00:00: mouth [place] DEINE #3) 00 every 6 Medical 300-30 mg (six) Branch tablet hours as needed for Pain (scale 7-10). proMETHazin 2020-0 Yes [id number] 25mg Take 1 [facility] e 25 mg 3-18 tablet by [facility] of tablet 00:00: mouth [place] 00 every 6 Medical (six) Branch hours as needed for Nausea and Vomiting (N/V). acetaminoph 2020-0 Yes [id number] 1{tbl} Take 1 [facility] en-codeine 3-18 tablet by [facility]y of (TYLENOL-CO 00:00: mouth [place] DEINE #3) 00 every 6 Medical 300-30 mg (six) Branch tablet hours as needed for Pain (scale 7-10). proMETHazin 2020-0 Yes [id number] 25mg Take 1 [facility] e 25 mg 3-18 tablet by [facility] of tablet 00:00: mouth [place] 00 every 6 Medical (six) Branch hours as needed for Nausea and Vomiting (N/V). acetaminoph 2020-0 Yes [id number] 1{tbl} Take 1 [facility] en-codeine 3-18 tablet by [facility]y of (TYLENOL-CO 00:00: mouth [place] DEINE #3) 00 every 6 Medical 300-30 mg (six) Branch tablet hours as needed for Pain (scale 7-10). proMETHazin 2020-0 Yes [id number] 25mg Take 1 [facility] e 25 mg 3-18 tablet by [facility] of tablet 00:00: mouth [place] 00 every 6 Medical (six) Branch hours as needed for Nausea and Vomiting (N/V). acetaminoph 2020-0 Yes [id number] 1{tbl} Take 1 [facility] en-codeine 3-18 tablet by ity of (TYLENOL-CO 00:00: mouth [place] DEINE #3) 00 every 6 Medical 300-30 mg (six) Branch tablet hours as needed for Pain (scale 7-10). proMETHazin 2020-0 Yes [id number] 25mg Take 1 [facility] e 25 mg 3-18 tablet by [facility] of tablet 00:00: mouth [place] 00 every 6 Medical (six) Branch hours as needed for Nausea and Vomiting (N/V). acetaminoph 2020-0 Yes [id number] 1{tbl} Take 1 [facility] en-codeine 3-18 tablet by [facility]y of (TYLENOL-CO 00:00: mouth [place] DEINE #3) 00 every 6 Medical 300-30 mg (six) Branch tablet hours as needed for Pain (scale 7-10). proMETHazin 2020-0 Yes [id number] 25mg Take 1 [facility] e 25 mg 3-18 tablet by [facility] of tablet 00:00: mouth [place] 00 every 6 Medical (six) Branch hours as needed for Nausea and Vomiting (N/V). acetaminoph 2020-0 Yes [id number] 1{tbl} Take 1 [facility] en-codeine 3-18 tablet by [facility]y of (TYLENOL-CO 00:00: mouth [place] DEINE #3) 00 every 6 Medical 300-30 mg (six) Branch tablet hours as needed for Pain (scale 7-10). proMETHazin 2020-0 Yes [id number] 25mg Take 1 [facility] e 25 mg 3-18 tablet by [facility] of tablet 00:00: mouth [place] 00 every 6 Medical (six) Branch hours as needed for Nausea and Vomiting (N/V). acetaminoph 2020-0 Yes [id number] 1{tbl} Take 1 [facility] en-codeine 3-18 tablet by [facility]y of (TYLENOL-CO 00:00: mouth [place] DEINE #3) 00 every 6 Medical 300-30 mg (six) Branch tablet hours as needed for Pain (scale 7-10). proMETHazin 2020-0 Yes [id number] 25mg Take 1 [facility] e 25 mg 3-18 tablet by [facility] of tablet 00:00: mouth [place] 00 every 6 Medical (six) Branch hours as needed for Nausea and Vomiting (N/V). acetaminoph 2020-0 Yes [id number] 1{tbl} Take 1 [facility] en-codeine 3-18 tablet by [facility]y of (TYLENOL-CO 00:00: mouth [place] DEINE #3) 00 every 6 Medical 300-30 mg (six) Branch tablet hours as needed for Pain (scale 7-10). proMETHazin 2020-0 Yes [id number] 25mg Take 1 [facility] 25 mg 3-18 tablet by [facility] of tablet 00:00: mouth [place] 00 every 6 Medical (six) Branch hours as needed for Nausea and Vomiting (N/V). acetaminoph 2020-0 Yes [id number] 1{tbl} Take 1 [facility] en-codeine 3-18 tablet by [facility]y of (TYLENOL-CO 00:00: mouth [place] DEINE #3) 00 every 6 Medical 300-30 mg (six) Branch tablet hours as needed for Pain (scale 7-10). proMETHazin 2020-0 Yes [id number] 25mg Take 1 [facility] 25 mg 3-18 tablet by [facility] of tablet 00:00: mouth [place] 00 every 6 Medical (six) Branch hours as needed for Nausea and Vomiting (N/V). acetaminoph 2020-0 Yes [id number] 1{tbl} Take 1 [facility] en-codeine 3-18 tablet by [facility] of (TYLENOL-CO 00:00: mouth [place] DEINE #3) 00 every 6 Medical 300-30 mg (six) Branch tablet hours as needed for Pain (scale 7-10). proMETHazin 2020-0 Yes [id number] 25mg Take 1 [facility] 25 mg 3-18 tablet by [facility] of tablet 00:00: mouth [place] 00 every 6 Medical (six) Branch hours as needed for Nausea and Vomiting (N/V). acetaminoph 2020-0 Yes [id number] 1{tbl} Take 1 [facility] en-codeine 3-18 tablet by [facility] of (TYLENOL-CO 00:00: mouth [place] DEINE #3) 00 every 6 Medical 300-30 mg (six) Branch tablet hours as needed for Pain (scale 7-10). proMETHazin 2020-0 Yes [id number] 25mg Take 1 [facility] e 25 mg 3-18 tablet by [facility] of tablet 00:00: mouth [place] 00 every 6 Medical (six) Branch hours as needed for Nausea and Vomiting (N/V). acetaminoph 2020-0 Yes [id number] 1{tbl} Take 1 [facility] en-codeine 3-18 tablet by [facility] of (TYLENOL-CO 00:00: mouth [place] DEINE #3) 00 every 6 Medical 300-30 mg (six) Branch tablet hours as needed for Pain (scale 7-10). proMETHazin 2020-0 Yes [id number] 25mg Take 1 [facility] e 25 mg 3-18 tablet by [facility] of tablet 00:00: mouth [place] 00 every 6 Medical (six) Branch hours as needed for Nausea and Vomiting (N/V). acetaminoph 2020-0 Yes [id number] 1{tbl} Take 1 [facility] en-codeine 3-18 tablet by [facility] of (TYLENOL-CO 00:00: mouth [place] DEINE #3) 00 every 6 Medical 300-30 mg (six) Branch tablet hours as needed for Pain (scale 7-10). proMETHazin 2020-0 Yes [id number] 25mg Take 1 [facility] 25 mg 3-18 tablet by [facility] of tablet 00:00: mouth [place] 00 every 6 Medical (six) Branch hours as needed for Nausea and Vomiting (N/V). acetaminoph 2020-0 Yes [id number] 1{tbl} Take 1 [facility] en-codeine 3-18 tablet by [facility] of (TYLENOL-CO 00:00: mouth [place] DEINE #3) 00 every 6 Medical 300-30 mg (six) Branch tablet hours as needed for Pain (scale 7-10). proMETHazin 2020-0 Yes [id number] 25mg Take 1 [facility] 25 mg 3-18 tablet by [facility] of tablet 00:00: mouth [place] 00 every 6 Medical (six) Branch hours as needed for Nausea and Vomiting (N/V). acetaminoph 2020-0 Yes [id number] 1{tbl} Take 1 [facility] en-codeine 3-18 tablet by [facility] of (TYLENOL-CO 00:00: mouth [place] DEINE #3) 00 every 6 Medical 300-30 mg (six) Branch tablet hours as needed for Pain (scale 7-10). proMETHazin 2020-0 Yes [id number] 25mg Take 1 [facility] 25 mg 3-18 tablet by [facility] of tablet 00:00: mouth [place] 00 every 6 Medical (six) Branch hours as needed for Nausea and Vomiting (N/V). acetaminoph 2020-0 Yes [id number] 1{tbl} Take 1 [facility] en-codeine 3-18 tablet by [facility] of (TYLENOL-CO 00:00: mouth [place] DEINE #3) 00 every 6 Medical 300-30 mg (six) Branch tablet hours as needed for Pain (scale 7-10). proMETHazin 2020-0 Yes [id number] 25mg Take 1 [facility] 25 mg 3-18 tablet by [facility] of tablet 00:00: mouth [place] 00 every 6 Medical (six) Branch hours as needed for Nausea and Vomiting (N/V). acetaminoph 2020-0 Yes [id number] 1{tbl} Take 1 [facility] en-codeine 3-18 tablet by [facility] of (TYLENOL-CO 00:00: mouth [place] DEINE #3) 00 every 6 Medical 300-30 mg (six) Branch tablet hours as needed for Pain (scale 7-10). proMETHazin 2020-0 Yes [id number] 25mg Take 1 [facility] 25 mg 3-18 tablet by [facility] of tablet 00:00: mouth [place] 00 every 6 Medical (six) Branch hours as needed for Nausea and Vomiting (N/V). acetaminoph 2020-0 Yes [id number] 1{tbl} Take 1 [facility] en-codeine 3-18 tablet by [facility] of (TYLENOL-CO 00:00: mouth [place] DEINE #3) 00 every 6 Medical 300-30 mg (six) Branch tablet hours as needed for Pain (scale 7-10). proMETHazin 2020-0 Yes [id number] 25mg Take 1 [facility] 25 mg 3-18 tablet by [facility] of tablet 00:00: mouth [place] 00 every 6 Medical (six) Branch hours as needed for Nausea and Vomiting (N/V). acetaminoph 2020-0 Yes [id number] 1{tbl} Take 1 [facility] en-codeine 3-18 tablet by [facility] of (TYLENOL-CO 00:00: mouth [place] DEINE #3) 00 every 6 Medical 300-30 mg (six) Branch tablet hours as needed for Pain (scale 7-10). proMETHazin 2020-0 Yes [id number] 25mg Take 1 [facility] 25 mg 3-18 tablet by [facility] of tablet 00:00: mouth [place] 00 every 6 Medical (six) Branch hours as needed for Nausea and Vomiting (N/V). acetaminoph 2020-0 2022- No [id number] 1{tbl} Take 1 [facility] en-codeine 3-18 02-20 tablet by [facility] of (TYLENOL-CO 00:00: 00:00 mouth [place] DEINE #3) 00 :00 every 6 Medical 300-30 mg (six) Branch tablet hours as needed for Pain (scale 7-10). proMETHazin 2020-0 2022- No [id number] 25mg Take 1 [facility] e 25 mg 3-18 02-20 tablet by [facility] of tablet 00:00: 00:00 mouth [place] 00 :00 every 6 Medical (six) Branch hours as needed for Nausea and Vomiting (N/V). acetaminoph 2022- No [id number] 1{tbl} Take 1 [facility] en-codeine 3-18 02-20 tablet by [facility] of (TYLENOL-CO 00:00: 00:00 mouth [place] DEINE #3) 00 :00 every 6 Medical 300-30 mg (six) Branch tablet hours as needed for Pain (scale 7-10). proMETHazin No [id number] 25mg Take 1 [facility] e 25 mg 3-18 02-20 tablet by [facility] of tablet 00:00: 00:00 mouth [place] 00 :00 every 6 Medical (six) Branch hours as needed for Nausea and Vomiting (N/V). acetaminoph No [id number] 1{tbl} Take 1 [facility] en-codeine 3-18 02-20 tablet by [facility] of (TYLENOL-CO 00:00: 00:00 mouth [place] DEINE #3) 00 :00 every 6 Medical 300-30 mg (six) Branch tablet hours as needed for Pain (scale 7-10). proMETHazin 2019-2022- No [id number] 25mg Take 1 [facility] e 25 mg 3-18 02-20 tablet by [facility] of tablet 00:00: 00:00 mouth [place] 00 :00 every 6 Medical (six) Branch hours as needed for Nausea and Vomiting (N/V). acetaminoph 2022- No [id number] 1{tbl} Take 1 [facility] en-codeine 3-18 02-20 tablet by [facility] of (TYLENOL-CO 00:00: 00:00 mouth [place] DEINE #3) 00 :00 every 6 Medical 300-30 mg (six) Branch tablet hours as needed for Pain (scale 7-10). proMETHazin 2019-2022- No [id number] 25mg Take 1 [facility] e 25 mg 3-18 02-20 tablet by [facility] of tablet 00:00: 00:00 mouth [place] 00 :00 every 6 Medical (six) Branch hours as needed for Nausea and Vomiting (N/V). acetaminoph 2022- No [id number] 1{tbl} Take 1 [facility] en-codeine 3-18 02-20 tablet by [facility] of (TYLENOL-CO 00:00: 00:00 mouth [place] DEINE #3) 00 :00 every 6 Medical 300-30 mg (six) Branch tablet hours as needed for Pain (scale 7-10). proMETHazin 2020-0 3- No [id number] 25mg Take 1 [facility] e 25 mg 3-18 02-20 tablet by [facility] of tablet 00:00: 00:00 mouth [place] 00 :00 every 6 Medical (six) Branch hours as needed for Nausea and Vomiting (N/V). tiZANidine 2020-0 Yes [id number] 2mg Take 1 [facility] 2 mg tablet 2-06 tablet by [facility] of 00:00: mouth [place] 00 every 8 Medical (eight) Branch hours as needed (muscle spasms). acetaminoph 2020-0 Yes [id number] 650mg Take 1 [facility] en (TYLENOL 2-06 tablet by [facility] of ARTHRITIS 00:00: mouth [place] PAIN) 650 00 every 8 Medical mg CR (eight) Branch tablet hours as needed for Pain. Diclofenac 2020-0 Yes [id number] Apply to [facility] Sodium 2-06 area(s) 4 ity of (VOLTAREN) 00:00: (four) [place] 1 % gel 00 times Medical daily. Branch Diagnosis: M54.42Appl y 4 g qid to affected areas tiZANidine 2020-0 Yes [id number] 2mg Take 1 [facility] n[facility] 2 mg tablet 2-06 tablet by [facility] of 00:00: mouth [place] 00 every 8 Medical (eight) Branch hours as needed (muscle spasms). acetaminoph 2020-0 Yes [id number] 650mg Take 1 [facility] en (TYLENOL 2-06 tablet by [facility] of ARTHRITIS 00:00: mouth [place] PAIN) 650 00 every 8 Medical mg CR (eight) Branch tablet hours as needed for Pain. Diclofenac 2020-0 Yes [id number] Apply to [facility] Sodium 2-06 area(s) 4 ity of (VOLTAREN) 00:00: (four) [place] 1 % gel 00 times Medical daily. Branch Diagnosis: M54.42Appl y 4 g qid to affected areas tiZANidine 2020-0 Yes [id number] 2mg Take 1 [facility] 2 mg tablet 2-06 tablet by [facility] of 00:00: mouth [place] 00 every 8 Medical (eight) Branch hours as needed (muscle spasms). acetaminoph 2020-0 Yes [id number] 650mg Take 1 [facility] en (TYLENOL 2-06 tablet by [facility] of ARTHRITIS 00:00: mouth [place] PAIN) 650 00 every 8 Medical mg CR (eight) Branch tablet hours as needed for Pain. Diclofenac 2020-0 Yes [id number] Apply to [facility] Sodium 2-06 area(s) 4 ity of (VOLTAREN) 00:00: (four) [place] 1 % gel 00 times Medical daily. Branch Diagnosis: M54.42Appl y 4 g qid to affected areas tiZANidine 2020-0 Yes [id number] 2mg Take 1 [facility] n[facility] 2 mg tablet 2-06 tablet by [facility] of 00:00: mouth [place] 00 every 8 Medical (eight) Branch hours as needed (muscle spasms). acetaminoph 2020-0 Yes [id number] 650mg Take 1 [facility] en (TYLENOL 2-06 tablet by it[facility] of ARTHRITIS 00:00: mouth [place] PAIN) 650 00 every 8 Medical mg CR (eight) Branch tablet hours as needed for Pain. Diclofenac 2020-0 Yes [id number] Apply to [facility] Sodium 2-06 area(s) 4 ity of (VOLTAREN) 00:00: (four) [place] 1 % gel 00 times Medical daily. Branch Diagnosis: M54.42Appl y 4 g qid to affected areas tiZANidine 2020-0 Yes [id number] 2mg Take 1 [facility] n[facility] 2 mg tablet 2-06 tablet by [facility] of 00:00: mouth [place] 00 every 8 Medical (eight) Branch hours as needed (muscle spasms). acetaminoph 2020-0 Yes [id number] 650mg Take 1 [facility] en (TYLENOL 2-06 tablet by ity of ARTHRITIS 00:00: mouth [place] PAIN) 650 00 every 8 Medical mg CR (eight) Branch tablet hours as needed for Pain. Diclofenac 2020-0 Yes [id number] Apply to [facility] Sodium 2-06 area(s) 4 ity of (VOLTAREN) 00:00: (four) [place] 1 % gel 00 times Medical daily. Branch Diagnosis: M54.42Appl y 4 g qid to affected areas tiZANidine 2020-0 Yes [id number] 2mg Take 1 [facility] n[facility] 2 mg tablet 2-06 tablet by [facility] of 00:00: mouth [place] 00 every 8 Medical (eight) Branch hours as needed (muscle spasms). acetaminoph 2020-0 Yes [id number] 650mg Take 1 [facility] en (TYLENOL 2-06 tablet by ity of ARTHRITIS 00:00: mouth [place] PAIN) 650 00 every 8 Medical mg CR (eight) Branch tablet hours as needed for Pain. Diclofenac 2020-0 Yes [id number] Apply to [facility] Sodium 2-06 area(s) 4 ity of (VOLTAREN) 00:00: (four) [place] 1 % gel 00 times Medical daily. Branch Diagnosis: M54.42Appl y 4 g qid to affected areas tiZANidine 2020-0 Yes [id number] 2mg Take 1 [facility] 2 mg tablet 2-06 tablet by [facility] of 00:00: mouth [place] 00 every 8 Medical (eight) Branch hours as needed (muscle spasms). acetaminoph 2020-0 Yes [id number] 650mg Take 1 [facility] en (TYLENOL 2-06 tablet by ity of ARTHRITIS 00:00: mouth [place] PAIN) 650 00 every 8 Medical mg CR (eight) Branch tablet hours as needed for Pain. Diclofenac 2020-0 Yes [id number] Apply to [facility] Sodium 2-06 area(s) 4 ity of (VOLTAREN) 00:00: (four) [place] 1 % gel 00 times Medical daily. Branch Diagnosis: M54.42Appl y 4 g qid to affected areas tiZANidine 2020-0 Yes [id number] 2mg Take 1 [facility] 2 mg tablet 2-06 tablet by ity of 00:00: mouth [place] 00 every 8 Medical (eight) Branch hours as needed (muscle spasms). acetaminoph 2020-0 Yes [id number] 650mg Take 1 [facility] en (TYLENOL 2-06 tablet by ity of ARTHRITIS 00:00: mouth [place] PAIN) 650 00 every 8 Medical mg CR (eight) Branch tablet hours as needed for Pain. Diclofenac 2020-0 Yes [id number] Apply to [facility] Sodium 2-06 area(s) 4 ity of (VOLTAREN) 00:00: (four) [place] 1 % gel 00 times Medical daily. Branch Diagnosis: M54.42Appl y 4 g qid to affected areas tiZANidine 2020-0 Yes [id number] 2mg Take 1 [facility] 2 mg tablet 2-06 tablet by ity of 00:00: mouth [place] 00 every 8 Medical (eight) Branch hours as needed (muscle spasms). acetaminoph 2020-0 Yes [id number] 650mg Take 1 [facility] en (TYLENOL 2-06 tablet by ity of ARTHRITIS 00:00: mouth [place] PAIN) 650 00 every 8 Medical mg CR (eight) Branch tablet hours as needed for Pain. Diclofenac 2020-0 Yes [id number] Apply to [facility] Sodium 2-06 area(s) 4 ity of (VOLTAREN) 00:00: (four) [place] 1 % gel 00 times Medical daily. Branch Diagnosis: M54.42Appl y 4 g qid to affected areas tiZANidine 2020-0 Yes [id number] 2mg Take 1 [facility] 2 mg tablet 2-06 tablet by it[facility] of 00:00: mouth [place] 00 every 8 Medical (eight) Branch hours as needed (muscle spasms). acetaminoph 2020-0 Yes [id number] 650mg Take 1 [facility] en (TYLENOL 2-06 tablet by ity of ARTHRITIS 00:00: mouth [place] PAIN) 650 00 every 8 Medical mg CR (eight) Branch tablet hours as needed for Pain. Diclofenac 2020-0 Yes [id number] Apply to [facility] Sodium 2-06 area(s) 4 ity of (VOLTAREN) 00:00: (four) [place] 1 % gel 00 times Medical daily. Branch Diagnosis: M54.42Appl y 4 g qid to affected areas tiZANidine 2020-0 Yes [id number] 2mg Take 1 [facility] 2 mg tablet 2-06 tablet by ity of 00:00: mouth [place] 00 every 8 Medical (eight) Branch hours as needed (muscle spasms). acetaminoph 2020-0 Yes [id number] 650mg Take 1 [facility] en (TYLENOL 2-06 tablet by ity of ARTHRITIS 00:00: mouth [place] PAIN) 650 00 every 8 Medical mg CR (eight) Branch tablet hours as needed for Pain. Diclofenac 2020-0 Yes [id number] Apply to [facility] Sodium 2-06 area(s) 4 ity of (VOLTAREN) 00:00: (four) [place] 1 % gel 00 times Medical daily. Branch Diagnosis: M54.42Appl y 4 g qid to affected areas tiZANidine 2020-0 Yes [id number] 2mg Take 1 [facility] 2 mg tablet 2-06 tablet by [facility]y of 00:00: mouth [place] 00 every 8 Medical (eight) Branch hours as needed (muscle spasms). acetaminoph 2020-0 Yes [id number] 650mg Take 1 [facility] en (TYLENOL 2-06 tablet by ity of ARTHRITIS 00:00: mouth [place] PAIN) 650 00 every 8 Medical mg CR (eight) Branch tablet hours as needed for Pain. Diclofenac 2020-0 Yes [id number] Apply to [facility] Sodium 2-06 area(s) 4 ity of (VOLTAREN) 00:00: (four) [place] 1 % gel 00 times Medical daily. Branch Diagnosis: M54.42Appl y 4 g qid to affected areas tiZANidine 2020-0 Yes [id number] 2mg Take 1 [facility] 2 mg tablet 2-06 tablet by [facility] of 00:00: mouth [place] 00 every 8 Medical (eight) Branch hours as needed (muscle spasms). acetaminoph 2020-0 Yes [id number] 650mg Take 1 [facility] en (TYLENOL 2-06 tablet by ity of ARTHRITIS 00:00: mouth [place] PAIN) 650 00 every 8 Medical mg CR (eight) Branch tablet hours as needed for Pain. Diclofenac 2020-0 Yes [id number] Apply to [facility] Sodium 2-06 area(s) 4 ity of (VOLTAREN) 00:00: (four) [place] 1 % gel 00 times Medical daily. Branch Diagnosis: M54.42Appl y 4 g qid to affected areas tiZANidine 2020-0 Yes [id number] 2mg Take 1 [facility] 2 mg tablet 2-06 tablet by ity of 00:00: mouth [place] 00 every 8 Medical (eight) Branch hours as needed (muscle spasms). acetaminoph 2020-0 Yes [id number] 650mg Take 1 [facility] en (TYLENOL 2-06 tablet by ity of ARTHRITIS 00:00: mouth [place] PAIN) 650 00 every 8 Medical mg CR (eight) Branch tablet hours as needed for Pain. Diclofenac 2020-0 Yes [id number] Apply to [facility] Sodium 2-06 area(s) 4 ity of (VOLTAREN) 00:00: (four) [place] 1 % gel 00 times Medical daily. Branch Diagnosis: M54.42Appl y 4 g qid to affected areas tiZANidine 2020-0 Yes [id number] 2mg Take 1 [facility] 2 mg tablet 2-06 tablet by ity of 00:00: mouth [place] 00 every 8 Medical (eight) Branch hours as needed (muscle spasms). acetaminoph 2020-0 Yes [id number] 650mg Take 1 [facility] en (TYLENOL 2-06 tablet by ity of ARTHRITIS 00:00: mouth [place] PAIN) 650 00 every 8 Medical mg CR (eight) Branch tablet hours as needed for Pain. Diclofenac 2020-0 Yes [id number] Apply to [facility] Sodium 2-06 area(s) 4 ity of (VOLTAREN) 00:00: (four) [place] 1 % gel 00 times Medical daily. Branch Diagnosis: M54.42Appl y 4 g qid to affected areas tiZANidine 2020-0 Yes [id number] 2mg Take 1 [facility] 2 mg tablet 2-06 tablet by ity of 00:00: mouth [place] 00 every 8 Medical (eight) Branch hours as needed (muscle spasms). acetaminoph 2020-0 Yes [id number] 650mg Take 1 [facility] en (TYLENOL 2-06 tablet by ity of ARTHRITIS 00:00: mouth [place] PAIN) 650 00 every 8 Medical mg CR (eight) Branch tablet hours as needed for Pain. Diclofenac 2020-0 Yes [id number] Apply to [facility] Sodium 2-06 area(s) 4 ity of (VOLTAREN) 00:00: (four) [place] 1 % gel 00 times Medical daily. Branch Diagnosis: M54.42Appl y 4 g qid to affected areas tiZANidine 2020-0 Yes [id number] 2mg Take 1 [facility] 2 mg tablet 2-06 tablet by ity of 00:00: mouth [place] 00 every 8 Medical (eight) Branch hours as needed (muscle spasms). acetaminoph 2020-0 Yes [id number] 650mg Take 1 [facility] en (TYLENOL 2-06 tablet by ity of ARTHRITIS 00:00: mouth [place] PAIN) 650 00 every 8 Medical mg CR (eight) Branch tablet hours as needed for Pain. Diclofenac 2020-0 Yes [id number] Apply to [facility] Sodium 2-06 area(s) 4 ity of (VOLTAREN) 00:00: (four) [place] 1 % gel 00 times Medical daily. Branch Diagnosis: M54.42Appl y 4 g qid to affected areas tiZANidine 2020-0 Yes [id number] 2mg Take 1 [facility] 2 mg tablet 2-06 tablet by it[facility] of 00:00: mouth [place] 00 every 8 Medical (eight) Branch hours as needed (muscle spasms). acetaminoph 2020-0 Yes [id number] 650mg Take 1 [facility] en (TYLENOL 2-06 tablet by ity of ARTHRITIS 00:00: mouth [place] PAIN) 650 00 every 8 Medical mg CR (eight) Branch tablet hours as needed for Pain. Diclofenac 2020-0 Yes [id number] Apply to [facility] Sodium 2-06 area(s) 4 ity of (VOLTAREN) 00:00: (four) [place] 1 % gel 00 times Medical daily. Branch Diagnosis: M54.42Appl y 4 g qid to affected areas tiZANidine 2020-0 Yes [id number] 2mg Take 1 [facility] 2 mg tablet 2-06 tablet by ity of 00:00: mouth [place] 00 every 8 Medical (eight) Branch hours as needed (muscle spasms). acetaminoph 2020-0 Yes [id number] 650mg Take 1 [facility] en (TYLENOL 2-06 tablet by ity of ARTHRITIS 00:00: mouth [place] PAIN) 650 00 every 8 Medical mg CR (eight) Branch tablet hours as needed for Pain. Diclofenac 2020-0 Yes [id number] Apply to [facility] Sodium 2-06 area(s) 4 ity of (VOLTAREN) 00:00: (four) [place] 1 % gel 00 times Medical daily. Branch Diagnosis: M54.42Appl y 4 g qid to affected areas tiZANidine 2020-0 Yes [id number] 2mg Take 1 [facility] 2 mg tablet 2-06 tablet by ity of 00:00: mouth [place] 00 every 8 Medical (eight) Branch hours as needed (muscle spasms). acetaminoph 2020-0 Yes [id number] 650mg Take 1 [facility] en (TYLENOL 2-06 tablet by ity of ARTHRITIS 00:00: mouth [place] PAIN) 650 00 every 8 Medical mg CR (eight) Branch tablet hours as needed for Pain. Diclofenac 2020-0 Yes [id number] Apply to [facility] Sodium 2-06 area(s) 4 ity of (VOLTAREN) 00:00: (four) [place] 1 % gel 00 times Medical daily. Branch Diagnosis: M54.42Appl y 4 g qid to affected areas tiZANidine 2020-0 Yes [id number] 2mg Take 1 [facility] 2 mg tablet 2-06 tablet by ity of 00:00: mouth [place] 00 every 8 Medical (eight) Branch hours as needed (muscle spasms). acetaminoph 2020-0 Yes [id number] 650mg Take 1 [facility] en (TYLENOL 2-06 tablet by ity of ARTHRITIS 00:00: mouth [place] PAIN) 650 00 every 8 Medical mg CR (eight) Branch tablet hours as needed for Pain. Diclofenac 2020-0 Yes [id number] Apply to [facility] Sodium 2-06 area(s) 4 ity of (VOLTAREN) 00:00: (four) [place] 1 % gel 00 times Medical daily. Branch Diagnosis: M54.42Appl y 4 g qid to affected areas tiZANidine 2020-0 Yes [id number] 2mg Take 1 [facility] 2 mg tablet 2-06 tablet by ity of 00:00: mouth [place] 00 every 8 Medical (eight) Branch hours as needed (muscle spasms). acetaminoph 2020-0 Yes [id number] 650mg Take 1 [facility] en (TYLENOL 2-06 tablet by ity of ARTHRITIS 00:00: mouth [place] PAIN) 650 00 every 8 Medical mg CR (eight) Branch tablet hours as needed for Pain. Diclofenac 2020-0 Yes [id number] Apply to [facility] Sodium 2-06 area(s) 4 ity of (VOLTAREN) 00:00: (four) [place] 1 % gel 00 times Medical daily. Branch Diagnosis: M54.42Appl y 4 g qid to affected areas tiZANidine 2020-0 2023- No [id number] 2mg Take 1 [facility] 2 mg tablet 2-06 02-20 tablet by it y of 00:00: 00:00 mouth [place] 00 :00 every 8 Medical (eight) Branch hours as needed (muscle spasms). acetaminoph 2020-0 2023- No [id number] 650mg Take 1 [facility] en (TYLENOL 2-06 02-20 tablet by it y of ARTHRITIS 00:00: 00:00 mouth [place] PAIN) 650 00 :00 every 8 Medical mg CR (eight) Branch tablet hours as needed for Pain. Diclofenac 2020-0 2023- No [id number] Apply to [facility] Sodium 2-06 02-20 area(s) 4 ity of (VOLTAREN) 00:00: 00:00 (four) [place] 1 % gel 00 :00 times Medical daily. Branch Diagnosis: M54.42Appl y 4 g qid to affected areas tiZANidine 2022- No [id number] 2mg Take 1 [facility] 2 mg tablet 2-20 tablet by it y of 00:00: 00:00 mouth [place] 00 :00 every 8 Medical (eight) Branch hours as needed (muscle spasms). acetaminoph 2022- No [id number] 650mg Take 1 [facility] en (TYLENOL 2-20 tablet by it y of ARTHRITIS 00:00: 00:00 mouth [place] PAIN) 650 00 :00 every 8 Medical mg CR (eight) Branch tablet hours as needed for Pain. Diclofenac 2022- No [id number] Apply to [facility] Sodium 2-20 area(s) 4 ity of (VOLTAREN) 00:00: 00:00 (four) [place] 1 % gel 00 :00 times Medical daily. Branch Diagnosis: M54.42Appl y 4 g qid to affected areas tiZANidine 2022- No [id number] 2mg Take 1 [facility] 2 mg tablet 2-20 tablet by it y of 00:00: 00:00 mouth [place] 00 :00 every 8 Medical (eight) Branch hours as needed (muscle spasms). acetaminoph 2022- No [id number] 650mg Take 1 [facility] en (TYLENOL 2-20 tablet by it y of ARTHRITIS 00:00: 00:00 mouth [place] PAIN) 650 00 :00 every 8 Medical mg CR (eight) Branch tablet hours as needed for Pain. Diclofenac 2022- No [id number] Apply to [facility] Sodium 06-18-20 area(s) 4 ity of (VOLTAREN) 00:00: 00:00 (four) [place] 1 % gel 00 :00 times Medical daily. Branch Diagnosis: M54.42Appl y 4 g qid to affected areas tiZANidine 2022- No [id number] 2mg Take 1 [facility] 2 mg tablet 2-20 tablet by it y of 00:00: 00:00 mouth [place] 00 :00 every 8 Medical (eight) Branch hours as needed (muscle spasms). acetaminoph 2022- No [id number] 650mg Take 1 [facility] en (TYLENOL 2-10 12-20 tablet by it y of ARTHRITIS 00:00: 00:00 mouth [place] PAIN) 650 00 :00 every 8 Medical mg CR (eight) Branch tablet hours as needed for Pain. Diclofenac 2022- No [id number] Apply to [facility] Sodium 06-18-20 area(s) 4 ity of (VOLTAREN) 00:00: 00:00 (four) [place] 1 % gel 00 :00 times Medical daily. Branch Diagnosis: M54.42Appl y 4 g qid to affected areas tiZANidine 2022- No [id number] 2mg Take 1 [facility] 2 mg tablet 06-1820 tablet by it y of 00:00: 00:00 mouth [place] 00 :00 every 8 Medical (eight) Branch hours as needed (muscle spasms). acetaminoph 2022- No [id number] 650mg Take 1 [facility] en (TYLENOL 06-1820 tablet by it y of ARTHRITIS 00:00: 00:00 mouth [place] PAIN) 650 00 :00 every 8 Medical mg CR (eight) Branch tablet hours as needed for Pain. Diclofenac 2022- No [id number] Apply to [facility] Sodium 06-18-20 area(s) 4 ity of (VOLTAREN) 00:00: 00:00 (four) [place] 1 % gel 00 :00 times Medical daily. Branch Diagnosis: M54.42Appl y 4 g qid to affected areas naproxen Yes [id number] 500mg Take 1 [facility] 500 mg 5-21 9107 tablet by ity of tablet 00:00: mouth (two) Medical times Branch daily with meals. naproxen Yes [id number] 500mg Take 1 [facility] 500 mg 5-21 9107 tablet by ity of tablet 00:00: mouth (two) Medical times Branch daily with meals. naproxen Yes [id number] 500mg Take 1 [facility] 500 mg 5-21 9107 tablet by [facility]y of tablet 00:00: mouth (two) Medical times Branch daily with meals. naproxen Yes [id number] 500mg Take 1 [facility] 500 mg 5-21 9107 tablet by ity of tablet 00:00: mouth (two) Medical times Branch daily with meals. naproxen Yes [id number] 500mg Take 1 [facility] 500 mg 5-21 9107 tablet by ity of tablet 00:00: mouth (two) Medical times Branch daily with meals. naproxen 2019-0 Yes [id number] 500mg Take 1 [facility] 500 mg 5-21 9107 tablet by [facility]y of tablet 00:00: mouth (two) Medical times Branch daily with meals. naproxen 2019-0 Yes [id number] 500mg Take 1 [facility] 500 mg 5-21 9107 tablet by [facility]y of tablet 00:00: mouth (two) Medical times Branch daily with meals. naproxen 2018-0 Yes [id number] 500mg Take 1 [facility] 500 mg 5-21 9107 tablet by [facility]y of tablet 00:00: mouth (two) Medical times Branch daily with meals. naproxen 2018-0 Yes [id number] 500mg Take 1 [facility] 500 mg 5-21 9107 tablet by [facility]y of tablet 00:00: mouth (two) Medical times Branch daily with meals. naproxen 2018-0 Yes [id number] 500mg Take 1 [facility] 500 mg 5-21 9107 tablet by [facility]y of tablet 00:00: mouth (two) Medical times Branch daily with meals. naproxen 2018-0 Yes [id number] 500mg Take 1 [facility] 500 mg 5-21 9107 tablet by [facility]y of tablet 00:00: mouth (two) Medical times Branch daily with meals. naproxen 2018-0 Yes [id number] 500mg Take 1 [facility] 500 mg 5-21 9107 tablet by [facility]y of tablet 00:00: mouth (two) Medical times Branch daily with meals. naproxen 2018-0 Yes [id number] 500mg Take 1 [facility] 500 mg 5-21 9107 tablet by [facility] of tablet 00:00: mouth (two) Medical times Branch daily with meals. naproxen 2019-0 Yes [id number] 500mg Take 1 [facility] 500 mg 5-21 9107 tablet by [facility] of tablet 00:00: mouth (two) Medical times Branch daily with meals. naproxen 2019-0 Yes [id number] 500mg Take 1 [facility] 500 mg 5-21 9107 tablet by [facility]y of tablet 00:00: mouth 2 [place] 00 (two) Medical times Branch daily with meals. naproxen 2018-0 Yes [id number] 500mg Take 1 [facility] 500 mg 5-21 9107 tablet by [facility]y of tablet 00:00: mouth [place] (two) Medical times Branch daily with meals. naproxen 2018-0 Yes [id number] 500mg Take 1 [facility] 500 mg 5-21 9107 tablet by ity of tablet 00:00: mouth [place] (two) Medical times Branch daily with meals. naproxen 0 Yes [id number] 500mg Take 1 Univers 500 mg 5-21 9107 tablet by ity of tablet 00:00: mouth [place] (two) Medical times Branch daily with meals. naproxen 0 Yes [id number] 500mg Take 1 Univers 500 mg 5-21 9107 tablet by ity of tablet 00:00: mouth [place] (two) Medical times Branch daily with meals. naproxen Yes [id number] 500mg Take 1 Univers 500 mg 5-21 9107 tablet by ity of tablet 00:00: [facility] [place] (two) Medical times Branch daily with meals. naproxen Yes [id number] 500mg Take 1 Univers 500 mg 5-21 9107 tablet by ity of tablet 00:00: [facility] [place] (two) Medical times Branch daily with meals. naproxen 0 Yes [id number] 500mg Take 1 Univers 500 mg 5-21 9107 tablet by ity of tablet 00:00: mouth [place] (two) Medical times Branch daily with meals. naproxen 3- No [id number] 500mg Take 1 Univers 500 mg 5-21 02-20 9107 tablet by ity of tablet 00:00: 00:[address] [place] [address] 00 :00 (two) Medical times Branch daily with meals. naproxen 2018-0 2023- No [id number] 500mg Take 1 Univers 500 mg 5-21 02-20 9107 tablet by ity of tablet 00:00: 00:00 mouth 2 [place] 00 :00 (two) Medical times Branch daily with meals. naproxen 2018-0 3- No [id number] 500mg Take 1 Univers 500 mg 5-21 02-20 9107 tablet by ity of tablet 00:00: 00:00 mouth 2 [place] 00 :00 (two) Medical times Branch daily with meals. naproxen 2022- No [id number] 500mg Take 1 Univers 500 mg 09-3007 tablet by ity of tablet 00:00: 00:00 mouth 2 [place] 00 :00 (two) Medical times [place] daily with meals. naproxen 2022- No [id number] 500mg Take 1 Univers 500 mg 09-30 9107 tablet by ity of tablet 00:00: 00:00 mouth 2 [place] 00 :00 (two) Medical times [place] daily with meals. acetaminoph acetaminoph No acetaminop [facility] en 300 en 300 hen 300 Medical mg-codeine mg-codeine mg-codeine 30 mg 30 mg 30 mg tablet tablet tablet aspirin 325 aspirin 325 No aspirin [facility] mg mg 325 mg Medical tablet,jaylene tablet,jaylene tablet,del yed release yed release ayed release atorvastati atorvastati No atorvastat [facility] n 40 mg n 40 mg in 40 mg Medic al tablet tablet tablet azithromyci azithromyci No azithromyc [facility] n 250 mg n 250 mg in 250 mg Me dical tablet tablet tablet benzonatate benzonatate No benzonatat [facility] 100 mg 100 mg e 100 mg Medical capsule capsule capsule bromphenira bromphenira No bromphenir [facility] mine-pseudo mine-pseudo amine-pseu Medical ephedrine-D ephedrine-D doephedrin M 2 mg-30 M 2 mg-30 e-DM 2 mg-10 mg/5 mg-10 mg/5 mg-30 mL oral mL oral mg-10 mg/5 syrup syrup mL oral syrup dexamethaso dexamethaso No dexamethas [facility] ne 4 mg ne 4 mg one 4 mg Medic al tablet 3 PO tablet 3 PO tablet 3 now, then 1 now, then 1 PO now, pill twice pill twice then 1 a day X 3 a day X 3 pill twice days then days then a day X 3 1/2 pill 1/2 pill days then twice a day twice a day 1/2 pill X 3 days X 3 days twice a then 1/2 then 1/2 day X 3 pill in AM pill in AM days then X 3 DAYS, X 3 DAYS, 1/2 pill then D/C then D/C in AM X 3 DAYS, then D/C docusate docusate No docusate Flakita via sodium 100 sodium 100 sodium 100 Medical mg capsule mg capsule mg capsule fluticasone fluticasone No fluticason [facility] propionate propionate e Med ical 50 50 propionate mcg/actuati mcg/actuati 50 on nasal on nasal mcg/actuat spray,suspe spray,suspe ion nasal nsion nsion spray,susp ension Foltx 2 Foltx 2 No Foltx 2 [facility] mg-1.13 mg-1.13 mg-1.13 Medica l mg-25 mg mg-25 mg mg-25 mg tablet 1 by tablet 1 by tablet 1 mouth daily mouth daily by mouth daily gabapentin gabapentin No gabapentin [facility] 300 mg 300 mg 300 mg Medical capsule capsule capsule hydrocodone hydrocodone No hydrocodon [facility] 7.5 7.5 e 7.5 Medical mg-acetamin mg-acetamin mg-acetami ophen 325 ophen 325 nophen 325 mg tablet mg tablet mg tablet ibuprofen ibuprofen No ibuprofen [facility] 600 mg 600 mg 600 mg Medical tablet tablet tablet ipratropium ipratropium No ipratropiu [facility] bromide 42 bromide 42 m bromide Medical mcg (0.06 mcg (0.06 42 mcg %) nasal %) nasal (0.06 %) spray spray nasal spray meloxicam meloxicam No meloxicam [facility] 15 mg 15 mg 15 mg Medical tablet tablet tablet nitrofurant nitrofurant No nitrofuran [facility] oin oin toin Medical monohydrate monohydrate monohydrat /macrocryst /macrocryst e/macrocry als 100 mg als 100 mg stals 100 capsule capsule mg capsule omeprazole omeprazole No omeprazole [facility] 40 mg 40 mg 40 mg Medical capsule,del capsule,del capsule,de ayed ayed layed release release release ondansetron ondansetron No ondansetro [facility] 8 mg 8 mg n 8 mg Medical disintegrat disintegrat disintegra ing tablet ing tablet ting tablet tretinoin tretinoin No tretinoin [facility] 0.025 % 0.025 % 0.025 % Medica l topical topical topical cream cream cream Immunizations Ordered Filled Immunization Date Status Comments Sourc e Immunization Name Name SARS-COV-2 COVID-19 2021-06-28 Completed [facility] of PFIZER JOSE MIGUEL-SUCROSE 00:00:00 [place] [facility] VACCINE (KRAMER TOP) Branch SARS-COV-2 COVID-19 2021-06-28 Completed Unive rsity of PFIZER JOSE MIGUEL-SUCROSE 00:00:00 [place] [facility] VACCINE (KRAMER TOP) Branch SARS-COV-2 COVID-19 2021-06-28 Completed Unive rsity of PFIZER JOSE MIGUEL-SUCROSE 00:00:00 [place] [facility] VACCINE (KRAMER TOP) Branch SARS-COV-2 COVID-19 2021-06-28 Completed Unive rsity of PFIZER JOSE MIGUEL-SUCROSE 00:00:00 [place] [facility] VACCINE (KRAMER TOP) Branch SARS-COV-2 COVID-19 2021-06-28 Completed Unive rsity of PFIZER JOSE MIGUEL-SUCROSE 00:00:00 [place] [facility] VACCINE (KRAMER TOP) Branch SARS-COV-2 COVID-19 2021-06-28 Completed Unive rsity of PFIZER JOSE MIGUEL-SUCROSE 00:00:00 [place] [facility] VACCINE (KRAMER TOP) Branch SARS-COV-2 COVID-19 2021-06-28 Completed Unive rsity of PFIZER JOSE MIGUEL-SUCROSE 00:00:00 [place] [facility] VACCINE (KRAMER TOP) Branch SARS-COV-2 COVID-19 2021-06-28 Completed Unive rsity of PFIZER JOSE MIGUEL-SUCROSE 00:00:00 [place] [facility] VACCINE (KRAMER TOP) Branch SARS-COV-2 COVID-19 2021-06-28 Completed Unive rsity of PFIZER JOSE MIGUEL-SUCROSE 00:00:00 [place] [facility] VACCINE (KRAMER TOP) Branch SARS-COV-2 COVID-19 2021-06-28 Completed Unive rsity of PFIZER JOSE MIGUEL-SUCROSE 00:00:00 [place] [facility] VACCINE (KRAMER TOP) Branch SARS-COV-2 COVID-19 2021-06-28 Completed Unive rsity of PFIZER JOSE MIGUEL-SUCROSE 00:00:00 [place] [facility] VACCINE (KRAMER TOP) Branch SARS-COV-2 COVID-19 2021-06-28 Completed Unive rsity of PFIZER JOSE MIGUEL-SUCROSE 00:00:00 [place] [facility] VACCINE (KRAMER TOP) Branch SARS-COV-2 COVID-19 2021-06-28 Completed Unive rsity of PFIZER JOSE MIGUEL-SUCROSE 00:00:00 [place] [facility] VACCINE (KRAMER TOP) Branch SARS-COV-2 COVID-19 2021-06-28 Completed Unive rsity of PFIZER JOSE MIGUEL-SUCROSE 00:00:00 [place] [facility] VACCINE (KRAMER TOP) Branch SARS-COV-2 COVID-19 2021-06-28 Completed Unive rsity of PFIZER JOSE MIGUEL-SUCROSE 00:00:00 [place] [facility] VACCINE (KRAMER TOP) Branch SARS-COV-2 COVID-19 2021-06-28 Completed Unive rsity of PFIZER JOSE MIGUEL-SUCROSE 00:00:00 [place] [facility] VACCINE (KRAMER TOP) Branch SARS-COV-2 COVID-19 2021-06-28 Completed Unive rsity of PFIZER JOSE MIGUEL-SUCROSE 00:00:00 [place] [facility] VACCINE (KRAMER TOP) Branch SARS-COV-2 COVID-19 2021-06-28 Completed Unive rsity of PFIZER JOSE MIGUEL-SUCROSE 00:00:00 [place] [facility] VACCINE (KRAMER TOP) Branch SARS-COV-2 COVID-19 2021-06-28 Completed Unive rsity of PFIZER JOSE MIGUEL-SUCROSE 00:00:00 [place] [facility] VACCINE (KRAMER TOP) Branch SARS-COV-2 COVID-19 2021-06-28 Completed Unive rsity of PFIZER JOSE MIGUEL-SUCROSE 00:00:00 [place] [facility] VACCINE (KRAMER TOP) Branch SARS-COV-2 COVID-19 2021-06-28 Completed Unive rsity of PFIZER JOSE MIGUEL-SUCROSE 00:00:00 [place] [facility] VACCINE (KRAMER TOP) Branch SARS-COV-2 COVID-19 2021-06-28 Completed Unive rsity of PFIZER JOSE MIGUEL-SUCROSE 00:00:00 [place] [facility] VACCINE (KRAMER TOP) Branch SARS-COV-2 COVID-19 2021-06-28 Completed Unive rsity of PFIZER JOSE MIGUEL-SUCROSE 00:00:00 [place] [facility] VACCINE (KRAMER TOP) Branch SARS-COV-2 COVID-19 2021-06-28 Completed Unive rsity of PFIZER JOSE MIGUEL-SUCROSE 00:00:00 [place] [facility] VACCINE (KRAMER TOP) Branch SARS-COV-2 COVID-19 2021-06-28 Completed Unive rsity of PFIZER JOSE MIGUEL-SUCROSE 00:00:00 [place] [facility] VACCINE (KRAMER TOP) Branch SARS-COV-2 COVID-19 2021-06-28 Completed Unive rsity of PFIZER JOSE MIGUEL-SUCROSE 00:00:00 [place] [facility] VACCINE (KRAMER TOP) Branch SARS-COV-2 COVID-19 2021-06-28 Completed Unive rsity of PFIZER JOSE MIGUEL-SUCROSE 00:00:00 [place] [facility] VACCINE (KRAMER TOP) Branch SARS-COV-2 COVID-19 2021-06-28 Completed Unive rsity of PFIZER JOSE MIGUEL-SUCROSE 00:00:00 [place] [facility] VACCINE (KRAMER TOP) Branch SARS-COV-2 COVID-19 2021-03-29 Completed Unive rsity of PFIZER VACCINE 00:00:00 [place] [facility] raj Branch SARS-COV-2 COVID-19 2021-03-29 Completed Unive rsity of PFIZER VACCINE 00:00:00 [place] [facility] Branch SARS-COV-2 COVID-19 2021-03-29 Completed Unive rsity of PFIZER VACCINE 00:00:00 [place] [facility] Branch SARS-COV-2 COVID-19 2021-03-29 Completed Unive rsity of PFIZER VACCINE 00:00:00 [place] [facility] Branch SARS-COV-2 COVID-19 2021-03-29 Completed Unive rsity of PFIZER VACCINE 00:00:00 [facility] Branch SARS-COV-2 COVID-19 2021-03-29 Completed Unive rsity of PFIZER VACCINE 00:00:00 [facility] Branch SARS-COV-2 COVID-19 2021-03-29 Completed Unive rsity of PFIZER VACCINE 00:00:00 [facility] Branch SARS-COV-2 COVID-19 2021-03-29 Completed Unive rsity of PFIZER VACCINE 00:00:00 [facility] Branch SARS-COV-2 COVID-19 2021-03-29 Completed Unive rsity of PFIZER VACCINE 00:00:00 [facility] Branch SARS-COV-2 COVID-19 2021-03-29 Completed Unive rsity of PFIZER VACCINE 00:00:00 [facility] Branch SARS-COV-2 COVID-19 2021-03-29 Completed Unive rsity of PFIZER VACCINE 00:00:00 [facility] Branch SARS-COV-2 COVID-19 2021-03-29 Completed Unive rsity of PFIZER VACCINE 00:00:00 [facility] Branch SARS-COV-2 COVID-19 2021-03-29 Completed Unive rsity of PFIZER VACCINE 00:00:00 [facility] Branch SARS-COV-2 COVID-19 2021-03-29 Completed Unive rsity of PFIZER VACCINE 00:00:00 [facility] Branch SARS-COV-2 COVID-19 2021-03-29 Completed Unive rsity of PFIZER VACCINE 00:00:00 [facility] Branch SARS-COV-2 COVID-19 2021-03-29 Completed Unive rsity of PFIZER VACCINE 00:00:00 [facility] Branch SARS-COV-2 COVID-19 2021-03-29 Completed Unive rsity of PFIZER VACCINE 00:00:00 [facility] Branch SARS-COV-2 COVID-19 2021-03-29 Completed Unive rsity of PFIZER VACCINE 00:00:00 [facility] Branch SARS-COV-2 COVID-19 2021-03-29 Completed Unive rsity of PFIZER VACCINE 00:00:00 [facility] Branch SARS-COV-2 COVID-19 2021-03-29 Completed Unive rsity of PFIZER VACCINE 00:00:00 [facility] Branch SARS-COV-2 COVID-19 2021-03-29 Completed Unive rsity of PFIZER VACCINE 00:00:00 [facility] Branch SARS-COV-2 COVID-19 2021-03-29 Completed Unive rsity of PFIZER VACCINE 00:00:00 [facility] Branch SARS-COV-2 COVID-19 2021-03-29 Completed Unive rsity of PFIZER VACCINE 00:00:00 [facility] Branch SARS-COV-2 COVID-19 2021-03-29 Completed Unive rsity of PFIZER VACCINE 00:00:00 [facility] Branch SARS-COV-2 COVID-19 2021-03-29 Completed Unive rsity of PFIZER VACCINE 00:00:00 [facility] Branch SARS-COV-2 COVID-19 2021-03-29 Completed Unive rsity of PFIZER VACCINE 00:00:00 [facility] Branch SARS-COV-2 COVID-19 2021-03-29 Completed Unive rsity of PFIZER VACCINE 00:00:00 [facility] Branch SARS-COV-2 COVID-19 2021-03-29 Completed Unive rsity of PFIZER VACCINE 00:00:00 [facility] Branch SARS-COV-2 COVID-19 2021-03-29 Completed Unive rsity of PFIZER VACCINE 00:00:00 [facility] Branch SARS-COV-2 COVID-19 2021-03-29 Completed Unive rsity of PFIZER VACCINE 00:00:00 [place] [facility] SARS-COV-2 COVID-19 2021-03-29 Completed Unive rsity of PFIZER VACCINE 00:00:00 [facility] SARS-COV-2 COVID-19 2021-03-29 Completed Unive rsity of PFIZER VACCINE 00:00:00 [facility] Vital Signs Vital Name Observation Time Observation Value Comments Source Systolic blood 2022-04-30 18:46:00 126 mm[Hg] Univer sity of pressure [facility] Diastolic blood 2022-04-30 18:46:00 84 mm[Hg] Unive rsity of pressure [facility] Heart rate 2022-04-30 18:45:00 106 /min Universi ty of [facility] Body temperature 2022-04-30 18:45:00 37 Latrice Univ ersity of [facility] Respiratory rate 2022-04-30 18:45:00 17 /min Univ ersity of [facility] Body height 2022-04-30 18:45:00 165.1 cm Universi ty of [facility] Body weight 2022-04-30 18:45:00 78.744 kg Universi ty of [place] [facility] [place] BMI 2022-04-30 18:45:00 28.89 kg/m2 Universi ty of [facility] Oxygen saturation in 2022-04-30 18:45:00 98 /min University of Arterial blood by [facility] Pulse oximetry Branch Systolic blood 2022-03-09 12:39:00 133 mm[Hg] Univer sity of pressure [facility] Diastolic blood 2022-03-09 12:39:00 94 mm[Hg] Unive rsity of [facility] Heart rate 2022-03-09 12:39:00 98 /min Universi ty of [facility] Body temperature 2022-03-09 12:39:00 36.22 Latrice Univ ersity of [facility] Body height 2022-03-09 12:39:00 165.1 cm Universi ty of [facility] Body weight 2022-03-09 12:39:00 72.576 kg Universi ty [facility] [place] [facility] BMI 2022-03-09 12:39:00 26.63 kg/m2 Universi ty of [facility] Systolic blood 2022-03-03 19:49:00 137 mm[Hg] Univer sity of pressure [place] [facility] Diastolic blood 2022-03-03 19:49:00 99 mm[Hg] Unive rsity of pressure [place] [facility] Heart rate 2022-03-03 19:49:00 93 /min Universi ty of [place] [facility] Body temperature 2022-03-03 19:49:00 36.89 Latrice Univ ersity of [place] [facility] Respiratory rate 2022-03-03 19:49:00 18 /min Univ ersity of [place] [facility] Body height 2022-03-03 19:49:00 165.1 cm Universi ty of [place] [facility] Body weight 2022-03-03 19:49:00 72.122 kg Universi ty of [place] [facility] BMI 2022-03-03 19:49:00 26.46 kg/m2 Universi ty [facility] [place] [facility] Oxygen saturation in 2022-03-03 19:49:00 97 /min University of Arterial blood by [place] [facility] Pulse oximetry Branch Systolic blood 2021-09-24 14:12:00 125 mm[Hg] Univer sity of pressure [place] [facility] Diastolic blood 2021-09-24 14:12:00 85 mm[Hg] Unive rsity of pressure [place] [facility] Heart rate 2021-09-24 14:12:00 80 /min Universi ty of [place] [facility] Body temperature 2021-09-24 14:12:00 36.94 Latrice Univ ersity of [place] [facility] Body height 2021-09-24 14:12:00 165.1 cm Universi ty [facility] [place] [facility] Body weight 2021-09-24 14:12:00 76.006 kg Universi ty of [place] [facility] BMI 2021-09-24 14:12:00 27.88 kg/m2 Universi ty [facility] [place] [facility] Oxygen saturation in 2021-09-24 14:12:00 98 /min University of Arterial blood by [place] [facility] Pulse oximetry Branch Systolic blood 2021-06-15 15:12:00 132 mm[Hg] Univer sity of pressure [place] [facility] Diastolic blood 2021-06-15 15:12:00 72 mm[Hg] Unive rsity of pressure [place] [facility] Heart rate 2021-06-15 15:12:00 88 /min Universi ty of [place] [facility] Body temperature 2021-06-15 15:12:00 36.78 Latrice Univ ersity of [place] [facility] Respiratory rate 2021-06-15 15:12:00 17 /min [facility] [place] [facility] Body height 2021-06-15 15:12:00 165.1 cm [facility] [place] [facility] Body weight 2021-06-15 15:12:00 75.297 kg [facility] [place] [facility] [place] BMI 2021-06-15 15:12:00 27.62 kg/m2 Universi ty of [facility] Oxygen saturation in 2021-06-15 15:12:00 99 /min University of Arterial blood by [facility] Pulse oximetry Branch Systolic blood 2021-05-08 20:04:00 133 mm[Hg] Univer sity of pressure [facility] Diastolic blood 2021-05-08 20:04:00 89 mm[Hg] Unive rsity of [facility] Heart rate 2021-05-08 20:04:00 87 /min Universi ty of [facility] Body temperature 2021-05-08 20:04:00 36.44 Latrice Univ ersity of [facility] Body height 2021-05-08 20:04:00 165.1 cm [facility] [place] [facility] Body weight 2021-05-08 20:04:00 74.39 kg [facility] [place] [facility] BMI 2021-05-08 20:04:00 27.29 kg/m2 [facility] [place] [facility] Height 2021-04-20 00:00:00 65 [in_i] Bacilio Toro edical BMI (Body Mass 2021-04-20 00:00:00 26.6 kg/m2 [facility] Body Weight 2021-04-20 00:00:00 2560 [oz_av] Bacilio Toro edical Systolic blood 2022-07-30 16:37:00 126 mm[Hg] Univer sity of pressure [facility] Diastolic blood 2022-07-30 16:37:00 83 mm[Hg] Unive rsity of [facility] Heart rate 2022-07-30 16:37:00 83 /min Universi ty of [facility] Respiratory rate 2022-07-30 16:37:00 18 /min Univ ersity of [facility] Body height 2022-07-30 16:37:00 165.1 cm Universi ty of [facility] Body weight 2022-07-30 16:37:00 80.876 kg Universi ty [facility] BMI 2022-07-30 16:37:00 29.67 kg/m2 Universi [facility] Systolic blood 2022-07-02 16:16:00 144 mm[Hg] Univer sity [facility] Diastolic blood 2022-07-02 16:16:00 79 mm[facility]Hg[facility]-07-02 16:16:00 63 /[facility] Respiratory rate 2022-07-02 16:10:00 18 /min [facility] height 2022-07-02 16:10:00 165.1 cm Universi [facility] Body weight 2022-07-02 16:10:00 79.107 kg Universi [facility] BMI 2022-07-02 16:10:00 29.02 kg/m2 [facility] Body temperature 2022-04-30 18:45:00 37 Latrice [facility] Oxygen saturation in 2022-04-30 18:45:00 98 /min [facility] Arterial blood by [facility] Pulse oximetry Branch Procedures Procedure Date / Time Performing Clinician Source Performed OP CLINIC NOTES/CONSULTS 2022-05-10 06:01:00 Doctor Unassigned, No [facility] OP CLINIC NOTES/CONSULTS 2022-05-10 06:01:00 Doctor Unassigned, No [facility] MR SHOULDER LEFT WO 2022-04-04 20:31:05 Manan Armenta [facility] MR SHOULDER LEFT WO 2022-04-04 20:31:05 Manan Armenta [facility] CONSENT/REFUSAL FOR 2022-04-04 19:41:48 Doctor Unassigned, No [facility] DIAGNOSIS AND TREATMENT [facility] ASSIGNMENT OF BENEFITS 2022-04-04 19:41:31 Doctor Unassigned, No [facility] ASSIGNMENT OF BENEFITS 2022-04-04 19:41:31 Doctor Unassigned, No [facility] PATIENT QUESTIONNAIRE 2022-04-04 06:01:00 Doctor Unassigned, No [facility] PHYSICIAN ORDERS 2022-04-04 06:01:00 [facility] X[facility] SHOULDER 2+ VW LEFT 2022-03-22 20:52:19 [facility] ELBOW <3 VW RIGHT 2022-03-03 20:10:00 Carlene Gil [facility] POCT SARS-COV-2 ANTIGEN 2021-12-17 16:19:00 Bhumi Mcclellan [facility] (BINAX NOW) [facility] ASSIGNMENT OF BENEFITS 2021-12-17 15:52:13 Doctor Unassigned, No [facility] POCT MOLECULAR FLU 2021-09-24 14:15:00 Jonnathan [facility] POCT MOLECULAR STREP 2021-09-24 14:12:00 Jonnathan [facility] SARS-COV-2 COVID-19 2021-06-28 15:58:46 Doctor Unassigned, No Un [facility] VACCINE 12 YRS+,0.3ML,IM [facility] (PFIZER - KRAMER TOP) AUTHORIZATION FOR 2021-05-08 06:01:00 Doctor Unassigned, No [facility] OP CLINIC NOTES/CONSULTS 2021-01-04 05:01:00 Doctor Unassigned, No [facility] Plan of Care Planned Activity Planned Date Details Comments Source Future Scheduled 2022-12-12 Screening for [facility] Test 19:12:29 malignant neoplasm of colon (procedure) [code = 365651585] Future Scheduled 2022-12-12 Screening for [facility] Test 19:12:29 malignant neoplasm of colon (procedure) [code = 580101533] Future Scheduled 2022-12-12 Screening for [facility] Test 19:12:29 malignant neoplasm of colon (procedure) [code = 240528063] Future Scheduled 2022-12-12 Pneumococcal Vaccine: [facility] Test 19:12:29 Pediatrics (0 to 5 Years) and At-Risk Patients (6 to 64 Years) (1 - PCV) [code = Pneumococcal Vaccine: Pediatrics (0 to 5 Years) and At-Risk Patients (6 to 64 Years) (1 - PCV)] Future Scheduled 2022-12-12 Hepatitis C screening [facility] Test 19:12:29 (procedure) [code = 623799359] Future Scheduled 2022-12-12 BREAST CANCER [facility] Test 19:12:29 SCREENING [code = BREAST CANCER SCREENING] Future Scheduled 2022-12-12 COVID-19 VACCINE (2 - Me [facility] Test 19:12:29 Pfizer series) [code = COVID-19 VACCINE (2 - Pfizer series)] Future Scheduled 2022-12-12 Screening for [facility] Test 19:12:29 malignant neoplasm of colon (procedure) [code = 132481918] Future Scheduled 2022-12-12 Screening for [facility] Test 19:12:29 malignant neoplasm of colon (procedure) [code = 173376485] Future Scheduled 2022-12-12 Screening for [facility] Test 19:12:29 malignant neoplasm of cervix (procedure) [code = 068141364] Future Scheduled 2022-12-12 [facility]ACCINE [facility] 19:12:29 [code = INFLUENZA VACCINE] Encounters Start End Encounter Admission Attending Care Care Encounter Source Date/Time Date/Time Type Type Clinicians Facility Department ID 2021-03-10 Emergency [facility] [id number] Univers 12:57:47 ity [facility] 2022-12-12 2022-12-12 Outpatient R RADIOLOGY [facility] [id number] Univers 15:02:48 23:59:00 ity [facility] 2022-12-12 2022-12-12 Hospital Radiology [facility] [id number] Univers 15:00:00 23:59:00 [id number] [id number] [facility] [address] Branch 2022-12-06 2022-12-06 Outpatient R ALBINO [facility] [id number] Univers 13:30:00 13:30:00 SHREYA ity [facility] 2022-12-03 2022-12-03 [facility] [id number] Univers 00:00:00 00:00:00 Berenice SARABIA [id number] i ty yayo [place] [id number] Berny SHERESSIO [id number] Va dical NAL [facility] 2022-07-30 2022-07-30 Outpatient R PAUL [facility] [id number] Univers 11:30:00 11:30:00 PAUL [facility] 2022-07-30 2022-07-30 Travel [id number] Univers 00:00:00 00:00:00 [id number] ity of 3.104.2.7 [id number][id number] 084.8 Medica l [address] [place] [address] 2022-07-02 2022-07-02 Outpatient R PAUL [facility] [id number] Univers 10:30:00 11:49:23 PAUL [facility] 2022-07-02 2022-07-02 Travel [id number] Univers 00:00:00 00:00:00 [id number] ity of 3.104.2.7 [id number] [place] .3.155121 084.8 Medica l .[address] [place] 2022-05-24 2022-05-24 Outpatient R EVELIN [facility] [facility] [id number] Univers 13:00:00 13:00:00 ANALISA rennyshon [facility] 2022-05-10 2022-05-10 Outpatient R EVELIN [facility] [id number] Univers 13:45:00 14:40:12 ANALISATONYA cortes [facility] 2022-05-10 2022-05-10 Ancillary Analisa Waters 1.2.840.1 [id number] Univers 13:45:00 14:40:12 Visit Lucila Mcclain 23511.1.1 ity of 3.104.2.7 [place] .3.174252 Medica l .[address] [place] 2022-05-10 2022-05-10 Orders Doctor 1.2.840.4 [id number] Univers 00:00:00 00:00:00 Only Unassigned, 61222.1.1 ity of [place] 3.104.2.7 [place] .3.537198 Medica l .[address] [place] 2022-04-30 2022-04-30 Urgent Unknown, Attending 1.2.840.1 [id number] Univers 12:20:00 13:01:45 J Luis MartinezgheseJon 83703.1.1 ity of 3.104.2.7 [place] .3.122539 Medica l .[address] [place] 2022-04-30 2022-04-30 Outpatient [facility] [id number] Univers 12:20:00 12:20:00 REENU ity of [facility] 2022-04-30 2022-04-30 Travel 1.2.840.1 1.2.227.352 [id number] Univers 00:00:00 00:00:00 40686.1.1 350.1.13.10 ity of 3.104.2.7 4.[place].7.3.698 [place] .3.836072 084.8 Medica l .[address] [place] 2022-04-04 2022-04-04 [facility] [id number] Univers 13:43:19 23:59:00 MANAN ity of [facility] 2022-04-04 2022-04-04 [facility], 1.2.840.2 [id number] Univers 13:43:19 23:59:00 Encounter Manan Owens 28628.1.1 ity of 3.104.2.7 [place] .3.227945 Medica l .[address] [place] 2022-04-04 2022-04-04 Orders Doctor 1.2.840.5 [id number] Univers 00:00:00 00:00:00 Only Unassigned, 63303.1.1 ity of [place] 3.104.2.7 [place] .3.649601 Medica l .8 [address] 2022-03-22 2022-03-22 Outpatient R RADIOLOGY [facility] [id number] Univers 14:38:58 23:59:00 ity of [facility] 2022-03-22 2022-03-22 Hospital Radiology [facility] 1.2.840.114 [id number] Univers 14:38:58 23:59:[address] [facility] 350.1.13.10 ity LACYABRAZO [facility] 4.2.7.2.686 [place] [facility] [phone] [facility] [address] 2022-03-09 2022-03-09 Out[facility] [id number] Univers 07:40:00 07:58:53 TARIK ity [facility] 2022-03-09 2022-03-09 [facility] 1.2.166.729 [id number] Univers 07:40:00 07:58:53 Visit Tarik [facility] 350.1.13.10 [facility] 4.2.7.2.686 [facility] AT [phone] Va dical JAMAAL 198 [facility] 2022-03-03 2022-03-03 Outpatient [facility] [id number] Univers 15:03:15 23:59:00 CARLENE ity [facility] 2022-03-03 2022-03-03 [facility] 1.2.840.114 [id number] Univers 15:03:15 23:59:00 Encounter Carlene HEALTH 350.1.13.10 ity of [place] 4.2.7.2.686 Sylvester as KELLIE?BLEA [phone] [place] dical JESSICA [address] MEDICAL OFFICE [facility] 2022-03-03 2022-03-03 Urgent Carlene Gil [facility] 1.2.840.11 [id number] Univers 15:00:00 15:28:44 Care Unknown, [facility] HEALTH 350.1.13.10 ity [address] [facility] 4.2.7.2.686 Sylvester as KELLIE?BLEA [phone] Va dical CHANDLER [address] MEDICAL OFFICE BUILDING 2022-03-01 2022-03-01 Outpatient R RADIOLOGY [facility] [id number] Univers 06:52:59 23:59:00 ity of [facility] 2022-02-27 2022-02-27 Outpatient ABBEY Barboza LAB [id number] [facility] 13:00:00 13:00:00 [facility] 2021-12-17 2021-12-17 Laboratory Only, Ang Db Test [facility] 1.2.8 40.114 [id number] Univers 11:00:00 11:00:14 Only Samir Navas [facility] 350.1.13.10 ity of Bhumi Mcclellan 4.2.7.2.686 [place] KELLIE?BLEA [phone] [address] MEDICAL OFFICE [facility] 2021-12-17 2021-12-17 Outpatient R BELINDA [facility] [id number] [facility] 11:00:00 11:00:00 BHUMI ity [facility] 2021-12-17 2021-12-17 Orders Doctor TRIPATHI 1.2.840.114 [id number] Univers 00:00:00 00:00:00 Only UnassignedJET 350.1.13.10 ity of [place] [facility] 4.2.7.2.686 Sylvester as [phone] [facility] [address] 2021-12-14 2021-12-14 Letter BHUMI Zelaya 1.2.840.114 [id number] Univers 00:00:00 00:00:00 (Out) Irena CHAUDHARY 350.1.13.10 it y of [facility] 4.2.7.2.686 Sylvester as [phone] [facility] [address] 2021-12-13 2021-12-13 Laboratory Only, Ang Db Test [facility] 1.2.8 40.114 [id number] Univers 09:30:00 09:45:00 Only Virgil Salazar [facility] 350.1.13.10 ity [address] [facility] 4.2.7.2.686 Sylvester as KELLIE?BLEA [phone] [address] MEDICAL OFFICE [facility] 2021-12-13 2021-12-13 Outpatient R DENY [facility] [id number] Univers 09:30:00 09:24:29 VIRGIL cortes [facility] 2021-09-24 2021-09-24 Outpatient R ROSA [facility] [id number] Univers 09:20:00 09:45:51 BEATRIZ cortes o f [facility] 2021-09-24 2021-09-24 Urgent Beatriz Lee [facility] 1.2.840 .114 [id number] Univers 09:20:00 09:45:51 J Luis De Santiago [facility] 350.1.13.10 ity [facility] 4.2.7.2.686 Syl[place] as KELLIE?BLEA [phone] Va dical EY [address] MEDICAL OFFICE BUILDING 2021-07-16 2021-07-16 Letter BHUMI Zelaya 1.2.840.114 [id number] Univers 00:00:00 00:00:00 (Out) Irena CHAUDHARY 350.1.13.10 it y of [facility] 4.2.7.2.686 Syl[place] as [phone] [address] 2021-07-15 2021-07-15 Outpatient R DENY [facility] [id number] Univers 17:20:00 17:57:07 VIRGIL [facility] 2021-07-05 2021-07-05 Outpatient R [facility] [id number] Univers 10:00:00 10:00:00 [facility] 2021-06-28 2021-06-28 Outpatient R HERNANDO [facility] [id number] Univers 10:00:00 10:00:00 BAKARI cortes [facility] 2021-06-28 2021-06-28 Imm/Inj Nurse, Adc Pob Immunization [facility] 1.2.840.114 [id number] Univers 10:00:00 10:00:00 Visit Bakari Villagomez 350.1.13 .10 ity [facility] 4.2.7.2.686 [place] PROFESS[place] [phone] Va dical [facility] [address] BUILDING 2021-06-16 2021-06-16 Telephone BHUMI Tidwell 1.2.162.298 [id number] Univers 00:00:00 00:00:00 Ambar CHAUDHARY 350.1.13.10 it y of [facility] 4.2.7.2.686 Sylvester as [phone] [facility] [address] 2021-06-15 2021-06-15 Outpatient R JOSE DOMENICA [facility] [id number] Univers 09:00:00 09:30:51 SKYE ity [facility] 2021-06-15 2021-06-15 Skye Foster Esmer [facility] 1.2.840.114 [id number] Univers 09:00:00 09:20:00 Care [facility] 350.1.13.10 ity [facility] 4.2.7.2.686 Syl[place] as KELLIE?BLEA [phone] [facility] SouthCHANDLER [address] [place] [address] MEDICAL OFFICE BUILDING 2021-05-08 2021-05-08 Office [facility] 1.2.198.775 [id number] Univers 14:00:00 14:59:07 Visit Joe Cardona WOMEN'S 350.1.13.10 ity [facility] 4.2.7.2.686 [place] [phone] [facility] [place] [address] FRIENDSWO OD 2021-05-08 2021-05-08 [facility] [id number] Univers 14:00:00 14:59:07 JOE [facility] 2021-05-08 2021-05-08 Outpatient [facility] [id number] Univers 14:00:00 14:00:00 [facility] 2021-05-08 2021-05-08 Orders Doctor TRIPATHI 1.2.840.114 [id number] Univers 00:00:00 00:00:00 Only Unassigned, JET 350.1.13.10 ity of [place] [facility] 4.2.7.2.686 Sylvester as [phone] [facility] [address] 2021-04-20 2021-04-20 Outpatient GC_TNC_Cher PRIV PRIV [id number] [facility] 04:51:00 04:51:00 ches_I [id number] Medica l 2021-04-20 2021-04-20 Outpatient MARIE [facility] [id number] [place] 00:00:00 00:00:00 CRISELDA [address] 2021-04-20 2021-04-20 Outpatient Nenita [facility] [id number] 00:00:00 00:00:00 Ejffry M [id number] 2021-04-20 2021-04-20 Jeffry Toro [facility] [id number] [facility] 00:00:00 00:00:00 [facility] PATEL: 6655 GC_TNC_Sout [facility], Office* [address], [place] [address] , Ph. 2021-04-19 2021-04-19 Outpatient Armando VILLAGOMEZ [facility] [id number] Univers 08:30:00 08:30:00 [facility] 2021-04-18 2021-04-18 Outpatient GC_TNC_Cher PRIV PRIV [id number] [facility] 12:38:00 12:38:00 ches_I [id number] Medica l 2021-04-13 2021-04-13 Outpatient CATALINO, [facility] [id number] [place] 00:00:00 00:00:00 ADY [address] i 2021-04-11 2021-04-11 Outpatient [facility] [id number] [place] 00:00:00 00:00:00 [address] i 2021-04-11 2021-04-11 Outpatient MARIE [facility] [id number] [place] 00:00:00 00:00:00 CRISELDA 116 [address] i 2021-03-29 2021-03-29 Outpatient Armando VILLAGOMEZ [facility] [id number] Univers 10:30:00 10:30:00 [facility] 2021-03-29 2021-03-29 Outpatient Armando VILLAGOMEZ [facility] [id number] Univers 10:30:00 10:30:00 [facility] 2021-03-29 2021-03-29 Imm/Inj Nurse, Adc Pob Immunization [facility] 1.2.840.114 [id number] Univers 10:23:13 10:23:20 Visit Bakari Villagomezan NO 350.1.13 .10 ity of [place] 4.2.7.2.686 [place] [phone] Va dical NAL [address] BUILDING 2021-02-23 2021-02-23 Hospital [facility], [facility] 1.2.840.114 [id number] Univers 10:02:05 23:59:00 Encounter Iraida Cuellar [facility] 350.1.13.10 ity of [place] 4.2.7.2.686 [place] [phone] [facility] [address] Office Building 2021-02-23 2021-02-23 Outpatient R HERIBERTO, [facility] [id number] Univers 10:15:00 10:15:00 IRAIDA ity [facility] 2021-02-08 2021-02-08 Outpatient R TULIO NOAH [facility] [id number] Univers 14:00:00 14:00:00 ity [facility] 2021-01-20 2021-01-20 Outpatient MARIE [facility] [id number] [place] 00:00:00 00:00:00 CRISELDA [address] 2021-01-19 2021-01-19 Ancillary Elen Dillon [facility] 1.2. 840.114 [id number] Univers 11:17:26 11:57:26 Visit Analisa Waters 350.1.13.10 ity of [place].2.7.2.686 [place] Profess[place] [phone] Va dical nal [address] [facility] 2021-01-17 2021-01-17 Ancillary Violeta Alanis [facility] 1.2.840 .114 [id number] Univers 11:19:37 11:57:41 Visit Analisa Waters 350.1.13.10 ity of [place] 4.2.7.2.686 [place] Profess[place] [phone] Va dical nal [address] [facility] 2021-01-12 2021-01-12 Ancillary Elen Dillon [facility] 1.2. 840.114 [id number] Univers 10:37:35 11:17:35 Visit Analisa Waters 350.1.13.10 ity of [place] 4.2.7.2.686 [place] Profess[place] [phone] Va dical nal 179 [facility] 2021-01-12 2021-01-12 Outpatient R EVELIN [facility] [id number] Univers 10:40:00 10:40:00 ANALISA ity of [facility] 2021-01-12 2021-01-12 Orders Doctor BHUMI 1.2.840.114 [id number] Univers 00:00:00 00:00:00 Only Unassigned, JET 350.1.13.10 ity of [place] [facility] 4.2.7.2.686 Sylvester as [phone] [address] 2021-01-10 2021-01-10 Ancillary Tarik Alanis [facility] 1.2.840. 114 [id number] Univers 11:19:51 11:59:51 Visit Analisa Waters 350.1.13.10 ity of [place] 4.2.7.2.686 [place] Profess[place] [phone] Va dical nal 179 [facility] 2021-01-04 2021-01-04 Ancillary Lucila Mcclain [facility] 1 .2.840.114 [id number] Univers 14:20:31 15:29:00 Visit Analisa Waters 350.1.13.10 ity of [place] 4.2.7.2.686 [place] Profess[place] [phone] Va dical nal [address] [place] [address] 2021-01-04 2021-01-04 Outpatient R [facility] [id number] Univers 14:20:00 14:20:00 ity of [facility] 2021-01-04 2021-01-04 Orders Doctor BHUMI 1.2.840.114 [id number] Univers 00:00:00 00:00:00 Only Unassigned, JET 350.1.13.10 ity of [place] [facility] 4.2.7.2.686 Sylvester as [phone] [address] 2020-12-23 2020-12-23 Hospital Radiology [facility] 1.2.840.114 [id number] Univers 14:52:12 23:59:00 Encounter No 350.1.13.10 ity of [place] 4.2.7.2.686 [facility] [phone] [facility] [address] 2020-12-23 2020-12-23 Outpatient R RADIOLOGY [facility] [id number] Univers 00:00:00 00:00:00 ity of [facility] 2020-12-23 2020-12-23 Orders Doctor TRIPATHI 1.2.840.114 [id number] Univers 00:00:00 00:00:00 Only Unassigned, JET 350.1.13.10 ity of [facility] 4.2.7.2.686 Sylvester as [phone] [facility] [address] 2020-12-23 2020-12-23 Outpatient [facility] [id number] [place] 00:00:00 00:00:[address] 2020-12-11 2020-12-11 Laboratory Lab, [facility] 1.2. 840.114 [id number] Univers 10:57:14 11:17:14 Only Jonnathan Marshall [facility] 350.1.13.10 ity of [place] 4.2.7.2. [address] [facility] [phone] Va dical nal [address] Office Building One 2020-12-11 2020-12-11 Outpatient R JONNATHAN [facility] [id number] Univers 11:00:00 11:00:00 MARSHALL ity of [facility] 2020-12-06 2020-12-06 [facility] 1.2. 840.114 [id number] Univers 13:16:28 13:36:28 Only Bhumi Mcclellan [facility] 350.1.13.10 ity of [place] 4.2.7.2.686 Sylvester as Professio [phone] Va dical nal [address] Office Building One 2020-12-06 2020-12-06 Outpatient R BELINDA [facility] [id number] Univers 13:00:00 13:00:00 BHUMI cortes of [facility] 2020-12-06 2020-12-06 Orders Doctor TRIPATHI 1.2.840.114 [id number] Univers 00:00:00 00:00:00 Only Unassigned, JET 350.1.13.10 it[facility] 4.2.7.2.686 Sylvester steele [phone] [facility] [address] 2020-12-02 2020-12-02 Outpatient [facility] [id number] [place] 00:00:00 00:00:[address] 2020-11-21 2020-11-21 Outpatient MARIE, [facility] 021 [id number] [place] 00:00:00 00:00:00 CRISELDA [address] 2020-11-17 2020-11-17 Outpatient MARIE [facility] [id number] [place] 00:00:00 00:00:00 CRISELDA [address] 2020-11-17 2020-11-17 Outpatient [facility] [id number] [place] 00:00:00 00:00:[address] 2020-08-10 2020-08-10 Outpatient MARIE [facility] [id number] [place] 00:00:00 00:00:00 CRISELDA [address] 2020-08-10 2020-08-10 Outpatient MARIE [facility] [id number] [place] 00:00:00 00:00:00 CRISELDA [address] 2020-07-28 2020-07-28 Patient Hernando [facility] 1.2.840.114 [id number] Univers 00:00:00 00:00:00 Outreach Bakari [facility] 350.1.13.10 [facility] 4.2.7.2.686 Berny CRISTOBAL [phone] Va dical [address] 2020-07-26 2020-07-26 Outpatient MARIE [facility] [id number] [place] 00:00:00 00:00:00 CRISELDA [address] 2020-06-23 2020-06-23 Outpatient [facility] [id number] [place] 00:00:00 00:00:[address] 2020-06-23 2020-06-23 Outpatient [facility] [id number] [place] 00:00:00 00:00:[address] 2020-06-07 2020-06-07 Hospital Radiology [facility] 1.2.840.114 [id number] Univers 10:37:28 23:59:00 Encounter No 350.1.13.10 ity of [place] 4.2.7.2.686 [place] [phone] [facility] [address] 2020-06-07 2020-06-07 Outpatient R RADIOLOGY [facility] [id number] Univers 00:00:00 00:00:00 ity of [facility] 2020-06-07 2020-06-07 Orders Doctor BHUMI 1.2.840.114 [id number] Univers 00:00:00 00:00:00 Only Unassigned, JET 350.1.13.10 ity of [place] [facility] 4.2.7.2.686 Sylvester as [phone] [facility] [address] 2020-05-26 2020-05-26 Outpatient R CRISTOBAL, [facility] [id number] Univers 13:00:00 13:00:00 VAZQUEZ ity [facility] 2020-05-25 2020-05-25 Urgent Rosa, [facility] 1.2.840.114 [id number] Univers 10:16:38 11:28:56 Care Beatriz Romero [facility] 350.1.13.10 ity of [place] 4.2.7.2.686 Sylvester as Professio [phone] [address] One 2020-05-25 2020-05-25 Outpatient R ROSA, [facility] [id number] Univers 10:20:00 10:20:00 BEATRIZ cortes o f [facility] 2020-05-17 2020-05-17 Publication Distributor Lab, Adc Fam Pob I [facility] 1.2. 840.114 [id number] Univers 14:52:30 15:12:30 Visit Matthew Potter 350.1.13.10 ity of [place] 4.2.7.2.686 Sylvester as Professio [phone] [address] Office Building One 2020-05-17 2020-05-17 Urgent Provider, [facility] 1.2.840.114 [id number] Univers 14:04:23 14:55:17 Care Matthew Potter [facility] 350.1.13.10 ity of [place] 4.2.7.2.686 Sylvester as Professio [phone] [address] Office [facility] One 2020-05-17 2020-05-17 Outpatient R [facility] [id number] Univers 14:20:00 14:20:00 ity of [facility] 2020-05-17 2020-05-17 Outpatient R SHANNON, [facility] [id number] Univers 14:00:00 14:00:00 MATTHEW ity [facility] 2020-05-16 2020-05-16 Out[facility] [id number] Univers 05:30:00 05:30:00 ADILIA [facility] 2020-05-16 2020-05-16 Orders Doctor BHUMI 1.2.840.114 [id number] Univers 00:00:00 00:00:00 Only Unassigned, JET 350.1.13.10 ity of [facility] 4.2.7.2.686 Sylvester as [phone] [address] 2020-05-09 2020-05-09 Urgent Provider, [facility] 1.2.840.114 [id number] Univers 16:59:46 17:42:37 Care Jonnathan Marshall [employer] 350.1.13.10 ity of [place] 4.2.7.2.686 Sylvester as Professio [phone] [address] Office [facility] One 2020-05-09 2020-05-09 Outpatient [facility] [id number] Univers 17:00:00 17:00:00 MARSHALL ity [facility] 2020-04-24 2020-04-24 Urgent Provider, [facility] 1.2.840.114 [id number] Univers 17:21:33 19:37:01 Care Jonnathan Marshall [facility] 350.1.13.10 ity of [place] 4.2.7.2.686 Sylvester as Professio [phone] [address] [facility] 2020-04-24 2020-04-24 Outpatient [facility] [id number] Univers 17:20:00 17:20:00 MARSHALL ity [facility] 2020-03-07 2020-03-07 Telephone [facility] 1..840.114 7 [id number] Univers 00:00:00 00:00:00 Vazquez Sarabia 350.1.13.10 i ty of [place].2.7.2.686 [place] [phone] Va dicscarlet eng 044 [facility] 2020-02-23 2020-02-23 [facility] 1..840.114 78 [id number] Univers 08:18:22 23:59:00 Encounter Vazquez GHOTRA 350.1.13.10 ity of [place] 4.2.7.2.686 [place] CENTER AT [phone] Va soheila HINTON 800 [facility] 2020-02-23 2020-02-23 Outpatient R [facility] [id number] Univers 00:00:00 00:00:00 VAZQUEZ cortes [facility] 2020-01-05 2020-01-05 Outpatient [facility] [id number] [address] [place] [address] 00:00:00 00:00:[address] 2019-12-29 2019-12-29 Transition Suyapa Mims 1.2.840.114 [id number] Univers 00:00:00 00:00:00 of Care Leopoldo Huber 350.1.13.10 ity of [place] 4.2.7.2.686 [place] [phone] [facility] [address] 2019-12-28 2019-12-28 Emergency Pedro, [facility] 1.2.391.610 [id number] Univers 17:15:00 19:57:00 Laura Sarabia 350.1.13.10 i ty of [place] 4.2.7.2.686 [place] [phone] [facility] [address] 2019-12-28 2019-12-28 Urgent Provider, [facility] Urgent Care [facility] 1.2.840.114 [id number] Univers 15:52:03 16:52:41 Care Matthew Potter 350.1.13.10 ity of [place] 4.2.7.2.686 Sylvester as Professio [phone] Va dical nal [address] Office Building One 2019-12-28 2019-12-28 Outpatient R [facility] [id number] Univers 16:20:00 16:20:00 ity of [facility] 2019-12-28 2019-12-28 Orders Doctor BHUMI 1.2.840.114 [id number] Univers 00:00:00 00:00:00 Only Unassigned, JET 350.1.13.10 ity of [place] [facility] 4.2.7.2.686 Sylvester as [phone] [address] 2019-12-01 2019-12-01 Outpatient [facility] [id number] Univers 11:40:00 11:40:00 MATTHEW ity of [facility] 2019-07-30 2019-07-30 Transition Suyapa Smith 1.2.840.114 [id number] Univers 00:00:00 00:00:00 of Care Verena Huber 350.1.13.10 it y of [place] 4.2.7.2.686 [place] [phone] [facility] [address] 2019-07-29 2019-07-29 Emergency [facility] 1.2.840.114 [id number] Univers 17:37:13 20:04:00 Isak B No 350.1.13.10 i ty of [place] 4.2.7.2.686 [place] [phone] [facility] [address] 2019-07-29 2019-07-29 Emergency X CHIRAG, [facility] ERT [id number] Univers 17:37:13 20:04:00 ISAK ity of [facility] 2019-07-29 2019-07-29 Orders Doctor TRIPATHI 1.2.840.114 [id number] Univers 00:00:00 00:00:00 Only Unassigned, JET 350.1.13.10 ity of [place] [facility] 4.2.7.2.686 [place] as [phone] [address] 2019-07-09 2019-07-09 Ancillary Lucila Mcclain [facility] 1 .2.840.114 [id number] Univers 09:12:50 09:52:50 Visit Analisa Waters [id number] [place] [phone] [place] [address] [facility] 2019-07-09 2019-07-09 Outpatient R EVELIN [facility] [id number] [facility] 09:20:00 09:20:00 ANALISA ity of [facility] 2019-07-02 2019-07-02 Ancillary Lois Pak [facility] 1.2.840. 114 [id number] [facility] 14:20:22 15:00:22 Visit Analisa Waters [id number] it[place] [phone] [place] 179 [facility] 2019-06-25 2019-06-25 Ancillary Lucila Mcclain [facility] 1 .2.840.114 [id number] [facility] 10:54:25 11:40:33 Visit Analisa Waters [id number] it[id number] [phone] [place] 179 [facility] 2019-06-25 2019-06-25 Telephone [facility] 12.840.114 [id number] [facility] 00:00:00 00:00:00 Vazquez Sarabia 350.1.13.10 i ty [id number] [phone] [place] 044 [facility] 2019-06-22 2019-06-22 Telephone [facility] 1.2.840.114 [id number] Univers 00:00:00 00:00:00 Vazquez Sarabia [id number] i [place] [phone] [place]ical nal 044 [facility] 2019-06-18 2019-06-18 [facility] [id number] [facility] 12:14:00 23:59:00 Encounter Vazquez Sarabia 350.1.13.10 [place] [phone] [facility] [address] 2019-06-18 2019-06-18 Publication Distributor Sasha, rByant Lab Main [facility] 1.2.8 40.114 [id number] [facility] 12:10:33 16:01:27 Visit Vazquez Jain 350.1.13.10 [place] [phone] [place]ical [place] 353 [facility] 2019-06-18 2019-06-18 Office [facility] [id number] [facility] 09:02:15 14:38:22 Visit Vazquez Sarab[place] 350.1.13.10 [place] [phone] [facility] 044 [facility] 2019-06-18 2019-06-18 Outpatient R C[facility]STOBAL [facility] [id number] Univers 12:15:00 12:15:00 VAZQUEZ sebastian [facility] 2019-06-18 2019-06-18 Telephone [facility] [id number] Univers 00:00:00 00:00:00 [facility] [id number] it y of [place] 4.2.7.2.686 [place] as Professio [phone] [facility] [address] Office [facility] 2019-02-25 2019-02-25 Outpatient R WILL [facility] [id number] Univers 13:55:00 13:55:00 GÓMEZ cortes [facility] 2019-02-19 2019-02-19 Outpatient R JONNATHAN [facility] [id number] Univers 12:59:26 23:59:00 MARSHALL cortes [facility] 2018-09-30 2018-09-30 Outpatient R COTY [facility] [id number] Univers 19:00:00 19:00:00 SAMIR cooper [facility] Results Test Description Test Time Test Comments Results Result Comments Source SURGICAL 2022-03-01 13:29:00 Test Item Value Reference Range Interpretation Comme nts SURGICAL RUN DATE: (test 03/01/22 [facility] PAGE 1 RUN TIME: 1330 Specimen Inquiry RUN USER: INTERFACE code = PATIENT: SR) YONATHAN WETZEL ACCT #: [id number] LOC: JaspalPAT U #: [id number] AGE/SX: 46/F ROOM: RE02/27/22REG DR: Aruna Barboza MD : 77 BED: DIS: STATUS: REG REF TLOC: SPEC #: [id number] RECD: STATUS: JIMMY TURNER #: [id number] CUCO: 02/27/22928 [facility] DR: Aruna Barboza MD ENTERED: 1 SP TYPE: SURGICAL OTHR DR: ORDERED: ANATOMIC SPEC, SPEC TRACK, [id number] PROCEDURES: 88 305 (02/27/22) TISSUES: A. ENDOMETRIUM CURETTINGS / BIOPSY - ENDOMETRIAL CURETTINGS FINAL DIAGNOSIS "Endometrial curettings":- Fragments of proliferative endometrium- Few fragments o f endometrium with more fibrous stroma, could be architectural representative of polypand or lower uterine se gment- Few small fragments of benign cervical tissue with no dysplasia GROSS DESCRIPTION Received i n formalin labeled with Patient's name, , MRN and "endometrial curettings";consists of mult iple fragments of mason soft and mucinous tissue, admixed with blood clot,that aggregate to 2.5 x 1.5 x 0.2 cm, filtered and submitted in A1.XZ 02/27/22 Technical component performed at [facility] ,[id number], [place] [address] Unless gross only, the diagnosis is based upon micr oscopic examination.Immunohistochemistry: This test was developed and its performance characteristicsd etermined by this laboratory. It has not been approved nor does it need approval by [place] FDA. Appro priate positive and negative controls are reviewed and judged to beacceptable. This laborator y is certified under the Clinical Laboratory ImprovementAmendments (CLIA-88) as qualified to pe rform high complexity clinical laboratory testing. CLINICAL INFORMATION 02/27/22, OUT OF BODY 0929A, IN FORMALIN 0930A, ABNORM AL UTERINE BLEEDING. Signed Yokasta Wright 02/11 5589 END OF REPORT POCT SARS-COV-2 ANTIGEN (BINAX NOW)2021-12-17 16:19:00 Test Item Value Reference Range Interpretation Comments POCT SARS-COV-2 ANTIGEN (test code = Positive Not Detected A 5076) On board controls acceptable with C Yes Line (test code = 3574) Lab Interpretation (test code = Abnormal 66141-5) [facility] MOLECULAR [id number] 14:26:27 Test Item Value Reference Range Interpretation Comments POCT Molecular FluA (test code = Negative Negative 41681-8) POCT Molecular FluB (test code = Negative Negative 63418-0) Lab Interpretation (test code = Normal 81745-8) [facility] MOLECULAR [id number] 14:21:40 Test Item Value Reference Range Interpretation Comments POCT Molecular Strep (test code = Negative Negative 24462-3) Lab Interpretation (test code = Normal 45752-2) [facility] [Presence] in Respiratory specimen by JORDIN with probe [id number] 18:33:38 Test Item Value Reference Range Interpretation Comments SARS-CoV-2 (COVID-19) RNA Not detected Not-Detected [Presence] in Respiratory specimen by JORDIN with probe detection (test code = 56884-1) Whether patient is employed in a healthcare setting (test code = 48270-2) Whether the patient has symptoms related to condition of interest (test code = 79907-1) Patient was hospitalized because of this condition (test code = 48851-8) Whether the patient was admitted to intensive care unit (ICU) for condition of interest (test code = 51295-7) Whether patient resides in a congregate care setting (test code = 44975-0) DOMINIC RUDOLPH Notes Date/Time Note Provider Source 2022-12-04 13:27:22-00:00 Formatting of this note migh t be different from the original. Nkechi Rodrigues [facility] Pt noted that she will be available after 2pm on Fridays Electronically signed by Nkechi Rodrigues at 1:27 PM CDT 2022-12-03 08:44:05-00:00 Formatting of this note migh t be different from the original. [facility] - [facility] Patient is attempting to bonnie edule colonoscopy - please assist with screening process. Electronically signed by Nkechi Rodrigues at 8:46 AM CDT
[2022-12-21] MEDS ORDERED: FENTANYL CITR 100 MCG/2 ML ONE (04:48)
[2022-12-21] MEDS ORDERED: CEFTRIAXONE 1000 MG/VIAL ONE (04:49)
[2022-12-21] MEDS ORDERED: WATER FOR INJ,STERILE 0 ML ONE (04:49)
[2022-12-21] MEDS ORDERED: KETOROLAC 30 MG/ML INJ ONE (04:49)
[2022-12-21] MEDS ORDERED: ONDANSETRON 4 MG/2 ML VIAL ONE (04:49)
[2022-12-21 04:55] LABS: Specific Gravity 1.024 (1.005-1.030); Urine Bacteria None Seen /HPF (<20); Urine Bilirubin 1+ (Negative); Urine Blood Negative (Negative); Urine Clarity Extremely Turbid (Clear); Urine Color Yellow (Yellow); Urine Glucose NEGATIVE (Negative); Urine Protein TRACE (Negative); Urine RBC None Seen /HPF (None Seen); Urine Urobilinogen Normal (Normal)
[2022-12-21 04:57] LABS: Absolute Lymphocytes (CBC) 1.8 K/uL (0.7-4.9); Lymphocytes % 21.1 % (15.3-44.8); MCV 89.6 fL (80-100); MPV 8.6 fL (7.6-11.3); Platelets 319 thou/uL (152-406); RBC Red Blood Cell Count 4.58 M/uL (3.86-4.86)
[2022-12-21 05:02] LABS: Specific Gravity 1.024 (1.005-1.030)
[2022-12-21 05:13] LABS: Albumin 3.4 g/dL (3.4-5.0); Bilirubin Total 0.3 mg/dL (0.2-1.0); Potassium 3.3 mEq/L (3.5-5.1)
--- NOTE | 2022-12-21 06:30 | RAD REPORT ---
EXAM DESCRIPTION: CTAbdomen Pelvis W Contrast - 12/21/2022 5:49 am CLINICAL HISTORY: ABD PAIN COMPARISON: Abdomen Pelvis W Contrast dated 04/29/2021 TECHNIQUE: CT of the abdomen and pelvis was performed with IV contrast. All CT scans are performed using dose optimization technique as appropriate and may include automated exposure control or mA/KV adjustment according to patient size. FINDINGS: Lower chest: No acute abnormality. Liver: No acute abnormality or suspicious lesions. Biliary: Cholecystectomy Stomach: No significant focal abnormality. Duodenum: No significant focal abnormality. Pancreas: No significant abnormality. Spleen: No significant abnormality. Adrenal: No suspicious lesions. Adrenal thickening without discrete mass. Kidney/ureter: No hydronephrosis. No renal calculi. Retroperitoneum: No retroperitoneal adenopathy. Vascular: No aneurysm. Mild atherosclerosis. Bowel: No significant focal abnormality. Normal appendix. Peritoneum: No ascites or free air. Tiny fat containing umbilical hernia. Bladder: Grossly unremarkable. Reproductive: No adnexal masses. Bones: No acute fracture. Other: n/a IMPRESSION: No acute intra-abdominal or pelvic finding. Normal appendix.
[2022-12-21] MEDS ORDERED: POTASSIUM CL SA 10 MEQ TAB PO ONE (06:35)
--- NOTE | 2022-12-21 06:38 | ER ---
Nurse's Notes [facility] Name: Carlton Thompson Age: 47 yrs Sex: Female : 1975 Arrival Date: 12/21/2022 Time: 04:07 Bed 5 Private MD: Diagnosis: Dysuria;Abdominal tenderness;Hypokalemia Presentation: 12/21 04:24 Chief complaint: Patient states: PAIN ON R FLANK RAD TO RLQ ABD X FEW WKS NOW. XRAY rv DONE, NEGATIVE. WAS PRESCRIBED WITH ANTI INFLAMMATORY, IS NOT GETTING BETTER, ON AND OFF NAUSEA WITH FEELING OF BLOATEDNESS. NO VOMITING AND DIARRHEA. ALSO COMPLAINS OF BURNING SENSATION WHEN TRYING TO URINATE. DENIES FEVER. Coronavirus screen: At this time, the client does not indicate any symptoms associated with coronavirus-19. Ebola Screen: No symptoms or risks identified at this time. Initial Sepsis Screen: Does the patient meet any 2 criteria? No. Patient's initial sepsis screen is negative. Does the patient have a suspected source of infection? No. Patient's initial sepsis screen is negative. Risk Assessment: Do you want to hurt yourself or someone else? Patient reports no desire to harm self or others. Onset of symptoms is unknown. 04:24 Method Of Arrival: Ambulatory rv 04:24 Acuity: ANA 3 rv Triage Assessment: 04:27 General: Appears uncomfortable, Behavior is calm, cooperative. Pain: Complains of pain rv in RIGHT FLANK, RLQ ABD. Neuro: Level of Consciousness is awake, alert, obeys commands, Oriented to person, place, time, situation. Cardiovascular: Capillary refill < 3 seconds. Respiratory: Airway is patent Respiratory effort is even, unlabored. Historical: - Allergies: 04:26 Sulfa (Sulfonamide Antibiotics); rv 04:26 STEROIDS; rv - PMHx: 04:26 Hypertensive disorder; Hypercholesterolemia; rv - PSHx: 04:26 section; Cholecystectomy; Etopic; lithrotripsy; R knee repair; rv - Immunization history:: Adult Immunizations up to date. - Social history:: Smoking status: Patient denies any tobacco usage or history of. - Family history:: not pertinent. Screenin:27 [facility] ED Fall Risk Assessment (Adult) History of falling in the last 3 months, rv including since admission No falls in past 3 months (0 pts) Confusion or Disorientation No (0 pts) Intoxicated or Sedated No (0 pts) Impaired Gait No (0 pts) Mobility Assist Device Used No (0 pt) Altered Elimination No (0 pt). Abuse screen: Denies threats or abuse. Denies injuries from another. Nutritional screening: No deficits noted. Tuberculosis screening: No symptoms or risk factors identified. Assessment: 06:27 Reassessment: Patient and/or family updated on plan of care and expected duration. Pain rv level reassessed. Patient is alert, oriented x 3, equal unlabored respirations, skin warm/dry/pink. Vital Signs: 04:24 BP 133 / 92; Pulse 82; Resp 18; Temp 97.9; Pulse Ox 100% ; Weight 82.1 kg; Height 5 ft. rv 5 in. ; 06:27 BP 105 / 69; Pulse 80; Resp 18; Pulse Ox 99% on R/A; rv 04:24 Body Mass Index 30.12 (82.10 kg, 165.1 cm) rv Zullinger Coma Score: 06:34 Eye Response: spontaneous(4). Motor Response: obeys commands(6). Verbal Response: rv oriented(5). Total: 15. ED Course: 04:08 Patient arrived in ED. [email or web address] 04:18 Russ Ferguson MD is Attending Physician. [facility] 04:24 Tejas Rosario, DELLA is Primary Nurse. rv 04:26 Triage completed. rv 04:27 Arm band placed on right wrist. rv 04:28 Patient has correct armband on for positive identification. Client placed on continuous rv cardiac and pulse oximetry monitoring. NIBP monitoring applied. stock receiver on. 04:41 Inserted saline lock: 20 gauge in right antecubital area, using aseptic technique. rv Blood collected. 05:51 CT Abd/Pelvis - IV Contrast Only In Process Unspecified. EDMS 06:47 Provided Education on: UTI. rv 06:47 No provider procedures requiring assistance completed. IV discontinued, intact, rv bleeding controlled, No redness/swelling at site. Pressure dressing applied. Administered Medications: 04:41 Drug: Ketorolac IVP 30 mg Route: IVP; Site: right antecubital; rv 06:47 Follow up: Response: No adverse reaction rv 06:22 Drug: fentaNYL (PF) IVP 25 mcg Route: IVP; Site: right antecubital; rv 06:46 Follow up: Response: No adverse reaction rv 06:26 Drug: Potassium PO Effervescent Tablet 25 mEq Route: PO; rv 06:46 Follow up: Response: No adverse reaction rv 06:46 Drug: Ciprofloxacin PO 500 mg Route: PO; rv 06:46 Follow up: Response: Medication administered at discharge. rv 06:47 Not Given (NOT APPLICABLE AT THIS TIMEv): Rocephin IV 1 grams IV at per protocol once; rv Given slow IV push per pharmacy instructions 06:47 Not Given (NOT APPLICABLE AT THIS TIME): fentaNYL (PF) IVP 25 mcg IVP once rv 06:47 Not Given (NOT APPLICABLE AT THIS TIMEv): Ondansetron IVP 4 mg IVP once; over 2 minutes rv Medication: 04:28 VIS not applicable for this client. rv Outcome: 06:38 Discharge ordered by . maricel 06:47 Discharged to home ambulatory. rv 06:47 Condition: good 06:47 Discharge instructions given to patient, Instructed on discharge instructions, follow up and referral plans. medication usage, Demonstrated understanding of instructions, follow-up care, medications, Prescriptions given X 3. 06:48 Patient left the ED. rv Signatures: Dispatcher [employer] EDRuss Ron MD MD cha Vicente, Ronaldo, RN RN Daja Philippe [email or web address]
--- NOTE | 2022-12-21 06:38 | EDPHYS ---
Physician Documentation [facility] Name: Carlton Thompson Age: 47 yrs Sex: Female : 1975 Arrival Date: 12/21/2022 Time: 04:07 Bed 5 Private MD: Russ Gardner HPI: 12/21 04:33 This 47 yrs old Female presents to ER via Ambulatory with complaints of maricel Pelvic Pain. 04:33 The patient presents with abdominal pain right lower quadrant. Onset: The maricel symptoms/episode began/occurred 3 day(s) ago. The patient complains of pain in the right mid back and right low back. The pain radiates to the right mid back and right low back. Onset: The symptoms/episode began/occurred 3 day(s) ago. Modifying factors: The symptoms are alleviated by nothing. the symptoms are aggravated by nothing. The patient presents with pain that is acute, with no known mechanism of injury. The symptoms are located in the right mid back and right low back. Associated signs and symptoms: Pertinent positives: dysuria. Modifying factors: The patient symptoms are alleviated by nothing, the patient symptoms are aggravated by nothing. Severity of symptoms: At their worst the symptoms were mild, moderate, in the emergency department the symptoms are unchanged. Historical: - Allergies: 04:26 Sulfa (Sulfonamide Antibiotics); rv 04:26 STEROIDS; rv - PMHx: 04:26 Hypertensive disorder; Hypercholesterolemia; rv - PSHx: 04:26 section; Cholecystectomy; Etopic; lithrotripsy; R knee repair; rv - Immunization history:: Adult Immunizations up to date. - Social history:: Smoking status: Patient denies any tobacco usage or history of. - Family history:: not pertinent. ROS: 04:33 Constitutional: Negative for fever, chills, and weight loss, Eyes: Negative for injury, maricel pain, redness, and discharge, ENT: Negative for injury, pain, and discharge, Neck: Negative for injury, pain, and swelling, Cardiovascular: Negative for chest pain, palpitations, and edema, Respiratory: Negative for shortness of breath, cough, wheezing, and pleuritic chest pain, : Negative for injury, bleeding, discharge, and swelling, MS/Extremity: Negative for injury and deformity, Skin: Negative for injury, rash, and discoloration, Neuro: Negative for headache, weakness, numbness, tingling, and seizure, Psych: Negative for depression, anxiety, suicide ideation, homicidal ideation, and hallucinations, Allergy/Immunology: Negative for hives, rash, and allergies, Endocrine: Negative for neck swelling, polydipsia, polyuria, polyphagia, and marked weight changes, Hematologic/Lymphatic: Negative for swollen nodes, abnormal bleeding, and unusual bruising. 04:33 Abdomen/GI: Positive for abdominal pain, abdominal cramps, of the posterior aspect of right lateral abdomen, anterior aspect of right lateral abdomen and right lower quadrant. 04:33 Back: Positive for pain at rest, flank pain, on the right. Exam: 04:33 Constitutional: This is a well developed, well nourished patient who is awake, alert, maricel and in no acute distress. Head/Face: Normocephalic, atraumatic. Eyes: Pupils equal round and reactive to light, extra-ocular motions intact. Lids and lashes normal. Conjunctiva and sclera are non-icteric and not injected. Cornea within normal limits. Periorbital areas with no swelling, redness, or edema. ENT: Nares patent. No nasal discharge, no septal abnormalities noted. Tympanic membranes are normal and external auditory canals are clear. Oropharynx with no redness, swelling, or masses, exudates, or evidence of obstruction, uvula midline. Mucous membranes moist. Neck: Trachea midline, no thyromegaly or masses palpated, and no cervical lymphadenopathy. Supple, full range of motion without nuchal rigidity, or vertebral point tenderness. No Meningismus. Chest/axilla: Normal chest wall appearance and motion. Nontender with no deformity. No lesions are appreciated. Cardiovascular: Regular rate and rhythm with a normal S1 and S2. No gallops, murmurs, or rubs. Normal PMI, no JVD. No pulse deficits. Respiratory: Lungs have equal breath sounds bilaterally, clear to auscultation and percussion. No rales, rhonchi or wheezes noted. No increased work of breathing, no retractions or nasal flaring. Abdomen/GI: Soft, non-tender, with normal bowel sounds. No distension or tympany. No guarding or rebound. No evidence of tenderness throughout. Skin: Warm, dry with normal turgor. Normal color with no rashes, no lesions, and no evidence of cellulitis. MS/ Extremity: Pulses equal, no cyanosis. Neurovascular intact. Full, normal range of motion. Neuro: Awake and alert, GCS 15, oriented to person, place, time, and situation. Cranial nerves II-XII grossly intact. Motor strength 5/5 in all extremities. Sensory grossly intact. Cerebellar exam normal. Normal gait. Psych: Awake, alert, with orientation to person, place and time. Behavior, mood, and affect are within normal limits. 04:33 Back: pain, that is mild, of the right mid back and right low back, ROM is normal, normal spinal alignment noted, CVA tenderness, that is mild, is noted on the right, muscle spasm, is not present. Vital Signs: 04:24 BP 133 / 92; Pulse 82; Resp 18; Temp 97.9; Pulse Ox 100% ; Weight 82.1 kg; Height 5 ft. rv 5 in. ; 06:27 BP 105 / 69; Pulse 80; Resp 18; Pulse Ox 99% on R/A; rv 04:24 Body Mass Index 30.12 (82.10 kg, 165.1 cm) rv Hurley Coma Score: 06:34 Eye Response: spontaneous(4). Motor Response: obeys commands(6). Verbal Response: rv oriented(5). Total: 15. MDM: 04:18 Patient medically screened. mariecl 04:36 Differential diagnosis: Peptic Ulcer Pyelonephritis Renal Infarction Ureterolithiasis maricel diverticulitis, non-specific abd pain. Data reviewed: vital signs, nurses notes, lab test result(s), radiologic studies, CT scan. Consideration of Admission/Observation Escalation of care including admission/observation considered. I considered the following discharge prescriptions or medication management in the emergency department Medications were administered in the Emergency Department. See MAR. Test considered but Not performed: Ultrasound NO RENAL USG. Historians other than the Patient: JUST PATIENT. Care significantly affected by the following chronic conditions: Hypertension, HIGH CHOLESTEROL. Counseling: I had a detailed discussion with the patient and/or guardian regarding: the historical points, exam findings, and any diagnostic results supporting the discharge/admit diagnosis, lab results, radiology results, the need for outpatient follow up, for definitive care, a family practitioner. 12/21 04:32 Order name: CBC with Diff; Complete Time: 06:07 maricel 12/21 04:32 Order name: Comprehensive Metabolic Panel; Complete Time: 06:07 [facility] 12/21 04:32 Order name: Urinalysis w/ reflexes; Complete Time: 06:07 [facility] 12/21 04:32 Order name: PREGU; Complete Time: 06:07 [facility] 12/21 04:32 Order name: CT Abd/Pelvis - IV Contrast Only maricel Administered Medications: 04:41 Drug: Ketorolac IVP 30 mg Route: IVP; Site: right antecubital; rv 06:47 Follow up: Response: No adverse reaction rv 06:22 Drug: fentaNYL (PF) IVP 25 mcg Route: IVP; Site: right antecubital; rv 06:46 Follow up: Response: No adverse reaction rv 06:26 Drug: Potassium PO Effervescent Tablet 25 mEq Route: PO; rv 06:46 Follow up: Response: No adverse reaction rv 06:46 Drug: Ciprofloxacin PO 500 mg Route: PO; rv 06:46 Follow up: Response: Medication administered at discharge. rv 06:47 Not Given (NOT APPLICABLE AT THIS TIMEv): Rocephin IV 1 grams IV at per protocol once; rv Given slow IV push per pharmacy instructions 06:47 Not Given (NOT APPLICABLE AT THIS TIME): fentaNYL (PF) IVP 25 mcg IVP once rv 06:47 Not Given (NOT APPLICABLE AT THIS TIMEv): Ondansetron IVP 4 mg IVP once; over 2 minutes rv Disposition Summary: 12/21/22 06:38 Discharge Ordered Location: Home maricel Problem: new maricel Symptoms: have improved maricel Condition: Stable maricel Diagnosis - Dysuria maricel - Abdominal tenderness maricel - Hypokalemia maricel Followup: maricel - With: Private Physician - When: 2 - 3 days - Reason: Recheck today's complaints, Continuance of care, Re-evaluation by your physician Discharge Instructions: - Discharge Summary Sheet maricel - Abdominal Pain, Adult maricel - Potassium Content of Foods maricel - Dysuria maricel - Abdominal Pain, Adult, [id number] maricel - Hypokalemia maricel Forms: - Medication Reconciliation Form maricel - Thank You Letter maricel - Antibiotic Education maricel - Prescription Opioid Use maricel - Patient Portal Instructions maricel Prescriptions: - Cipro 250 mg Oral Tablet - take 1 tablet by ORAL route every 12 hours; 14 tablet; Refills: 0, Product maricel Selection Permitted - Pyridium 200 mg Oral Tablet - take 1 tablet by ORAL route every 8 hours for 3 days; 9 tablet; Refills: 0, maricel Product Selection Permitted - Zofran 4 mg Oral Tablet - take 1 tablet by ORAL route every 12 hours As needed; 20 tablet; Refills: 0, maricel Product Selection Permitted Signatures: Dispatcher [employer] Russ Nettles MD MD cha Vicente, Ronaldo, RN RN rv
[2022-12-21] MEDS ORDERED: CIPROFLOXACIN HCL 500 MG TAB ONE (06:52)
[2022-12-21 06:57] VITALS: TEMP 97.9
[2022-12-21 07:11] VITALS: BP 105/69; O2SAT 99
== END 2022-12-21 06:48 | disposition home or self-care (01) ==
LOC: ER 04:07
DX: R30.0 Dysuria (principal); R10.813 Right lower quadrant abdominal tenderness; E87.6 Hypokalemia; I10 Essential (primary) hypertension; Z88.2 Allergy status to sulfonamides; Z88.8 Allergy status to other drugs, medicaments and biological substances
CPT/HCPCS: 85025; 81001; 36415; 81025; 80053; 74177; 96375; 96374; 99285; Q9967; J3010; J0696; J2405

== ENCOUNTER 2024-02-21 07:39 | Day surgery (SDC) | payer BC ==
[2024-02-21] MEDS ORDERED: Ringers Lactate 1,000 ML IV ONE (08:15)
[2024-02-21 08:16] LABS: Urine Specific Gravity/Preg 1.025 (1.005-1.030)
[2024-02-21 08:36] LABS: Anion Gap 6.1 mEq/L (5.0-15.0); Potassium 3.1 mEq/L (3.5-5.1)
[2024-02-21] MEDS ORDERED: propofoL 200 MG/20 ML VIAL IV ONE (09:34)
[2024-02-21 10:53] VITALS: O2SAT 100
[2024-02-21 11:10] VITALS: BP 126/71; TEMP 97.3
--- NOTE | 2024-02-21 14:06 | EKG ---
Test Date: 2024-02-21 Test Time: 07:53:27 Printer Floor Covering Assistant: MARJORIE MEASUREMENT RESULTS: Intervals: Rate: 63 SC: 154 QRSD: 78 QT: 426 QTc: 435 [place]: P: 17 SC: 154 QRS: 43 T: 48 INTERPRETIVE STATEMENTS: Normal sinus rhythm Normal ECG No previous ECG available for comparison Electronically Signed On 02-21-24 14:05:35 CDT by Juan A Calderón
== END 2024-02-21 11:05 | disposition home or self-care (01) ==
LOC: OR 07:39
PROVIDERS: ATTEND Surgery
PROC: 0DBL8ZX Excision of Transverse Colon, Via Natural or Artificial Opening Endoscopic, Diagnostic (ICD-10-PCS; principal; 2024-02-21 09:30)
DX: Z12.11 Encounter for screening for malignant neoplasm of colon (principal); D12.3 Benign neoplasm of transverse colon; K64.8 Other hemorrhoids
CPT/HCPCS: 93005; 80048; 36415; 81025; 88305; 45380; J2704; J7120